=== PATIENT | male | born 1940 | race Caucasian/White ===

== ENCOUNTER 2018-04-29 10:50 | Outpatient (CLI) | payer MEDICARE ==
--- NOTE | 2018-04-29 12:50 | RAD ---
CHEST 2 VIEWS: HISTORY: Dyspnea. COMPARISON: 11/26/15. FINDINGS: Cardiac silhouette and pulmonary vasculature are unremarkable. Mediastinum is midline. Chronic inte rstitial prominence at the right posterior lung base is stable. No confluent airspace consolidation, pneumothorax, or pleural fluid. Bilateral shoulder prostheses partially visualized. IMPRESSION: Chronic-type findings are stable. POS: EARLINE
== END 2018-04-29 10:51 | disposition home or self-care (01) ==
LOC: RAD 10:50
PROVIDERS: ATTEND Internal Medicine
DX: R06.00 Dyspnea, unspecified (principal)
CPT/HCPCS: 71046

== ENCOUNTER 2018-06-30 08:50 | Outpatient (CLI) | payer MEDICARE | END 2018-06-30 08:51 | disposition home or self-care (01) | LOC: CP 08:50 | PROVIDERS: ATTEND Internal Medicine | DX: R06.09 Other forms of dyspnea (principal) | CPT/HCPCS: 94060; 94727; 94729 ==

== ENCOUNTER 2018-08-12 10:04 | Day surgery (SDC) | payer MEDICARE ==
[2018-08-12] MEDS ORDERED: PROPOFOL 20 ML ONE (11:21)
[2018-08-12] MEDS ORDERED: PROPOFOL 200 MG/20 ML VIAL ONE (11:49)
--- NOTE | 2018-08-23 23:16 | OP ---
PREPROCEDURE DIAGNOSIS: Atrial fibrillation. POSTPROCEDURE DIAGNOSIS: Sinus rhythm. PROCEDURE: Synchronized cardioversion Patient was sedated with propofol. Anesthesia was present during the procedure. Patient had a synch ronous cardioversion times one at 150 joules successfully IMPRESSION: Successful synchronized cardioversion.
== END 2018-08-12 12:45 | disposition home or self-care (01) ==
LOC: CCL 10:04
PROVIDERS: ATTEND Internal Medicine Cardiovascular Disease
PROC: 5A2204Z Restoration of Cardiac Rhythm, Single (ICD-10-PCS; principal; 2018-08-12)
DX: I48.0 Paroxysmal atrial fibrillation (principal); I11.0 Hypertensive heart disease with heart failure; I50.30 Unspecified diastolic (congestive) heart failure; M19.90 Unspecified osteoarthritis, unspecified site; E66.9 Obesity, unspecified; Z68.37 Body mass index [BMI] 37.0-37.9, adult; Z79.01 Long term (current) use of anticoagulants; Z79.82 Long term (current) use of aspirin; Z79.899 Other long term (current) drug therapy
CPT/HCPCS: 92960; 93005; 93010; J2704

== ENCOUNTER 2018-09-19 12:23 | Observation (INO) | payer MEDICARE ==
[2018-09-19 13:49] LABS: #Basophils 0.1 thou/uL (0.0-0.2); #Eosinphils 0.2 thou/uL (0.0-0.7); #Lymphocytes 1.7 thou/uL (1.20-3.40); #Monocytes 1.2 thou/uL (0.11-0.59); #Neutrophils 5.5 thou/uL (1.40-6.50); %Basophils 0.6 % (0.0-1.0); %Eosinophils 2.2 % (0.0-10.0); %Lymphocytes 19.7 % (21.0-51.0); %Monocytes 14.1 % (0.0-10.0); %Neutrophils 63.4 % (42.0-75.0); Hemoglobin 9.1 g/dL (14.0-18.0); Mean Corpuscular HGB CONC 29.9 g/dL (32.0-36.0); Mean Corpuscular Hemoglobin 25.4 pg (27.0-31.0); Mean Corpuscular Volume 84.7 fL (78.0-98.0); Mean Platelet Volume 6.7 fL (7.4-10.4); Platelet Count 389 thou/uL (130-400); RBC Distribution Width 18.1 % (11.5-14.5); Red Blood Cell (RBC) Count 3.58 mill/uL (4.70-6.10); White Blood Cell (WBC) Count 8.7 thou/uL (4.8-10.8)
[2018-09-19 13:52] LABS: INR-International Normal Ratio 1.5; PTT 34.2 SEC (22.9-36.1); Prothrombin Time 18.3 SEC (12.0-14.7)
[2018-09-19] MEDS ORDERED: PROPOFOL 0 ML ONE (13:59)
[2018-09-19 14:06] LABS: Anion Gap 14 mmol/L (10-20); BUN (Urea Nitrogen) 49 mg/dL (8.4-25.7); Calc. Creatinine Clearance 0 mL/min (70-130); Calcium 9.1 mg/dL (7.8-10.44); Carbon Dioxide 30 mmol/L (23-31); Chloride 102 mmol/L (98-107); Estimated GFR-MDRD 46; Glucose 98 mg/dL (83-110); Sodium 143 mmol/L (136-145)
[2018-09-19 14:11] LABS: Potassium 2.5 mmol/L (3.5-5.1)
[2018-09-19 14:12] LABS: Anisocytosis SLIGHT = 6-15 cells (100X) (0-5/hpf); Hypochromia SLIGHT = 6-15 cells (100X) (0-5/hpf); MDiff Complete? YES; PLT Morphology Comment Appears Adequate; Polychromasia SLIGHT = 2-3 cells (100X) (0-2/hpf)
[2018-09-19] MEDS ORDERED: Potassium Chloride 20 MEQ in Premix Bag 1 BAG IVPB SCH ×2 (14:30→15:30)
[2018-09-19] MEDS ORDERED: Potassium Chloride 20 MEQ TAB PO SCH (14:30)
[2018-09-19 17:02] LABS: Potassium 2.4 mmol/L (3.5-5.1)
[2018-09-19 18:38] VITALS: BMI 37.9
[2018-09-19] MEDS ORDERED: Nitroglycerin 4.9 GM Bottle SL PRN (19:16)
[2018-09-19] MEDS ORDERED: traMADol HCl 50 MG TAB PO PRN (19:20)
[2018-09-19] MEDS ORDERED: Temazepam 15 MG CAP PO SCH (21:00)
[2018-09-19] MEDS ORDERED: Gabapentin 300 MG CAP PO SCH (21:00)
[2018-09-19] MEDS ORDERED: Atorvastatin Calcium 20 MG TAB PO SCH (21:00)
[2018-09-19] MEDS: Acetaminophen ER (8hr) 650 MG TAB PO SCH (21:36)
[2018-09-19] MEDS: Apixaban 5 MG TAB PO SCH (21:36)
[2018-09-19] MEDS ORDERED: Senokot S 8.6-50 MG TAB PO PRN (23:42)
[2018-09-19] MEDS ORDERED: Bisacodyl 5 MG TAB PO PRN (23:42)
[2018-09-19] MEDS ORDERED: Ondansetron ODT 4 MG TAB PO PRN (23:42)
[2018-09-19] MEDS ORDERED: Ondansetron PF 4 MG/2 ML Vial IVP PRN (23:42)
[2018-09-19] MEDS ORDERED: Acetaminophen 325 MG TAB PO PRN (23:42)
--- NOTE | 2018-09-20 00:27 | CON ---
DATE OF CONSULTATION: 09/19/2018 HISTORY OF PRESENT ILLNESS: Mr. Valladares is a 77-year-old white male who was seen at the renal clinic l ast week for an acute kidney injury. At that time, we felt that this was a hemodynamically mediated renal dysfunction secondary to his congestive heart failure. Today, he was supposed to undergo a car dioversion with eventual cardiac ablation therapy by Dr. David. During the initial evaluation, he was noted to be hypokalemic. Potassium was reported initially at 2.5. I saw him in clinic a week ago, at that time, his potassium was 2.8. At that time, we felt this was related to his diuretics. At [facility], he was taking potassium chloride 20 mEq 3 tablets daily. He is currently also on furosemide as w ell as on metolazone 5 mg p.o. daily. This increased dose of metolazone may have aggravated his hypokalemia. He has been advised on increased potassium diet. This was discussed with him and his daughter. We a re now being consulted for further evaluation of his acute kidney injury and low potassium. Please n artemio, when I saw him last 09/08, his potassium was noted at 1.58 and is currently at 1.47. REVIEW OF SYSTEMS: No chest pain. Positive for intermittent shortness of breath. No nausea, no vom iting, no diarrhea. Occasional palpitations. No syncopal episode, no gross hematuria, no dysuria, n o urinary frequency, no syncopal episode, no headache. Appetite and energy level is fair. HOME MEDICATIONS: Includes the following metolazone 5 mg p.o. daily, acetaminophen 2 tabs p.o. b.i.d ., atorvastatin 20 mg tab at bedtime, aspirin 81 mg daily, potassium chloride 20 mEq 3 tabs every day , furosemide 40 mg twice a day, temazepam 15 mg at bedtime, Protonix 40 mg at bedtime p.r.n., tramado l, nitroglycerin p.r.n., gabapentin 300 mg at bedtime. PAST MEDICAL HISTORY: Congestive heart failure, status post acute kidney injury, coronary artery dis ease, history of valvular heart disease, chronic atrial fibrillation, chronic history of NSAIDs, hype rtension, hyperlipidemia, DJD, peptic ulcer disease, chronic leg swelling. PAST SURGICAL HISTORY: 1. Status post upper and lower GI endoscopy, status post leg vein surgery, status post cardiac zandra terization with coronary artery stent placement. 2. Status post cataract surgery in both eyes. 3. Status post right knee replacement. 4. Status post bilateral shoulder joint surgery. 5. Status post umbilical hernia repair. 6. Status post laparoscopic cholecystectomy. SOCIAL HISTORY: Patient is and lives in [place], has 4 children. 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 Alcohol mixed drink e very night. No IV drug abuse. No blood transfusion. Education, high school. FAMILY HISTORY: No family history of ESRD. ALLERGIES: None. TRAUMA: None. HOSPITALIZATIONS: Please see past medical history. IMMUNIZATIONS: Up to date. PHYSICAL EXAMINATION: VITAL SIGNS: Blood pressure is 141/53 with a heart rate of 63, respiratory rate 12. GENERAL: Awake, alert, comfortable, not in overt distress, obese. SKIN: Adequate turgor. HEENT: He has pinkish conjunctivae, anicteric sclerae. NECK: No neck mass, no carotid bruits, no JVD. CHEST: No deformities. LUNGS: Clear breath sounds. No wheezing, no crackles. HEART: Normal sinus rhythm. No murmur, no gallops, no rubs. ABDOMEN: Globular, soft, nontender. No masses. EXTREMITIES: Positive for edema, but no deformities. NEUROLOGIC: Awake, oriented to 3 spheres. Moving all extremities. No tremors. No asterixis. LABORATORY DATA: On 09/19/2018, hemoglobin 9.1, hematocrit 30.3, white count 8.7. INR 1.5, sodium 1 43, potassium 2.5, chloride is 102, carbon dioxide 30, BUN 49, creatinine 1.47, calcium 9.1, magnesiu m is 2.2. ASSESSMENT AND PLAN: Hypokalemia, currently undergoing potassium replacement via IV and p.o. Laila ium was reported to be within normal at 2.2. The plan is to recheck another base met with this patie nt at midnight and to continue to replace potassium as needed. Initially, we thought that the hypoka lemia was related to his increased diuretics. He has been taking significant amounts of furosemide a s well as metolazone. If hypokalemia remains unresolved, we may need to do a second re-workup for hi s hypokalemia. I have not excluded in considering starting him on spironolactone in the near future. On imaging of the adrenal glands would be most appropriate after we do a plasma renin, plasma aldos terone for this patient. Thank you for the consult. We will continue to follow.
[2018-09-20 00:39] LABS: Anion Gap 13 mmol/L (10-20); BUN (Urea Nitrogen) 45 mg/dL (8.4-25.7); Calc. Creatinine Clearance 69 mL/min (70-130); Calcium 8.7 mg/dL (7.8-10.44); Carbon Dioxide 29 mmol/L (23-31); Chloride 103 mmol/L (98-107); Estimated GFR-MDRD 44; Glucose 97 mg/dL (83-110); Sodium 142 mmol/L (136-145)
[2018-09-20 00:41] LABS: Potassium 2.9 mmol/L (3.5-5.1)
[2018-09-20] MEDS ORDERED: Potassium Chloride 40 MEQ in Sodium Chloride 0.9% 250 ML 250 ML IVPB SCH (01:30)
[2018-09-20 06:27] LABS: Anion Gap 12 mmol/L (10-20); BUN (Urea Nitrogen) 43 mg/dL (8.4-25.7); Calc. Creatinine Clearance 74 mL/min (70-130); Calcium 8.7 mg/dL (7.8-10.44); Carbon Dioxide 28 mmol/L (23-31); Chloride 104 mmol/L (98-107); Estimated GFR-MDRD 48; Glucose 94 mg/dL (83-110); Sodium 141 mmol/L (136-145)
[2018-09-20 06:40] LABS: Eosinophils 6 % (0-10); Hemoglobin 8.6 g/dL (14.0-18.0); Lymphocytes 32 % (21-51); MDiff Complete? YES; Mean Corpuscular HGB CONC 30.1 g/dL (32.0-36.0); Mean Corpuscular Hemoglobin 25.7 pg (27.0-31.0); Mean Corpuscular Volume 85.3 fL (78.0-98.0); Mean Platelet Volume 6.8 fL (7.4-10.4); Monocytes 12 % (0-10); Neutrophil 48 % (42-75); PLT Morphology Comment Appears Adequate; Platelet Count 377 thou/uL (130-400); RBC Distribution Width 18.4 % (11.5-14.5); Red Blood Cell (RBC) Count 3.33 mill/uL (4.70-6.10); White Blood Cell (WBC) Count 6.5 thou/uL (4.8-10.8)
--- NOTE | 2018-09-20 08:12 | PRG ---
DATE OF SERVICE: 09/20/2018 SUBJECTIVE: Mr. Valladares is a 77-year-old white male being followed up for his chronic renal failure th at is hemodynamically mediated renal dysfunction, as well as hypokalemia. The patient was supposed t o undergo cardioversion yesterday, but was noted to be significantly hypokalemic. Repeat potassium t carli done chief operator synthesis showed a value of 3.0. Currently on KCl 40 mEq is running with the patient. A repeat base has again been ordered for this patient at 10:30 a.m. No other complaints, no chest p ain or shortness of breath. Occasional leg edema. OBJECTIVE: VITAL SIGNS: Blood pressure 114/57, heart rate 58, respiratory rate 15, temperature 97.7, pulse ox 9 6%. GENERAL: Noted to be awake, alert, comfortable, not in distress. SKIN: Adequate turgor. HEENT: Pinkish conjunctivae, anicteric sclerae. NECK: No neck mass, no carotid bruits, no JVD. CHEST: No deformities. LUNGS: Clear breath sounds. HEART: Normal sinus rhythm. No murmur, no gallops, no rubs. ABDOMEN: Globular, soft, nontender, no masses. EXTREMITIES: Trace edema, but no deformities. MEDICATIONS: 09/20/2018 - Reviewed. LABORATORY DATA: 09/20/2018 - Sodium 141, potassium 3, chloride 104, carbon dioxide 28, BUN 43, crea tinine 1.41, glucose 94, calcium 8.7. ASSESSMENT AND PLAN: 1. Hypokalemia, slightly improved potassium from 2.4 to a most recent value of 3.0. He is still rec eiving his current IV potassium at 40 mEq and will run over 2 hours. We will repeat a base met after the said infusion. Adjust potassium supplementation as needed. 2. Chronic renal failure/acute kidney injury - hemodynamically mediated renal dysfunction secondary to his diuretics. Please note he is receiving diuretics due to his congestive heart failure. 3. Congestive heart failure, currently asymptomatic. 4. Chronic atrial fibrillation - for a planned cardioversion. As per Cardiology a planned ablation therapy in the near future is being entertained.
[2018-09-20] MEDS: Furosemide 40 MG TAB PO SCH ×2 (09:00→09:05)
[2018-09-20] MEDS: Metolazone 5 MG TAB PO SCH ×2 (09:00→09:04)
[2018-09-20] MEDS ORDERED: Prevnar 13-Val Conj/PF 0.5 ML SYRINGE IM ONE (09:00)
[2018-09-20] MEDS ORDERED: Potassium Chloride 20 MEQ TAB PO SCH ×2 (09:00→17:00)
[2018-09-20] MEDS: Apixaban 5 MG TAB PO SCH (09:04)
[2018-09-20] MEDS: Aspirin 81 mg Enteric Coated Tablet PO SCH ×2 (09:04→14:51)
[2018-09-20] MEDS: Amiodarone 200 MG TAB PO SCH ×2 (09:04→14:50)
[2018-09-20] MEDS: Acetaminophen ER (8hr) 650 MG TAB PO SCH (09:04)
--- NOTE | 2018-09-20 10:33 | CON ---
DATE OF CONSULTATION: 09/20/2018 REASON FOR CONSULTATION: Medical management. HISTORY OF PRESENT ILLNESS: This is a 77-year-old male with past medical history of congestive heart failure, status post acute kidney injury, coronary artery disease, history of valvular heart disease , chronic atrial fibrillation, chronic history of NSAIDs, hypertension, hyperlipidemia, peptic ulcer disease, chronic bilateral lower extremity edema, presenting with history of atrial fibrillation. At this point, we have been consulted to medically manage the patient since the patient's potassium has been low. The patient is scheduled to have a cardioversion done with Dr. David; however, because the patient's potassium has been very low, the procedure has not been done yet. Of note, patient recent ly was started on metolazone and aggressive diuresis and this must have caused the patient's hypokale randy. The patient sees Dr. Ramirez in the outpatient setting. REVIEW OF SYSTEMS: All systems are reviewed and are negative. HOME MEDICATIONS: Patient takes metolazone 5 mg, acetaminophen b.i.d., atorvastatin 20 mg, aspirin 8 1 mg, potassium chloride 20 mEq t.i.d., furosemide 40 mg b.i.d., temazepam 50 mg at bedtime, Protonix 40 mg, tramadol, nitroglycerin p.r.n., gabapentin 300 mg. PAST MEDICAL HISTORY: Congestive heart failure, status post acute kidney injury, coronary artery dis ease, history of valvular heart disease, chronic atrial fibrillation, chronic history of NSAID use, h ypertension, hyperlipidemia, DJD, peptic ulcer disease, chronic leg swelling. PAST SURGICAL HISTORY: 1. Status post upper and lower GI endoscopy. 2. Status post leg vein surgery. 3. Status post cardiac catheterization with coronary artery stent placement 4. Status post cataract surgery in the past. 5. Status post right knee replacement. 6. Status post bilateral shoulder joint surgery. 7. Status post umbilical hernia repair. 8. Status post laparoscopic cholecystectomy. SOCIAL HISTORY: Patient lives at home, patient smoked 1 to 1/2 a pack a day for 15 years. Patient i s an occasional drinker. The patient denies any illicit drug use. FAMILY HISTORY: Reviewed and noncontributory to this visit. ALLERGIES: No known drug allergies. PHYSICAL EXAMINATION: VITAL SIGNS: Blood pressure is 141/53, heart rate of 63, respiratory rate of 12. GENERAL: Patient is awake, alert, oriented x3, not in acute distress. The patient has a BiPAP machi ne on. HEENT: Normocephalic, atraumatic. Pupils are equally round and reactive to light. Extraocular move ments are intact. No scleral icterus. NECK: Supple, full range of motion. Trachea is midline. No JVD. LUNGS: Clear to auscultation bilaterally. No wheezing, no rales, no rhonchi is appreciated. CARDIOVASCULAR: Positive S1 and S2, regular rate and rhythm. No murmurs, no gallops, no rubs apprec iated. ABDOMEN: Obese abdomen, soft, nontender, nondistended. No palpable masses noted. EXTREMITIES: The patient has bilateral lower extremity edema, about 3+ edema. The patient is able t o elevate lower extremities bilaterally on command. The patient is also able to elevate both arms bi laterally without any difficulties. The patient has good strength at the upper extremities and good pulses. Patient does have good lower extremity pulses at the dorsalis pedis. NEUROLOGIC: Cranial nerves II-XII grossly intact. No neurologic deficits noted. LABORATORY DATA: WBC is 8.7, hemoglobin is 9.1, hematocrit is 30.3, platelet count is 389. PT is 18 .3, INR is 1.5, PTT is 34.2. Sodium 143, potassium is 2.5, chloride is 102, bicarbonate is 30, anion gap of 14, BUN is 49, creatinine is 1.47. ASSESSMENT AND PLAN: This is a 77-year-old male we have been consulted to manage. 1. Hypokalemia. At this point, we started the patient on . We will continue and we will monitor patient's BMP every 6 hours and we will follow up for the potassium specifically. 2. History of atrial fibrillation, requiring cardioversion. At this point, patient's electrolytes a re all stable. We will medically manage the patient and optimize the patient for possible cardiovers ion by Dr. David. 3. We will continue patient on his home medications that are needed, but at this point, the patient is n.p.o. We will continue the patient on the current management. 4. Deep venous thrombosis and gastrointestinal prophylaxis.
[2018-09-20 11:13] LABS: Potassium 3.1 mmol/L (3.5-5.1)
[2018-09-20 11:48] VITALS: BP 119/58; TEMP 98.5
--- NOTE | 2018-09-21 01:34 | DIS ---
DATE OF DISCHARGE: 09/20/2018 ADMISSION DIAGNOSES: 1. Atrial arrhythmias. A. Status post pulmonary venous isolation procedure couple of months ago. B. Recurrence of atrial fibrillation requiring continued amiodarone use and plan for cardioversion. 3. Marked hyperkalemia in the setting of diuretic use. 4. Chronic diastolic heart failure. HOSPITAL COURSE: Mr. Valladares came into the hospital for an elective procedure for cardioversion. Potassium was found to be 2.5 hence was admitted. He received 40 mEq of IV KCl and 60mEq PO KDUR. Dr. Ramirez has been following the patient, plan to repeat blood work is ready for tomorrow. Otherwise, the patient remained stable. His rhythm stabilized overnight and continues in sinus rhythm. On discharge, he is advised to continue amiodarone as before, continue some nitroglycerin, Lipitor, aspirin, potassium 20 mEq twice a day, Eliquis 5 mg twice a day as before, Tylenol, temazepam, pantoprazole, furosemide, gabapentin , tramadol, and metolazone. He is requested to follow up with Dr. Ramirez and for adjustments of potassium levels. He will see us back in about 6 weeks for further treatment options. MASOUD
--- NOTE | 2018-09-25 21:25 | EKG ---
Test Reason : PREOP CARDIOVERSION Blood Pressure : / mmHG Vent. Rate : 064 BPM Atrial Rate : 064 BPM P-R Int : 252 ms QRS Dur : 134 ms QT Int : 422 ms P-R-T Axes : 020 -43 076 degrees QTc Int : 435 ms Atrial fibrillation Left axis deviation Non-specific intra-ventricular conduction block Nonspecific T wave abnormality Abnormal ECG When compared with ECG of 12-AUG-2018 11:51, (Unconfirmed) T wave inversion no longer evident in Inferior leads Nonspecific T wave abnormality, worse in Lateral leads QT has shortened Confirmed by KATARINA BLANCO (2) on 09/25/2018 9:24:55 PM Referred By: KANE Confirmed By:KATARINA BLANCO
--- NOTE | 2018-09-25 21:27 | EKG ---
Test Reason : PREOP REPEAT Blood Pressure : / mmHG Vent. Rate : 063 BPM Atrial Rate : 073 BPM P-R Int : 000 ms QRS Dur : 140 ms QT Int : 390 ms P-R-T Axes : 000 -38 087 degrees QTc Int : 399 ms Atrial fibrillation with a competing junctional pacemaker Left axis deviation Non-specific intra-ventricular conduction block Abnormal ECG Confirmed by KATARINA BLANCO (2) on 09/25/2018 9:26:42 PM Referred By: KANE Confirmed By:KATARINA BLANCO
--- NOTE | 2018-09-25 21:59 | EKG ---
Test Reason : Blood Pressure : / mmHG Vent. Rate : 059 BPM Atrial Rate : 054 BPM P-R Int : 000 ms QRS Dur : 126 ms QT Int : 540 ms P-R-T Axes : 000 -32 004 degrees QTc Int : 534 ms Atrial fibrillation with slow ventricular response Left axis deviation Non-specific intra-ventricular conduction block Abnormal ECG No previous ECGs available Confirmed by KATARINA BLANCO (2) on 09/25/2018 9:59:06 PM Referred By: RASHAUN Confirmed By:KATARINA BLANCO
== END 2018-09-20 15:45 | disposition home or self-care (01) ==
LOC: SDC 12:23 → 2SW 18:20
PROVIDERS: ADMIT Internal Medicine Cardiovascular Disease; ATTEND Internal Medicine Cardiovascular Disease
DX: E87.6 Hypokalemia (principal); I48.2 Chronic atrial fibrillation; I13.0 Hypertensive heart and chronic kidney disease with heart failure and stage 1 through stage 4 chronic kidney disease, or unspecified chronic kidney disease; N18.9 Chronic kidney disease, unspecified; I50.32 Chronic diastolic (congestive) heart failure; M19.90 Unspecified osteoarthritis, unspecified site; G47.30 Sleep apnea, unspecified; I25.10 Atherosclerotic heart disease of native coronary artery without angina pectoris; E78.5 Hyperlipidemia, unspecified; E66.01 Morbid (severe) obesity due to excess calories; Z68.38 Body mass index [BMI] 38.0-38.9, adult; Z87.891 Personal history of nicotine dependence; Z79.01 Long term (current) use of anticoagulants; Z79.82 Long term (current) use of aspirin; Z79.899 Other long term (current) drug therapy; Z98.890 Other specified postprocedural states; Z53.8 Procedure and treatment not carried out for other reasons
CPT/HCPCS: 80048 ×2; 83735; 84132 ×2; 85025 ×2; 85610; 85730; 93005 ×3; 96365; 96366 ×2; G0378; 36415; 93010; J2704; J3480; J7050

== ENCOUNTER 2019-06-30 14:49 | Emergency (ER) | payer MEDICARE, OTHER ==
[2019-06-30 15:33] LABS: Bilirubin Negative (Negative); Blood, Urine Negative (Negative); Clarity Clear (Clear); Glucose, Urine (Dipstick) Normal (Negative); Leukocyte Negative Leu/uL (Negative); Nitrite Negative (Negative); Protein, Urine (Dipstick) Negative (Neg-Trace); Urobilinogen Normal mg/dL (Less than 2)
[2019-06-30 15:48] LABS: Hemoglobin 10.3 g/dL (14.0-18.0); Mean Corpuscular HGB CONC 30.9 g/dL (32.0-36.0); Mean Corpuscular Hemoglobin 29.1 pg (27.0-31.0); Mean Corpuscular Volume 94.2 fL (78.0-98.0); Mean Platelet Volume 6.3 fL (7.4-10.4); Platelet Count 366 thou/uL (130-400); RBC Distribution Width 14.6 % (11.5-14.5); Red Blood Cell (RBC) Count 3.54 mill/uL (4.70-6.10); White Blood Cell (WBC) Count 9.8 thou/uL (4.8-10.8)
[2019-06-30 16:03] LABS: Eosinophils 5 % (0-10); Hypochromia SLIGHT = 6-15 cells (100X) (0-5/hpf); Lymphocytes 9 % (21-51); MDiff Complete? YES; Monocytes 14 % (0-10); Neutrophil 70 % (42-75); Ovalocytes SLIGHT = 2-5 cells (100X) (0-1/hpf); Platelet Morphology Comment Appears Adequate; Polychromasia SLIGHT = 2-3 cells (100X) (0-2/hpf); Reactive Lymphocytes 1 % (0-10)
[2019-06-30 16:05] LABS: ALT (SGPT) 10 U/L (8-55); AST (SGOT) 14 U/L (5-34); Albumin 3.8 g/dL (3.4-4.8); Alkaline Phosphatase 108 U/L (40-150); Anion Gap 15 mmol/L (10-20); BUN (Urea Nitrogen) 39 mg/dL (8.4-25.7); Bilirubin, Total 0.7 mg/dL (0.2-1.2); Calc. Creatinine Clearance 0 mL/min (70-130); Calcium 9.2 mg/dL (7.8-10.44); Carbon Dioxide 26 mmol/L (23-31); Chloride 103 mmol/L (98-107); Estimated GFR-MDRD 37; Globulin 2.8 g/dL (2.4-3.5); Glucose 106 mg/dL (83-110); Lipase 16 U/L (8-78); Potassium 4.6 mmol/L (3.5-5.1); Protein, Total 6.6 g/dL (5.8-8.1); Sodium 139 mmol/L (136-145)
--- NOTE | 2019-06-30 16:26 | RAD ---
EXAM: Chest one view: HISTORY: Dyspnea COMPARISON: 04/29/2018 FINDINGS: Bilateral shoulder total replacement changes. Heart size: Within normal limits. Lungs: Clear of acute process. No evidence for pneumonia, pleural effusion, acute edema, or pneumothorax, or other significant acute process. IMPRESSION: No significant acute intrathoracic disease.
[2019-06-30] MEDS ORDERED: Morphine 4 MG/ML VIAL ONE (17:42)
--- NOTE | 2019-06-30 18:01 | CT ---
CT THORACIC SPINE WITH CORONAL AND SAGITTAL REFORMATIONS CT LUMBAR SPINE WITH CORONAL AND SAGITTAL REFORMATIONS: 06/30/19 HISTORY: Back pain, low back pain. FINDINGS/IMPRESSION: Multilevel degenerative changes are seen in the thoracolumbar spine. No fracture or subluxation is seen in the thoracic spine. No fracture is noted in the lumbar spine. There is grade I anterolisthesis of L4 over L5 and L5 over S1 vertebral bodies. There are broad based disc bulges at L4-5 and L5-S1 levels causing bilateral clark ral foraminal stenosis, right greater than left at these levels. There is central canal stenosis at L 4-5 and L5-S1 levels. POS: ARVIND
== END 2019-06-30 18:50 | disposition home or self-care (01) ==
LOC: ERS 14:49
DX: M51.26 Other intervertebral disc displacement, lumbar region (principal); I48.91 Unspecified atrial fibrillation; I25.10 Atherosclerotic heart disease of native coronary artery without angina pectoris; I10 Essential (primary) hypertension; Z79.899 Other long term (current) drug therapy; Z79.82 Long term (current) use of aspirin
CPT/HCPCS: 71045; 72128; 72131; 80053; 81003; 83690; 83880; 84484; 85025; 93005; 96374; J2270

== ENCOUNTER 2019-07-25 07:00 | Outpatient (CLI) | payer MEDICARE, OTHER ==
[2019-07-25 15:42] LABS: Hemoglobin 11.2 g/dL (14.0-18.0); Mean Corpuscular HGB CONC 31.8 g/dL (32.0-36.0); Mean Corpuscular Hemoglobin 29.8 pg (27.0-31.0); Mean Corpuscular Volume 93.8 fL (78.0-98.0); Mean Platelet Volume 6.8 fL (7.4-10.4); Platelet Count 348 thou/uL (130-400); RBC Distribution Width 14.1 % (11.5-14.5); Red Blood Cell (RBC) Count 3.75 mill/uL (4.70-6.10); White Blood Cell (WBC) Count 11.7 thou/uL (4.8-10.8)
[2019-07-25 15:49] LABS: INR-International Normal Ratio 1.2; PTT 31.3 SEC (22.9-36.1)
[2019-07-25 15:59] LABS: Anion Gap 12 mmol/L (10-20); BUN (Urea Nitrogen) 26 mg/dL (8.4-25.7); Calc. Creatinine Clearance 0 mL/min (70-130); Carbon Dioxide 24 mmol/L (23-31); Chloride 104 mmol/L (98-107); Estimated GFR-MDRD 45; Potassium 4.1 mmol/L (3.5-5.1); Sodium 136 mmol/L (136-145)
[2019-07-25 16:00] LABS: Calcium 8.5 mg/dL (7.8-10.44); Glucose 81 mg/dL (83-110)
== END 2019-07-25 07:01 | disposition home or self-care (01) ==
LOC: LABBT 07:00
PROVIDERS: ATTEND Internal Medicine Cardiovascular Disease
DX: Z01.818 Encounter for other preprocedural examination (principal); I48.91 Unspecified atrial fibrillation
CPT/HCPCS: 80048; 85027; 85610; 85730; 93005; 93010

== ENCOUNTER 2019-07-26 09:43 | Day surgery (SDC) | payer MEDICARE, OTHER ==
[2019-07-25 15:08] VITALS: BMI 40.6
[2019-07-26] MEDS ORDERED: PROPOFOL 40 ML ONE (11:29)
--- NOTE | 2019-07-26 17:36 | OP ---
DATE OF PROCEDURE: 07/26/2019 PROCEDURE PERFORMED: Cardioversion. REASON FOR PROCEDURE: Mr. Valladares is an 78-year-old male with history of persistent atrial fibrillation post pulmonary venous isolation procedure in May 2019. He has had a Watchman device placed in June. Here after a CORBY, he demonstrates no intracardiac clots, but a suboptimal closure of the left atrial appendage is noted. He continues on oral anticoagulation. Cardioversion is performed. DESCRIPTION OF PROCEDURE: The patient received propofol by Anesthesia specialist. After adequate level of sedation achieved, a synchronized 200-joule shock promptly converted the patient back to sinus rhythm. CONCLUSION: Successful cardioversion. PLAN: Continue amiodarone at the current 200 mg dose. Continue oral anticoagulation as well. Possible coil closure of shar-watcman leakin the future. Job ID: [id number] [facility]
--- NOTE | 2019-07-26 20:09 | ECHO ---
DATE: 07/26/19 REFERRING PHYSICIAN: Dr. Jeronimo Regan and Dr. Radames Becerril REASON FOR PROCEDURE: The patient is status post ------- procedure in May 2019 and subsequent Watchman device placement in June 2019. Here for six weeks post Watchman device placement CORBY. PROCEDURE: The patient received propofol by Anesthesia specialist. After adequate level of sedation achieved, a standard transesophageal echocardiogram probe was passed into the esophagus without diff iculty. Patient tolerated the procedure well, no complications noted. RESULTS: Left atrium is moderate to severely enlarged about 5.9 cm in horizontal diameter. The left atrial ap pendage well visualized contains an adequately positioned Watchman device. There is significant echo lucency noted behind the Watchman device in the left atrial appendage area. Color Doppler interrogati on revealed two separate flows, one by the pulmonary vein, one more closer to the aortic valve area w ith up to 0.4 cm diameter measured. The left ventricular systolic function is mildly depressed. The m itral valve has mild regurgitation. The aortic valve has moderate regurgitation. Mild aortic stenosis is noted. The interatrial septum is free of defect. The ----function is not well visualized. The tri cuspid valve has mild regurgitation. Pericardial space has a small hemodynamic not significant effusi on. The pulmonary valve is not well visualized. The visualized portion of ascending and descending a norma without aneurysm or dissection. Minor adherent atheroma seen on the descending aorta. CONCLUSION: 1. Adequately positioned Watchman device but with at least two residual flow detected up to 0.4 cm d iameter. Suboptimal opacification is seen posterior to the Watchman device. 2. Near normal LV systolic function. 3. Left atrial enlargement. 4. Mild to moderate mitral, moderate aortic, mild tricuspid regurgitation. 5. Small pericardial effusion without hemodynamic significance. 6. Severe left atrial enlargement. PLAN: Continue oral anticoagulation. We will discuss possibility of coil closure and proceed with cardiover mackenzie.
== END 2019-07-26 12:56 | disposition home or self-care (01) ==
LOC: CCL 09:43
PROVIDERS: ATTEND Internal Medicine Cardiovascular Disease
PROC: B24BZZ4 Ultrasonography of Heart with Aorta, Transesophageal (ICD-10-PCS; principal; 2019-07-26)
PROC: 5A2204Z Restoration of Cardiac Rhythm, Single (ICD-10-PCS; 2019-07-26)
DX: I48.1 Persistent atrial fibrillation (principal); G47.33 Obstructive sleep apnea (adult) (pediatric); I10 Essential (primary) hypertension; I08.3 Combined rheumatic disorders of mitral, aortic and tricuspid valves; M19.90 Unspecified osteoarthritis, unspecified site; I25.10 Atherosclerotic heart disease of native coronary artery without angina pectoris; E66.01 Morbid (severe) obesity due to excess calories; Z68.41 Body mass index [BMI] 40.0-44.9, adult; Z79.01 Long term (current) use of anticoagulants; Z79.82 Long term (current) use of aspirin; Z79.899 Other long term (current) drug therapy; Z87.891 Personal history of nicotine dependence; Z95.5 Presence of coronary angioplasty implant and graft; Z95.818 Presence of other cardiac implants and grafts; Z99.89 Dependence on other enabling machines and devices; Z98.890 Other specified postprocedural states
CPT/HCPCS: 93005; 93010; 93312; J2704

== ENCOUNTER → 2019-09-20 | Day surgery (SDC) | payer MEDICARE, OTHER ==
[2019-09-19 13:18] VITALS: BMI 36.9
[~2019-09-20] MED LIST: PROPOFOL 20 ML ONE
[2019-09-20 10:54] LABS: #Basophils 0.1 thou/uL (0.0-0.2); #Eosinphils 0.2 thou/uL (0.0-0.7); #Monocytes 1.3 thou/uL (0.11-0.59); %Basophils 0.6 % (0.0-1.0); %Eosinophils 2.3 % (0.0-10.0); %Lymphocytes 20.5 % (21.0-51.0); %Neutrophils 62.5 % (42.0-75.0); Hemoglobin 14.7 g/dL (14.0-18.0); Mean Corpuscular HGB CONC 31.3 g/dL (32.0-36.0); Mean Corpuscular Hemoglobin 30.2 pg (27.0-31.0); Mean Corpuscular Volume 96.6 fL (78.0-98.0); Mean Platelet Volume 7.4 fL (7.4-10.4); Platelet Count 289 thou/uL (130-400); RBC Distribution Width 16.1 % (11.5-14.5); Red Blood Cell (RBC) Count 4.87 mill/uL (4.70-6.10); White Blood Cell (WBC) Count 9.5 thou/uL (4.8-10.8)
[2019-09-20 11:03] LABS: INR-International Normal Ratio 1.1; PTT 33.7 SEC (22.9-36.1); Prothrombin Time 14.3 SEC (12.0-14.7)
[2019-09-20 11:17] LABS: Anion Gap 15 mmol/L (10-20); BUN (Urea Nitrogen) 43 mg/dL (8.4-25.7); Calc. Creatinine Clearance 60 mL/min (70-130); Calcium 8.9 mg/dL (7.8-10.44); Carbon Dioxide 25 mmol/L (23-31); Chloride 103 mmol/L (98-107); Estimated GFR-MDRD 40; Glucose 96 mg/dL (83-110); Potassium 4.2 mmol/L (3.5-5.1); Sodium 139 mmol/L (136-145)
--- NOTE | 2019-09-20 19:00 | ECHO ---
DATE OF SERVICE: 09/20/19 REFERRING PHYSICIAN: Dr. Jeronimo Regan REASON FOR PROCEDURE: The patient is an 78-year-old man with prior history of paroxysmal atrial fibrillation, prior ablatio n with recurrent atrial arrhythmias and a Watchman device placement in May. Prior CORBY July 26 which demonstrated residual leak, now here for additional eight weeks to evaluate for persistence of that leak or adequate sealing of the left atrial appendage. PROCEDURE: The patient received propofol by Anesthesia specialist. After adequate level of sedation achieved, a standard transesophageal echocardiogram probe was passed into the esophagus without diff iculty. Patient tolerated the procedure well, no complications noted. RESULTS: Left atrium is severely enlarged about 6.2 cm in horizontal diameter. The left atrial appendage well visualized contains an adequately seated Watchman device. There is no significant opacification post erior to the device and with color flow Doppler we were able to detect significant leak adjacent to t he left superior pulmonary vein. Four out of four pulmonary veins were well seen. The mitral valve h as moderate eccentric regurgitation. The interatrial septum is free of defects. Right sided chambers are nondilated. The left ventricular systolic function is reduced about 30-35%. Pericardial space wit h trivial effusion only. The visualized portion of ascending and descending aorta without aneurysm, dissection or mobile atheroma. Minor adherent atheroma seen only. The aortic valve has three leaflet without regurgitation or stenosis. CONCLUSION: 1. Adequately seated Watchman device without residual leak and suboptimal opacification behind the d evice in the left atrial appendage seen suggestive of significant blood flow communicating to the lef t atrial appendage from the left atrium. 2. Moderate to severe left atrial enlargement. 3. Moderate mitral regurgitation. 4. Moderately reduced LV systolic function. PLAN: Consider recoiling of the left atrial appendage.
== END ==
LOC: CCL 10:10
PROVIDERS: ATTEND Internal Medicine Cardiovascular Disease
PROC: B24BZZ4 Ultrasonography of Heart with Aorta, Transesophageal (ICD-10-PCS; principal; 2019-09-20)
DX: I48.0 Paroxysmal atrial fibrillation (principal); I34.0 Nonrheumatic mitral (valve) insufficiency; I10 Essential (primary) hypertension; K21.9 Gastro-esophageal reflux disease without esophagitis; G47.30 Sleep apnea, unspecified; M19.90 Unspecified osteoarthritis, unspecified site; I25.10 Atherosclerotic heart disease of native coronary artery without angina pectoris; E66.01 Morbid (severe) obesity due to excess calories; Z68.35 Body mass index [BMI] 35.0-35.9, adult; Z87.891 Personal history of nicotine dependence; Z79.01 Long term (current) use of anticoagulants; Z79.82 Long term (current) use of aspirin; Z79.899 Other long term (current) drug therapy; Z91.048 Other nonmedicinal substance allergy status; Z95.5 Presence of coronary angioplasty implant and graft; Z95.818 Presence of other cardiac implants and grafts; Z98.890 Other specified postprocedural states
CPT/HCPCS: 36415; 80048; 85025; 85610; 85730; 93005; 93010; 93312; J2704

== ENCOUNTER 2019-12-29 14:10 | Inpatient (IN) | payer MEDICARE, OTHER ==
[~2019-12-29 14:10] MED LIST changes: +Heparin 1,000 UNITS/ML VIAL ONE; -PROPOFOL 20 ML ONE
--- NOTE | 2019-12-29 16:09 | ULT ---
SOFT TISSUE ULTRASOUND: 12/29/19 INDICATIONS: Swelling around pacemaker device left chest. FINDINGS/IMPRESSION: Ultrasound of the pacemaker device shows complex fluid collection surrounding the device. Hematoma an d abscess are considerations. POS: ARVIND
[2019-12-29 16:13] LABS: #Eosinphils 0.2 thou/uL (0.0-0.7); #Lymphocytes 1.1 thou/uL (1.20-3.40); #Monocytes 1.9 thou/uL (0.11-0.59); #Neutrophils 11.1 thou/uL (1.40-6.50); %Basophils 0.3 % (0.0-1.0); %Eosinophils 1.4 % (0.0-10.0); %Lymphocytes 7.9 % (21.0-51.0); %Monocytes 13.2 % (0.0-10.0); Hemoglobin 13.7 g/dL (14.0-18.0); Mean Corpuscular HGB CONC 32.7 g/dL (32.0-36.0); Mean Corpuscular Hemoglobin 34.6 pg (27.0-31.0); Mean Platelet Volume 6.3 fL (7.4-10.4); Platelet Count 566 thou/uL (130-400); RBC Distribution Width 12.8 % (11.5-14.5); Red Blood Cell (RBC) Count 3.96 mill/uL (4.70-6.10); White Blood Cell (WBC) Count 14.4 thou/uL (4.8-10.8)
[2019-12-29 16:32] LABS: ALT (SGPT) 32 U/L (8-55); AST (SGOT) 36 U/L (5-34); Albumin 3.3 g/dL (3.4-4.8); Alkaline Phosphatase 176 U/L (40-110); Anion Gap 15 mmol/L (10-20); BUN (Urea Nitrogen) 36 mg/dL (8.4-25.7); Bilirubin, Total 0.9 mg/dL (0.2-1.2); Calc. Creatinine Clearance 0 mL/min (70-130); Calcium 9.3 mg/dL (7.8-10.44); Carbon Dioxide 27 mmol/L (23-31); Chloride 100 mmol/L (98-107); Estimated GFR-MDRD 49; Globulin 4.2 g/dL (2.4-3.5); Glucose 92 mg/dL (83-110); Potassium 4.2 mmol/L (3.5-5.1); Protein, Total 7.5 g/dL (5.8-8.1); Sodium 138 mmol/L (136-145)
[2019-12-29] MEDS ORDERED: Cefepime 2 GM VIAL ONE (16:35)
[2019-12-29] MEDS ORDERED: Sodium Chloride 0.9% 100 ML ONE (16:35)
--- NOTE | 2019-12-29 16:38 | RAD ---
EXAM: CHEST ONE VIEW HISTORY: Bilateral lower extremity swelling. Left wrist pain and ankle pain. COMPARISON: 06/30/2019 FINDINGS: Triple lead left subclavian. Pacemaking device is now noted in place. There is what appears to be a c oil mass overlying the left aspect of the cardiac silhouette which may potentially be secondary to occlusion of left atrial appendage. This could represent a watchman device, but difficult correlation is recommended. The cardiac silhouette is enlarged. The pulmonary vasculature is within normal limits. The lungs are clear. Bilateral humeral prostheses are noted. IMPRESSION: 1. Coil mass overlying left cardiac silhouette which overlies region of left atrial appendage, and th is may be related to occlusion of the left atrial appendage. This could potentially represent a watchman device, but clinical correlation is recommended. 2. Mild cardiomegaly. 3. No acute cardiopulmonary process.
[2019-12-29 16:43] LABS: MDiff Complete? YES; Macrocytosis MODERATE=16-30 cells (100X) (0-5/hpf); Ovalocytes SLIGHT = 2-5 cells (100X) (0-1/hpf); Platelet Morphology Comment Appears Increased; Polychromasia MODERATE = 3-4 cells (100X) (0-2/hpf); Tear Drops SLIGHT = 2-5 cells (100X) (0-1/hpf)
--- NOTE | 2019-12-29 16:56 | RAD ---
LEFT WRIST: 12/29/19 Three views. HISTORY: Pain and swelling. Severe degenerative change with mild deformity at the first carpometacarpal joint. Hypertrophic grider e with joint narrowing and sclerosis and mild subluxation at this point. Prominent degenerative change at the wrist with narrowing of the radiocarpal joint and chondral calci nosis at the triangular fibrocartilage. No acute fracture identified. There is degenerative change and subluxation at the MCP joint of the thumb. IMPRESSION: There are degenerative changes which are severe at the first carpometacarpal joint and moderate at th e first MCP joint. No acute fracture identified. POS: [facility]
[2019-12-29 17:01] LABS: CKMB 1.3 ng/mL (0-6.6)
[2019-12-29] MEDS ORDERED: Vancomycin 1.5 GRAM/300 ML BAG 1.5 GM in Premix Bag 1 BAG IVPB SCH (17:45)
[2019-12-29] MEDS ORDERED: Acetaminophen 500 MG TAB ONE (18:56)
[2019-12-29 19:53] LABS: Troponin I 0.059 ng/mL (< 0.028)
--- NOTE | 2019-12-29 19:59 | PDOC.FPRHP ---
- History of Present Illness Chief Complaint: CORTEZ Stoo swelling History of Present Illness: Patient is a 79 yo male who presents with complaint of right lower extremity swelling and pain that started today. At baseline the patient usually has swelling in both legs but the swelling on the right became acutely worse this morning. The patient is normally able to walk around and do yardwork but for the past few days he has felt weak in his legs and has not been moving around much. He says the leg also feels warm. Patient additionally complains of left wrist tenderness and pain that is described as sharp. He rates pain in wrist a 10 out of 10 when moving or with touch. He rates pain a 5 out of 10 when the wrist is at rest. He has been taking Tylenol 3x/day for wrist pain the past few days with minimal relief. Patient additionally states that he has had a fever of up to 101F almost daily for the past 2-3 weeks. He says in general he has not felt well during this time. He did have a pacemaker placed November 22 in [place], [place]. He says before this was done he was able to walk around and perform daily activities but starting after the surgery he has felt progressively worse. He thinks the area around his pacemaker has gradually become more swollen but denies any pain or tenderness at the site and there is no overlying warmth. Patient usually regularly follows with Dr. Regan and Dr. David for management of his chronic cardiology-related conditions. ED Course: Given 1 dose each Cefepime & Vancomycin, Tylenol 1000 mg. Ortho was called by ED provider, stated that Ortho plans to aspirate left wrist. Cardiology--Dr. Caputo & Dr. David both called from ED. Was reported that Dr. Caputo does not need to see patient at this time. Dr. David said to admit patient for further workup, he would see the patient Wednesday if he stays through the weekend but does not think fever coming from pacemaker site. - Allergies/Adverse Reactions Allergies Allergy/AdvReac Type Severity Reaction Status Date / Time adhesive tape Allergy Intermediate delicate Verified 12/29/19 20:01 skin - Home Medications Medication Instructions Recorded Confirmed Type Amiodarone HCl 400 mg PO DAILY 02/06/15 12/29/19 History Aspirin [Aspirin EC] 81 mg PO DAILY 11/25/15 12/29/19 History Atorvastatin Calcium 20 mg PO QPM 11/25/15 12/29/19 History Potassium Chloride [K-Dur] 40 meq PO DAILY 11/25/15 12/29/19 History Apixaban [Eliquis] 5 tab PO DAILY 08/11/18 12/29/19 History Furosemide 40 mg PO BID 09/16/18 12/29/19 History Gabapentin 600 mg PO HS 09/16/18 12/29/19 History Pantoprazole Sodium 40 mg PO BID 09/16/18 12/29/19 History Temazepam 30 mg PO HS 09/16/18 12/29/19 History Metolazone [Zaroxolyn] 5 mg PO PRN PRN 09/19/18 12/29/19 History Albuterol Sulfate [Albuterol 2.5 mg NEB Q6H PRN 07/25/19 12/29/19 History Sulfate Neb] Iron 65 mg PO DAILY 07/25/19 12/29/19 History Spironolactone 50 mg PO DAILY 07/25/19 12/29/19 History Budesonide-Formoterol [Symbicort 2 puff INH BID PRN 12/29/19 12/29/19 History 160-4.5] - History PMHx: CAD, HTN, HLD, AFib s/p ablation & watchman procedure in 2019, diastolic CHF, Insomnia, Peripheral neuropathy, GERD, iron deficiency PSHx: Hernia repair (1996, 1998), Shoulder replacement (2000, 2009), Cataracts ( 2001, 2004), Angioplasty (2007), Stent placement (2007), Vein procedure (2008), Cholecystectomy (2009), EGD (2010, 2017), Colonoscopy (2011, 2017), Knee replacement (2014, 2016), Cardioversion x 4 for Afib (2014 x2, 2017, 2018), Heart cath (2014), Ablation (2019), Watchman (2018), Pacemaker (Nov 22, 2019), Watchman coil placement (2019) FHx: CAD Social: former smoker (quit 45 years ago), currently drinks 6 oz whiskey/day - Review of Systems General: reports: fever/chills, fatigue. denies: weight/appetite/sleep changes Eyes: denies: vision changes ENT: denies: nasal congestion Respiratory: reports: exercise intolerance. denies: cough, congestion, shortness of breath Cardiovascular: reports: edema. denies: chest pain, palpitation, orthopnea Gastrointestinal: reports: constipation. denies: nausea, vomiting, diarrhea, abdominal pain Genitourinary: denies: dysuria Skin: denies: rashes, lesions, itching Musculoskeletal: reports: pain, tenderness, swelling Neurological: reports: numbness, weakness - Vital signs BP: 169/65 HR: 77 paced RR: 23 Tmax: 100.0F Pox: 97% on RA Wt: 117 kg - Physical Exam Constitutional: NAD, awake, alert and oriented, well developed HEENT: normocephalic and atraumatic, EOMI, conjunctiva clear, grossly normal vision, grossly normal hearing, MMM Neck: supple, no JVD Chest: no-tender to palpation -Chest: pacemaker in place on left upper chest with surrounding swelling but no overlying tenderness or warmth present Heart: normal S1/S2, no murmurs/rubs/gallops -Heart: no pulses palpable in bilateral lower extremities. Pulses full & equal in BUE. 2 + pitting edema in bilateral LE. Heart with paced rhythm at 70. Lungs: CTAB, no respiratory distress, good air movement, no rales/rhonchi, no wheezing Abdomen: soft, non-tender, bowel sounds present -Musculoskeletal: positive Gianluca's sign in right leg. Right leg is erythematous, warm, and noticeably more swollen compared to left. Bilateral 2+ pitting edema present. Left wrist with tenderness to light touch and any movement, no overlying warmth or swelling. Right wrist nontender. Neurological: no focal deficit -Neurological: decreased sensation in bilateral feet Skin: no rash/lesions -Skin: PVD skin changes in BLE Heme/Lymphatic: no unusual bruising or bleeding Psychiatric: normal mood and affect, intact recent and remote memory FMR H&P: Results - Labs Result Diagrams: 12/30/19 03:53 12/30/19 03:53 Lab results: WBC 14.4 thou/uL (4.8-10.8) H 12/29/19 15:58 Hgb 13.7 g/dL (14.0-18.0) L 12/29/19 15:58 Hct 41.8 % (42.0-52.0) L 12/29/19 15:58 MCV 106.0 fL (78.0-98.0) H 12/29/19 15:58 Plt Count 566 thou/uL (130-400) H 12/29/19 15:58 Neutrophils % 77.0 % (42.0-75.0) H 12/29/19 15:58 Sodium 138 mmol/L (136-145) 12/29/19 15:58 Potassium 4.2 mmol/L (3.5-5.1) 12/29/19 15:58 Chloride 100 mmol/L (98-107) 12/29/19 15:58 Carbon Dioxide 27 mmol/L (23-31) 12/29/19 15:58 BUN 36 mg/dL (8.4-25.7) H 12/29/19 15:58 Creatinine 1.40 mg/dL (0.7-1.3) H 12/29/19 15:58 Glucose 92 mg/dL (83-110) 12/29/19 15:58 Lactic Acid 1.1 mmol/L (0.5-2.2) 12/29/19 15:58 Calcium 9.3 mg/dL (7.8-10.44) 12/29/19 15:58 Total Bilirubin 0.9 mg/dL (0.2-1.2) 12/29/19 15:58 AST 36 U/L (5-34) H 12/29/19 15:58 ALT 32 U/L (8-55) 12/29/19 15:58 Alkaline Phosphatase 176 U/L (40-110) H 12/29/19 15:58 CK-MB (CK-2) 1.3 ng/mL (0-6.6) 12/29/19 15:58 B-Natriuretic Peptide 127.6 pg/mL (0-100) H 12/29/19 15:58 Serum Total Protein 7.5 g/dL (5.8-8.1) 12/29/19 15:58 Albumin 3.3 g/dL (3.4-4.8) L 12/29/19 15:58 FMR H&P: A/P - Problem List (1) Fever of unknown origin Current Visit: Yes Status: Acute (2) Wrist pain, acute Current Visit: Yes Status: Acute Code(s): M25.539 - PAIN IN UNSPECIFIED WRIST Qualifiers: Laterality: left Qualified Code(s): M25.532 - Pain in left wrist (3) Suspected DVT (deep vein thrombosis) Current Visit: Yes Status: Acute Code(s): R09.89 - OTH SYMPTOMS AND SIGNS INVOLVING THE CIRC AND RESP SYSTEMS (4) Macrocytic anemia Current Visit: Yes Status: Acute Code(s): D53.9 - NUTRITIONAL ANEMIA, UNSPECIFIED (5) Alcohol abuse Current Visit: Yes Status: Acute Code(s): F10.10 - ALCOHOL ABUSE, UNCOMPLICATED (6) HTN (hypertension) Current Visit: No Status: Chronic Code(s): I10 - ESSENTIAL (PRIMARY) HYPERTENSION Qualifiers: Hypertension type: unspecified Qualified Code(s): I10 - Essential (primary ) hypertension - Plan Patient is an 79 yo male who presents with complaint of fevers, weakness, LE swelling, and left wrist pain: #Suspected DVT -exam findings concerning for DVT in right lower leg -check bilateral venous dopplers of LE -check DDimer, if elevated than will obtain CTA chest -already on anticoagulation-continue home Eliquis -Wells score for PE is 4.5 (moderate risk) -ASA 324 mg daily #Fever of Unknown Origin -consider due to DVT/PE vs inflammatory arthritis vs possible pacemaker hardware infection vs other -max temp measured in ED is 100.0F, per patient home temps of 101F for past 2-3 weeks -meets SIRS criteria with admission resp rate >20 (RR of 23) and WBC >12 (WBC 14.4) -Cefepime & Vancomycin given in ED, will continue -Blood cultures pending -UA ordered, pending collection -WBC 14.4, Plt 566 -U/S over pacemaker shows complex fluid collection suggestive of hematoma vs abscess -check inflammatory markers-CRP, ESR, CHESTER, RA screen #Wrist Pain, acute, left -consider trauma vs gout vs inflammatory arthritis vs infection -check uric acid level -Tylenol prn -XR wrist showed degenerative changes -consult Ortho, Dr. Valente--called from ED, will plan to evaluate patient tomorrow and plan for joint aspiration #Indeterminate Troponin -initial trop 0.06, will trend #Macrocytic Anemia -suspect likely due to alcohol abuse -Hgb 13.7, MCV 106 #Hypertension -continue home meds #CHF -recent echo in Sep 2019 showed EF 30-35% -if no source found for fever, consider bacterial endocarditis workup Diet: Heart Healthy VTE: home Eliquis Code: FULL Dispo: Stable, admitted to inpatient on medical unit. Anticipated LOS >48 hrs. FMR H&P: Upper Level - Plan Date/Time: 12/29/191958 Stella Contreras DO, have evaluated this patient and agree with findings/plan as outlined by sourcing intern resident. Pertinent changes/additions are listed here. Pt is a 79 yo M with PMH of HFrEF, HTN, HLD, recent pacemaker placement 1 month ago presenting for generalized weakness, LE pain, L wrist pain, recurrent fevers up to 101 for 2-3 wks and b/l LE swelling (R>L) x3 days. Reports no hx of gout. Denies CP, SOB, cough. Does have notable swelling over pacemaker insertion site but reports it has not increased in size. Reports hx of wrist injury 2 years ago and occasional pain that comes and goes, but this was different. Present for 3 days. Denies injury. VS: T99.8, P80, R18, O295%RA, BP 140/62 PE: Gen: well developed, NAD HEENT: Moist MM Heart: RRR, no murmurs or extra sounds. Distal pulses 2+ Chest: L pacemaker with swelling and fluctuance overlying site, no warmth, erythema, or ttp Lungs: CTAB, no wheezing. No increased work of breathing Abd: soft, nontender, BS+ Ext: b/l edema, +homans on L, chronic venous stasis skin changes noted, L wrist and 1st MCP ttp, no swelling. Skin: no wounds present Psych: AOx3, normal mood Pertinent Labs/Imaging: L Wrist Xray- degenerative changes of first carpometacarpal joint and first MCP joint. Soft Tissue US: Complex fluid collection surrounding the pacemaker device in L chest, hematoma vs abscess CXR: Coil mass likely watchmans device with hx, cardiomegaly, no acute process WBC 14.4, Hgb 13.7, Hct 41, Plt 566, MCV 106, Netrophils 77% D-dimer 2.09 BNP 127.6 Trop 0.06, 0.05 BUN 36, Cr 1.4 A/P: Fever of Unk Origin, SIRS without source: -leukocytosis 14.4 with L shift, recurrent fever up to 101 for 2-3wk, no fever here. -wrist pain and swelling, ortho consult in ED to evaluate for area of infection , Uric Acid pending to r/o gout, and inflammatory markers- CRP, ESR, CHESTER, RF -blood cx and urine cx pending -Joann consulted in ED, US over pacemaker site reads abscess vs hematoma, likely hematoma based off my evaluation but Joann to come evaluate tomorrow. Macrocytic Anemia: -likely 2/2 alcohol use -B12, folate, Fe studies pending Concern for DVT: -+homans of RLE, b/l dopplers pending -D-dimer 2.09, CTA pending -Continue home Eliquis CKD3 -at baseline. -renally dose meds HFrEF (EF 30-35%) -last echo 09/2019. -BNP 127.6 -CXR wnl -continue home meds Indeterminate Troponins -0.06, 0.05 Alcohol Abuse: -ASE protocol See [facility] note for other chronic medical conditions and management. DVT PPx: Eliquis GI PPx: Protonix Code Status: Full Addendum - Attending - Attending Attestation Date/Time: 12/30/19 9066 I personally evaluated the patient and discussed the management with Dr. Waters I agree with the History, Examination, Assessment and Plan documented above with any addition or exceptions noted below. 79 yo male with several days fever and left wrist and right ankle pain. Patient with questionable PMHX rheumatoid . Patient s/p bilateral shoulder and TKR. ER Physician was concerned regard PNA and septic arthritis and started on broad spectrum antibiotic. Patient with polyarthropathy and will consult orthopedic for diagnostic arthrocentesis wrist verse ankle r/o inflammatory verse septic arthritis r/o gout. If aspirate neg for infection would initiate steroids.
[2019-12-29] MEDS ORDERED: Ondansetron PF 4 MG/2 ML Vial IVP PRN (20:01)
[2019-12-29] MEDS ORDERED: Ondansetron ODT 4 MG TAB SL PRN (20:01)
[2019-12-29] MEDS ORDERED: Acetaminophen 325 MG TAB PO PRN (20:01)
[2019-12-29] MEDS ORDERED: Ondansetron ODT 4 MG TAB PO PRN (20:30)
[2019-12-29] MEDS ORDERED: Senokot S 8.6-50 MG TAB PO PRN (20:30)
[2019-12-29] MEDS ORDERED: Calcium Carbonate 500 MG ChewTAB PO PRN (20:30)
[2019-12-29] MEDS ORDERED: Aspirin 325 mg Enteric Coated Tablet PO SCH (20:45)
[2019-12-29] MEDS ORDERED: Albuterol Sulfate 2.5 mg/3 ml Neb NEB PRN (20:49)
[2019-12-29] MEDS ORDERED: Metolazone 5 MG TAB PO PRN (20:49)
[2019-12-29] MEDS ORDERED: Temazepam 15 MG CAP PO SCH (21:00)
[2019-12-29] MEDS ORDERED: Diazepam 5 MG TAB PO PRN (21:00)
[2019-12-29] MEDS ORDERED: Thiamine HCl 200 MG/2 ML VIAL IM SCH (21:15)
[2019-12-29] MEDS ORDERED: Diazepam 5 MG TAB PO SCH (21:30)
[2019-12-29] MEDS: Furosemide 40 MG TAB PO SCH (21:56)
[2019-12-29] MEDS: Gabapentin 300 MG CAP PO SCH (21:56)
[2019-12-29] MEDS: Atorvastatin Calcium 20 MG TAB PO SCH (21:56)
[2019-12-29 22:39] LABS: Troponin I 0.062 ng/mL (< 0.028); Uric Acid 8.8 mg/dL (3.5-7.2)
--- NOTE | 2019-12-29 23:30 | CT ---
EXAM: CT pulmonary angiogram with IV contrast and 3-D MIP reconstructions PROVIDED CLINICAL HISTORY: Chest pain COMPARISON: None FINDINGS: There is no evidence for central or segmental pulmonary embolus. Evaluation for such is limited by ex tensive beam hardening artifact related to left atrial appendage exclusion coils. Vascular calcification is seen. The lungs are free of significant opacity. No pleural fluid or pneumothorax apparent. No evidence for thoracic lymph node enlargement. The airway appears patent and of normal caliber. The visualized portions of the upper abdomen demonstrate no acute findings. Prominent multilevel thoracic disc degenerative change. IMPRESSION: No evidence for central or segmental pulmonary embolus with limitations as above.
--- NOTE | 2019-12-29 23:53 | ULT ---
EXAM: Bilateral lower extremity venous Doppler PROVIDED CLINICAL HISTORY: Edema FINDINGS: Grayscale and color Doppler sonography with spectral analysis was performed of the common femoral, fe moral, popliteal, posterior tibial, greater saphenous and profunda femoral veins bilaterally. The evaluated venous structures demonstrate a normal sonographic appearance. IMPRESSION: No sonographic evidence for lower extremity deep venous thrombosis.
[2019-12-30 00:32] LABS: Bacteria/HPF None Seen HPF (None Seen); Bilirubin Negative (Negative); Blood, Urine Negative (Negative); Clarity Clear (Clear); Glucose, Urine (Dipstick) Normal (Negative); Leukocyte Negative Leu/uL (Negative); Nitrite Negative (Negative); Protein, Urine (Dipstick) Negative (Neg-Trace); RBC/HPF 0-3 HPF (0-3); Squamous Epithelial None Seen HPF (0-3); Urobilinogen Normal mg/dL (Less than 2); WBC/HPF 0-3 HPF (0-3)
[2019-12-30] MEDS: Acetaminophen 325 MG TAB PO PRN ×3 (00:33→22:26)
[2019-12-30] MEDS ORDERED: Diazepam 5 MG TAB PO PRN (04:00)
[2019-12-30 04:33] LABS: #Eosinphils 0.3 thou/uL (0.0-0.7); #Lymphocytes 1.3 thou/uL (1.20-3.40); #Monocytes 1.8 thou/uL (0.11-0.59); #Neutrophils 9.2 thou/uL (1.40-6.50); %Basophils 0.3 % (0.0-1.0); %Eosinophils 2.1 % (0.0-10.0); %Lymphocytes 10.2 % (21.0-51.0); %Monocytes 14.3 % (0.0-10.0); Hemoglobin 11.9 g/dL (14.0-18.0); Mean Corpuscular HGB CONC 32.8 g/dL (32.0-36.0); Mean Corpuscular Hemoglobin 34.4 pg (27.0-31.0); Mean Platelet Volume 6.1 fL (7.4-10.4); Platelet Count 482 thou/uL (130-400); RBC Distribution Width 12.8 % (11.5-14.5); Red Blood Cell (RBC) Count 3.46 mill/uL (4.70-6.10); White Blood Cell (WBC) Count 12.6 thou/uL (4.8-10.8)
[2019-12-30 04:58] LABS: ALT (SGPT) 26 U/L (8-55); AST (SGOT) 26 U/L (5-34); Albumin 2.7 g/dL (3.4-4.8); Alkaline Phosphatase 141 U/L (40-110); Anion Gap 14 mmol/L (10-20); BUN (Urea Nitrogen) 33 mg/dL (8.4-25.7); Bilirubin, Total 0.8 mg/dL (0.2-1.2); Calc. Creatinine Clearance 80 mL/min (70-130); Calcium 8.8 mg/dL (7.8-10.44); Carbon Dioxide 24 mmol/L (23-31); Chloride 104 mmol/L (98-107); Estimated GFR-MDRD 59; Globulin 3.6 g/dL (2.4-3.5); Glucose 96 mg/dL (83-110); Potassium 3.6 mmol/L (3.5-5.1); Protein, Total 6.3 g/dL (5.8-8.1); Sodium 138 mmol/L (136-145)
[2019-12-30] MEDS: Cefepime 2 GM in Sodium Chloride 0.9% 100 ML IVPB SCH ×2 (05:08→17:40)
--- NOTE | 2019-12-30 06:20 | PDOC.FM ---
- Subjective Subjective: Pt is doing well today. He has R ankle pain, L wrist pain continued from yesterday. He has hx of RA but has not been on medications. He will be seen by ortho today for joint aspiration. No fevers at this time. - Objective Vital Signs & Weight: Vital Signs (12 hours) Temp Pulse Resp BP BP Pulse Ox 12/30/19 02:58 97.8 F 64 17 141/65 H 97 12/29/19 21:47 140/62 12/29/19 19:45 99.8 F H 80 18 182/74 H 95 Weight Weight 114.901 kg I&O: 12/28/19 12/29/19 12/30/19 06:59 06:59 06:59 Intake Total 560 Output Total 1100 Balance -540 Result Diagrams: 12/30/19 03:53 12/30/19 03:53 Phys Exam - Physical Examination Constitutional: NAD HEENT: PERRLA, moist MMs Neck: no JVD, full ROM Respiratory: no wheezing, no rhonchi, clear to auscultation bilateral Cardiovascular: RRR, no significant murmur Gastrointestinal: soft, no distention venous stasis changes in LE, R ankle tender and decreased ROM L wrist tender and decreased ROM Neurological: non-focal, normal sensation Psychiatric: normal affect, A&O x 3 Dx/Plan (1) Fever of unknown origin Status: Acute (2) Wrist pain, acute Code(s): M25.539 - PAIN IN UNSPECIFIED WRIST Status: Acute Qualifiers: Laterality: left Qualified Code(s): M25.532 - Pain in left wrist (3) NSTEMI (non-ST elevated myocardial infarction) Code(s): I21.4 - NON-ST ELEVATION (NSTEMI) MYOCARDIAL INFARCTION Status: Acute (4) Coronary artery disease Code(s): I25.10 - ATHSCL HEART DISEASE OF [place] CORONARY ARTERY W/O ANG PCTRS Status: Chronic (5) Diastolic CHF, chronic Code(s): I50.32 - CHRONIC DIASTOLIC (CONGESTIVE) HEART FAILURE Status: Chronic (6) HLD (hyperlipidemia) Code(s): E78.5 - HYPERLIPIDEMIA, UNSPECIFIED Status: Chronic (7) HTN (hypertension) Code(s): I10 - ESSENTIAL (PRIMARY) HYPERTENSION Status: Chronic Qualifiers: Hypertension type: unspecified Qualified Code(s): I10 - Essential (primary ) hypertension (8) Paroxysmal atrial fibrillation Code(s): I48.0 - PAROXYSMAL ATRIAL FIBRILLATION Status: Chronic - Plan Plan: Patient is an 79 yo male who presents with complaint of fevers, weakness, LE swelling, and left wrist pain: #Fever of Unknown Origin # SIRS - resolved - inflammatory arthritis vs possible pacemaker hardware infection vs other - Dr. David consulted, does not believe pacemaker is source of infection although Ultrasound reveals hematoma vs abscess - Dr. Valente will perform joint aspiration today CRP elevated, Uric acid elevated; Will continue abx until results for joint aspiration. Highly suspicious of RA. If aspiration neg for infection #Wrist Pain, acute, left Gout vs inflammatory arthritis vs infection - Uric acid 8.8, pending RA workup; hx of RA in the past -Tylenol prn -XR wrist showed degenerative changes -consult Ortho, Dr. Valente--called from ED, will plan to evaluate patient tomorrow and plan for joint aspiration #Suspected DVT - negative, pt has home eliquis. CTA, sonogram LE negative. #Indeterminate Troponin -downtrending #Macrocytic Anemia -suspect likely due to alcohol abuse -Hgb 13.7, MCV 106 #Hypertension -continue home meds #CHF -recent echo in Sep 2019 showed EF 30-35% -if no source found for fever, consider bacterial endocarditis workup # A-fib - continue home meds, watchmen in place Diet: Heart Healthy VTE: home Eliquis Code: FULL Dispo: Stable, admitted to inpatient on medical unit. Anticipated LOS >48 hrs. Addendum - Attending - Attending Attestation Date/Time: 12/30/19 6210 I personally evaluated the patient and discussed the management with Dr. Larson I agree with the History, Examination, Assessment and Plan documented above with any addition or exceptions noted below.
[2019-12-30] MEDS ORDERED: Mometasone/Formoterol 120 PUFF INHALER INH PRN (06:30)
[2019-12-30 06:51] LABS: Vancomycin, Trough 11.8 ug/mL
[2019-12-30] MEDS: Furosemide 40 MG TAB PO SCH ×2 (08:30→22:19)
[2019-12-30] MEDS: Apixaban 2.5 MG TAB PO SCH ×2 (08:30→22:19)
[2019-12-30] MEDS: Amiodarone 200 MG TAB PO SCH (08:30)
[2019-12-30] MEDS: Thiamine 100 MG TAB PO SCH (08:30)
[2019-12-30] MEDS: Folic Acid 1 MG TAB PO SCH (08:31)
[2019-12-30] MEDS: Magnesium Oxide 400 MG TAB PO SCH (08:31)
[2019-12-30] MEDS: Aspirin 325 MG TAB PO SCH (08:31)
[2019-12-30] MEDS: Potassium Chloride 20 MEQ TAB PO SCH (08:31)
[2019-12-30] MEDS: Ferrous Sulfate 325 MG TAB PO SCH (08:31)
[2019-12-30] MEDS: Multivitamin W/ Minerals 1 TAB PO SCH (08:31)
[2019-12-30] MEDS: Spironolactone 25 MG TAB PO SCH (08:32)
--- NOTE | 2019-12-30 12:13 | CON ---
DATE OF CONSULTATION: 12/30/2019 REQUESTING PHYSICIAN: Merna Waters DO CONSULTING PHYSICIAN: Jurgen Valente MD REASON FOR CONSULTATION: Swelling and discomfort, left wrist pain. BRIEF CLINICAL HISTORY: Nader is an 79-year-old male, who was admitted by the Medicine Team for shortness of breath, metabolic disturbances and left wrist pain. Our service has been consulted for etiology of the pain. Plain radiographs have been obtained and a white blood cell count of 14.4 has been noted yesterday. Today is 12.6. He was initially treated with Maxipen and vancomycin as initial therapy of what was suspected to be a septic joint. He has had improvement in the swelling and the pain onset has been nontraumatic. He has not gotten worse and has remained about the same since his hospitalization. He had a pacemaker placed on November 22 and he has had some swelling around the placement site and has not gotten much better since original placement. This is also in question as to whether or not there is an infection at this site. His level of activity is not improved since pacemaker placement. In fact, he has felt a little bit worse overall. 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 PHYSICAL EXAMINATION: Visual inspection of left upper extremity demonstrates him to have some swelling dorsally at the distal radius. It is mildly tender but is not fluctuant. I am unable to flex and extend the wrist without discomfort. Does not appear gouty or erythematous. He has good digital excursion. He has a swan-neck deformity of the left thumb and also adduction flexion abnormality consistent with CMC arthritis. He also has some clinical subluxation of the thumb metacarpal volarly. Wrist exam also demonstrates stiffness with flexion, extension, abduction, and supination and pronation. He is neurovascularly intact. Again, the erythema is not profound. There is not a significant amount of fluctuance dorsally. IMPRESSION: I suspect most of the patient's symptoms is from chronic arthritis/arthrosis. 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 A malunion of the distal radial styloid is also present. I have a low suspicion for septic joint at this point. This appears more to be a chronic arthritic process with acute flare. However, we will continue to follow and observe throughout his hospitalization. At this point, no surgical management recommended. Continue to follow. Job ID: [id number]
[2019-12-30] MEDS ORDERED: Vancomycin HCl 1.75 GM in Sodium Chloride 0.9% 500 ML IVPB SCH (15:00)
[2019-12-30] MEDS ORDERED: predniSONE 20 MG TAB PO SCH (15:45)
[2019-12-30] MEDS: Atorvastatin Calcium 20 MG TAB PO SCH (22:18)
[2019-12-30] MEDS: Gabapentin 300 MG CAP PO SCH (22:19)
[2019-12-31] MEDS: Cefepime 2 GM in Sodium Chloride 0.9% 100 ML IVPB SCH (04:24)
[2019-12-31 04:30] LABS: Hemoglobin 11.6 g/dL (14.0-18.0); Platelet Count 432 thou/uL (130-400)
--- NOTE | 2019-12-31 06:11 | PDOC.FM ---
- Subjective Subjective: Pt is unchanged today. He remains with wrist, ankle pain and limited motion. He denies fever, chills. Ortho did not want to aspirate joints. - Objective Vital Signs & Weight: Vital Signs (12 hours) Temp Pulse Resp BP Pulse Ox 12/31/19 03:05 99.3 F 60 18 130/60 97 12/30/19 20:00 98.2 F 63 18 150/67 H 97 Weight Admit Weight 114.901 kg Weight 114.901 kg I&O: 12/29/19 12/30/19 12/31/19 06:59 06:59 06:59 Intake Total 560 1190 Output Total 1100 860 Balance -540 330 Result Diagrams: 12/31/19 04:07 12/31/19 04:07 Phys Exam - Physical Examination Constitutional: NAD HEENT: PERRLA, moist MMs Neck: no nodes, no JVD, full ROM Cardiovascular: RRR, no significant murmur Gastrointestinal: soft, positive bowel sounds Musculoskeletal: pulses present decreased ROM to L wrist, R ankle in all planes with pain Neurological: non-focal, normal sensation Psychiatric: normal affect, A&O x 3 Dx/Plan (1) Fever of unknown origin Status: Acute (2) Wrist pain, acute Code(s): M25.539 - PAIN IN UNSPECIFIED WRIST Status: Acute Qualifiers: Laterality: left Qualified Code(s): M25.532 - Pain in left wrist (3) NSTEMI (non-ST elevated myocardial infarction) Code(s): I21.4 - NON-ST ELEVATION (NSTEMI) MYOCARDIAL INFARCTION Status: Acute (4) Coronary artery disease Code(s): I25.10 - ATHSCL HEART DISEASE OF [place] CORONARY ARTERY W/O ANG PCTRS Status: Chronic (5) Diastolic CHF, chronic Code(s): I50.32 - CHRONIC DIASTOLIC (CONGESTIVE) HEART FAILURE Status: Chronic (6) HLD (hyperlipidemia) Code(s): E78.5 - HYPERLIPIDEMIA, UNSPECIFIED Status: Chronic (7) HTN (hypertension) Code(s): I10 - ESSENTIAL (PRIMARY) HYPERTENSION Status: Chronic Qualifiers: Hypertension type: unspecified Qualified Code(s): I10 - Essential (primary ) hypertension (8) Paroxysmal atrial fibrillation Code(s): I48.0 - PAROXYSMAL ATRIAL FIBRILLATION Status: Chronic - Plan Plan: Patient is an 79 yo male who presents with complaint of fevers, weakness, LE swelling, and left wrist pain: # Bacteremia # SIRS - resolved - Dr. David consulted, will re-consult as this is possible to be 2/2 pacemaker placement - Dr. Valente does not believe it is an infected joint - consult Chuck - pending echo #Wrist Pain Left, Right Ankle Pain Gout vs inflammatory arthritis vs infection - Uric acid 8.8, pending RA workup; hx of RA in the past -Tylenol prn -XR wrist showed degenerative changes -consult Ortho, Dr. Valente-- does not believe this is an infected joint - steroids initiated but possibly bacterial seeding, continue steroids #Suspected DVT - negative, pt has home eliquis. CTA, sonogram LE negative. #Indeterminate Troponin -downtrending #Macrocytic Anemia -suspect likely due to alcohol abuse -Hgb 13.7, MCV 106 #Hypertension -continue home meds #CHF -recent echo in Sep 2019 showed EF 30-35% -if no source found for fever, consider bacterial endocarditis workup # A-fib - continue home meds, watchmen in place Diet: Heart Healthy VTE: home Eliquis Code: FULL Dispo: Stable, admitted to inpatient on medical unit. Anticipated LOS >48 hrs. Addendum - Attending - Attending Attestation Date/Time: 12/31/19 8401 I personally evaluated the patient and discussed the management with Dr. Larson I agree with the History, Examination, Assessment and Plan documented above with any addition or exceptions noted below. Patient with bacteria positive blood cultures with multiple past heart procedures significant risk endocarditis/ infected watchman etc. Will consult with ID for further recommendation TTE ordered may ultimately just need CORBY. Patient still not able bear weight left ankle note uric acid elevated and rheumatologic w/u pin progress I feel ok to continue prednisone 20 mg daily unless ID feels this would be contraindicated.
[2019-12-31] MEDS: Multivitamin W/ Minerals 1 TAB PO SCH (09:25)
[2019-12-31] MEDS: Spironolactone 25 MG TAB PO SCH (09:25)
[2019-12-31] MEDS: Amiodarone 200 MG TAB PO SCH (09:25)
[2019-12-31] MEDS: Aspirin 325 MG TAB PO SCH (09:25)
[2019-12-31] MEDS: Thiamine 100 MG TAB PO SCH (09:25)
[2019-12-31] MEDS: Magnesium Oxide 400 MG TAB PO SCH (09:25)
[2019-12-31] MEDS: predniSONE 20 MG TAB PO SCH (09:26)
[2019-12-31] MEDS: Potassium Chloride 20 MEQ TAB PO SCH (09:26)
[2019-12-31] MEDS: Ferrous Sulfate 325 MG TAB PO SCH (09:26)
[2019-12-31] MEDS: Apixaban 2.5 MG TAB PO SCH ×2 (09:26→20:15)
[2019-12-31] MEDS: Furosemide 40 MG TAB PO SCH ×2 (09:26→20:15)
[2019-12-31] MEDS: Folic Acid 1 MG TAB PO SCH (09:27)
[2019-12-31] MEDS ORDERED: Polyethylene Glycol 3350 17 GM Packet PO SCH (11:00)
[2019-12-31] MEDS: Acetaminophen 325 MG TAB PO PRN ×2 (11:27→20:15)
[2019-12-31 14:38] LABS: Vancomycin, Trough 14.6 ug/mL
--- NOTE | 2019-12-31 15:19 | PRG ---
DATE OF SERVICE: 12/31/2019 SUBJECTIVE: Nader is an 79-year-old male, we took on consult yesterday for swelling of the Left wrist. Original concerns centered around whether or not this was a septic process. Since yesterday, he has been asymptomatic. Pain has gotten better. No erythema is noted by the patient. No fevers. OBJECTIVE: VITAL SIGNS: Temperature 97.9, pulse 64, respiratory rate 20, blood pressure 125/85. GENERAL: He is alert and oriented to person, place, time, situation, responsive and appropriate with examiner. EXTREMITIES: Visual inspection of the left wrist demonstrates him to have good skin turgor. There is no erythema. No fluctuance. It is nontender to palpation at this point. He has adequate digital excursion. IMPRESSION: An 79-year-old male, left wrist arthritic flare PLAN: No surgical intervention warranted at this time. Clinically, he is improved. Job ID: [id number] MTDD
--- NOTE | 2019-12-31 15:27 | PRG ---
DATE OF SERVICE: 12/31/2019 SUBJECTIVE: Nader is an 79-year-old male we took on consult 2 days ago for swelling of the left wrist and the right foot. His swelling has improved and his pain is better. He has had no fevers or overnight episodes of nausea or vomiting. In fact, he admits to feeling better at this point. OBJECTIVE: He is nontender over the distal radius and at the wrist joint, he has adequate range of motion, but is limited, and he has a swan-neck deformity of the left thumb. His right ankle is a little swollen and edematous, +2 to 3 edema is noted, but is nontender. No drainage. IMPRESSION: 1. 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 2. Right ankle edema. PLAN: Continue current care. No surgical indications noted at this time. We will continue to follow. Job ID: [id number]
[2019-12-31] MEDS ORDERED: Fleet Enema 133 ML BOT PR SCH (16:15)
[2019-12-31] MEDS: Ampicillin 2 GM in Sodium Chloride 0.9% 100 ML IVPB SCH (18:15)
--- NOTE | 2019-12-31 18:33 | CON ---
DATE OF CONSULTATION: 12/31/2019 REASON FOR CONSULTATION: Bacteremia. 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 No headaches, visual symptoms, sore throat, odynophagia, or dysphagia. No back pain or shoulder pain. He has noticed a pain in the left wrist and the right ankle and right first MPJ. Also noticed fever up to 101 a few days before admission. Some weakness. No diarrhea. No genitourinary symptoms, although now off late, he has noticed decrease in the urine output. PAST MEDICAL HISTORY: Arrhythmia, atrial fibrillation, ablation, Watchman procedure, pacemaker, angioplasty, coronary artery disease, and hypertension. PAST SURGICAL HISTORY: Cholecystectomy, hernia repair, and bilateral shoulder and knee surgery. SOCIAL HISTORY: Lives in [place] for many decades with , retired. Drinks daily. Never smoker. ALLERGIES: NO KNOWN DRUG ALLERGIES. MEDICATIONS: Currently: 1. Cordarone. 2. Eliquis. 3. Lipitor. 4. Cefepime. 5. Valium. 6. Lasix. 7. Neurontin. 8. Zaroxolyn. 9. Prednisone. 10. Senokot. 11. Vancomycin. PHYSICAL EXAMINATION: VITAL SIGNS: T-max 99.8 and currently 97.9, blood pressure 120/85, pulse 80, respirations 18 to 20, and O2 saturation 98. SKIN: The patient has areas of bruising in the upper extremity. No Olivarez catheter. Peripheral IV access. No lymphadenopathy. HEENT: Ocular movements conjugate. Oral cavity still quite a few teeth in place, fairly decent shape for his age. NECK: Supple. No jugular vein distention or carotid bruits. No thyromegaly. LUNGS: Symmetric clear breath sounds. HEART: S1 and S2 quite diminished heart sounds. I did not identify any evidence of murmurs. ABDOMEN: Soft, not distended or tender. No ascites. No bladder distention. EXTREMITIES: Quite a bit of pain on mobilization of the left wrist and one of the third digit proximal interphalangeal joint. Also painful range of motion of the right ankle and the right first MPJ with some swelling. The pulses are 1+ in dorsalis pedis. Cap refill normal. NEUROLOGIC: Nonfocal neuro examination. His cognitive function appears to be normal. He is pleasant and oriented. Speech is normal. Recollection or memory is normal. LABORATORY DATA: Urinalysis is completely normal. White cell count is 14 and now is 12.6, hemoglobin 11.6, MCV 105, platelets 432, and 73% neutrophils. Chemistry, AST 36, alkaline phosphatase 176, and creatinine 1.4 and baseline is 1.0. Troponin 0.069 and BNP 127. Albumin 3.3 and vancomycin trough 14.6. Microbiology with Enterococcus faecalis, 2/2 sets of blood cultures obtained about 30 minutes apart. An echocardiogram was done today that is pending interpretation. CT of chest angiogram with no abnormalities noted. Venogram with no evidence of deep vein thrombosis. The patient had a transesophageal echo done in September last year and this showed moderate left atrial enlargement, moderate mitral regurg. ASSESSMENT: 1. Coronary artery disease with prior angioplasty. 2. Atrial fibrillation with ablation and Watchman device placement. 3. 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 4. Enterococcus faecalis bacteremia, which appears to be continues. 5. Pacemaker recently placed. DISCUSSION: The differential diagnosis includes pacemaker lead colonization versus endocarditis versus an alternate source. The patient had a colonoscopy about a year ago, which was fairly unremarkable. A urinary tract source is unlikely though intraabdominal inflammatory process does not appear likely at this point in time, so the heart/pacemaker are the more likely culprits here. He may have septic arthritis in the left wrist and right ankle/first MPJ or those inflamed joints could be secondary to crystal-induced arthropathy. Transthoracic echo was done. He may need a CORBY. We will switch him to Rocephin and ampicillin adjusted for renal function. Job ID: [id number]
[2019-12-31] MEDS: Gabapentin 300 MG CAP PO SCH (20:15)
[2019-12-31] MEDS: Atorvastatin Calcium 20 MG TAB PO SCH (20:15)
[2019-12-31] MEDS: cefTRIAXone\\ROCEPHIN 2 GM in Sodium Chloride 0.9% 100 ML IVPB SCH (20:16)
[2020-01-01] MEDS: Ampicillin 2 GM in Sodium Chloride 0.9% 100 ML IVPB SCH ×4 (00:41→18:03)
[2020-01-01 04:39] LABS: #Eosinphils 0.2 thou/uL (0.0-0.7); #Lymphocytes 1.6 thou/uL (1.20-3.40); #Monocytes 1.5 thou/uL (0.11-0.59); #Neutrophils 9.4 thou/uL (1.40-6.50); %Basophils 0.1 % (0.0-1.0); %Eosinophils 1.8 % (0.0-10.0); %Lymphocytes 12.6 % (21.0-51.0); %Neutrophils 73.5 % (42.0-75.0); Hemoglobin 10.6 g/dL (14.0-18.0); Mean Corpuscular HGB CONC 33.8 g/dL (32.0-36.0); Mean Corpuscular Hemoglobin 35.3 pg (27.0-31.0); Mean Platelet Volume 6.2 fL (7.4-10.4); Platelet Count 403 thou/uL (130-400); RBC Distribution Width 12.7 % (11.5-14.5); Red Blood Cell (RBC) Count 3.01 mill/uL (4.70-6.10); White Blood Cell (WBC) Count 12.8 thou/uL (4.8-10.8)
[2020-01-01] MEDS: Acetaminophen 325 MG TAB PO PRN ×2 (05:13→09:53)
--- NOTE | 2020-01-01 06:19 | PDOC.FM ---
- Subjective Subjective: Pt is feeling well this AM. Says his L wrist and R ankle are still swollen and hurt at times. Pt's daughters had many questions about prognosis and plan of care, which were answered. Pt denies chest pain, SOB. - Objective MAR Reviewed: Yes Vital Signs & Weight: Vital Signs (12 hours) Temp Pulse Resp BP Pulse Ox 01/01/20 03:10 97.3 F L 62 14 128/62 98 12/31/19 23:07 116/59 L 12/31/19 20:45 98.4 F 61 16 142/66 H 98 Weight Admit Weight 114.901 kg Weight 117.118 kg I&O: 12/30/19 12/31/19 01/01/20 06:59 06:59 06:59 Intake Total 560 1490 1070 Output Total 1100 1060 680 Balance -540 430 390 Result Diagrams: 01/01/20 04:12 12/31/19 04:07 Phys Exam - Physical Examination Constitutional: NAD Respiratory: clear to auscultation bilateral Cardiovascular: RRR AV paced on telemetry overnight Gastrointestinal: soft, non-tender, no distention Musculoskeletal: edema present (2+ b/l pitting edema, warm and erythematous lower extremities R>L) Psychiatric: normal affect, A&O x 3 Dx/Plan (1) Alcohol abuse Code(s): F10.10 - ALCOHOL ABUSE, UNCOMPLICATED Status: Acute (2) Fever of unknown origin Status: Acute (3) Macrocytic anemia Code(s): D53.9 - NUTRITIONAL ANEMIA, UNSPECIFIED Status: Acute (4) Suspected DVT (deep vein thrombosis) Code(s): R09.89 - OTH SYMPTOMS AND SIGNS INVOLVING THE CIRC AND RESP SYSTEMS Status: Acute (5) Wrist pain, acute Code(s): M25.539 - PAIN IN UNSPECIFIED WRIST Status: Acute Qualifiers: Laterality: left Qualified Code(s): M25.532 - Pain in left wrist (6) Coronary artery disease Code(s): I25.10 - ATHSCL HEART DISEASE OF [place] CORONARY ARTERY W/O ANG PCTRS Status: Chronic (7) Diastolic CHF, chronic Code(s): I50.32 - CHRONIC DIASTOLIC (CONGESTIVE) HEART FAILURE Status: Chronic (8) HTN (hypertension) Code(s): I10 - ESSENTIAL (PRIMARY) HYPERTENSION Status: Chronic Qualifiers: Hypertension type: unspecified Qualified Code(s): I10 - Essential (primary ) hypertension (9) JESU on CPAP Code(s): G47.33 - OBSTRUCTIVE SLEEP APNEA (ADULT) (PEDIATRIC) Status: Chronic - Plan Plan: Patient is an 79 yo male who presents with complaint of fevers, weakness, LE swelling, and left wrist pain: # Bacteremia # SIRS - resolved - Dr. David consulted, will re-consult as this is possible to be 2/2 pacemaker placement - Dr. Valente does not believe it is an infected joint - consult Chuck. Changed abx to rocephin and ampicillin based on BCx of E. Faecalis. Sensitivities pending. - TTE: EF 45-50%, restrictive pattern, severe dilation of LA. No mention of vegetations. # Wrist Pain Left, Right Ankle Pain Gout vs inflammatory arthritis vs infection - Uric acid 8.8, pending RA workup; hx of RA in the past - Tylenol prn - XR wrist showed degenerative changes - consult Ortho, Dr. Valente-- does not believe this is an infected joint - steroids initiated but possibly bacterial seeding, continue steroids # Suspected DVT - negative, pt has home eliquis. CTA, sonogram LE negative. # Indeterminate Troponin -downtrending # Macrocytic Anemia -suspect likely due to alcohol abuse -Hgb 13.7, MCV 106 #Hypertension -continue home meds #CHF -recent echo in Sep 2019 showed EF 30-35%, improved s/p pacemaker placement 1 month ago -if no source found for fever, consider bacterial endocarditis workup # A-fib - continue home meds, watchmen in place Diet: Heart Healthy VTE: home Eliquis Code: FULL Dispo: Stable, admitted to inpatient on medical unit. Anticipated LOS >48 hrs.
[2020-01-01] MEDS: Amiodarone 200 MG TAB PO SCH (09:42)
[2020-01-01] MEDS: Aspirin 325 MG TAB PO SCH (09:42)
[2020-01-01] MEDS: Multivitamin W/ Minerals 1 TAB PO SCH (09:42)
[2020-01-01] MEDS: Magnesium Oxide 400 MG TAB PO SCH (09:42)
[2020-01-01] MEDS: Potassium Chloride 20 MEQ TAB PO SCH (09:42)
[2020-01-01] MEDS: Folic Acid 1 MG TAB PO SCH (09:43)
[2020-01-01] MEDS: Furosemide 40 MG TAB PO SCH ×2 (09:43→20:23)
[2020-01-01] MEDS: predniSONE 20 MG TAB PO SCH (09:43)
[2020-01-01] MEDS: Apixaban 2.5 MG TAB PO SCH ×2 (09:43→20:23)
[2020-01-01] MEDS: Ferrous Sulfate 325 MG TAB PO SCH (09:43)
[2020-01-01] MEDS: Thiamine 100 MG TAB PO SCH (09:43)
[2020-01-01] MEDS: cefTRIAXone\\ROCEPHIN 2 GM in Sodium Chloride 0.9% 100 ML IVPB SCH ×2 (09:43→20:23)
[2020-01-01] MEDS: Spironolactone 25 MG TAB PO SCH (09:43)
[2020-01-01] MEDS: Polyethylene Glycol 3350 17 GM Packet PO SCH (09:44)
--- NOTE | 2020-01-01 13:31 | RAD ---
RIGHT ANKLE 3 VIEWS: HISTORY: Right ankle swelling and pain. FINDINGS/IMPRESSION: No acute fracture or dislocation or bony destruction is seen. There are mild degenerative changes. Small calcaneal spurs are present. The ankle mortise is maintained. POS: OFF
--- NOTE | 2020-01-01 17:10 | PRG ---
DATE OF SERVICE: 01/01/2020 SUBJECTIVE: Feeling about the same. No headaches. No back pain. No dyspnea. Still with pain in the left wrist and right ankle, probably from crystal-induced arthropathy. OBJECTIVE: VITAL SIGNS: Temperature normal. GENERAL: Awake, alert, oriented. LUNGS: Clear. HEART: S1 and S2. Regular rate. ABDOMEN: Soft. LABORATORY DATA: The echocardiogram did not show any vegetations. ASSESSMENT AND DISCUSSION: Coronary artery disease, atrial fibrillation, history of crystal-induced arthropathy, Enterococcus faecalis bacteremia with concern for pacemaker lead infection versus endocarditis. Consider transesophageal echocardiogram to rule out the above possibility. Job ID: [id number]
[2020-01-01] MEDS: Gabapentin 300 MG CAP PO SCH (20:22)
[2020-01-01] MEDS: Atorvastatin Calcium 20 MG TAB PO SCH (20:23)
[2020-01-02] MEDS: Ampicillin 2 GM in Sodium Chloride 0.9% 100 ML IVPB SCH ×4 (01:21→18:16)
[2020-01-02 05:00] LABS: #Eosinphils 0.2 thou/uL (0.0-0.7); #Lymphocytes 1.2 thou/uL (1.20-3.40); #Monocytes 1.2 thou/uL (0.11-0.59); %Basophils 0.2 % (0.0-1.0); %Eosinophils 1.7 % (0.0-10.0); %Lymphocytes 11.5 % (21.0-51.0); %Monocytes 11.1 % (0.0-10.0); %Neutrophils 75.5 % (42.0-75.0); Hemoglobin 10.7 g/dL (14.0-18.0); Mean Corpuscular HGB CONC 32.4 g/dL (32.0-36.0); Mean Corpuscular Hemoglobin 33.9 pg (27.0-31.0); Mean Platelet Volume 6.4 fL (7.4-10.4); Platelet Count 390 thou/uL (130-400); RBC Distribution Width 12.4 % (11.5-14.5); Red Blood Cell (RBC) Count 3.15 mill/uL (4.70-6.10); White Blood Cell (WBC) Count 10.7 thou/uL (4.8-10.8)
[2020-01-02 05:17] LABS: Anion Gap 14 mmol/L (10-20); BUN (Urea Nitrogen) 36 mg/dL (8.4-25.7); Calc. Creatinine Clearance 73 mL/min (70-130); Calcium 8.7 mg/dL (7.8-10.44); Carbon Dioxide 22 mmol/L (23-31); Chloride 103 mmol/L (98-107); Estimated GFR-MDRD 53; Glucose 95 mg/dL (83-110); Potassium 4.2 mmol/L (3.5-5.1); Sodium 135 mmol/L (136-145)
--- NOTE | 2020-01-02 07:30 | PRG ---
DATE OF SERVICE: 01/01/2020 ADDENDUM: This is an addendum to the note of Dr. Marta Guerra. I have discussed the case with Dr. Guerra and agree with her note. ASSESSMENT AND PLAN: Mr. Valladares is an 79-year-old white man, who presented with some migratory joint pain and swelling and enterococcus faecalis septicemia. We are investigating sites of possible infection and we will proceed with a transesophageal echocardiogram as well as consult Cardiology to check the leads and pacemaker. We are concerned that this could be a device septicemia versus bacterial endocarditis. Job ID: [id number]
--- NOTE | 2020-01-02 07:58 | CON ---
DATE OF CONSULTATION: 01/02/2020 REASON FOR CONSULTATION: Assess for endocarditis. HISTORY OF PRESENT ILLNESS: Mr. Valladares is a very pleasant 79-year-old gentleman, whom I have seen and evaluated in the past. He recently presented with shortness of breath, weakness, and fatigue. He has had a low-grade fever. He did have a positive blood cultures x2 for Enterococcus faecalis. He does have a pacemaker placed. He also had recent coiling of his left atrial appendage. PAST MEDICAL HISTORY: Hyperlipidemia, hypertension, aortic insufficiency, atrial fibrillation, chronic diastolic heart failure, chronic edema, chronic renal insufficiency, peptic ulcer disease, and obstructive sleep apnea. HOME MEDICATIONS: Include, 1. Metolazone. 2. Lasix. 3. Amiodarone. 4. Aspirin. 5. Albuterol. 6. Symbicort. 7. Tylenol. 8. Pantoprazole. 9. Temazepam. 10. Gabapentin. 11. Potassium. 12. Atorvastatin. 13. Eliquis. 14. Spironolactone. 15. Diltiazem. SURGICAL HISTORY: Cataract surgery, hernia repair, shoulder surgery, and recent Watchman placement with coiling. SOCIAL HISTORY: No current tobacco or alcohol use. REVIEW OF SYSTEMS: A 10-point review of systems is reviewed and is as above, otherwise negative. PHYSICAL EXAMINATION: GENERAL: Patient is a pleasant male, who is in no acute distress. The patient appears their stated age. VITAL SIGNS: Blood pressure 147/73, pulse 60, temperature 99.3. NEUROLOGIC: The patient is alert and oriented x3 with no focal neurologic deficits. HEENT: Sclerae without icterus. Mouth has moist mucous membranes with normal pallor. NECK: No JVD. Carotid upstroke brisk. No bruits bilaterally. LUNGS: Clear to auscultation with unlabored respirations. BACK: No scoliosis or kyphosis. CARDIAC: Irregularly irregular. ABDOMEN: Soft, nontender, nondistended. No peritoneal signs present. No hepatosplenomegaly. No abnormal striae. EXTREMITIES: 2+ femoral and 2+ dorsalis pedis pulses. No cyanosis, clubbing, or edema. SKIN: No gross abnormalities. PERTINENT LABORATORY DATA: Hemoglobin 10.7, white blood cell count 10.3. Creatinine 1.31 with GFR of 53, sodium 135, albumin 2.7. IMPRESSION: 1. Sepsis. 2. Fever. 3. Shortness of breath. 4. Coronary artery disease, status post stent placement. RECOMMENDATIONS: Certainly it seems reasonable to proceed with CORBY to assess for endocarditis versus pacemaker lead infection. Discussed the above with Mr. Valladares. Risks included, not limited to the following: Damage to teeth, mouth, back of throat; damage to esophagus; as well as reaction to medication. All questions were answered. Given the above, the patient agreed to proceed above procedure. Job ID: [id number]
--- NOTE | 2020-01-02 08:27 | PDOC.FM ---
- Subjective Subjective: Pt is feeling well laying in bed this AM. He has pain in his R foot when he tries to get up to walk to go to the bathroom. He struggles using the urinal in bed because of his L wrist pain and trouble reaching down to use urinal. Otherwise, he understand plan to proceed w/ CORBY. - Objective MAR Reviewed: Yes Vital Signs & Weight: Vital Signs (12 hours) Temp Pulse Resp BP Pulse Ox 01/02/20 03:02 99.3 F 62 18 147/73 H 98 01/01/20 20:30 98.2 F 61 16 145/65 H 96 Weight Admit Weight 114.901 kg Weight 120.293 kg I&O: 01/01/20 01/02/20 01/03/20 06:59 06:59 06:59 Intake Total 1070 3256 Output Total 680 2890 Balance 390 366 Result Diagrams: 01/02/20 04:17 01/02/20 04:17 Phys Exam - Physical Examination Constitutional: NAD Respiratory: no wheezing, clear to auscultation bilateral Cardiovascular: RRR Gastrointestinal: soft, non-tender, positive bowel sounds Musculoskeletal: pulses present (LE edema and venous stasis changes.) Psychiatric: normal affect, A&O x 3 Dx/Plan (1) Alcohol abuse Code(s): F10.10 - ALCOHOL ABUSE, UNCOMPLICATED Status: Acute (2) Fever of unknown origin Status: Acute (3) Macrocytic anemia Code(s): D53.9 - NUTRITIONAL ANEMIA, UNSPECIFIED Status: Acute (4) Suspected DVT (deep vein thrombosis) Code(s): R09.89 - OTH SYMPTOMS AND SIGNS INVOLVING THE CIRC AND RESP SYSTEMS Status: Acute (5) Wrist pain, acute Code(s): M25.539 - PAIN IN UNSPECIFIED WRIST Status: Acute Qualifiers: Laterality: left Qualified Code(s): M25.532 - Pain in left wrist (6) Coronary artery disease Code(s): I25.10 - ATHSCL HEART DISEASE OF [place] CORONARY ARTERY W/O ANG PCTRS Status: Chronic (7) Diastolic CHF, chronic Code(s): I50.32 - CHRONIC DIASTOLIC (CONGESTIVE) HEART FAILURE Status: Chronic (8) HTN (hypertension) Code(s): I10 - ESSENTIAL (PRIMARY) HYPERTENSION Status: Chronic Qualifiers: Hypertension type: unspecified Qualified Code(s): I10 - Essential (primary ) hypertension (9) JESU on CPAP Code(s): G47.33 - OBSTRUCTIVE SLEEP APNEA (ADULT) (PEDIATRIC) Status: Chronic - Plan Plan: Patient is an 79 yo male who presents with complaint of fevers, weakness, LE swelling, and left wrist pain: # Bacteremia # SIRS - resolved - Dr. David consulted, will re-consult as this is possible to be 2/2 pacemaker placement - Dr. Valente does not believe it is an infected joint. Likely crystal induced arthropathy. - consult Chuck. Changed abx to rocephin and ampicillin based on BCx of E. Faecalis. Guerra sensitive. - TTE: EF 45-50%, restrictive pattern, severe dilation of LA. No mention of vegetations. - CORBY today to assess for endocarditis # Wrist Pain Left, Right Ankle Pain Gout vs inflammatory arthritis vs infection - Uric acid 8.8, pending RA workup; hx of RA in the past - Tylenol prn - XR L wrist showed degenerative changes - XR R ankle without fracture. - consult Ortho, Dr. Valente-- does not believe this is an infected joint - steroids initiated but possibly bacterial seeding, continue steroids # Suspected DVT - negative, pt has home eliquis. CTA, sonogram LE negative. # Indeterminate Troponin -downtrending # Macrocytic Anemia -suspect likely due to alcohol abuse -Hgb 13.7, MCV 106 #Hypertension -continue home meds #CHF -recent echo in Sep 2019 showed EF 30-35%, improved s/p pacemaker placement 1 month ago # A-fib - continue home meds, watchmen in place Diet: Heart Healthy VTE: home Eliquis Code: FULL Dispo: Stable, admitted to inpatient on medical unit. Anticipated LOS >48 hrs.
--- NOTE | 2020-01-02 09:00 | CON ---
DATE OF CONSULTATION: REASON FOR CONSULTATION: Bacteremia with recent pacemaker implant. HISTORY OF PRESENT ILLNESS: Mr. Valladares is an 79-year-old gentleman, known to our practice for history of atrial arrhythmias and also left atrial appendage exclusion with a Watchman in June 2019. He was found to have a minor leak by CORBY on 07/26/2019. Repeat CORBY showed continued leak and a coil closure was performed on 11/21/2019 in [place]. At that time, the patient has been found to have significant LV dyssynchrony and had a biventricular Medtronic Percepta COUNTRY SALES MANAGER pacemaker implanted the following day. He had a longstanding left bundle-branch block, but then had congestive heart failure with an estimated ejection fraction of 40% that was a new decrease. He was discharged the following day in stable condition. Note then, there was some consideration for pace with AV node ablation therapy in the past. Although at this point, no AV node ablation has been performed. He underwent atrial fibrillation ablation in May 2019 and has been on amiodarone since that time. He is maintaining sinus rhythm largely now. Mr. Valladares presented to the emergency room. His lower extremity swelling and pain that started on the , the day of admission. He has chronic swelling in bilateral lower extremities that have become worse. He had also been having some low-grade fevers. He was admitted for further evaluation. There was a concern for bacteremia and blood cultures were drawn. Both sets have resulted and finalized positive for Enterococcus faecalis. Infectious Disease was consulted. Their differential diagnosis suggested pacemaker lead colonization versus endocarditis versus an alternative source possibly septic arthritis. At this point, septic arthritis is low consideration. EP consult was requested for consideration of pacemaker explant. Infectious Disease also recommended a CORBY for possible endocarditis and vegetation. Infectious Disease is managing antibiotics. Mr. Valladares is currently feeling well. He denies any recent fevers. He is not having heart racing, palpitations, chest pain, pressure, syncope, near syncope, stroke, stroke-like symptoms. He denies any redness, pain, swelling, bruising, drainage , or incisional problems with his left precordial pacemaker site. REVIEW OF SYSTEMS: 12-point review of systems is negative except that listed above in the HPI. PAST MEDICAL HISTORY: 1. Atrial fibrillation, status post PVAI on 05/23/2019, now on amiodarone for arrhythmia suppression. 2. Cardiomyopathy with a mildly reduced ejection fraction 50% in April 2018 or recently assessed at 40% by intracardiac echo during Watchman coiling estimated at 40% with LV dyssynchrony, left bundle-branch block. 3. Hypertension. 4. Obesity. 5. Left atrial appendage exclusion with Watchman on 06/07/2019 with residual leak requiring coil closure on 11/21/2019. 6. Osteoarthritis. 7. Peptic ulcer disease. 8. Chronic edema. ALLERGIES: NO KNOWN DRUG ALLERGIES. HOME MEDICATIONS: 1. Symbicort b.i.d. as needed. 2. Temazepam 30 mg q.h.s. 3. Spironolactone 50 mg p.o. daily. 4. Potassium chloride 20 mEq daily. 5. Pantoprazole 40 mg b.i.d. 6. Zaroxolyn 5 mg as needed. 7. Iron daily. 8. Gabapentin 600 mg q.h.s. 9. Furosemide 40 mg b.i.d. 10. Atorvastatin 20 mg q.p.m. 11. Aspirin 81 mg daily. 12. Eliquis 2.5 mg b.i.d. 13. Amiodarone 400 mg daily. 14. Albuterol q.6 hours p.r.n. SOCIAL HISTORY: Retired. Lives with his . Lives in [place]. Drinks alcohol daily. Never smoked. FAMILY HISTORY: Noncontributory. OBJECTIVE: VITAL SIGNS: Pulse 60, blood pressure 142/63, respirations 14, oxygen saturation is 95% on room air. GENERAL: The patient is alert and oriented. Speech is clear. Affect is appropriate. He is in no apparent distress. Attending exam. NECK: Supple without jugular venous distention. LUNGS: Clear to auscultation bilaterally without wheezes, crackles, or rhonchi. HEART: Rate is irregularly irregular with crisp S1 and S2. Left precordial device is felt subcutaneously. Incision is healing very nicely. Edges are well approximated. There is no redness, warmth, drainage, or bruising. Minimal swelling is seen. There is no evidence of induration or hematoma that is palpable on exam. ABDOMEN: Obese, soft, and nontender without palpable masses. EXTREMITIES: Warm and dry, but with extensive peripheral edema greater in the right lower extremity also with some associated erythema. No open areas/wounds are seen and the patient denies any open sores on his coccyx or spine. NEUROLOGIC: Grossly intact. Gait was not assessed. DATABASE: Telemetry and EKG show demand atrial pacing with ventricular pacing and evidence of cardiac resynchronization therapy. LABORATORY DATA: Hematology; hemoglobin 10.6, WBC is 12.8, platelet count is 403. Chemistry; potassium 3.6, creatinine 1.34. ALT and AST within normal limits. CRP slightly elevated. BNP 127. Echocardiogram on 12/31/2019, ejection fraction 45% to 50%. Left atrium is severely dilated. Left atrial dimension is 6.42 cm. IMPRESSION: 1. Atrial fibrillation with prior ablation, maintaining sinus rhythm, on chronic amiodarone therapy, 200 mg daily by our most recent records. 2. Left atrial appendage exclusion with Watchman placement in June 2019 with persistent leak requiring coil closure on 11/21/2019 with ongoing low-dose Eliquis therapy. 3. Enterococcus faecalis bacteremia. 4. Biventricular pacemaker implant on 11/22/2019, Medtronic Percepta Quad COUNTRY SALES MANAGER-P. 5. Cardiomyopathy with mildly reduced ejection fraction estimated at 40% while hospitalized in [place] in November 2019, now slightly improved after COUNTRY SALES MANAGER pacing estimated at 45% to 50%. 6. Osteoarthritis. 7. 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 PLAN AND RECOMMENDATIONS: Mr. Valladares is a delightful 79-year-old gentleman, who unfortunately is found to have bacteremia. There is concern that this may be related to his recent pacemaker implant. The plan and recommendation moving forward are for CORBY to evaluate for any vegetation and to evaluate any possible involvement of the leads with his bacteremia. At this point, his device pocket does not exhibit any physical exam findings consistent with a pocket infection. The patient regularly sees Dr. Jeronimo Regan of cardiology and Cardiology may be available to perform this CORBY. He underwent coil closure of his shar-Watchman leak nearly 6 weeks ago. We would request that at the time of CORBY to evaluate for any vegetation that his left atrial appendage be visualized as well to evaluate for any persistent leak following his recent coil closure. Fortunately, Mr. Valladares did not undergo an AV node ablation in November at time of his pacemaker implant. He was having significant LV dyssynchrony with recently found cardiomyopathy prompting his implant and also requiring pacing therapy as there was some difficult rate control with his atrial fibrillation in the past. He has a fairly recently implanted device, explant is required, and it should not be difficult to remove this and if needed we can place a contralateral device a few days following. Thank you for allowing me to participate in the care of this patient. We will continue to follow. Job ID: [id number] MASOUD
[2020-01-02] MEDS: Ferrous Sulfate 325 MG TAB PO SCH (09:26)
[2020-01-02] MEDS: Potassium Chloride 20 MEQ TAB PO SCH (09:27)
[2020-01-02] MEDS: Amiodarone 200 MG TAB PO SCH (09:27)
[2020-01-02] MEDS: Spironolactone 25 MG TAB PO SCH (09:27)
[2020-01-02] MEDS: predniSONE 20 MG TAB PO SCH (09:27)
[2020-01-02] MEDS: cefTRIAXone\\ROCEPHIN 2 GM in Sodium Chloride 0.9% 100 ML IVPB SCH ×2 (09:28→22:05)
[2020-01-02] MEDS: Aspirin 325 MG TAB PO SCH (09:28)
[2020-01-02] MEDS: Apixaban 2.5 MG TAB PO SCH ×2 (09:28→22:08)
[2020-01-02] MEDS: Furosemide 40 MG TAB PO SCH ×2 (09:29→22:07)
[2020-01-02] MEDS: Multivitamin W/ Minerals 1 TAB PO SCH (09:29)
[2020-01-02] MEDS: Magnesium Oxide 400 MG TAB PO SCH (09:29)
[2020-01-02] MEDS: Folic Acid 1 MG TAB PO SCH (09:29)
[2020-01-02] MEDS: Polyethylene Glycol 3350 17 GM Packet PO SCH (09:30)
[2020-01-02] MEDS: Thiamine 100 MG TAB PO SCH (09:30)
--- NOTE | 2020-01-02 10:27 | OP ---
DATE OF PROCEDURE: 01/02/2020 PREOPERATIVE DIAGNOSIS: Sepsis. POSTOPERATIVE DIAGNOSIS: No significant areas concerning for vegetation. PROCEDURE PERFORMED: CORBY. DESCRIPTION OF PROCEDURE: Please see consent dated 01/01/2020. The patient was consented for the procedure. Conscious sedation was performed with propofol. Anesthesia was present. The probe passed easily into the esophagus. FINDINGS: Mitral valve well visualized. No masses or vegetation present. Watchman device also visualized. No masses or vegetations present. There does appear to be a small leak present. This was confirmed with Dr. David. The aortic valve was also well visualized with aortic valve sclerosis with normal excursion. No vegetations or masses present. The tricuspid valve and pulmonic valve well visualized with no mass or vegetation. The right atrial and right ventricular lead also present without vegetations or masses present. IMPRESSION: 1. No obvious masses or vegetation present. 2. Small leak noted on the posterior aspect above the Watchman device. Job ID: [id number]
[2020-01-02] MEDS ORDERED: PROPOFOL 200 MG/20 ML VIAL ONE (10:53)
--- NOTE | 2020-01-02 11:29 | PRG ---
DATE OF SERVICE: 01/02/2020 Mr. Valladares just came back from his transesophageal echo and is sitting quietly in bed. He is in no distress and he is awake and alert. His echo did not show any signs of vegetations on any of the heart valves. He was also seen in consultation by Dr. David, who does not believe that his implantable devices are the cause of the bacteremia. We will continue with this antibiotic coverage for the enterococcus and continue to follow with multiple specialists including Infectious Disease and Cardiology. Job ID: [id number]
[2020-01-02] MEDS: Acetaminophen 325 MG TAB PO PRN (11:54)
--- NOTE | 2020-01-02 16:21 | PRG ---
DATE OF SERVICE: 01/02/2020 SUBJECTIVE: Mr. Valladares had a CORBY and the CORBY report is discussed below. He feels a little better. He denies any shortness of breath. No chest pain. No abdominal pain or diarrhea. OBJECTIVE: VITAL SIGNS: With a T-max 99.3, BP 130/60, pulse 61, respirations 18 to 20, and O2 saturation 97. SKIN: Bruising in the upper extremities. Peripheral IV access. HEENT: Ocular movements conjugate. LUNGS: Symmetric air entry without crackles or wheezing. HEART: S1 and S2. Regular rate. ABDOMEN: Distended, but not tender. No bladder distention. EXTREMITIES: Moves extremities equally. LABORATORY DATA: White cell count is down to 10.7, hemoglobin 10.7, and platelets 390. Sodium 135 and creatinine 1.31 with GFR at 53. He is currently on ampicillin and Rocephin. CORBY did not show any vegetations. There is little leakage in the Watchman device. ASSESSMENT AND DISCUSSION: Coronary artery disease, atrial fibrillation, crystal-induced arthropathy, and E. faecalis bacteremia with possible pacemaker lead infection or endocarditis. CORBY did not show any vegetations. Sometimes, the CORBY will miss when those are smaller than 3 mm at least. We do not have any obvious abnormality of the lead. So, we will recommend four weeks of Rocephin, ampicillin, peripherally inserted central catheter line placement and discharge planning. Job ID: [id number]
--- NOTE | 2020-01-02 16:40 | PDOC.EP ---
- Subjective Date: 01/02/20 Time: 08:00 Interval History: follow up for PPM management surrounding bacteremia + Swelling. - fever. - Review of Systems Constitutional: denies: chills, fever, malaise, sweats, weakness, other Respiratory: denies: cough, dry, pleuritic pain, shortness of breath Cardiology: reports: edema. denies: chest pain, heart racing, light headedness Gastrointestinal: denies: abdominal pain, constipation, diarrhea Musculoskeletal: denies: unstable gait, falls, neck pain - Objective Allergies/Adverse Reactions: Allergies Allergy/AdvReac Type Severity Reaction Status Date / Time adhesive tape Allergy Intermediate delicate Verified 12/29/19 20:01 skin Current Medications Acetaminophen (Tylenol) 650 mg PO Q4H PRN PRN Reason: Headache/Fever/Mild Pain (1-3) Last Admin: 01/02/20 11:54 Dose: 650 mg Albuterol Sulfate (Ventolin) 2.5 mg NEB Q6H PRN PRN Reason: SOB &/or Wheezing Amiodarone HCl (Cordarone) 400 mg PO DAILY [facility] Last Admin: 01/02/20 09:27 Dose: 400 mg Apixaban (Eliquis) 2.5 mg PO BID [facility] Last Admin: 01/02/20 09:28 Dose: 2.5 mg Aspirin (Aspirin) 325 mg PO DAILY [facility] Last Admin: 01/02/20 09:28 Dose: 325 mg Atorvastatin Calcium (Lipitor) 20 mg PO QPM [facility] Last Admin: 01/01/20 20:23 Dose: 20 mg Calcium Carbonate (Tums) 1,000 mg PO Q4H PRN PRN Reason: Heartburn or Indigestion Diazepam (Valium) 5 mg PO Q4H PRN PRN Reason: FOR ASE 10 OR GREATER Ferrous Sulfate (Feosol) 325 mg PO QAM-WM [facility] Last Admin: 01/02/20 09:26 Dose: 325 mg Folic Acid (Folvite) 1 mg PO DAILY [facility] Last Admin: 01/02/20 09:29 Dose: 1 mg Furosemide (Lasix) 40 mg PO BID [facility] Last Admin: 01/02/20 09:29 Dose: 40 mg Gabapentin (Neurontin) 600 mg PO HS [facility] Last Admin: 01/01/20 20:22 Dose: 600 mg Ampicillin Sodium 2 gm/ Sodium (Chloride) 100 mls @ 200 mls/hr IVPB Q6HR [facility] Last Admin: 01/02/20 11:54 Dose: 100 mls Ceftriaxone Sodium 2 gm/ (Sodium Chloride) 100 mls @ 200 mls/hr IVPB Q12HR [facility] Last Admin: 01/02/20 09:28 Dose: 100 mls Iron/Minerals/Multivitamins (Theragran M) 1 tab PO DAILY [facility] Last Admin: 01/02/20 09:29 Dose: 1 tab Magnesium Oxide (Magnesium Oxide) 400 mg PO DAILY [facility] Last Admin: 01/02/20 09:29 Dose: 400 mg Metolazone (Zaroxolyn) 5 mg PO PRN PRN PRN Reason: LEG SWELLING Mometasone Furoate/Formoterol Fumar (Dulera 200 Mcg/5 Mcg Inhaler) 2 puff INH BID-RT PRN PRN Reason: ASTHMA EXASPERATIONS Ondansetron HCl (Zofran Odt) 4 mg PO Q6H PRN PRN Reason: Nausea/Vomiting Pantoprazole Sodium (Protonix) 40 mg PO BID [facility] Last Admin: 01/02/20 09:29 Dose: 40 mg Polyethylene Glycol (Miralax) 17 gm PO DAILY [facility] Last Admin: 01/02/20 09:30 Dose: 17 gm Potassium Chloride (K-Dur) 40 meq PO [facility] Last Admin: 01/02/20 09:27 Dose: 40 meq Prednisone (Prednisone) 20 mg PO QA-[facility] Last Admin: 01/02/20 09:27 Dose: 20 mg Senna/Docusate Sodium (Senokot S) 2 tab PO BID PRN PRN Reason: Constipation Sodium Chloride (Flush - Normal Saline) 10 ml IVF PRN PRN PRN Reason: Saline Flush Last Admin: 01/02/20 09:30 Dose: 10 ml Spironolactone (Aldactone) 50 mg PO QA-[facility] Last Admin: 01/02/20 09:27 Dose: 50 mg Thiamine HCl (Thiamine) 100 mg PO DAILY [facility] Last Admin: 01/02/20 09:30 Dose: 100 mg Vital Signs & Weight: Vital Signs Temp Pulse Resp BP Pulse Ox 01/02/20 16:07 98.6 F 61 20 133/60 97 01/02/20 12:10 98.6 F 61 20 135/60 97 01/02/20 09:44 96 01/02/20 09:03 98.0 F 72 22 H 123/57 L 96 Admit Weight 253 lb 5 oz Weight 265 lb 3.2 oz I/O: I/O 01/01/20 01/02/20 01/03/20 06:59 06:59 06:59 Intake Total 1070 3256 Output Total 680 2890 Balance 390 366 - Quality Measures Condition: Atrial Fibrillation/Flutter (hx or current) CV meds: Eliquis: Yes - Physical Exam General: alert & oriented x3, appears well, no apparent distress, speech clear, affect appropriate HEENT: mucus membranes moist, normocephaly Neck: supple neck, midline trachea, no JVD/HJR, no lymphadenopathy Cardiology: regular rate and rhythm, no murmur, PMI nondisplaced Lungs: clear to auscultation, normal breath sounds, no wheeze, rales, rhonchi Neurology: cranial nerve 2-12 intact, sensory function intact, no lateralizing findings, essential tremor Abdomen: active bowel sounds, no pulsations/bruits Extremities: dry, strong pulses, warm, + edema B (2+) Skin: device site stable w/o swelling, left sided device. negative: bruising, drainage, erosion, hematoma - Labs Result Diagrams: 01/03/20 04:29 01/02/20 04:17 - EKG Interpretation EKG Method: Telemetry EKG shows: Sinus rhythm - Device Device: biventricular, pacemaker Device Result: Medtronic - Assessment/Plan Assessment/Plan: 1. Atrial fibrillation with prior ablation, maintaining sinus rhythm, on chronic amiodarone therapy, 200 mg daily by our most recent records. 2. Left atrial appendage exclusion with Watchman placement in June 2019 with persistent leak requiring coil closure on 11/21/2019 with ongoing low-dose Eliquis therapy. 3. Enterococcus faecalis bacteremia. 4. Biventricular pacemaker implant on 11/22/2019, Medtronic Percepta Quad GAS MASK INSPECTOR-P. 5. Cardiomyopathy with mildly reduced ejection fraction estimated at 40% while hospitalized in [place] in November 2019, now slightly improved after GAS MASK INSPECTOR pacing estimated at 45% to 50%. 6. Osteoarthritis. 7. 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 CORBY today did not suggest any vegetation but could have missed vegetation <3mm. ID recommended antibiotic therapy. If recurrence, extraction can be performed. Continue OAC on eliquis. 6 week follow up to be arranged. EP signing off unless further input is desired
[2020-01-02] MEDS: Gabapentin 300 MG CAP PO SCH (22:06)
[2020-01-02] MEDS: Atorvastatin Calcium 20 MG TAB PO SCH (22:07)
[2020-01-03] MEDS: Ampicillin 2 GM in Sodium Chloride 0.9% 100 ML IVPB SCH ×5 (00:55→23:34)
[2020-01-03 05:16] LABS: #Eosinphils 0.4 thou/uL (0.0-0.7); #Lymphocytes 1.7 thou/uL (1.20-3.40); #Monocytes 1.6 thou/uL (0.11-0.59); #Neutrophils 9.3 thou/uL (1.40-6.50); %Basophils 0.2 % (0.0-1.0); %Eosinophils 2.7 % (0.0-10.0); %Lymphocytes 12.7 % (21.0-51.0); %Monocytes 12.5 % (0.0-10.0); %Neutrophils 71.8 % (42.0-75.0); Hemoglobin 10.6 g/dL (14.0-18.0); Mean Corpuscular HGB CONC 33.4 g/dL (32.0-36.0); Mean Corpuscular Hemoglobin 34.8 pg (27.0-31.0); Mean Platelet Volume 6.2 fL (7.4-10.4); Platelet Count 381 thou/uL (130-400); RBC Distribution Width 12.6 % (11.5-14.5); Red Blood Cell (RBC) Count 3.04 mill/uL (4.70-6.10)
--- NOTE | 2020-01-03 06:10 | PDOC.FM ---
- Subjective Subjective: Pt is feeling well this AM. walked 2 steps w/ PT yesterday. R ankle hurts: throbbing type pain. Willing to go to rehab vs snf. Says lluvia was given late at night and he is up all night urinating. - Objective MAR Reviewed: Yes Vital Signs & Weight: Vital Signs (12 hours) Temp Pulse Resp BP Pulse Ox 01/03/20 03:00 97.9 F 60 18 133/65 96 01/02/20 22:05 98.1 F 64 18 146/65 H 96 Weight Admit Weight 114.901 kg Weight 120.293 kg I&O: 01/01/20 01/02/20 01/03/20 06:59 06:59 06:59 Intake Total 1070 3256 834 Output Total 680 2890 1200 Balance 390 366 -366 Result Diagrams: 01/03/20 04:29 01/02/20 04:17 Phys Exam - Physical Examination Constitutional: NAD Respiratory: clear to auscultation bilateral Cardiovascular: RRR (AV paced) Gastrointestinal: soft, non-tender, no distention Dx/Plan (1) Alcohol abuse Code(s): F10.10 - ALCOHOL ABUSE, UNCOMPLICATED Status: Acute (2) Fever of unknown origin Status: Acute (3) Macrocytic anemia Code(s): D53.9 - NUTRITIONAL ANEMIA, UNSPECIFIED Status: Acute (4) Suspected DVT (deep vein thrombosis) Code(s): R09.89 - OTH SYMPTOMS AND SIGNS INVOLVING THE CIRC AND RESP SYSTEMS Status: Acute (5) Wrist pain, acute Code(s): M25.539 - PAIN IN UNSPECIFIED WRIST Status: Acute Qualifiers: Laterality: left Qualified Code(s): M25.532 - Pain in left wrist (6) Coronary artery disease Code(s): I25.10 - ATHSCL HEART DISEASE OF [place] CORONARY ARTERY W/O ANG PCTRS Status: Chronic (7) Diastolic CHF, chronic Code(s): I50.32 - CHRONIC DIASTOLIC (CONGESTIVE) HEART FAILURE Status: Chronic (8) HTN (hypertension) Code(s): I10 - ESSENTIAL (PRIMARY) HYPERTENSION Status: Chronic Qualifiers: Hypertension type: unspecified Qualified Code(s): I10 - Essential (primary ) hypertension (9) JESU on CPAP Code(s): G47.33 - OBSTRUCTIVE SLEEP APNEA (ADULT) (PEDIATRIC) Status: Chronic - Plan Plan: Patient is an 79 yo male who presents with complaint of fevers, weakness, LE swelling, and left wrist pain: # Bacteremia # SIRS - resolved - Dr. David consulted, will re-consult as this is possible to be 2/2 pacemaker placement - Dr. Valente does not believe it is an infected joint. Likely crystal induced arthropathy. - consult Chuck. Changed abx to rocephin and ampicillin based on BCx of E. Faecalis. Guerra sensitive. - continue abx for 4 weeks. Multiple doses every day: will need SNF vs rehab. - TTE: EF 45-50%, restrictive pattern, severe dilation of LA. No mention of vegetations. - CORBY not showing vegetations nor infected leads of pacemaker. Will leave pacemaker in and f/u w/ Dr. David in 6 weeks. # Wrist Pain Left, Right Ankle Pain Gout vs inflammatory arthritis vs infection - Uric acid 8.8, pending RA workup; hx of RA in the past - Tylenol prn - XR L wrist showed degenerative changes - XR R ankle without fracture. - consult Ortho, Dr. Valente-- does not believe this is an infected joint - continue steroids and gabapentin # Suspected DVT - negative, pt has home eliquis. CTA, sonogram LE negative. # Indeterminate Troponin -downtrending # Macrocytic Anemia -suspect likely due to alcohol abuse -Hgb 13.7, MCV 106 #Hypertension -continue home meds #CHF -recent echo in Sep 2019 showed EF 30-35%, improved s/p pacemaker placement 1 month ago # A-fib - continue home meds, watchmen in place Diet: Heart Healthy VTE: home Eliquis Code: FULL Dispo: Stable, admitted to inpatient on medical unit. Anticipated LOS >48 hrs.
[2020-01-03] MEDS: Ferrous Sulfate 325 MG TAB PO SCH (08:13)
[2020-01-03] MEDS: Thiamine 100 MG TAB PO SCH (08:13)
[2020-01-03] MEDS: Acetaminophen 325 MG TAB PO PRN (08:13)
[2020-01-03] MEDS: Amiodarone 200 MG TAB PO SCH (08:13)
[2020-01-03] MEDS: Aspirin 325 MG TAB PO SCH (08:13)
[2020-01-03] MEDS: Spironolactone 25 MG TAB PO SCH (08:13)
[2020-01-03] MEDS: cefTRIAXone\\ROCEPHIN 2 GM in Sodium Chloride 0.9% 100 ML IVPB SCH ×2 (08:14→21:54)
[2020-01-03] MEDS: Apixaban 2.5 MG TAB PO SCH ×2 (08:14→22:37)
[2020-01-03] MEDS: Multivitamin W/ Minerals 1 TAB PO SCH (08:14)
[2020-01-03] MEDS: Magnesium Oxide 400 MG TAB PO SCH (08:14)
[2020-01-03] MEDS: Folic Acid 1 MG TAB PO SCH (08:14)
[2020-01-03] MEDS: Furosemide 40 MG TAB PO SCH ×3 (08:14→14:00)
[2020-01-03] MEDS: predniSONE 20 MG TAB PO SCH (08:14)
[2020-01-03] MEDS: Potassium Chloride 20 MEQ TAB PO SCH (08:14)
[2020-01-03] MEDS: Polyethylene Glycol 3350 17 GM Packet PO SCH (08:16)
--- NOTE | 2020-01-03 11:46 | PRG ---
DATE OF SERVICE: 01/03/2020 Mr. Valladares is resting quietly in bed, in no distress. His septicemia workup as far as finding a source has been unrevealing. He will need four weeks of intravenous Rocephin and ampicillin for his bacteremia. He will have a PICC line placed and we were making arrangements for SNF placement. In the event clinically, he remains improved and will continue on broad-spectrum antibiotics as stated for four weeks. Job ID: [id number]
--- NOTE | 2020-01-03 14:06 | PQF ---
CLINICAL DOCUMENTATION IMPROVEMENT CLARIFICATION FORM: ICD-10 Updated PLEASE DO AN ADDENDUM TO THE PROGRESS NOTE WITH ANY DOCUMENTATION UPDATES OR ADDITIONS AND CARRY THROUGH TO DC SUMMARY. THANK YOU. DATE: 01/03/2020 ATTN: Dr. Guerra/ Attending Dr. Pineda Please exercise your independent, professional judgment in responding to the clarification form. Clinical indicators are provided on the bottom of this form for your review Please check appropriate box(es): [ ] Sepsis due to undetermined source. [ x] Sepsis due to other. bacteremia [ ] Localized infection without sepsis [ ] Other diagnosis [ ] Unable to determine In addition, please specify: Present on Admission (POA): [ x] Yes [ ] No [ ] Unable to determine For continuity of documentation, please document condition throughout progress notes and discharge summary. Thank You. CLINICAL INDICATORS - SIGNS / SYMPTOMS / LABS / RESULTS AND LOCATION IN MR H&P 12/29: -meets SIRS criteria with admission resp rate >20 (RR of 23) and WBC > 12 (14.4) 12/31 ([facility]) Sepsis 01/01 ([facility]) Enterococcus faecalis bacteremia. Biventricular pacemaker implant on 11/22/2019. CORBY today did not suggest any vegetation but could have missed vegetation <3mm. ID recommended antibiotic therapy. 01/02: ([place]) His septicemia workup as far as finding a source has been unrevealing. RISKS: H&P 12/29: 79 yo M with PMH HFrEF, HTN, recent pacemaker placement 1 month ago presenting for generalized weakness. TREATMENT: 12/30 ID Consult 01/01 CORBY procedure. 01/02 ([place]) He will need four weeks of intravenous Rocephin and ampicillin for his bacteremia. Thank you, Jess (This form is maintained as a part of the permanent medical record) 2014 [employer]. All Rights Reserved Jess Lewis RN, BSN [email or web address] Office: [phone] [facility]
[2020-01-03] MEDS: Gabapentin 300 MG CAP PO SCH (21:55)
[2020-01-03] MEDS: Atorvastatin Calcium 20 MG TAB PO SCH (21:55)
--- NOTE | 2020-01-04 05:36 | PDOC.FM ---
- Subjective Subjective: Feeling well this AM. Says Foot and wrist pain is better. Walked to door and back w/ PT which is more than previous day. Says family is out touring facilities for him to go to. - Objective MAR Reviewed: Yes Vital Signs & Weight: Vital Signs (12 hours) Temp Pulse Resp BP Pulse Ox 01/04/20 03:30 97.8 F 72 18 138/64 98 01/03/20 19:30 98.7 F 67 18 155/70 H 96 Weight Admit Weight 114.901 kg Weight 119.408 kg I&O: 01/02/20 01/03/20 01/04/20 06:59 06:59 06:59 Intake Total 3256 1374 1020 Output Total 2890 1138 2034 Balance 259 -999 -258 Result Diagrams: 01/04/20 04:03 01/04/20 04:03 Phys Exam - Physical Examination Constitutional: NAD Respiratory: no wheezing, clear to auscultation bilateral Cardiovascular: RRR V-paced on tele Gastrointestinal: soft, non-tender Musculoskeletal: edema present (2+ bilaterally, venous stasis changes, erythema of R foot improved) Psychiatric: normal affect, A&O x 3 Dx/Plan (1) Alcohol abuse Code(s): F10.10 - ALCOHOL ABUSE, UNCOMPLICATED Status: Acute (2) Fever of unknown origin Status: Acute (3) Macrocytic anemia Code(s): D53.9 - NUTRITIONAL ANEMIA, UNSPECIFIED Status: Acute (4) Suspected DVT (deep vein thrombosis) Code(s): R09.89 - OTH SYMPTOMS AND SIGNS INVOLVING THE CIRC AND RESP SYSTEMS Status: Acute (5) Wrist pain, acute Code(s): M25.539 - PAIN IN UNSPECIFIED WRIST Status: Acute Qualifiers: Laterality: left Qualified Code(s): M25.532 - Pain in left wrist (6) Coronary artery disease Code(s): I25.10 - ATHSCL HEART DISEASE OF [place] CORONARY ARTERY W/O ANG PCTRS Status: Chronic (7) Diastolic CHF, chronic Code(s): I50.32 - CHRONIC DIASTOLIC (CONGESTIVE) HEART FAILURE Status: Chronic (8) HTN (hypertension) Code(s): I10 - ESSENTIAL (PRIMARY) HYPERTENSION Status: Chronic Qualifiers: Hypertension type: unspecified Qualified Code(s): I10 - Essential (primary ) hypertension (9) JESU on CPAP Code(s): G47.33 - OBSTRUCTIVE SLEEP APNEA (ADULT) (PEDIATRIC) Status: Chronic - Plan Plan: Patient is an 79 yo male who presents with complaint of fevers, weakness, LE swelling, and left wrist pain: # Sepsis 2/2 Bacteremia, improved - IDChuck consulted. appreciate recs. - BCx of E. Faecalis. Guerra sensitive. - continue abx for 4 weeks. will need SNF vs rehab. - PICC line to be placed this AM - TTE: EF 45-50%, restrictive pattern, severe dilation of LA. No mention of vegetations. - CORBY not showing vegetations nor infected leads of pacemaker. Will leave pacemaker in and f/u w/ Dr. David in 6 weeks. # Wrist Pain Left, Right Ankle Pain, improving Gout vs inflammatory arthritis vs infection - elevated uric acid, pending RA workup; hx of RA in the past - Tylenol prn - consult Ortho, Dr. Valente-- does not believe this is an infected joint - continue steroids and gabapentin # Macrocytic Anemia - suspect likely due to alcohol abuse # Hypertension - continue home meds # CHF - stable, s/p pacemaker and watchman device 1 month ago # A-fib - continue home meds, watchmen in place Diet: Heart Healthy VTE: home Eliquis Code: FULL Dispo: stable. Pending placement for IV abx for 4 weeks.
[2020-01-04 05:44] LABS: Hemoglobin 10.5 g/dL (14.0-18.0); Mean Corpuscular HGB CONC 31.3 g/dL (32.0-36.0); Mean Corpuscular Hemoglobin 32.8 pg (27.0-31.0); Mean Platelet Volume 6.5 fL (7.4-10.4); Platelet Count 398 thou/uL (130-400); RBC Distribution Width 12.5 % (11.5-14.5); White Blood Cell (WBC) Count 14.6 thou/uL (4.8-10.8)
[2020-01-04 05:45] LABS: Band 1 % (5-11); Lymphocytes 16 % (21-51); MDiff Complete? YES; Metamyelocyte 1 % (0-0); Monocytes 13 % (0-10); Myelocyte 3 % (0-0); Neutrophil 66 % (42-75)
[2020-01-04] MEDS: Ampicillin 2 GM in Sodium Chloride 0.9% 100 ML IVPB SCH ×4 (05:57→23:16)
--- NOTE | 2020-01-04 09:04 | PDOC.BPN ---
- Brief Progress Note EP update: Patient not seen. Will offer OP procedure to close watchman leak this coming Wednesday with Dr Becerril. No need to postpone DC. Will make outpatient arrangements. Needs to continue Eliquis.
[2020-01-04] MEDS: cefTRIAXone\\ROCEPHIN 2 GM in Sodium Chloride 0.9% 100 ML IVPB SCH ×2 (10:16→20:26)
[2020-01-04] MEDS: Aspirin 325 MG TAB PO SCH (10:17)
[2020-01-04] MEDS: Ferrous Sulfate 325 MG TAB PO SCH (10:17)
[2020-01-04] MEDS: Magnesium Oxide 400 MG TAB PO SCH (10:17)
[2020-01-04] MEDS: Spironolactone 25 MG TAB PO SCH (10:18)
[2020-01-04] MEDS: Potassium Chloride 20 MEQ TAB PO SCH (10:18)
[2020-01-04] MEDS: Amiodarone 200 MG TAB PO SCH (10:18)
[2020-01-04] MEDS: Folic Acid 1 MG TAB PO SCH (10:19)
[2020-01-04] MEDS: Thiamine 100 MG TAB PO SCH (10:19)
[2020-01-04] MEDS: Multivitamin W/ Minerals 1 TAB PO SCH (10:19)
[2020-01-04] MEDS: predniSONE 20 MG TAB PO SCH (10:19)
[2020-01-04] MEDS: Polyethylene Glycol 3350 17 GM Packet PO SCH (10:21)
--- NOTE | 2020-01-04 11:38 | SPC ---
Ultrasound-guidedrightupper extremity PICC placement: 01/04/2020 HISTORY: Infection in need of IV antibiotics FINDINGS: Informed consent obtained prior to the procedure. Right antecubital fossa prepped and draped in normal sterile fashion. Skin overlying theright basilicvein anesthetized with 1% buffered lidocaine. With direct sonographic guidance, vascular access is obtained via the right basilicvein and an 0.018in wire was advanced to the right atrium, retracted to the cavoatrial junction. Intravascular length is calculated at 42 cm a nd of the PICC is cut accordingly. Needle is removed and replaced with a peel-away sheath. The PICC was advanced over the wire. Wire and peel-away sheath were removed. The tip of the catheter overlies the cavoatrial junction. The port flushes well and the catheter is ready for use. Exposure data: 0.3 minutes of fluoroscopic time 1058 mGy per centimeter squared IMPRESSION: Successful ultrasound guided placement of a rightupper extremity PICC.
--- NOTE | 2020-01-04 12:12 | PRG ---
DATE OF SERVICE: 01/04/2020 Mr. Valladares is resting quietly in bed with his and daughter in the room. We are awaiting SNF placement. He is feeling fine and is otherwise ready for discharge pending placement. Job ID: [id number]
[2020-01-04 13:57] VITALS: BMI 36.7
[2020-01-04] MEDS: Acetaminophen 325 MG TAB PO PRN (14:55)
[2020-01-04 16:56] LABS: ANA Symphony (Qualitative) Negative (Negative); ANA Symphony (Quantitative) 0.2 Ratio (< 0.7 Negative); dsDNA IgG Antibody 1.2 IU/mL (<10 Negative)
[2020-01-04 18:02] LABS: CCP IgG Antibody 2.6 EliAU/mL (<7 Negative); EliA RAS New Method **** NEW METHOD ****; Rheumatoid Factor IgA Antibody 4.4 IU/mL (<14 Negative); Rheumatoid Factor IgM Antibody 2.4 IU/mL (<3.5 Negative)
[2020-01-04] MEDS: Atorvastatin Calcium 20 MG TAB PO SCH (20:27)
[2020-01-04] MEDS: Gabapentin 300 MG CAP PO SCH (20:27)
[2020-01-05 04:47] LABS: #Eosinphils 0.4 thou/uL (0.0-0.7); #Lymphocytes 1.9 thou/uL (1.20-3.40); #Monocytes 1.6 thou/uL (0.11-0.59); #Neutrophils 12.6 thou/uL (1.40-6.50); %Eosinophils 2.5 % (0.0-10.0); %Lymphocytes 11.4 % (21.0-51.0); %Monocytes 9.4 % (0.0-10.0); %Neutrophils 76.7 % (42.0-75.0); Hemoglobin 10.3 g/dL (14.0-18.0); Mean Corpuscular HGB CONC 32.9 g/dL (32.0-36.0); Mean Corpuscular Hemoglobin 34.4 pg (27.0-31.0); Mean Platelet Volume 6.5 fL (7.4-10.4); Platelet Count 389 thou/uL (130-400); RBC Distribution Width 12.7 % (11.5-14.5); Red Blood Cell (RBC) Count 2.98 mill/uL (4.70-6.10); White Blood Cell (WBC) Count 16.4 thou/uL (4.8-10.8)
[2020-01-05] MEDS: Ampicillin 2 GM in Sodium Chloride 0.9% 100 ML IVPB SCH ×2 (05:19→11:55)
--- NOTE | 2020-01-05 05:46 | PDOC.FM ---
- Subjective Subjective: Patient denies chest pain or SOB this morning. Says he got a workout with therapy yesterday as he moved his arms and legs with exercises at bedside. R ankle no longer has pain at rest but is painful when weight bearing. Reports Dr David has not updated him on repairing the watchmen leak. - Objective MAR Reviewed: Yes Vital Signs & Weight: Vital Signs (12 hours) Temp Pulse Resp BP Pulse Ox 01/05/20 03:06 97.6 F 66 14 133/63 99 01/04/20 19:30 97.8 F 60 18 141/65 H 98 Weight Admit Weight 114.901 kg Weight 119.522 kg I&O: 01/03/20 01/04/20 01/05/20 06:59 06:59 06:59 Intake Total 1374 1800 960 Output Total 2365 2575 820 Balance -991 -775 140 Result Diagrams: 01/05/20 04:25 01/05/20 06:03 Phys Exam - Physical Examination Constitutional: NAD Respiratory: no wheezing, clear to auscultation bilateral Cardiovascular: RRR, no significant murmur v paced on tele overnight Gastrointestinal: soft, non-tender, positive bowel sounds Musculoskeletal: edema present (2+ bilaterally. continued swelling in R midfoot and toes. minimal erythema) Neurological: non-focal, moves all 4 limbs Dx/Plan (1) Alcohol abuse Code(s): F10.10 - ALCOHOL ABUSE, UNCOMPLICATED Status: Acute (2) Fever of unknown origin Status: Acute (3) Macrocytic anemia Code(s): D53.9 - NUTRITIONAL ANEMIA, UNSPECIFIED Status: Acute (4) Suspected DVT (deep vein thrombosis) Code(s): R09.89 - OTH SYMPTOMS AND SIGNS INVOLVING THE CIRC AND RESP SYSTEMS Status: Acute (5) Wrist pain, acute Code(s): M25.539 - PAIN IN UNSPECIFIED WRIST Status: Acute Qualifiers: Laterality: left Qualified Code(s): M25.532 - Pain in left wrist (6) Coronary artery disease Code(s): I25.10 - ATHSCL HEART DISEASE OF [place] CORONARY ARTERY W/O ANG PCTRS Status: Chronic (7) Diastolic CHF, chronic Code(s): I50.32 - CHRONIC DIASTOLIC (CONGESTIVE) HEART FAILURE Status: Chronic (8) HTN (hypertension) Code(s): I10 - ESSENTIAL (PRIMARY) HYPERTENSION Status: Chronic Qualifiers: Hypertension type: unspecified Qualified Code(s): I10 - Essential (primary ) hypertension (9) JESU on CPAP Code(s): G47.33 - OBSTRUCTIVE SLEEP APNEA (ADULT) (PEDIATRIC) Status: Chronic - Plan Plan: Patient is an 79 yo male who presents with complaint of fevers, weakness, LE swelling, and left wrist pain: # Sepsis 2/2 Bacteremia, improved - ID, Chuck consulted. appreciate recs. - BCx of E. Faecalis. Guerra sensitive. - continue abx for 4 weeks. will need SNF vs rehab. End date abx is 01/26. - PICC line in R arm - TTE/CORBY without vegetations or infection of PM leads # Wrist Pain Left, Right Ankle Pain, improving Gout vs inflammatory arthritis vs infection, most likely gout, although polyarticular - CHESTER, RA labs neg. - Tylenol prn - continue steroids and gabapentin. Will send on steroid taper. could consider colchicine but caution with kidney disease. # Macrocytic Anemia - suspect likely due to alcohol abuse # Hypertension - continue home meds # CHF - stable, s/p pacemaker and watchman device 1 month ago - kidney function at baseline, resume lasix at home dose. consider discussing w Dr Ramirez his manager operations research # A-fib - continue home meds, watchmen in place - per Joann, fix Watchmen leak on Wednesday. Diet: Heart Healthy VTE: home Eliquis Code: FULL Dispo: stable. Pending placement for IV abx for 4 weeks. Pt is ready for discharge. Need to coordinate watchmen leak procedure with [facility] in [place] where pt has been accepted for 4 weeks of abx IV.
[2020-01-05 06:39] LABS: Anion Gap 12 mmol/L (10-20); BUN (Urea Nitrogen) 34 mg/dL (8.4-25.7); Calc. Creatinine Clearance 82 mL/min (70-130); Calcium 8.8 mg/dL (7.8-10.44); Carbon Dioxide 27 mmol/L (23-31); Chloride 103 mmol/L (98-107); Estimated GFR-MDRD 59; Glucose 95 mg/dL (83-110); Potassium 4.6 mmol/L (3.5-5.1); Sodium 137 mmol/L (136-145)
[2020-01-05] MEDS: Polyethylene Glycol 3350 17 GM Packet PO SCH (08:54)
[2020-01-05] MEDS: Aspirin 325 MG TAB PO SCH (08:55)
[2020-01-05] MEDS: Magnesium Oxide 400 MG TAB PO SCH (08:55)
[2020-01-05] MEDS: predniSONE 20 MG TAB PO SCH (08:56)
[2020-01-05] MEDS: Multivitamin W/ Minerals 1 TAB PO SCH (08:56)
[2020-01-05] MEDS: Ferrous Sulfate 325 MG TAB PO SCH (08:56)
[2020-01-05] MEDS: Spironolactone 25 MG TAB PO SCH (08:57)
[2020-01-05] MEDS: Potassium Chloride 20 MEQ TAB PO SCH (08:58)
[2020-01-05] MEDS: Folic Acid 1 MG TAB PO SCH (08:58)
[2020-01-05] MEDS: Thiamine 100 MG TAB PO SCH (08:58)
[2020-01-05] MEDS: Amiodarone 200 MG TAB PO SCH (08:58)
[2020-01-05] MEDS: cefTRIAXone\\ROCEPHIN 2 GM in Sodium Chloride 0.9% 100 ML IVPB SCH (10:19)
--- NOTE | 2020-01-05 11:45 | PRG ---
DATE OF SERVICE: 01/05/2020 Mr. Valladares is sitting quietly in bed, in no distress. He is in good spirits and ready for discharge. He will be discharged to a skilled facility in [place] today to continue with four weeks of intravenous antibiotics for his bacteremia. Job ID: [id number]
[2020-01-05] MEDS: Acetaminophen 325 MG TAB PO PRN (11:54)
--- NOTE | 2020-01-05 14:37 | PDOC.EP ---
- Subjective Date: 01/05/20 Time: 14:36 Interval History: Pt continues to recover fro infection. Plans to transfer out to rehab today. Here to discuss potential RF ablation closure of the shar-Watchman device leak. - Review of Systems Constitutional: denies: chills, fever, malaise, sweats, weakness, other Respiratory: reports: SOB with excertion Cardiology: reports: edema. denies: chest pain, heart racing, light headedness , paroxysmal noc. dyspnea, orthopnea, palpitations, passing out, pleuritic pain , pressure, swelling, other Gastrointestinal: denies: abdominal pain, constipation, diarrhea, hematochezia, melena, nausea, vomitting, other - Objective Allergies/Adverse Reactions: Allergies Allergy/AdvReac Type Severity Reaction Status Date / Time adhesive tape Allergy Intermediate delicate Verified 12/29/19 20:01 skin Current Medications Acetaminophen (Tylenol) 650 mg PO Q4H PRN PRN Reason: Headache/Fever/Mild Pain (1-3) Last Admin: 01/05/20 11:54 Dose: 650 mg Albuterol Sulfate (Ventolin) 2.5 mg NEB Q6H PRN PRN Reason: SOB &/or Wheezing Amiodarone HCl (Cordarone) 400 mg PO DAILY [facility] Last Admin: 01/05/20 08:58 Dose: 400 mg Apixaban (Eliquis) 2.5 mg PO BID [facility] Aspirin (Aspirin) 325 mg PO DAILY [facility] Last Admin: 01/05/20 08:55 Dose: 325 mg Atorvastatin Calcium (Lipitor) 20 mg PO QPM [facility] Last Admin: 01/04/20 20:27 Dose: 20 mg Calcium Carbonate (Tums) 1,000 mg PO Q4H PRN PRN Reason: Heartburn or Indigestion Diazepam (Valium) 5 mg PO Q4H PRN PRN Reason: FOR ASE 10 OR GREATER Ferrous Sulfate (Feosol) 325 mg PO QAM-WM [facility] Last Admin: 01/05/20 08:56 Dose: 325 mg Folic Acid (Folvite) 1 mg PO DAILY [facility] Last Admin: 01/05/20 08:58 Dose: 1 mg Gabapentin (Neurontin) 600 mg PO HS [facility] Last Admin: 01/04/20 20:27 Dose: 600 mg Ampicillin Sodium 2 gm/ Sodium (Chloride) 100 mls @ 200 mls/hr IVPB Q6HR [facility] Last Admin: 01/05/20 11:55 Dose: 100 mls Ceftriaxone Sodium 2 gm/ (Sodium Chloride) 100 mls @ 200 mls/hr IVPB Q12HR [facility] Last Admin: 01/05/20 10:19 Dose: 100 mls Iron/Minerals/Multivitamins (Theragran M) 1 tab PO DAILY [facility] Last Admin: 01/05/20 08:56 Dose: 1 tab Magnesium Oxide (Magnesium Oxide) 400 mg PO DAILY [facility] Last Admin: 01/05/20 08:55 Dose: 400 mg Metolazone (Zaroxolyn) 5 mg PO PRN PRN PRN Reason: LEG SWELLING Mometasone Furoate/Formoterol Fumar (Dulera 200 Mcg/5 Mcg Inhaler) 2 puff INH BID-RT PRN PRN Reason: ASTHMA EXASPERATIONS Ondansetron HCl (Zofran Odt) 4 mg PO Q6H PRN PRN Reason: Nausea/Vomiting Pantoprazole Sodium (Protonix) 40 mg PO BID [facility] Last Admin: 01/05/20 08:56 Dose: 40 mg Polyethylene Glycol (Miralax) 17 gm PO DAILY [facility] Last Admin: 01/05/20 08:54 Dose: 17 gm Potassium Chloride (K-Dur) 40 meq PO [facility] Last Admin: 01/05/20 08:58 Dose: 40 meq Prednisone (Prednisone) 20 mg PO [facility] Last Admin: 01/05/20 08:56 Dose: 20 mg Senna/Docusate Sodium (Senokot S) 2 tab PO BID PRN PRN Reason: Constipation Last Admin: 01/04/20 17:35 Dose: 2 tab Sodium Chloride (Flush - Normal Saline) 10 ml IVF PRN PRN PRN Reason: Saline Flush Last Admin: 01/02/20 22:08 Dose: 10 ml Spironolactone (Aldactone) 50 mg PO [facility] Last Admin: 01/05/20 08:57 Dose: 50 mg Thiamine HCl (Thiamine) 100 mg PO DAILY [facility] Last Admin: 01/05/20 08:58 Dose: 100 mg Vital Signs & Weight: Vital Signs Temp Pulse Resp BP BP Pulse Ox 01/05/20 11:57 97.5 F L 60 21 H 164/70 H 98 01/05/20 08:56 97 03/06/20 07:55 97.7 F 66 21 H 134/61 97 01/05/20 03:06 97.6 F 66 14 133/63 99 Admit Weight 253 lb 5 oz Weight 260 lb 3 oz I/O: I/O 01/04/20 01/05/20 01/06/20 06:59 06:59 06:59 Intake Total 1800 1380 Output Total 2575 1370 Balance -775 10 - Quality Measures Condition: Atrial Fibrillation/Flutter (hx or current) CV meds: Eliquis: Yes - Physical Exam General: alert & oriented x3, appears well, no apparent distress Neck: supple neck, no JVD/HJR Cardiology: regular rate and rhythm, no murmur Lungs: clear to auscultation, normal breath sounds Abdomen: unremarkable, active bowel sounds, soft Extremities: warm. negative: cyanosis Skin: device site stable w/o swelling - Labs Result Diagrams: 01/05/20 04:25 01/05/20 06:03 - Assessment/Plan Assessment/Plan: 1. Atrial fibrillation with prior ablation, maintaining sinus rhythm, on chronic amiodarone therapy, 200 mg daily by our most recent records. 2. Left atrial appendage exclusion with Watchman placement in June 2019 with persistent leak requiring coil closure on 11/21/2019 with ongoing low-dose Eliquis therapy. 2a. CORBY 01/03/20 suggestive of minor shar-watchman device leak into the [place]. Plan to perform RF closure at the leak site by dr Becerril on 01/09/20 as outpt. Rationale, risk and benefits of the procedure discussed and pt agrees. 3. Enterococcus faecalis bacteremia. 3a. CORBY 01/03/20 did not suggest any vegetation but could have missed vegetation < 3mm. ID recommended antibiotic therapy. If recurrence, extraction can be performed. 4. Biventricular pacemaker implant on 11/22/2019, Medtronic Percepta Quad RUBBER [employer] TESTER WATER-P. 5. Cardiomyopathy with mildly reduced ejection fraction estimated at 40% while hospitalized in [place] in November 2019, now slightly improved after RUBBER GOODS TESTER WATER pacing estimated at 45% to 50%. 6. Osteoarthritis. 7. 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 Continue OAC on eliquis. Pt will need transfer back from rehab for outpt procedure 3/10/20. 6 week office follow up to be arranged. EP signing off.
[2020-01-05 16:49] VITALS: BP 134/60; TEMP 97.9
[2020-01-05] MEDS ORDERED: Apixaban 2.5 MG TAB PO SCH (21:00)
--- NOTE | 2020-01-06 13:57 | EKG ---
Test Reason : Blood Pressure : / mmHG Vent. Rate : 071 BPM Atrial Rate : 071 BPM P-R Int : 000 ms QRS Dur : 152 ms QT Int : 486 ms P-R-T Axes : 000 037 146 degrees QTc Int : 528 ms AV sequential or dual chamber electronic pacemaker Confirmed by AIDA CHEN DO ([id number]), newspaper editor COCO YUAN ([id number]) on 01/06/2020 1:57:19 PM Referred By: Confirmed By:AIDA CHEN DO
--- NOTE | 2020-01-08 11:33 | DIS ---
DATE OF ADMISSION: 12/29/2019 DATE OF DISCHARGE: 01/05/2020 RESIDENT: Marta Guerra MD ADMITTING ATTENDING: Cm Umanzor MD DISCHARGE ATTENDING: Amado Leung MD CONSULTS: 1. Orthopedic Surgery consulted from the ER. 2. Dr. Woods of Infectious Disease. 3. Dr. David of Electrophysiology. 4. Dr. Regan of Cardiology. PROCEDURES: 1. Chest x-ray on admission showing no acute cardiopulmonary process. 2. Wrist x-ray, degenerative change of left MCP joint. No acute fracture. 3. Soft tissue ultrasound around pacemaker device in the left chest showing complex fluid collection surrounding the device, hematoma versus abscess. 4. Venous Doppler study of the lower extremities bilaterally. No evidence for DVT. 5. CT angio of the chest with and without contrast showing no evidence of segmental pulmonary embolus. 6. Right ankle x-ray showing no acute fracture or dislocation. Mild degenerative change. Small calcaneal spurs. 7. Placement of PICC line in the right upper extremity. 8. Electrocardiogram, AV sequential or dual chamber electronic pacemaker. 9. Transthoracic echocardiogram. 10. Transesophageal echocardiogram. PRIMARY DIAGNOSES: 1. Enterococcus faecalis bacteremia without evidence of endocarditis. 2. Crystal-induced arthropathy with hyperuricemia. 3. Left wrist pain. 4. Right ankle pain. 5. Macrocytic anemia. 6. Sepsis. 7. Acute kidney injury on chronic kidney disease. SECONDARY DIAGNOSES: 1. Hypertension. 2. Congestive heart failure. 3. Atrial fibrillation, status post a Watchman procedure. DISCHARGE MEDICATIONS: 1. MiraLAX 17 g p.o. daily. 2. Sennoside/docusate two tabs p.o. daily p.r.n. 3. Thiamine 100 mg p.o. daily. 4. Tylenol 650 mg p.o. q.4 hours p.r.n. 5. Allopurinol 100 mg p.o. daily. 6. Ampicillin 2 g IV piggyback q.6 hours. 7. Ceftriaxone 2 g IV piggyback q.12 hours. 8. Colchicine 0.6 mg p.o. daily. 9. Magnesium oxide 400 mg p.o. daily. 10. Multivitamin one tab p.o. daily. 11. Amiodarone 400 mg p.o. daily. 12. Atorvastatin 20 mg p.o. at bedtime. 13. Aspirin 81 mg p.o. daily. 14. Potassium chloride 40 mEq p.o. daily. 15. Apixaban 5 tablets p.o. daily. 16. Pantoprazole 40 mg p.o. twice daily. 17. Furosemide 40 mg p.o. twice daily. 18. Gabapentin 600 mg p.o. at bedtime. 19. Metolazone 500 mg p.o. p.r.n. for leg swelling. 20. Ferrous sulfate 65 mg p.o. daily. 21. Spironolactone 50 mg p.o. daily. 22. Albuterol sulfate nebulizer 2.5 mg q.6 hours p.r.n. 23. Symbicort two puff inhalations twice daily as needed. DISCONTINUED MEDICATIONS: Temazepam 30 mg p.o. at bedtime. HISTORY OF PRESENT ILLNESS AND HOSPITAL COURSE: Nader Valladares is an 79-year-old male, who presented to our hospital complaining of right lower extremity swelling and pain, which started the day of admission. The patient has marked swelling in both legs and chronic venous stasis changes, but he is usually able to walk around and walked lately. He said his legs have felt warm and he has felt weak. The patient also complained of left wrist pain and tenderness as well as right ankle pain and tenderness, which made it hard for him to walk. Of note, the patient said he had fever for the past 2 to 3 weeks and has not felt well. He had a pacemaker placed in [place], [place] on November 22. Prior to that, he had a Watchman procedure in the fall of 2018. He noted swelling around his pacemaker, which he thought was getting worse. In the ER, the patient received cefepime, vancomycin, Tylenol. Orthopedic Surgery was consulted in the ED and Orthopedic Surgery was planning to aspirate the left wrist. They did not end up doing this as they thought that there was not much to aspirate. Cardiology was also consulted from the emergency room as well as Dr. David of Electrophysiology. The patient was admitted and did have a history of alcohol abuse, so AMILCAR protocol was started in case he did go into withdrawals, although he admitted he had not had a drink in the day or two prior to admission. The above imaging studies ruled out DVT. Blood cultures were drawn and Infectious Disease was consulted. Infectious Disease changed his antibiotics to ampicillin and ceftriaxone. Blood cultures resulted Enterococcus faecalis sensitive to both of the above antibiotics due to concern of pacemaker as the source of infection. Transthoracic echocardiogram was performed, followed by a transesophageal echocardiogram, which did not show any vegetations on the heart, nor infections of the leads of the pacemaker as determined by Electrophysiology that this did not need to be removed at this time. The patient would receive 4 weeks of IV antibiotics, ampicillin and Rocephin and then follow up with Electrophysiology to see if the pacemaker needs to be replaced or if the patient had recurrent infections. The patient's wrist and right ankle pain were determined to be due to a form of gout as his uric acid was 8.8 on admission. On discharge, he was started on allopurinol and colchicine to prevent further attacks. When he was admitted, he did have chronic kidney disease, so we avoided these medications acutely and instead gave him prednisone. We continued his blood thinners. He does have a history of Watchman procedure, which was noted to have a leak on the echocardiograms performed. Dr. David did wish to perform a repair of this on January 08. Due to the multiple daily dosing of antibiotics, the patient was sent to a detention facility, where these could be administered easily and where he could do physical therapy and occupational therapy to regain his strength before going home. Transport would need to be set up to bring him from Rehab to [place] for repair of his Watchman leak. Other pertinent labs include negative rheumatoid factor and CCP antibodies as well as negative CHESTER and screening for lupus due to his polyarticular arthropathy. Creatinine on the day of discharge was 1.18 and a BUN of 34, corresponding to GFR of 59. This is about around the patient's baseline. Urinalysis was within normal limits. Coag was showed a D-dimer of 2.09. Electrolytes were within normal limits. B12 was normal. Folate was normal and a blood count showed anemia at 10.3, MCV of 104, platelets of 389. He had a white count on the day of discharge of 16.4. DISPOSITION: Stable. DISCHARGE INSTRUCTIONS: 1. Location: [facility] in [place]. 2. Diet: Heart healthy diet and avoidance of foods exacerbating gout. 3. Activity: As tolerated. Please participate in physical and occupational therapy to improve walking on right ankle. Equipment to use include walker. Line care includes PICC line. 4. Followup: Follow up with Dr. David on January [address] Murrell for repair of Watchman leak. Follow up with Dr. Woods for management of bacteremia and IV antibiotics. Follow up with primary care provider. Job ID: [id number]
== END 2020-01-05 17:10 | DRG 871 ==
LOC: ERS 14:10 → 2NO 19:34
PROVIDERS: ADMIT Family Medicine; ATTEND Family Medicine
PROC: B24BZZ4 Ultrasonography of Heart with Aorta, Transesophageal (ICD-10-PCS; 2020-01-02)
PROC: 02HV33Z Insertion of Infusion Device into Superior Vena Cava, Percutaneous Approach (ICD-10-PCS; principal; 2020-01-04)
PROC: B548ZZA Ultrasonography of Superior Vena Cava, Guidance (ICD-10-PCS; 2020-01-04)
DX: A41.81 Sepsis due to Enterococcus (principal); I21.4 Non-ST elevation (NSTEMI) myocardial infarction; I50.32 Chronic diastolic (congestive) heart failure; I13.0 Hypertensive heart and chronic kidney disease with heart failure and stage 1 through stage 4 chronic kidney disease, or unspecified chronic kidney disease; L03.116 Cellulitis of left lower limb; I42.9 Cardiomyopathy, unspecified; M19.032 Primary osteoarthritis, left wrist; R50.9 Fever, unspecified; Z96.653 Presence of artificial knee joint, bilateral; Z96.612 Presence of left artificial shoulder joint; I25.10 Atherosclerotic heart disease of native coronary artery without angina pectoris; K21.9 Gastro-esophageal reflux disease without esophagitis; G47.00 Insomnia, unspecified; E78.5 Hyperlipidemia, unspecified; E11.40 Type 2 diabetes mellitus with diabetic neuropathy, unspecified; M19.042 Primary osteoarthritis, left hand; Z96.611 Presence of right artificial shoulder joint; F10.10 Alcohol abuse, uncomplicated; I48.0 Paroxysmal atrial fibrillation; N18.3 Chronic kidney disease, stage 3 (moderate); G47.33 Obstructive sleep apnea (adult) (pediatric); Z87.11 Personal history of peptic ulcer disease; Z95.0 Presence of cardiac pacemaker; Z79.01 Long term (current) use of anticoagulants; Z90.49 Acquired absence of other specified parts of digestive tract; Z79.4 Long term (current) use of insulin; Z98.42 Cataract extraction status, left eye; Z98.41 Cataract extraction status, right eye; Z95.5 Presence of coronary angioplasty implant and graft; Z87.891 Personal history of nicotine dependence
CPT/HCPCS: 36415; 36569; 71045; 71275; 80048; 80053; 80202; 81001; 82553; 82565; 82607; 82746; 83520; 83540; 83605; 83880; 84484; 84550; 85014; 85018; 85025; 85049; 85379; 85652; 86038; 86140; 86200; 86225; 87040; 87077; 87086; 87149; 87186; 93005; 93306; 93312; 93970; 96365; 96366; 96367; C1751; J0290; J0692; J0696; J2704; J3370; J3411; J3475; J3490; J7050; J7512

== ENCOUNTER 2020-01-09 09:09 | Observation (INO) | payer MEDICARE, OTHER ==
[2020-01-09] MEDS ORDERED: Metoclopramide HCl 10 MG/2 ML VIAL ONE (09:49)
[2020-01-09] MEDS ORDERED: PROPOFOL 200 MG/20 ML VIAL ONE (09:49)
[2020-01-09] MEDS ORDERED: Succinylcholine Chloride 20 MG/ML 10 ml SYRINGE FS ONE (09:49)
[2020-01-09] MEDS ORDERED: Ondansetron PF 4 MG/2 ML Vial ONE (09:49)
[2020-01-09] MEDS ORDERED: Rocuronium Bromide 10 MG/ML (10ML VIAL) ONE (09:49)
[2020-01-09] MEDS ORDERED: Glycopyrrolate 0.2 MG/ML 5 ML SYRINGE ONE (09:49)
[2020-01-09] MEDS ORDERED: Lidocaine 1% PF 5 ML VIAL ONE (09:49)
[2020-01-09 11:32] LABS: INR-International Normal Ratio 1.4; PTT 36.3 SEC (22.9-36.1); Prothrombin Time 17.2 SEC (12.0-14.7)
[2020-01-09] MEDS ORDERED: Midazolam HCl 2 mg/2 ml Vial ONE (11:32)
[2020-01-09] MEDS ORDERED: Ketamine 50 MG/ML (10ML VIAL) ONE (11:32)
[2020-01-09] MEDS ORDERED: Propofol 1,000 MG/100 ML VIAL IV ONE (11:32)
[2020-01-09] MEDS ORDERED: Fentanyl 100 MCG/2 ML VIAL ONE ×2 (11:32→13:47)
[2020-01-09] MEDS ORDERED: Heparin 10,000 UNITS/1 ML VIAL ONE (13:40)
[2020-01-09] MEDS ORDERED: Lidocaine 1% (PF) 30 ML VIAL ONE (13:41)
[2020-01-09] MEDS ORDERED: Famotidine/PF 20 mg/2ml Vial ONE (13:47)
[2020-01-09] MEDS ORDERED: Propofol 500 MG/50 ML VIAL ONE (13:47)
[2020-01-09] MEDS ORDERED: Iopamidol 370 76% 50 ML VIAL FS ONE (14:24)
[2020-01-09] MEDS ORDERED: Iopamidol 370 76% 100 ML VIAL ONE (14:24)
[2020-01-09] MEDS ORDERED: Protamine Sulfate 50 MG/5 ML VIAL ONE (15:25)
[2020-01-09] MEDS ORDERED: Ondansetron HCl/PF 4 MG/2 ML Vial IVP PRN (15:33)
[2020-01-09] MEDS ORDERED: Morphine 2 MG/ML SYRINGE ONE (16:49)
[2020-01-09] MEDS ORDERED: Albuterol Sulfate 2.5 mg/3 ml Neb NEB PRN (18:32)
[2020-01-09] MEDS ORDERED: Mometasone/Formoterol 120 PUFF INHALER INH PRN (18:35)
[2020-01-09] MEDS ORDERED: Metolazone 5 MG TAB PO PRN (18:36)
[2020-01-09] MEDS ORDERED: Senokot S 8.6-50 MG TAB PO PRN (18:37)
[2020-01-09] MEDS ORDERED: Morphine 2 MG/ML SYRINGE SLOW IVP PRN (18:38)
[2020-01-09] MEDS ORDERED: Furosemide 40 MG TAB PO SCH (19:30)
[2020-01-09] MEDS: Gabapentin 300 MG CAP PO SCH (20:36)
[2020-01-09] MEDS: Atorvastatin Calcium 20 MG TAB PO SCH (20:36)
[2020-01-09] MEDS: cefTRIAXone\\ROCEPHIN 2 GM in Sodium Chloride 0.9% 100 ML IVPB SCH (21:06)
[2020-01-09] MEDS: Apixaban 2.5 MG TAB PO SCH (21:11)
--- NOTE | 2020-01-09 21:27 | OP ---
DATE OF PROCEDURE: 01/09/2020 PROCEDURES PERFORMED: 1. Left atrial catheterization with transseptal. 2. Intracardiac echocardiography. 3. Radiofrequency current ablation to close a residual Watchman leak in the left atrial appendage. CLINICAL INDICATION: Chronic shar-device Watchman leak. ASA CLASSIFICATION: III. ANESTHESIA: General endotracheal anesthesia per Anesthesiology. ADDITIONAL CARDIAC MEDICATIONS: None. TOTAL HEPARIN GIVEN: 8000 units. TOTAL PROTAMINE GIVEN: 40 mg. ACUTE COMPLICATIONS: None apparent. METHODS: After informed consent was obtained, the patient was taken to the EP lab in a fasting state. Right groin was prepped and draped. Using ultrasound guidance, the right femoral vein was accessed, and an 11-Peruvian and 8-Peruvian sheath placed in the right groin. These were used to place a long 8-Peruvian sheath and an intracardiac echo probe from the right groin into the right atrium for imaging. Transseptal catheterization was performed using ultrasound guidance after heparinization, and left atrium was accessed on 2 occasions. The second occasion was used to place Agilis deflectable sheath into the left atrium. The first transseptal puncture was used to place the intracardiac echo probe into the left atrium for imaging. The patient underwent detailed imaging with color flow Doppler as well as 2 dimensional echo of the left atrial appendage. The source of the leak around the Watchman was identified, and ablation was delivered in a circumferential fashion around there until color flow was no longer evident, and tissue edema was visualized at the site of the leak itself. Three-dimensional mapping was also used to guide placement of the ablation catheter. At the conclusion of procedure, catheters were withdrawn to the right atrium. Heparin was reversed. Sheaths were pulled. Hemostasis was achieved with suture and collagen closure. RESULTS: Ablation time: Total RF time was 9 minutes and 11 seconds using a [employer] [place] open irrigated ablation catheter. IMPRESSION: 1. Successful ablation with edema formation and closure of the shar-device chronic Watchman leak using radiofrequency current. 2. Transseptal catheterization with intracardiac echo guidance along with placement of the intracardiac echo into the left atrium. RECOMMENDATIONS: 23-hour observation. Job ID: [id number]
[2020-01-10] MEDS: Ampicillin 2 GM in Sodium Chloride 0.9% 100 ML IVPB SCH ×5 (00:58→23:58)
[2020-01-10] MEDS: Potassium Chloride 20 MEQ TAB PO SCH (08:58)
[2020-01-10] MEDS: Spironolactone 25 MG TAB PO SCH (08:58)
[2020-01-10] MEDS: Multivitamin W/ Minerals 1 TAB PO SCH (08:59)
[2020-01-10] MEDS: Magnesium Oxide 400 MG TAB PO SCH (08:59)
[2020-01-10] MEDS: Aspirin 81 mg Enteric Coated Tablet PO SCH (08:59)
[2020-01-10] MEDS: Furosemide 40 MG TAB PO SCH ×2 (08:59→13:52)
[2020-01-10] MEDS: Ferrous Sulfate 325 MG TAB PO SCH (08:59)
[2020-01-10] MEDS: Amiodarone 200 MG TAB PO SCH (08:59)
[2020-01-10] MEDS: Allopurinol 100 MG TAB PO SCH (08:59)
[2020-01-10] MEDS: Apixaban 2.5 MG TAB PO SCH ×2 (08:59→20:47)
[2020-01-10] MEDS: cefTRIAXone\\ROCEPHIN 2 GM in Sodium Chloride 0.9% 100 ML IVPB SCH ×2 (09:00→20:52)
[2020-01-10] MEDS: Thiamine 100 MG TAB PO SCH (09:00)
[2020-01-10] MEDS: Polyethylene Glycol 3350 17 GM Packet PO SCH (09:01)
[2020-01-10 09:37] LABS: Hemoglobin 10.7 g/dL (14.0-18.0); Platelet Count 372 thou/uL (130-400)
--- NOTE | 2020-01-10 13:20 | ULT ---
US PseudoAneurysm Princess Evl History: Evaluate for pseudoaneurysm Comparison: None. Findings: Real-time grayscale, color, and spectral analysis of the right groin was performed. There is a large right groin hematoma. No pseudoaneurysm is appreciated. Hematoma measures up to 5.3 cm in size. Impression: Large right groin hematoma without pseudoaneurysm appreciated.
--- NOTE | 2020-01-10 13:39 | PDOC.EP ---
- Subjective Date: 01/10/20 Time: 13:38 Interval History: follow up after RFA closure of periwatchman leak performed 01/09/2020. Now with hematoma to right groin. Patient reports tenderness to right groin site otherwise is without complaints. Very sedentary baseline. - Review of Systems Constitutional: denies: chills, fever, malaise, sweats, weakness, other Respiratory: denies: cough, dry, hemoptysis, pleuritic pain, shortness of breath , SOB with excertion, sputum, wheezing, other Cardiology: denies: chest pain, edema, heart racing, light headedness, paroxysmal noc. dyspnea, orthopnea, palpitations, passing out, pleuritic pain, pressure, swelling, other Gastrointestinal: denies: abdominal pain, constipation, diarrhea, hematochezia, melena, nausea, vomitting, other - Objective Allergies/Adverse Reactions: Allergies Allergy/AdvReac Type Severity Reaction Status Date / Time adhesive tape AdvReac Intermediate delicate Verified 01/09/20 20:21 skin Current Medications Acetaminophen (Tylenol) 650 mg PO Q4H PRN PRN Reason: Headache/Fever/MILD Pain 1-3 Albuterol Sulfate (Ventolin) 2.5 mg NEB Q6H PRN PRN Reason: SOB &/or Wheezing Allopurinol (Zyloprim) 100 mg PO DAILY [facility] Last Admin: 01/10/20 08:59 Dose: 100 mg Amiodarone HCl (Cordarone) 400 mg PO DAILY [facility] Last Admin: 01/10/20 08:59 Dose: 400 mg Apixaban (Eliquis) 2.5 mg PO BID [facility] Last Admin: 01/10/20 08:59 Dose: 2.5 mg Aspirin (Ecotrin) 81 mg PO DAILY [facility] Last Admin: 01/10/20 08:59 Dose: 81 mg Atorvastatin Calcium (Lipitor) 20 mg PO QPM [facility] Last Admin: 01/09/20 20:36 Dose: 20 mg Colchicine (Colchicine) 0.6 mg PO DAILY [facility] Last Admin: 01/10/20 09:10 Dose: 0.6 mg Ferrous Sulfate (Feosol) 325 mg PO DAILY [facility] Last Admin: 01/10/20 08:59 Dose: 325 mg Furosemide (Lasix) 40 mg PO 0900,1400 [facility] Last Admin: 01/10/20 08:59 Dose: 40 mg Gabapentin (Neurontin) 600 mg PO HS [facility] Last Admin: 01/09/20 20:36 Dose: 600 mg Ampicillin Sodium 2 gm/ Sodium (Chloride) 100 mls @ 200 mls/hr IVPB Q6HR [facility] Last Admin: 01/10/20 06:12 Dose: 100 mls Ceftriaxone Sodium 2 gm/ (Sodium Chloride) 100 mls @ 200 mls/hr IVPB Q12HR [facility] Last Admin: 01/10/20 09:00 Dose: 100 mls Iron/Minerals/Multivitamins (Theragran M) 1 tab PO DAILY [facility] Last Admin: 01/10/20 08:59 Dose: 1 tab Magnesium Oxide (Magnesium Oxide) 400 mg PO DAILY [facility] Last Admin: 01/10/20 08:59 Dose: 400 mg Metolazone (Zaroxolyn) 5 mg PO DAILYPRN PRN PRN Reason: . Last Admin: 01/09/20 20:35 Dose: 5 mg Mometasone Furoate/Formoterol Fumar (Dulera 200 Mcg/5 Mcg Inhaler) 2 puff INH BIDPRN PRN PRN Reason: SOB &/or Wheezing Morphine Sulfate (Morphine) 2 mg SLOW IVP Q4H PRN PRN Reason: Moderate to Severe Pain (6-10) Pantoprazole Sodium (Protonix) 40 mg PO BID [facility] Last Admin: 01/10/20 09:00 Dose: 40 mg Polyethylene Glycol (Miralax) 17 gm PO DAILY [facility] Last Admin: 01/10/20 09:01 Dose: 17 gm Potassium Chloride (K-Dur) 40 meq PO QAM-[facility] Last Admin: 01/10/20 08:58 Dose: 40 meq Senna/Docusate Sodium (Senokot S) 2 tab PO BIDPRN PRN PRN Reason: Constipation Sodium Chloride (Flush - Normal Saline) 10 ml IVF PRN PRN PRN Reason: Saline Flush Spironolactone (Aldactone) 50 mg PO QAM-WM [facility] Last Admin: 01/10/20 08:58 Dose: 50 mg Thiamine HCl (Thiamine) 100 mg PO DAILY [facility] Last Admin: 01/10/20 09:00 Dose: 100 mg Vital Signs & Weight: Vital Signs Temp Pulse Resp BP Pulse Ox 01/10/20 11:41 97.6 F 83 19 160/72 H 96 01/10/20 07:20 98.4 F 69 20 142/65 H 96 01/10/20 04:23 98.6 F 67 18 166/70 H 96 Weight 253 lb 9.6 oz I/O: I/O 01/09/20 01/10/20 01/11/20 06:59 06:59 06:59 Intake Total 933 Output Total 950 375 Balance -17 -277 - Quality Measures Condition: Atrial Fibrillation/Flutter (hx or current) CV meds: Eliquis: Yes - Physical Exam General: alert & oriented x3, appears well, no apparent distress, speech clear, affect appropriate HEENT: mucus membranes moist, normocephaly Neck: supple neck, midline trachea, no JVD/HJR Cardiology: regular rate and rhythm, no murmur, PMI nondisplaced Lungs: no wheeze, rales, rhonchi, decreased breath sounds Neurology: cranial nerve 2-12 intact, grossly intact, sensory function intact Abdomen: active bowel sounds, soft, no pulsations/bruits Extremities: dry, strong pulses, warm Skin: hematoma (right groin) - Labs Result Diagrams: 01/10/20 08:55 01/10/20 08:55 - EKG Interpretation EKG Method: Telemetry EKG shows: Sinus rhythm - Device Device: biventricular, pacemaker Device Result: [employer] - Assessment/Plan Assessment/Plan: 1. Persistent atrial arrhythmias 2. 1st degree AV block, extensive 3. 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 Chronic watchman leak 6. Hematoma, right groin, moderate sized ~5cm s/p RFA closure of small shar watchman leak. On Eliquis and ASA. Found to have hematoma to right groin access site this AM. Had [facility] staff hold manual pressure x30 minutes this AM. Hematoma was softer afterwards. There was concern the hematoma was growing and an ultrasound was obtained to rule out pseudoaneurysm. US confirmed presence of a large hematoma measuring 5.3cm but negative for pseudoaneurysm. H/H stable this AM. Will keep overnight to watch hematoma/ bleeding as patient should not come off eliquis. It is a venous access so it should tamponade itself and shouldn't require CVS repair. If H/H and site are stable in AM, anticipate DC back to rehab tomorrow. This was discussed with Dr. Ji as well.
[2020-01-10] MEDS: Acetaminophen 325 MG TAB PO PRN (13:55)
[2020-01-10 15:24] VITALS: BMI 32.5
[2020-01-10] MEDS: Gabapentin 300 MG CAP PO SCH (20:47)
[2020-01-10] MEDS: Atorvastatin Calcium 20 MG TAB PO SCH (20:48)
[2020-01-11] MEDS: Acetaminophen 325 MG TAB PO PRN (03:41)
[2020-01-11 05:18] LABS: Hemoglobin 10.9 g/dL (14.0-18.0); Platelet Count 353 thou/uL (130-400)
[2020-01-11] MEDS: Ampicillin 2 GM in Sodium Chloride 0.9% 100 ML IVPB SCH ×3 (06:26→17:53)
[2020-01-11] MEDS: Spironolactone 25 MG TAB PO SCH (08:59)
[2020-01-11] MEDS: Potassium Chloride 20 MEQ TAB PO SCH (09:00)
[2020-01-11] MEDS: Furosemide 40 MG TAB PO SCH ×2 (09:00→13:12)
[2020-01-11] MEDS: Amiodarone 200 MG TAB PO SCH (09:00)
[2020-01-11] MEDS: Aspirin 81 mg Enteric Coated Tablet PO SCH (09:00)
[2020-01-11] MEDS: Thiamine 100 MG TAB PO SCH (09:01)
[2020-01-11] MEDS: Magnesium Oxide 400 MG TAB PO SCH (09:01)
[2020-01-11] MEDS: Multivitamin W/ Minerals 1 TAB PO SCH (09:01)
[2020-01-11] MEDS: Apixaban 2.5 MG TAB PO SCH (09:01)
[2020-01-11] MEDS: Allopurinol 100 MG TAB PO SCH (09:01)
[2020-01-11] MEDS: Polyethylene Glycol 3350 17 GM Packet PO SCH (09:01)
[2020-01-11] MEDS: Ferrous Sulfate 325 MG TAB PO SCH (09:02)
[2020-01-11] MEDS: cefTRIAXone\\ROCEPHIN 2 GM in Sodium Chloride 0.9% 100 ML IVPB SCH (09:02)
[2020-01-11 16:42] VITALS: BP 140/64; TEMP 97.9
--- NOTE | 2020-01-12 04:51 | DIS ---
DATE OF ADMISSION: 01/09/2020 DATE OF DISCHARGE: 01/11/2020 DIAGNOSES: Atrial fibrillation, left atrial appendage closure with Watchman and shar-device leak closed with radiofrequency ablation, right groin hematoma. HISTORY OF PRESENT ILLNESS: Mr. Valladares is an 79-year-old gentleman well known to our practice for history of persistent atrial arrhythmias, as well as left atrial appendage closure with Watchman in June of 2019. He underwent attempted coil closure for persistent shar-device leak on 11/21/2019. However, continued to have a small crescent-shaped leak surrounding the device. Dr. Becerril performed radiofrequency ablation around the device leak, effectively closing the communicating channel with filling of the cardiac tissue. His right femoral vein was accessed and closure was attempted with ProGlide, as well as Vascade collagen closure system. He did have some residual bleeding and manual pressure was held. Unfortunately that following morning, he developed hematoma. Manual pressure was once again held and the hematoma was attempted to be pressed out. Hematoma did soften, but recurred. Compression ultrasound was obtained to rule out pseudoaneurysm. It did reveal an approximately 5.7 cm hematoma, but was negative for pseudoaneurysm. Manual pressure was once again applied and sandbag kept in place. He was kept overnight for observation. H and H were checked, which remained stable. It was 10.8 prior to the procedure and 10.9 at the time of discharge. He has remained on low-dose Eliquis throughout this without any further significant bleeding. SUBJECTIVE: Mr. Valladares does not voice any complaints today. He has some tenderness at his groin site, but otherwise is in his usual state. OBJECTIVE: VITAL SIGNS: Temperature 97.5, pulse 63, blood pressure 146/64, respirations 15, oxygen 96% on room air. GENERAL: The patient is alert, oriented. Speech is clear. Affect is appropriate. He is morbidly obese. He is in no apparent distress. Lungs are clear to auscultation bilaterally. Heart tones are irregularly irregular. 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 ABDOMEN: Obese, soft, nontender without palpable masses. EXTREMITIES: Warm and dry to touch. There is 2+ edema to the right lower extremity, which I suspect is largely related to having a sandbag on his leg overnight. His left lower extremity does exhibit some trace edema as well. Left groin was not accessed during the procedure. Exam of the right groin site reveals palpable hematoma approximately 5 to 6 cm in diameter. It does not feel significantly larger than the exam yesterday. Pulses are strong in bilateral lower extremities. Capillary refill is less than 3 seconds. There is no bruit auscultated. NEUROLOGIC: Grossly intact and nonfocal. Gait was not assessed. The patient has been out of bed to the bedside commode without recurrent bleeding issues. PROCEDURES PERFORMED: Left atrial catheterization with transseptal access, intracardiac echocardiography, radiofrequency closure ablation to close residual Watchman leak in the left atrial appendage. CONDITION ON DISCHARGE: Stable. The patient will be transferred via ambulance back to [facility] rehab, where he was prior to the procedure for continued and ongoing therapy and rehabilitation. We are sending him via ambulance as he would not be able to tolerate sitting upright in a wheelchair for the duration of the transport with his existing hematoma. There is concern for rebleeding if he remains seated in a vehicle for that long. Recumbent position is much safer for him. We will see him back as scheduled for postprocedure followup. DISCHARGE MEDICATIONS: Resuming all home medications. 1. Tylenol 650 mg p.o. q.4 hours p.r.n. 2. Albuterol sulfate 2.5 mg/3 mL nebulizer q.6 hours p.r.n. shortness of breath. 3. Allopurinol 100 mg p.o. daily. 4. Amiodarone 400 mg p.o. daily. 5. Ampicillin 2 g IV piggyback q.6 hours (continue as directed by Infectious Disease by prior stay for bacteremia). 6. Eliquis 2.5 mg b.i.d. 7. Aspirin 81 mg daily. 8. Atorvastatin 20 mg q.p.m. 9. Budesonide formoterol 160 mg/4.5 mg two puffs via inhaler b.i.d. p.r.n. shortness of breath or wheezing. 10. Rocephin 2 g IV piggyback q.12 hours (continue as per Infectious Disease recommendations following recent hospitalization for bacteremia). 11. Colchicine 0.6 mg p.o. daily. 12. Furosemide 40 mg p.o. b.i.d. 13. Gabapentin 600 mg p.o. at bedtime. 14. Iron 65 mg p.o. daily. 15. Magnesium oxide 400 mg p.o. daily. 16. Metolazone 5 mg p.o. p.r.n. leg swelling. 17. Theragran multivitamin one tab p.o. daily. 18. Pantoprazole 40 mg p.o. b.i.d. 19. MiraLAX 17 g p.o. daily. 20. Potassium chloride 40 mEq p.o. daily. 21. Senokot-S 2 tabs p.o. b.i.d. p.r.n. constipation. 22. Spironolactone 50 mg p.o. daily. 23. Thiamine 100 mg p.o. daily. No medications discontinued. No medications added or new prescriptions. DISCHARGE INSTRUCTIONS: No lifting greater than 10 pounds x7 days. No right lower extremity exercises x10 days. Avoid right hip flexion activities for 10 days or until right groin hematoma is resolved. Walking is okay. No soaking baths. No exercise bike/paddling repetitive motions especially to the right lower extremity for 10 days. He does not have any upper extremity or left lower extremity restrictions. He will contact [facility] with any postprocedure concerns. Job ID: [id number]
== END 2020-01-11 18:00 | disposition swing bed (61) ==
LOC: CCL 09:09 → 2SW 16:15
PROVIDERS: ADMIT Internal Medicine Cardiovascular Disease; ATTEND Internal Medicine Cardiovascular Disease
DX: I48.19 Other persistent atrial fibrillation (principal); I44.0 Atrioventricular block, first degree; S30.1XXA Contusion of abdominal wall, initial encounter; Z79.82 Long term (current) use of aspirin; Z79.01 Long term (current) use of anticoagulants; Z79.899 Other long term (current) drug therapy
CPT/HCPCS: 76936; 76942; 82565; 85014 ×2; 85018 ×2; 85049 ×2; 85347; 85610; 85730; 93005; 93613; 93656; 93662; 96365; 96366 ×2; 96367; 96376 ×3; C1732; C1759; C1760; C1769; G0378 ×3; 36415; 93010; J0290; J0696; J1644; J2001; J2250; J2270; J2405; J2704; J2720; J2765; J3010; J3490; Q9967; S0028

== ENCOUNTER 2020-07-24 15:58 | Inpatient (IN) | payer MEDICARE, OTHER ==
[2020-07-24 16:22] LABS: #Eosinphils 0.2 thou/uL (0.0-0.7); #Lymphocytes 1.5 thou/uL (1.20-3.40); #Monocytes 1.5 thou/uL (0.11-0.59); %Basophils 0.2 % (0.0-1.0); %Eosinophils 1.2 % (0.0-10.0); %Lymphocytes 9.8 % (21.0-51.0); %Neutrophils 78.8 % (42.0-75.0); Mean Corpuscular HGB CONC 31.1 g/dL (32.0-36.0); Mean Corpuscular Hemoglobin 29.8 pg (27.0-31.0); Mean Corpuscular Volume 95.6 fL (78.0-98.0); Mean Platelet Volume 7.2 fL (7.4-10.4); Platelet Count 239 thou/uL (130-400); RBC Distribution Width 15.2 % (11.5-14.5); Red Blood Cell (RBC) Count 2.69 mill/uL (4.70-6.10); White Blood Cell (WBC) Count 15.2 thou/uL (4.8-10.8)
[2020-07-24] MEDS ORDERED: Iopamidol-370 76% 500 ML 1 ML ONE (16:23)
[2020-07-24] MEDS ORDERED: Aspirin Chewable 81 MG TAB ONE (16:29)
[2020-07-24] MEDS ORDERED: Nitroglycerin 2% Ointment 1 INCH/1 GM Packet ONE (16:29)
[2020-07-24 16:45] LABS: ALT (SGPT) 21 U/L (8-55); AST (SGOT) 21 U/L (5-34); Albumin 2.8 g/dL (3.4-4.8); Alkaline Phosphatase 114 U/L (40-110); Anion Gap 15 mmol/L (10-20); BUN (Urea Nitrogen) 46 mg/dL (8.4-25.7); Bilirubin, Total 0.6 mg/dL (0.2-1.2); Calc. Creatinine Clearance 0 mL/min (70-130); Calcium 8.3 mg/dL (7.8-10.44); Carbon Dioxide 23 mmol/L (23-31); Chloride 102 mmol/L (98-107); Estimated GFR-MDRD 42; Globulin 2.6 g/dL (2.4-3.5); Glucose 119 mg/dL (83-110); Lipase 115 U/L (8-78); Potassium 4.6 mmol/L (3.5-5.1); Protein, Total 5.4 g/dL (5.8-8.1); Sodium 135 mmol/L (136-145)
--- NOTE | 2020-07-24 16:50 | RAD ---
EXAM: CHEST ONE VIEW HISTORY: Chest pain. COMPARISON: 07/24/2020 at 1342 hours. FINDINGS: Triple lead left subclavian cardiac pacemaking device remains in place. Embolization coil mass again overlies expected location of the left atrial appendage likely related to left atrial closure procedure. Cardiac silhouette is mildly enlarged. Pulmonary vascular congestion has improved. No cons olidation or pleural fluid is identified. No other interval change. IMPRESSION: Cardiomegaly with improvement in pulmonary vascular congestion. No acute cardiopulmonary process.
[2020-07-24 17:52] LABS: Bilirubin Negative (Negative); Blood, Urine Negative (Negative); Clarity Clear (Clear); Glucose, Urine (Dipstick) Normal (Negative); Ketone, Urine Negative (Negative); Leukocyte Negative Leu/uL (Negative); Nitrite Negative (Negative); Protein, Urine (Dipstick) Negative (Neg-Trace); Specific Gravity, Urine 1.014 (1.002-1.036)
[2020-07-24] MEDS ORDERED: Morphine 4 MG/ML VIAL ONE (19:30)
--- NOTE | 2020-07-24 19:31 | CT ---
CT PULMONARY ANGIOGRAM WITH IV CONTRAST AND 3D MIP RECONSTRUCTIONS: 07/24/20 PROVIDED CLINICAL HISTORY: Chest pain. FINDINGS: Comparison is made with the examination dated 12/29/19. Correlation is also made with the CT of the abdomen and pelvis 07/18/20 with regard to the lung bases. There is postprocedural change of left atrial appendage occlusion device placement, with conspicuous resultant beam hardening artifact which limits evaluation. Given this limitation, there is no evidenc e for central or segmental pulmonary embolus. There is a mild pericardial effusion, similar to 0. Left sided cardiac pacing device is now in place. The heart, pericardium, and great vessels demons trate no evidence or an acute abnormality. There is a focal area of consolidation at the right lung base overlying the right hemidiaphragm which was not present on prior studies. Additional areas of inhomogeneous lung attenuation are seen bilate rally, felt to most likely be on the basis of patient respiratory motion and subsegmental atelectatic change. No pleural fluid or pneumothorax apparent. The airway appears patent and of normal caliber. Nonspecif ic fluid density is seen within the esophagus, which could reflect gastroesophageal reflux. The visua lized portions of the upper abdomen demonstrate no acute abnormality. The osseous structures demonstr ate no concerning lytic or blastic lesions. IMPRESSION: 1. No evidence for central or segmental pulmonary embolus with limitations as described. 2. Right basilar pneumonia. 3. Mild pericardial effusion. 4. Fluid density within the esophagus, nonspecific, but could reflect reflux. POS: BENEDICT
--- NOTE | 2020-07-24 19:34 | PDOC.FPRHP ---
- History of Present Illness Chief Complaint: chest pain - Allergies/Adverse Reactions Allergies Allergy/AdvReac Type Severity Reaction Status Date / Time adhesive tape AdvReac Intermediate delicate Verified 01/21/20 04:04 skin - Home Medications Medication Instructions Recorded Confirmed Type Atorvastatin Calcium 20 mg PO DAILY 11/25/15 07/08/20 History Apixaban [Eliquis] 2.5 mg PO BID 08/11/18 07/08/20 History Pantoprazole Sodium 40 mg PO BID 09/16/18 07/15/20 History Albuterol Sulfate [Albuterol 2.5 mg NEB TID PRN 07/25/19 07/08/20 History Sulfate Neb] Budesonide-Formoterol [Symbicort 2 puff INH BID PRN 12/29/19 07/08/20 History 160-4.5] Acetaminophen [Tylenol Extra 500 mg PO Q4H 07/08/20 07/08/20 History Strength] Cholecalciferol (Vitamin D3) 2,000 units PO DAILY 07/08/20 07/08/20 History [Vitamin D3] Amiodarone [Cordarone] 400 mg PO DAILY tab 07/17/20 Rx Apixaban [Eliquis] 2.5 mg PO BID tab 07/17/20 Rx Aspirin [Aspirin EC] 81 mg PO DAILY #30 tablet. 07/17/20 Rx Furosemide 40 mg PO DAILY #0 07/17/20 07/08/20 Rx Levofloxacin [Levaquin] 500 mg PO 0600 tab 07/17/20 Rx Saccharomyces boulardii [Florastor] 250 mg PO DAILY cap 07/17/20 Rx - History PMHx: PSHx: FHx: Social: - Vital signs BP: [] HR: [] RR: [] Tmax: [] Pox: []% on [] Wt: [] FMR H&P: Results - Labs Result Diagrams: 07/24/20 16:10 07/24/20 16:10 Lab results: WBC 15.2 thou/uL (4.8-10.8) H 07/24/20 16:10 Hgb 8.0 g/dL (14.0-18.0) L 07/24/20 16:10 Hct 25.7 % (42.0-52.0) L 07/24/20 16:10 MCV 95.6 fL (78.0-98.0) 07/24/20 16:10 Plt Count 239 thou/uL (130-400) 07/24/20 16:10 Neutrophils % 78.8 % (42.0-75.0) H 07/24/20 16:10 Sodium 135 mmol/L (136-145) L 07/24/20 16:10 Potassium 4.6 mmol/L (3.5-5.1) 07/24/20 16:10 Chloride 102 mmol/L (98-107) 07/24/20 16:10 Carbon Dioxide 23 mmol/L (23-31) 07/24/20 16:10 BUN 46 mg/dL (8.4-25.7) H 07/24/20 16:10 Creatinine 1.58 mg/dL (0.7-1.3) H 07/24/20 16:10 Glucose 119 mg/dL (83-110) H 07/24/20 16:10 Calcium 8.3 mg/dL (7.8-10.44) 07/24/20 16:10 Total Bilirubin 0.6 mg/dL (0.2-1.2) 07/24/20 16:10 AST 21 U/L (5-34) 07/24/20 16:10 ALT 21 U/L (8-55) 07/24/20 16:10 Alkaline Phosphatase 114 U/L (40-110) H 07/24/20 16:10 B-Natriuretic Peptide 243.7 pg/mL (0-100) H 07/24/20 16:10 Serum Total Protein 5.4 g/dL (5.8-8.1) L 07/24/20 16:10 Albumin 2.8 g/dL (3.4-4.8) L 07/24/20 16:10 Lipase 115 U/L (8-78) H 07/24/20 16:10 Urine Ketones Negative mg/dL (Negative) 07/24/20 17:30 Urine Blood Negative (Negative) 07/24/20 17:30 Urine Nitrite Negative (Negative) 07/24/20 17:30 Ur Leukocyte Esterase Negative Pat/uL (Negative) 07/24/20 17:30 FMR H&P: Upper Level - Plan Date/Time: 07/24/20 1934 I, [], have evaluated this patient and agree with findings/plan as outlined by pricing intern resident. Pertinent changes/additions are listed here.
[2020-07-24] MEDS ORDERED: Nitroglycerin 0.4 MG TAB 1 EACH ONE (21:40)
[2020-07-24] MEDS ORDERED: Morphine 2 MG/ML VIAL SLOW IVP PRN ×2 (22:40→22:45)
[2020-07-24] MEDS ORDERED: Ondansetron PF 4 MG/2 ML Vial IVP PRN (22:45)
[2020-07-24] MEDS ORDERED: Vancomycin 1 GM in Premix Bag 1 BAG IVPB SCH (22:45)
[2020-07-24] MEDS ORDERED: cefTRIAXone\\ROCEPHIN 1 GM in Sodium Chloride 0.9% 100 ML IVPB SCH (22:45)
[2020-07-24] MEDS ORDERED: Azithromycin 500 MG in Syringe 0 ML IVPB ONE (22:45)
[2020-07-24] MEDS ORDERED: Electrolyte Replacement Protoc 1 EACH EACH FS SCH (22:45)
[2020-07-24] MEDS ORDERED: Labetalol HCl 100 MG/20 ML VIAL SLOW IVP PRN (22:45)
[2020-07-24] MEDS ORDERED: hydrALAZINE 20 MG/ML VIAL SLOW IVP PRN (22:45)
[2020-07-24] MEDS ORDERED: Guaifenesin DM 100-10/5 ML UDCUP PO PRN (22:45)
[2020-07-24] MEDS ORDERED: Cefepime 2 GM in Sodium Chloride 0.9% 100 ML IVPB SCH (22:45)
[2020-07-24] MEDS ORDERED: Promethazine HCl 12.5 MG in Sodium Chloride 0.9% 50 ML IVPB PRN (22:45)
[2020-07-24] MEDS ORDERED: cloNIDine 0.1 MG TAB PO PRN (22:45)
[2020-07-24 23:07] VITALS: BMI 35.2
[2020-07-24 23:33] LABS: SARS-CoV-2 NAA Rapid Test Not Detected (NotDetected)
[2020-07-24] MEDS: cefTRIAXone\\ROCEPHIN 1 GM in Sodium Chloride 0.9% 100 ML IVPB SCH (23:49)
[2020-07-25 00:24] LABS: Troponin I 0.027 ng/mL (< 0.028)
[2020-07-25] MEDS: Lactated Ringer's 1,000 ML IV SCH ×2 (00:50→11:49)
[2020-07-25] MEDS: Azithromycin 500 MG in Sodium Chloride 0.9% 250 ML 250 ML IVPB SCH (00:53)
[2020-07-25] MEDS ORDERED: Electrolyte Replacement Protocol FS PRN (01:15)
--- NOTE | 2020-07-25 03:38 | PDOC.HHP ---
Hospitalist HPI - History of Present Illness Chest pain History of Present Illness: Patient is an 79 year old male with PMH atrial fibrillation, HTN, CHF who presents to ED for chest pain beginning today, began this AM while patient was in bed. Pain is substernal, no radiation, 7/10, aching in character. Sent from [facility]. He has a pacemaker, history of CHF, afib and prior stents. He reports pacemaker placed last several weeks, he is unsure why, sees Dr Regan. Pain is intermittent ever since original episode, associated with shortness of breath. Denies fevers, chills, nausea, vomiting, diarrhea. In ED, pitting edema noted, CXR with improvement of congestion, no acute cardiopulmonary process. CTA reported a RLL pneumonia however. WBC count 15. EKG with no acute findings. Patient on eliquis. There was an anemia noted with HGB 8, no GI bleeding reported. EKG paced without acute changes. Patient admitted for further workup and care. Given ASA, nitro paste, morphine. Hospitalist ROS - Review of Systems Constitutional: denies: fever, chills, sweats, weakness, malaise, other Eyes: denies: pain, vision change, conjunctivae inflammation, eyelid inflammation, redness, other ENT: denies: ear pain, ear discharge, nose pain, nose discharge, nose congestion, mouth pain, mouth swelling, throat pain, throat swelling, other Respiratory: denies: cough, dry, shortness of breath, hemoptysis, SOB with excertion, pleuritic pain, sputum, wheezing, other Cardiovascular: reports: chest pain. denies: palpitations, orthopnea, paroxy smal noc. dyspnea, edema, light headedness, other Gastrointestinal: denies: nausea, vomiting, abdominal pain, diarrhea, constipation, melena, hematochezia, other Genitourinary: denies: dysuria, frequency, incontinence, hematuria, retention, other Musculoskeletal: denies: neck pain, shoulder pain, arm pain, back pain, hand p ain, leg pain, foot pain, other Skin: denies: rash, lesions, travis, bruising, other Neurological: denies: weakness, numbness, incoordination, change in speech, confusion, seizures, other All other systems reviewed; all pertinent +/- noted in HPI/Subj - Medication Medications: Active Medications Generic Name Dose Route Start Last Admin Trade Name Freq PRN Reason Stop Dose Admin Lactated Ringer's 1,000 mls @ 125 mls/hr 07/24/20 23:00 07/25/20 00:50 Lactated Ringer's IV 07/25/20 07:00 1,000 mls .Q8H LAVON Administration Ceftriaxone Sodium 1 gm/ 100 mls @ 200 mls/hr 07/24/20 23:59 07/24/20 23:49 Sodium Chloride IVPB 100 mls 2359 LAVON Administration Azithromycin 500 mg/ Sodium 250 mls @ 250 mls/hr 07/25/20 01:00 07/25/20 00:53 Chloride IVPB 250 mls 0100 LAVON Administration Eliquis tablet : Strength - 2.5 mg : ORAL Patient Dose: 2 tab(s) Oral once a day. amiodarone oral tablet : Strength - 200 mg : ORAL Patient Dose: 1 tab(s) Oral once a day. potassium chloride oral tablet extended release : Strength - 20 mEq : ORAL Patient Dose: 1 tab(s) Oral once a day. furosemide oral tablet : Strength - 40 mg : ORAL Patient Dose: 1 tab(s) Oral once a day. Tylenol Ex Str Arthritis Pain tablet : Strength - 500 mg : ORAL Patient Dose: 2 cap(s) Oral every 8 hours PRN. iron ER capsule,extended release capsule, extended release : Strength - 325 mg (65 mg iron) : ORAL Patient Dose: 1 cap(s) Oral once a day. Vitamin D3 capsule : Strength - 2,000 unit : ORAL Patient Dose: 1 tab(s) Oral once a day. aspirin oral tablet : Strength - 81 mg : ORAL Patient Dose: 1 tab(s) Oral once a day. Symbicort HFA aerosol inhaler : Strength - 160 mcg-4.5 mcg/actuation : INHALATION Patient Dose: 2 puff(s) Inhaler 2 times a day. albuterol sulfate inhalation solution for nebulization : Strength - 2.5 mg/3 mL (0.083 %) : INHALATION Patient Dose: 1 inhalation Nebulize 3 times a day. Hospitalist History - Past Medical History Other Medical History: Flu vaccine not up to date, Tetanus immunization up to date, Pneumococcal vaccine up to date, atrial fibrillation, arrhythmia, A FLUTTER, Treated with angioplasty, coronary artery disease, hypertension, CHF. PT HAD AN ABLATION IN MAY 2019 AND A WATCHMAN PLUG PLACED ON 06/07/2019. - Past Surgical History Past Surgical History: reports: Cholecystectomy, Hernia Repair Other Surgical History: cholecystectomy, hernia repair, ANTONINO SHOULDER, KNEE,. ANGIOPLASTY WITH ABLATION. 06/30/2019., 2020WATCHMAN COIL, PACEMAKER. - Family History Family History: reports: no pertinent history - Social History Alcohol: reports: Occassional Drugs: reports: none - Exam General Appearance: NAD, awake alert Eye: PERRL, anicteric sclera ENT: normocephalic atraumatic, no oropharyngeal lesions, moist mucosa Neck: supple, symmetric, no JVD, no thyromegaly, no lymphadenopathy, no carotid bruit Heart: RRR, no murmur, no gallops, no rubs, normal peripheral pulses Respiratory: CTAB, no wheezes, no rales, no ronchi, normal chest expansion, no tachypnea, normal percussion Gastrointestinal: soft, non-tender, non-distended, normal bowel sounds, no palpable masses, no hepatomegaly, no splenomegaly, no bruit Extremities: no cyanosis, no clubbing, no edema Skin: normal turgor, no lesions, no rashes Neurological: cranial nerve grossly intact, normal sensation to touch, no weakness, no focal deficits, no new deficit Musculoskeletal: normal tone, normal strength, no muscle wasting Psychiatric: normal affect, normal behavior, A&O x 3 Hospitalist Results - Labs Result Diagrams: 07/24/20 16:10 07/24/20 16:10 Lab results: WBC 15.2 thou/uL (4.8-10.8) H 07/24/20 16:10 Hgb 8.0 g/dL (14.0-18.0) L 07/24/20 16:10 Hct 25.7 % (42.0-52.0) L 07/24/20 16:10 MCV 95.6 fL (78.0-98.0) 07/24/20 16:10 Plt Count 239 thou/uL (130-400) 07/24/20 16:10 Neutrophils % 78.8 % (42.0-75.0) H 07/24/20 16:10 Sodium 135 mmol/L (136-145) L 07/24/20 16:10 Potassium 4.6 mmol/L (3.5-5.1) 07/24/20 16:10 Chloride 102 mmol/L (98-107) 07/24/20 16:10 Carbon Dioxide 23 mmol/L (23-31) 07/24/20 16:10 BUN 46 mg/dL (8.4-25.7) H 07/24/20 16:10 Creatinine 1.58 mg/dL (0.7-1.3) H 07/24/20 16:10 Glucose 119 mg/dL (83-110) H 07/24/20 16:10 Calcium 8.3 mg/dL (7.8-10.44) 07/24/20 16:10 Total Bilirubin 0.6 mg/dL (0.2-1.2) 07/24/20 16:10 AST 21 U/L (5-34) 07/24/20 16:10 ALT 21 U/L (8-55) 07/24/20 16:10 Alkaline Phosphatase 114 U/L (40-110) H 07/24/20 16:10 Troponin I 0.027 ng/mL (< 0.028) 07/24/20 23:35 B-Natriuretic Peptide 243.7 pg/mL (0-100) H 07/24/20 16:10 Serum Total Protein 5.4 g/dL (5.8-8.1) L 07/24/20 16:10 Albumin 2.8 g/dL (3.4-4.8) L 07/24/20 16:10 Lipase 115 U/L (8-78) H 07/24/20 16:10 Urine Ketones Negative mg/dL (Negative) 07/24/20 17:30 Urine Blood Negative (Negative) 07/24/20 17:30 Urine Nitrite Negative (Negative) 07/24/20 17:30 Ur Leukocyte Esterase Negative Pat/uL (Negative) 07/24/20 17:30 Additional comment: VITAL SIGNS Wed Jul 24, 2020 22:02 AGATHA Delgado, [facility] BP: 177/65 MAP: 76 Pulse: 60 Resp: 20 Temp: 97.7 (Oral) Pain: 2 O2 sat: 98 on (Room Air) Time: 07/24/2020 22:02. ED documents, labs, imaging reports reviewed - EKG Interpretation EKG: NSR, paced, rate 67 bpm, QTc 551, no acute ST changes or AVB Hospitalist H&P A/P - Plan Plan: Patient is an 79 year old male with PMH atrial fibrillation, HTN, CHF who presents to ED for chest pain beginning today, began this AM while patient was in bed. # chest pain - suspect secondary to pneumonia # history of atrial fibrillation w/ pacemaker # history of CHF # community acquired pneumonia # leukocytosis Pain is substernal, no radiation, 10, aching in character. Sent from [facility]. He has a pacemaker, history of CHF, afib and prior stents. He reports pacemaker placed last several weeks, he is unsure why, sees Dr Regan. Pain is intermittent ever since original episode, associated with shortness of breath. Denies fevers, chills, nausea, vomiting, diarrhea. In ED, pitting edema noted, CXR with improvement of congestion, no acute cardiopulmonary process. CTA reported a RLL pneumonia however. WBC count 15. EKG with no acute findings. Patient on eliquis. There was an anemia noted with HGB 8, no GI bleeding reported. EKG paced without acute changes. Patient admitted for further workup and care. Given ASA, nitro paste, morphine. - admit to telemetry - azithromycin/ceftriaxone - continue home asa, amiodarone, eliquis, lasix - monitor troponin # anemia - continue eliquis, asa, monitor for bleeding - transfuse PRN hgb < 8 w/ CHF, 8.0 currently, monitor daily # HTN - PRN meds, continue home medications DVT/GI ppx
[2020-07-25] MEDS ORDERED: Spironolactone 25 MG TAB PO PRN ×2 (03:58→11:22)
[2020-07-25 05:30] LABS: Troponin I 0.015 ng/mL (< 0.028)
[2020-07-25] MEDS ORDERED: Polyethylene Glycol 3350 17 GM Packet PO SCH (09:00)
[2020-07-25] MEDS ORDERED: Furosemide 40 MG TAB PO SCH (09:00)
[2020-07-25] MEDS: Amiodarone 200 MG TAB PO SCH (10:53)
[2020-07-25] MEDS: Apixaban 2.5 MG TAB PO SCH ×2 (10:54→20:49)
[2020-07-25] MEDS: Polyethylene Glycol 3350 17 GM Packet PO SCH (10:54)
[2020-07-25] MEDS: Atorvastatin Calcium 20 MG TAB PO SCH (10:54)
[2020-07-25] MEDS: Aspirin 81 mg Enteric Coated Tablet PO SCH (10:55)
[2020-07-25] MEDS: Famotidine 20 MG TAB PO SCH ×2 (10:55→20:49)
--- NOTE | 2020-07-25 10:56 | PDOC.HOSPP ---
- Subjective Encounter Date: 07/25/20 Encounter Time: 10:54 Subjective: awake, alert. no cogh, pain, or fever - Objective Vital Signs & Weight: Vital Signs (12 hours) Temp Pulse Resp BP Pulse Ox 07/25/20 05:09 67 113/56 L 07/25/20 04:52 97.8 F 60 18 99 07/25/20 00:00 68 Weight Weight 252 lb 11.2 oz I&O: 07/24/20 07/25/20 07/26/20 06:59 06:59 06:59 Intake Total 240 Output Total 200 Balance 40 Result Diagrams: 07/24/20 16:10 07/24/20 16:10 Hospitalist ROS - Medication Medications: Active Medications Generic Name Dose Route Start Last Admin Trade Name Raoulq PRN Reason Stop Dose Admin Ceftriaxone Sodium 1 gm/ 100 mls @ 200 mls/hr 07/24/20 23:59 07/24/20 23:49 Sodium Chloride IVPB 100 mls 2359 LAVON Administration Azithromycin 500 mg/ Sodium 250 mls @ 250 mls/hr 07/25/20 01:00 07/25/20 00:53 Chloride IVPB 250 mls 0100 LAVON Administration - Exam General Appearance: awake alert Neck: no JVD Heart: no murmur, irregular Respiratory - other findings: scant RLL rales , OW clear BS Gastrointestinal: soft, normal bowel sounds Extremities: 1+ LE edema Hosp A/P (1) PNA (pneumonia) Code(s): J18.9 - PNEUMONIA, UNSPECIFIED ORGANISM Status: Acute Qualifiers: Pneumonia type: due to Pneumococcus Laterality: right Lung location: lower lobe of lung Qualified Code(s): J13 - Pneumonia due to Streptococcus pneumoniae (2) Coronary artery disease Code(s): I25.10 - ATHSCL HEART DISEASE OF [place] CORONARY ARTERY W/O ANG PCTRS Status: Chronic Qualifiers: Coronary Disease-Associated Artery/Lesion type: [place] artery [place] vs. transplanted heart: [place] heart Associated angina: without angina Qualified Code(s): I25.10 - Atherosclerotic heart disease of [place] coronary artery without angina pectoris (3) HLD (hyperlipidemia) Code(s): E78.5 - HYPERLIPIDEMIA, UNSPECIFIED Status: Chronic Qualifiers: Hyperlipidemia type: unspecified Qualified Code(s): E78.5 - Hyperlipidemia, unspecified (4) HTN (hypertension) Code(s): I10 - ESSENTIAL (PRIMARY) HYPERTENSION Status: Chronic Qualifiers: Hypertension type: essential hypertension Qualified Code(s): I10 - Essential (primary) hypertension (5) Paroxysmal atrial fibrillation Code(s): I48.0 - PAROXYSMAL ATRIAL FIBRILLATION Status: Chronic - Plan cont current iv antibx await blood cultures most likely strep pneumonia cont current home meds
[2020-07-25] MEDS ORDERED: Azithromycin 500 MG in Syringe 0 ML IVPB SCH (21:00)
[2020-07-25] MEDS ORDERED: Enoxaparin Sodium 40 MG/0.4 ML SYRINGE SC SCH (21:00)
[2020-07-25] MEDS: cefTRIAXone\\ROCEPHIN 1 GM in Sodium Chloride 0.9% 100 ML IVPB SCH (23:56)
[2020-07-26] MEDS: Azithromycin 500 MG in Sodium Chloride 0.9% 250 ML 250 ML IVPB SCH (01:12)
--- NOTE | 2020-07-26 03:08 | PDOC.HOSPP ---
- Subjective Encounter Date: 07/26/20 Encounter Time: 10:00 Subjective: no overnight events. this morning, feels well and endorses inability to ambulate due to leg heaviness. otherwise no ocmplaints. - Objective Vital Signs & Weight: Vital Signs (12 hours) Temp Pulse Resp BP Pulse Ox 07/25/20 23:50 100 07/25/20 23:49 97.8 F 62 16 133/63 100 07/25/20 20:00 98 07/25/20 18:56 97.6 F 60 18 137/62 98 07/25/20 16:00 97.7 F 60 18 140/65 99 Weight Weight 252 lb 11.2 oz I&O: 07/24/20 07/25/20 07/26/20 06:59 06:59 06:59 Intake Total 240 Output Total 200 1480 Balance 40 -1480 Result Diagrams: 07/26/20 03:39 07/26/20 07:56 Hospitalist ROS - Review of Systems Constitutional: denies: chills, sweats Respiratory: denies: cough, dry, shortness of breath Cardiovascular: denies: chest pain, palpitations, orthopnea Gastrointestinal: denies: nausea, vomiting, abdominal pain, melena, hematochezia Genitourinary: denies: hematuria - Medication Medications: Active Medications Generic Name Dose Route Start Last Admin Trade Name Freq PRN Reason Stop Dose Admin Amiodarone HCl 400 mg 07/25/20 09:00 07/25/20 10:53 Amiodarone 200 Mg Tab PO 07/31/20 09:01 400 mg DAILY LAVON Administration Apixaban 2.5 mg 07/25/20 09:00 07/25/20 20:49 Apixaban 2.5 Mg Tab PO 2.5 mg BID LAVON Administration Aspirin 81 mg 07/25/20 09:00 07/25/20 10:55 Aspirin 81 Mg Enteric Coated Tablet PO 81 mg DAILY LAVON Administration Atorvastatin Calcium 20 mg 07/25/20 09:00 07/25/20 10:54 Atorvastatin Calcium 20 Mg Tab PO 20 mg DAILY LAVON Administration Famotidine 20 mg 07/25/20 09:00 07/25/20 20:49 Famotidine 20 Mg Tab PO 20 mg BID LAVON Administration Furosemide 40 mg 07/25/20 09:00 07/25/20 10:53 Furosemide 40 Mg Tab PO 40 mg DAILY LAVON Administration Ceftriaxone Sodium 1 gm/ 100 mls @ 200 mls/hr 07/24/20 23:59 07/25/20 23:56 Sodium Chloride IVPB 100 mls 2359 LAVON Administration Azithromycin 500 mg/ Sodium 250 mls @ 250 mls/hr 07/25/20 01:00 07/26/20 01:12 Chloride IVPB 250 mls 0100 LAVON Administration Polyethylene Glycol 17 gm 07/25/20 09:00 07/25/20 10:54 Polyethylene Glycol 3350 17 Gm Packet PO 17 gm DAILY LAVON Administration Spironolactone 25 mg 07/25/20 11:22 07/25/20 20:49 Spironolactone 25 Mg Tab PO 25 mg BID PRN Administration Edema - Exam General Appearance: NAD, awake alert Neck: no JVD Heart: RRR, no murmur, no gallops, no rubs Respiratory: CTAB, no wheezes, no rales, no ronchi Gastrointestinal: soft, non-tender, non-distended Extremities: 2+ LE edema Extremities - other findings: b/l pitting equal to knee level Skin - other findings: diffuse echymoses Hosp A/P - Plan (1) PNA (pneumonia) Code(s): J18.9 - PNEUMONIA, UNSPECIFIED ORGANISM Status: Acute Qualifiers: Pneumonia type: due to Pneumococcus Laterality: right Lung location: lower lobe of lung Qualified Code(s): J13 - Pneumonia due to Streptococcus pneumoniae (2) Coronary artery disease Code(s): I25.10 - ATHSCL HEART DISEASE OF [place] CORONARY ARTERY W/O ANG PCTRS Status: Chronic Qualifiers: Coronary Disease-Associated Artery/Lesion type: [place] artery [place] vs. transplanted heart: [place] heart Associated angina: without angina Qualified Code(s): I25.10 - Atherosclerotic heart disease of [place] coronary artery without angina pectoris (3) HLD (hyperlipidemia) Code(s): E78.5 - HYPERLIPIDEMIA, UNSPECIFIED Status: Chronic Qualifiers: Hyperlipidemia type: unspecified Qualified Code(s): E78.5 - Hyperlipidemia, unspecified (4) HTN (hypertension) Code(s): I10 - ESSENTIAL (PRIMARY) HYPERTENSION Status: Chronic Qualifiers: Hypertension type: essential hypertension Qualified Code(s): I10 - Essential (primary) hypertension (5) Paroxysmal atrial fibrillation Code(s): I48.0 - PAROXYSMAL ATRIAL FIBRILLATION Status: Chronic (6) subacute anemia - Plan Pneumonia - cont current iv antibx for CAP; procalcitonin subacute anemia -drop of nearly 6g Hgb over less than a month; may be component of hemodilution and echymoses, but further workup required; has valvular insufficiency and cardiac devices but considering normal AST and bili, unlikely intra/extravascular hemolysis SHREYAS/CKD - at baseline; nephrology onboard Reduced systolic function - based on echo 12/2019, EF 45-50%; lasix increased as per nephrology; Biv in place,cardiology evaluation pending p. afib - continue eliquis 2.5mg PO bid
[2020-07-26 03:51] LABS: #Basophils 0.1 thou/uL (0.0-0.2); #Eosinphils 0.7 thou/uL (0.0-0.7); #Monocytes 1.7 thou/uL (0.11-0.59); #Neutrophils 9.2 thou/uL (1.40-6.50); %Basophils 0.5 % (0.0-1.0); %Eosinophils 4.8 % (0.0-10.0); %Lymphocytes 14.4 % (21.0-51.0); %Monocytes 12.5 % (0.0-10.0); %Neutrophils 67.8 % (42.0-75.0); Hemoglobin 8.3 g/dL (14.0-18.0); Mean Corpuscular Hemoglobin 31.2 pg (27.0-31.0); Mean Corpuscular Volume 94.6 fL (78.0-98.0); Mean Platelet Volume 7.5 fL (7.4-10.4); Platelet Count 198 thou/uL (130-400); RBC Distribution Width 15.6 % (11.5-14.5); Red Blood Cell (RBC) Count 2.67 mill/uL (4.70-6.10); White Blood Cell (WBC) Count 13.6 thou/uL (4.8-10.8)
[2020-07-26 04:12] LABS: Anion Gap 14 mmol/L (10-20); BUN (Urea Nitrogen) 35 mg/dL (8.4-25.7); Calc. Creatinine Clearance 75 mL/min (70-130); Calcium 8.1 mg/dL (7.8-10.44); Carbon Dioxide 23 mmol/L (23-31); Chloride 103 mmol/L (98-107); Estimated GFR-MDRD 55; Glucose 79 mg/dL (83-110); Potassium 5.2 mmol/L (3.5-5.1); Sodium 135 mmol/L (136-145)
[2020-07-26] MEDS: Amiodarone 200 MG TAB PO SCH (08:02)
[2020-07-26] MEDS: Apixaban 2.5 MG TAB PO SCH ×2 (08:03→20:02)
[2020-07-26] MEDS: Polyethylene Glycol 3350 17 GM Packet PO SCH (08:04)
[2020-07-26] MEDS: Famotidine 20 MG TAB PO SCH ×2 (08:04→20:02)
[2020-07-26] MEDS: Saccharomyces boulardii 250 MG CAP PO SCH (08:04)
[2020-07-26] MEDS: Aspirin 81 mg Enteric Coated Tablet PO SCH (08:04)
[2020-07-26] MEDS: Atorvastatin Calcium 20 MG TAB PO SCH (08:04)
[2020-07-26] MEDS: Furosemide 40 MG TAB PO SCH ×2 (08:10→13:28)
[2020-07-26 08:31] LABS: Anion Gap 12 mmol/L (10-20); BUN (Urea Nitrogen) 34 mg/dL (8.4-25.7); Calc. Creatinine Clearance 75 mL/min (70-130); Calcium 7.9 mg/dL (7.8-10.44); Carbon Dioxide 23 mmol/L (23-31); Chloride 104 mmol/L (98-107); Estimated GFR-MDRD 55; Glucose 73 mg/dL (83-110); Potassium 4.9 mmol/L (3.5-5.1); Sodium 134 mmol/L (136-145)
--- NOTE | 2020-07-26 08:58 | PRG ---
DATE OF SERVICE: 07/26/2020 SUBJECTIVE: Mr. Valladares is an 79-year-old white male with chronic heart failure and was readmitted due to chest pain. He was said to have ruled out for WI. We were reconsulted for followup of his chronic renal failure as well as management of his leg edema. Please note, his renal function is much improved compared to last hospitalization. Furthermore, the leg edema has been bothering him. During the rehab, he is not able to ambulate well due to leg edema. The patient is currently on furosemide at 40 mg tablet once a day. The patient denies any chest pain or shortness of breath. OBJECTIVE: VITAL SIGNS: Blood pressure 146/64, heart rate 60, respiratory rate 18, temperature 98.3, and O2 saturation 98%. GENERAL: The patient is awake, supine, comfortable, obese, not in distress. SKIN: Adequate turgor. HEENT: Pale conjunctivae. Anicteric sclerae. No neck mass. No carotid bruits. No JVD. CHEST: No deformities. LUNGS: Clear breath sounds. No wheezing. No crackles. HEART: Normal sinus rhythm. No murmurs, no gallops, no rubs. ABDOMEN: Globular, soft, nontender. No masses. Positive for bowel sounds. EXTREMITIES: Positive for +2 edema. NEUROLOGICAL: The patient is awake, oriented to 3 spheres. Moving all extremities. MEDICATIONS: Medications of July 26, 2020, were reviewed. LABORATORY DATA: Laboratories of July 26, 2020; white count 13.6 and hemoglobin 8.3. Sodium 135, potassium 5.2, chloride 103, carbon dioxide 23, BUN 35, creatinine 1.25, glucose 79, and calcium 8.1. On July 25, 2020, troponin I was noted at 0.015. ASSESSMENT AND PLAN: 1. Chronic leg edema-the patient is somewhat having difficulty ambulating when he was at the physical therapy/rehab. The plan is to increase his Lasix from 40 mg tablet once a day to 40 mg tablet b.i.d. If needed, we can give albumin infusion as well as convert the Lasix to intravenous. There is no indication for any dialytic intervention. 2. Anemia-continue to observe. P.r.n. blood transfusion. a. I do not think the patient is a candidate for Epogen therapy. 3. Chest pain, resolved. Ruled out for myocardial infarction. Recheck CBC and base met in a.m. Job ID: [id number]
[2020-07-26] MEDS: Acetaminophen 325 MG TAB PO PRN (12:30)
[2020-07-26] MEDS: cefTRIAXone\\ROCEPHIN 1 GM in Sodium Chloride 0.9% 100 ML IVPB SCH (23:24)
[2020-07-27] MEDS: Azithromycin 500 MG in Sodium Chloride 0.9% 250 ML 250 ML IVPB SCH (00:27)
[2020-07-27 06:15] LABS: Reticulocyte Count 3.5 % (0.5-1.5)
[2020-07-27 06:30] LABS: Band 4 % (5-11); Eosinophils 3 % (0-10); Lymphocytes 22 % (21-51); MDiff Complete? YES; Mean Corpuscular HGB CONC 32.4 g/dL (32.0-36.0); Mean Corpuscular Hemoglobin 30.8 pg (27.0-31.0); Mean Corpuscular Volume 95.2 fL (78.0-98.0); Metamyelocyte 1 % (0-0); Monocytes 6 % (0-10); Myelocyte 4 % (0-0); Neutrophil 60 % (42-75); Platelet Count 203 thou/uL (130-400); Polychromasia SLIGHT = 2-3 cells (100X) (0-2/hpf); RBC Distribution Width 16.1 % (11.5-14.5); Red Blood Cell (RBC) Count 2.61 mill/uL (4.70-6.10); White Blood Cell (WBC) Count 12.2 thou/uL (4.8-10.8)
[2020-07-27 06:34] LABS: Anion Gap 13 mmol/L (10-20); BUN (Urea Nitrogen) 31 mg/dL (8.4-25.7); Calc. Creatinine Clearance 69 mL/min (70-130); Calcium 7.9 mg/dL (7.8-10.44); Carbon Dioxide 22 mmol/L (23-31); Chloride 101 mmol/L (98-107); Estimated GFR-MDRD 50; Glucose 72 mg/dL (83-110); Iron 15 ug/dL (65-175); Iron 18 ug/dL (65-175); Iron Binding Capacity, Total 266 mcg/dL (261-462); Iron Binding Capacity, Total 275 mcg/dL (261-462); Potassium 4.8 mmol/L (3.5-5.1); Sodium 131 mmol/L (136-145)
[2020-07-27] MEDS: Amiodarone 200 MG TAB PO SCH (08:37)
[2020-07-27] MEDS: Apixaban 2.5 MG TAB PO SCH ×2 (08:38→19:18)
[2020-07-27] MEDS: Famotidine 20 MG TAB PO SCH ×2 (08:38→19:18)
[2020-07-27] MEDS: Atorvastatin Calcium 20 MG TAB PO SCH (08:38)
[2020-07-27] MEDS: Aspirin 81 mg Enteric Coated Tablet PO SCH (08:38)
[2020-07-27] MEDS: Saccharomyces boulardii 250 MG CAP PO SCH (08:40)
[2020-07-27] MEDS: Furosemide 40 MG TAB PO SCH (08:40)
[2020-07-27] MEDS: Polyethylene Glycol 3350 17 GM Packet PO SCH (08:40)
[2020-07-27] MEDS: Senokot S 8.6-50 MG TAB PO SCH ×2 (08:41→19:18)
--- NOTE | 2020-07-27 10:37 | PRG ---
DATE OF SERVICE: SUBJECTIVE: Mr. Valladares is an 79-year-old white male, who was seen by Renal Service for his chronic renal failure. He was also seen because of this persistent leg edema. I have increased his diuretics from 40 mg of Lasix to a b.i.d. dosing. He voices no new complaints of chest pain. His leg edema has slightly improved. No acute events noted last night. OBJECTIVE: VITAL SIGNS: Blood pressure 135/63, heart rate 60, respiratory rate 18, temperature 98.5, and O2 saturation 99%. GENERAL: He is noted to be awake, alert, supine, comfortable, obese, not in distress. SKIN: Adequate turgor. HEENT: Pale conjunctivae. Anicteric sclerae. NECK: No neck mass. No carotid bruits. No JVD. CHEST: No deformities. LUNGS: Clear breath sounds. HEART: Normal sinus rhythm. No murmur. No gallops. No rubs. ABDOMEN: Globular, soft, and nontender. No masses. EXTREMITIES: Positive for trace edema. MEDICATIONS: Medications of 07/27/2020 were reviewed. LABORATORY DATA: On 07/27/2020: White count 12.2 and hemoglobin is 8. Sodium 131, potassium 4.5, chloride 101, carbon dioxide 22, BUN 31, creatinine 1.36, iron is 18, and calcium 7.9. ASSESSMENT AND PLAN: 1. Chronic leg edema, slightly improved with increased dose of diuretics, currently on Lasix 40 mg tablet b.i.d. My plan is to decrease dosing back to once a day. 2. Acute kidney injury/chronic renal failure, slightly higher creatinine at 1.36. We will decrease Lasix dose. This is anticipated increase with recent doubling of Lasix. There is no indication for any dialytic intervention. 3. Anemia, consider starting on iron supplementation. Recheck CBC and basic metabolic in a.m. Job ID: [id number] [facility]
--- NOTE | 2020-07-27 10:42 | PDOC.HOSPP ---
- Subjective Encounter Date: 07/27/20 Encounter Time: 08:00 Subjective: no overnight events. this morning, feeling well. states that had issue with leg swelling for "all his life." Has no complaints and denies chest pain, palpitations, orthopnea, PND - Objective Vital Signs & Weight: Vital Signs (12 hours) Temp Pulse Resp BP Pulse Ox 07/27/20 08:00 98.5 F 60 18 135/63 99 Weight Admit Weight 252 lb 11.2 oz Weight 252 lb 11.2 oz I&O: 07/26/20 07/27/20 07/28/20 06:59 06:59 06:59 Intake Total 2110 Output Total 1630 7365 100 Balance -1630 -415 -100 Result Diagrams: 07/27/20 06:01 07/27/20 06:02 Hospitalist ROS - Review of Systems Constitutional: denies: chills, sweats Respiratory: denies: cough, dry, shortness of breath, pleuritic pain, sputum Cardiovascular: reports: edema. denies: chest pain, palpitations, orthopnea, paroxysmal noc. dyspnea Gastrointestinal: denies: nausea, vomiting, abdominal pain - Medication Medications: Active Medications Generic Name Dose Route Start Last Admin Trade Name Freq PRN Reason Stop Dose Admin Acetaminophen 650 mg 07/24/20 22:45 07/26/20 12:30 Acetaminophen 325 Mg Tab PO 650 mg Q4H PRN Administration Headache/Fever/Mild Pain (1-3) Apixaban 2.5 mg 07/25/20 09:00 07/27/20 08:38 Apixaban 2.5 Mg Tab PO 2.5 mg BID LAVON Administration Aspirin 81 mg 07/25/20 09:00 07/27/20 08:38 Aspirin 81 Mg Enteric Coated Tablet PO 81 mg DAILY LAVON Administration Atorvastatin Calcium 20 mg 07/25/20 09:00 07/27/20 08:38 Atorvastatin Calcium 20 Mg Tab PO 20 mg DAILY LAVON Administration Famotidine 20 mg 07/25/20 09:00 07/27/20 08:38 Famotidine 20 Mg Tab PO 20 mg BID LAVON Administration Polyethylene Glycol 17 gm 07/25/20 09:00 07/27/20 08:40 Polyethylene Glycol 3350 17 Gm Packet PO Not Given DAILY LAVON Saccharomyces Boulardii 250 mg 07/26/20 09:00 07/27/20 08:40 Saccharomyces Boulardii 250 Mg Cap PO 250 mg DAILY LAVON Administration Senna/Docusate Sodium 1 tab 07/27/20 09:00 07/27/20 08:41 Senokot S 8.6-50 Mg Tab PO Not Given BID LAVON Spironolactone 25 mg 07/25/20 11:22 07/25/20 20:49 Spironolactone 25 Mg Tab PO 25 mg BID PRN Administration Edema - Exam General Appearance: NAD, awake alert Eye: PERRL, anicteric sclera Neck: no JVD Heart: RRR, no gallops, no rubs Respiratory: CTAB, no wheezes, no rales, no ronchi Gastrointestinal: soft, non-tender, non-distended, normal bowel sounds Extremities - other findings: b/l equal pitting edema, knee level, improved; hyperpigementation Psychiatric: normal affect, normal behavior, A&O x 3 Hosp A/P - Plan (1) PNA (pneumonia) Code(s): J18.9 - PNEUMONIA, UNSPECIFIED ORGANISM Status: Acute Qualifiers: Pneumonia type: due to Pneumococcus Laterality: right Lung location: lower lobe of lung Qualified Code(s): J13 - Pneumonia due to Streptococcus pneumoniae (2) Coronary artery disease Code(s): I25.10 - ATHSCL HEART DISEASE OF [place] CORONARY ARTERY W/O ANG PCTRS Status: Chronic Qualifiers: Coronary Disease-Associated Artery/Lesion type: [place] artery [place] vs. transplanted heart: [place] heart Associated angina: without angina Qualified Code(s): I25.10 - Atherosclerotic heart disease of [place] coronary artery without angina pectoris (3) HLD (hyperlipidemia) Code(s): E78.5 - HYPERLIPIDEMIA, UNSPECIFIED Status: Chronic Qualifiers: Hyperlipidemia type: unspecified Qualified Code(s): E78.5 - Hyperlipidemia, unspecified (4) HTN (hypertension) Code(s): I10 - ESSENTIAL (PRIMARY) HYPERTENSION Status: Chronic Qualifiers: Hypertension type: essential hypertension Qualified Code(s): I10 - Essential (primary) hypertension (5) Paroxysmal atrial fibrillation Code(s): I48.0 - PAROXYSMAL ATRIAL FIBRILLATION Status: Chronic (6) subacute anemia - Plan b/l pitting edema, CVI - echo not that remarkable; likely CVI and hypoalbuminemia; elevated legs, compressions stockings, topical steroid for mild venous stasis dermatitis Pneumonia - change to levoflox; procalcitonin pending subacute anemia -hypoproliferative based on retic index; iron panel c/w anemia of inflammation; pending additional studies SHREYAS/CKD, chronic asymptomatic hyponatremia - at baseline; nephrology onboard; considering borderline hypoglycemic, hyponatremia, hyperkalemia, anemia, will assess for adrenal insufficiency Reduced systolic function - based on echo 12/2019, EF 45-50%; lasix increased as per nephrology; Biv in place,cardiology evaluation pending p. afib - reduced amiodarone to 200 daily maintenance dose; continue eliquis 2.5mg PO bid
[2020-07-27] MEDS: Ferrous Sulfate 325 MG TAB PO SCH (17:13)
[2020-07-27] MEDS: Triamcinolone 0.1% Cream 15 GM TUBE TOP SCH (19:18)
[2020-07-28 00:55] LABS: Hemoglobin 8.2 g/dL (14.0-18.0); Mean Corpuscular HGB CONC 32.4 g/dL (32.0-36.0); Mean Corpuscular Hemoglobin 31.2 pg (27.0-31.0); Mean Corpuscular Volume 96.1 fL (78.0-98.0); Mean Platelet Volume 7.8 fL (7.4-10.4); Platelet Count 198 thou/uL (130-400); RBC Distribution Width 16.5 % (11.5-14.5); Red Blood Cell (RBC) Count 2.62 mill/uL (4.70-6.10); White Blood Cell (WBC) Count 11.5 thou/uL (4.8-10.8)
[2020-07-28 00:57] LABS: Anion Gap 14 mmol/L (10-20); BUN (Urea Nitrogen) 29 mg/dL (8.4-25.7); Calc. Creatinine Clearance 70 mL/min (70-130); Calcium 7.8 mg/dL (7.8-10.44); Carbon Dioxide 21 mmol/L (23-31); Chloride 102 mmol/L (98-107); Estimated GFR-MDRD 51; Glucose 76 mg/dL (83-110); Potassium 4.5 mmol/L (3.5-5.1); Sodium 132 mmol/L (136-145)
[2020-07-28 01:06] LABS: Band 5 % (5-11); Differential Comment Immature Cell(s); Eosinophils 1 % (0-10); Lymphocytes 25 % (21-51); MDiff Complete? YES; Monocytes 8 % (0-10); Myelocyte 4 % (0-0); Neutrophil 55 % (42-75); Reflex for Review?? NO
[2020-07-28] MEDS: Furosemide 40 MG TAB PO SCH (06:21)
[2020-07-28] MEDS ORDERED: Cosyntropin 250 MCG VIAL SLOW IVP SCH (06:30)
[2020-07-28 07:11] LABS: Anion Gap 12 mmol/L (10-20); BUN (Urea Nitrogen) 27 mg/dL (8.4-25.7); Calc. Creatinine Clearance 74 mL/min (70-130); Calcium 7.9 mg/dL (7.8-10.44); Carbon Dioxide 21 mmol/L (23-31); Chloride 103 mmol/L (98-107); Estimated GFR-MDRD 54; Glucose 72 mg/dL (83-110); Potassium 4.3 mmol/L (3.5-5.1); Sodium 132 mmol/L (136-145)
[2020-07-28 07:34] LABS: Band 1 % (5-11); Hemoglobin 7.9 g/dL (14.0-18.0); Lymphocytes 29 % (21-51); MDiff Complete? YES; Mean Corpuscular HGB CONC 32.6 g/dL (32.0-36.0); Mean Corpuscular Hemoglobin 31.1 pg (27.0-31.0); Mean Corpuscular Volume 95.4 fL (78.0-98.0); Mean Platelet Volume 8.2 fL (7.4-10.4); Metamyelocyte 2 % (0-0); Monocytes 17 % (0-10); Neutrophil 50 % (42-75); Platelet Count 198 thou/uL (130-400); RBC Distribution Width 16.4 % (11.5-14.5); Reactive Lymphocytes 1 % (0-10); Red Blood Cell (RBC) Count 2.55 mill/uL (4.70-6.10); White Blood Cell (WBC) Count 10.1 thou/uL (4.8-10.8)
[2020-07-28] MEDS: Amiodarone 200 MG TAB PO SCH (08:12)
[2020-07-28] MEDS: Ferrous Sulfate 325 MG TAB PO SCH ×2 (08:12→17:26)
[2020-07-28] MEDS: Apixaban 2.5 MG TAB PO SCH ×2 (08:13→20:52)
[2020-07-28] MEDS: Atorvastatin Calcium 20 MG TAB PO SCH (08:14)
[2020-07-28] MEDS: Polyethylene Glycol 3350 17 GM Packet PO SCH (08:14)
[2020-07-28] MEDS: Saccharomyces boulardii 250 MG CAP PO SCH (08:14)
[2020-07-28] MEDS: Aspirin 81 mg Enteric Coated Tablet PO SCH (08:14)
[2020-07-28] MEDS: Senokot S 8.6-50 MG TAB PO SCH ×2 (08:15→20:52)
[2020-07-28] MEDS: Triamcinolone 0.1% Cream 15 GM TUBE TOP SCH ×2 (08:20→20:52)
[2020-07-28] MEDS: Famotidine 20 MG TAB PO SCH (08:38)
--- NOTE | 2020-07-28 10:51 | PRG ---
DATE OF SERVICE: 07/28/2020 SUBJECTIVE: Mr. Valladares is an 79-year-old white male, seen by the Renal Service for his chronic leg edema as well as chronic renal failure. He had fluctuating creatinine and the number went up to 1.3. He most likely had a superimposed acute kidney injury that was hemodynamically-mediated renal dysfunction. His Lasix was decreased from 40 mg b.i.d. to once a day. The patient was supported by the daughter to sometimes be intermittently confused. This morning, he is less confused. He is quite coherent on my exam. OBJECTIVE: VITAL SIGNS: Blood pressure 120/53, heart rate 62, respiratory rate 16, temperature 98.7, O2 saturation 96%. GENERAL: The patient is awake, alert, supine, comfortable, not in distress. SKIN: Adequate turgor. HEENT: He has slightly pale conjunctivae. Anicteric sclerae. NECK: No neck mass. No carotid bruits. No JVD. CHEST: No deformities. LUNGS: Clear breath sounds. HEART: Normal sinus rhythm. No murmurs, gallops, or rubs. ABDOMEN: Globular, soft, nontender. No masses. EXTREMITIES: Trace edema. MEDICATIONS: On July 28, 2020, were reviewed. LABORATORY DATA: On July 28, 2020; white count 10.1, hemoglobin 7.9. Sodium 132, potassium 4.3, chloride 103, carbon dioxide 21, BUN 27, creatinine 1.27, glucose 72, calcium 7.9. Procalcitonin 0.05. ASSESSMENT AND PLAN: 1. Acute kidney injury-superimposed prerenal azotemia. Slightly improved with adjustment of the Lasix downwards from 40 mg b.i.d. to once a day. No indication for any dialytic intervention. 2. Anemia, on iron supplementation. Recently ferrous sulfate increased to 325 mg tablet-one tablet t.i.d. 3. Chronic leg edema, on Lasix 40 mg tablet once a day. 4. Atrial fibrillation, currently on amiodarone. 5. We will check CBC and basic metabolic profile in a.m. Job ID: [id number]
--- NOTE | 2020-07-28 12:27 | PDOC.HOSPP ---
- Subjective Encounter Date: 07/28/20 Encounter Time: 08:00 Subjective: overnight, confused with paranoid delusions of doctors trying to kill him as per nurse. This morning, calm, alert and oriented. Endorses improvement of swelling. no complaints. - Objective Vital Signs & Weight: Vital Signs (12 hours) Temp Pulse Resp BP Pulse Ox 07/28/20 08:00 98.7 F 62 16 120/53 L 96 Weight Admit Weight 252 lb 11.2 oz Weight 252 lb 11.2 oz I&O: 07/27/20 07/28/20 07/29/20 06:59 06:59 06:59 Intake Total 2110 1030 Output Total 3568 1575 175 Balance -415 -545 -175 Result Diagrams: 07/28/20 06:39 07/28/20 06:39 Hospitalist ROS - Review of Systems Constitutional: denies: chills, sweats Respiratory: denies: cough, shortness of breath, pleuritic pain Cardiovascular: denies: chest pain, palpitations, orthopnea, paroxysmal noc. dyspnea Gastrointestinal: denies: nausea, vomiting, abdominal pain - Medication Medications: Active Medications Generic Name Dose Route Start Last Admin Trade Name Freq PRN Reason Stop Dose Admin Acetaminophen 650 mg 07/24/20 22:45 07/26/20 12:30 Acetaminophen 325 Mg Tab PO 650 mg Q4H PRN Administration Headache/Fever/Mild Pain (1-3) Amiodarone HCl 200 mg 07/28/20 09:00 07/28/20 08:12 Amiodarone 200 Mg Tab PO 200 mg DAILY LAVON Administration Apixaban 2.5 mg 07/25/20 09:00 07/28/20 08:13 Apixaban 2.5 Mg Tab PO 2.5 mg BID LAVON Administration Aspirin 81 mg 07/25/20 09:00 07/28/20 08:14 Aspirin 81 Mg Enteric Coated Tablet PO 81 mg DAILY LAVON Administration Atorvastatin Calcium 20 mg 07/25/20 09:00 07/28/20 08:14 Atorvastatin Calcium 20 Mg Tab PO 20 mg DAILY LAVON Administration Cosyntropin 250 mcg 07/28/20 06:30 07/28/20 06:40 Cosyntropin 250 Mcg Vial SLOW IVP 250 mcg WILLCALL LAVON Administration Ferrous Sulfate 325 mg 07/27/20 17:00 07/28/20 08:12 Ferrous Sulfate 325 Mg Tab PO 325 mg BID-WM LAVON Administration Furosemide 40 mg 07/28/20 07:30 07/28/20 06:21 Furosemide 40 Mg Tab PO 40 mg DAILY-AC LAVON Administration Polyethylene Glycol 17 gm 07/25/20 09:00 07/28/20 08:14 Polyethylene Glycol 3350 17 Gm Packet PO Not Given DAILY LAVON Saccharomyces Boulardii 250 mg 07/26/20 09:00 07/28/20 08:14 Saccharomyces Boulardii 250 Mg Cap PO 250 mg DAILY LAVON Administration Senna/Docusate Sodium 1 tab 07/27/20 09:00 07/28/20 08:15 Senokot S 8.6-50 Mg Tab PO Not Given BID LAVON Spironolactone 25 mg 07/25/20 11:22 07/25/20 20:49 Spironolactone 25 Mg Tab PO 25 mg BID PRN Administration Edema Triamcinolone Acetonide 0 gm 07/27/20 21:00 07/28/20 08:20 Triamcinolone 0.1% Cream 15 Gm Tube TOP 1 applic BID LAVON Administration - Exam General Appearance: NAD, awake alert Neck: no JVD Heart: RRR, no murmur, no gallops, no rubs Respiratory: CTAB, no wheezes, no rales, no ronchi Gastrointestinal: soft, non-tender, non-distended, normal bowel sounds Extremities - other findings: b/l pitting edema to knee level, improved Psychiatric: normal affect, normal behavior, A&O x 3 Hosp A/P - Plan (1) PNA (pneumonia) Code(s): J18.9 - PNEUMONIA, UNSPECIFIED ORGANISM Status: Acute Qualifiers: Pneumonia type: due to Pneumococcus Laterality: right Lung location: lower lobe of lung Qualified Code(s): J13 - Pneumonia due to Streptococcus pneumoniae (2) Coronary artery disease Code(s): I25.10 - ATHSCL HEART DISEASE OF [place] CORONARY ARTERY W/O ANG PCTRS Status: Chronic Qualifiers: Coronary Disease-Associated Artery/Lesion type: [place] artery [place] vs. transplanted heart: [place] heart Associated angina: without angina Qualified Code(s): I25.10 - Atherosclerotic heart disease of [place] coronary artery without angina pectoris (3) HLD (hyperlipidemia) Code(s): E78.5 - HYPERLIPIDEMIA, UNSPECIFIED Status: Chronic Qualifiers: Hyperlipidemia type: unspecified Qualified Code(s): E78.5 - Hyperlipidemia, unspecified (4) HTN (hypertension) Code(s): I10 - ESSENTIAL (PRIMARY) HYPERTENSION Status: Chronic Qualifiers: Hypertension type: essential hypertension Qualified Code(s): I10 - Essential (primary) hypertension (5) Paroxysmal atrial fibrillation Code(s): I48.0 - PAROXYSMAL ATRIAL FIBRILLATION Status: Chronic (6) subacute anemia - Plan b/l pitting edema, CVI - improving (07/28), echo not that remarkable; likely CVI and hypoalbuminemia; elevated legs, compressions stockings, topical steroid for mild venous stasis dermatitis confusion - overnight, likely ; stopped famotidine and antibiotics which may cause/contribute; Pneumonia - procalcitonin low, stopped ABx subacute anemia -hypoproliferative based on retic index; iron panel c/w anemia of inflammation; started ferrous sulfate as per nephrology SHREYAS/CKD, chronic asymptomatic hyponatremia - at baseline; nephrology onboard; Reduced systolic function - based on echo 12/2019, EF 45-50%; lasix increased as per nephrology; Biv in place,cardiology evaluation pending p. afib - currently sinus. reduced amiodarone to 200 daily maintenance dose; continue eliquis 2.5mg PO bid Disposition: medically clear back to rehab
[2020-07-28] MEDS ORDERED: Ferrous Sulfate 325 MG TAB PO SCH (15:00)
[2020-07-29] MEDS: Acetaminophen 325 MG TAB PO PRN (01:54)
[2020-07-29 04:27] LABS: Anion Gap 13 mmol/L (10-20); BUN (Urea Nitrogen) 25 mg/dL (8.4-25.7); Calc. Creatinine Clearance 67 mL/min (70-130); Carbon Dioxide 21 mmol/L (23-31); Chloride 103 mmol/L (98-107); Estimated GFR-MDRD 48; Glucose 85 mg/dL (83-110); Potassium 4.2 mmol/L (3.5-5.1); Sodium 133 mmol/L (136-145)
[2020-07-29 04:37] LABS: Band 3 % (5-11); Eosinophils 1 % (0-10); Hemoglobin 8.8 g/dL (14.0-18.0); Lymphocytes 15 % (21-51); MDiff Complete? YES; Mean Corpuscular HGB CONC 33.3 g/dL (32.0-36.0); Mean Corpuscular Hemoglobin 32.4 pg (27.0-31.0); Mean Corpuscular Volume 97.2 fL (78.0-98.0); Mean Platelet Volume 7.7 fL (7.4-10.4); Monocytes 20 % (0-10); Myelocyte 3 % (0-0); Neutrophil 58 % (42-75); Platelet Count 192 thou/uL (130-400); RBC Distribution Width 16.3 % (11.5-14.5); Red Blood Cell (RBC) Count 2.73 mill/uL (4.70-6.10); White Blood Cell (WBC) Count 10.2 thou/uL (4.8-10.8)
--- NOTE | 2020-07-29 07:49 | CON ---
DATE OF CONSULTATION: 07/26/2020 REASON FOR CONSULTATION: Family request and recent pneumonia. HISTORY OF PRESENT ILLNESS: Mr. Valladares is an 79-year-old gentleman who was seen and met in the past. He has a history of moderate aortic insufficiency, mild cardiomyopathy, atrial fibrillation, who recently presented with confusion and diagnosed with pneumonia. During my visit on 07/26/2020, he appears stable. No current complaints except for lower extremity edema, which is felt to be chronic. PAST MEDICAL HISTORY: Hypertension, aortic insufficiency, mild cardiomyopathy, atrial fibrillation, diastolic dysfunction, lower extremity edema, renal insufficiency, status post Watchman, hyperlipidemia, peptic ulcer disease, atrial flutter, status post atrial fibrillation ablation. HOME MEDICATIONS: Include, 1. Metolazone. 2. Amiodarone. 3. Aspirin. 4. Albuterol. 5. Symbicort. 6. Tylenol. 7. Lipitor. 8. Pantoprazole. 9. Diazepam. 10. Gabapentin. 11. Potassium. 12. Atorvastatin. 13. Eliquis. 14. Iron. 15. Spironolactone. REVIEW OF SYSTEMS: A 10-point review of systems is reviewed as above, otherwise negative. PHYSICAL EXAMINATION: GENERAL: Patient is a pleasant 79-year-old gentleman, who is in no acute distress. The patient appears their stated age. VITAL SIGNS: Blood pressure 145/67, pulse 62, temperature 97.5. NEUROLOGIC: The patient is alert and oriented x3 with no focal neurologic deficits. HEENT: Sclerae without icterus. Mouth has moist mucous membranes with normal pallor. NECK: No JVD. Carotid upstroke brisk. No bruits bilaterally. LUNGS: Clear to auscultation with unlabored respirations. BACK: No scoliosis or kyphosis. CARDIAC: Regular rate and rhythm with normal S1 and S2. No S3 or S4 noted. No significant rubs, murmurs, thrills, or gallops noted throughout the precordium. PMI is not displaced. There is no parasternal heave. ABDOMEN: Soft, nontender, nondistended. No peritoneal signs present. No hepatosplenomegaly. No abnormal striae. EXTREMITIES: 2+ pitting edema. SKIN: No gross abnormalities. PERTINENT LABORATORY DATA: Hemoglobin 8.3, hematocrit 25.3, white blood cell count 13.6. Creatinine 1.25 with GFR 55, potassium 5.2, sodium 135. IMPRESSION: 1. Pneumonia. 2. Diastolic dysfunction. 3. Atrial fibrillation. 4. Moderate aortic insufficiency. RECOMMENDATIONS: From a CV standpoint, Mr. Valladares appears stable. He is currently on antibiotic therapy for pneumonia. His anemia is chronic. His creatinine appears to have improved. We will continue amiodarone therapy at the current rate. We will continue to follow with you. At this point, cardiac issues are secondary to underlying pneumonia. Job ID: [id number]
[2020-07-29 08:16] VITALS: BP 139/62; TEMP 98.4
[2020-07-29] MEDS: Ferrous Sulfate 325 MG TAB PO SCH (08:24)
[2020-07-29] MEDS: Furosemide 40 MG TAB PO SCH (08:24)
[2020-07-29] MEDS: Amiodarone 200 MG TAB PO SCH (08:25)
[2020-07-29] MEDS: Aspirin 81 mg Enteric Coated Tablet PO SCH (08:25)
[2020-07-29] MEDS: Apixaban 2.5 MG TAB PO SCH (08:25)
[2020-07-29] MEDS: Saccharomyces boulardii 250 MG CAP PO SCH (08:25)
[2020-07-29] MEDS: Atorvastatin Calcium 20 MG TAB PO SCH (08:25)
[2020-07-29] MEDS: Senokot S 8.6-50 MG TAB PO SCH (08:26)
[2020-07-29] MEDS: Polyethylene Glycol 3350 17 GM Packet PO SCH (08:26)
[2020-07-29] MEDS: Triamcinolone 0.1% Cream 15 GM TUBE TOP SCH (08:26)
[2020-07-29] MEDS ORDERED: Furosemide 40 MG TAB PO SCH (08:45)
--- NOTE | 2020-07-29 09:00 | PRG ---
DATE OF SERVICE: 07/29/2020 SUBJECTIVE: Mr. Valladares is an 79-year-old white male, who was initially admitted for generalized edema, seen by the Renal Service for his acute kidney injury, leg edema. He has also been diagnosed with a presumptive pneumonia. He also had been seen by Cardiology due to his atrial fibrillation. His creatinine has been fluctuating. He is currently on Lasix at 40 mg tablet once a day. No other complaints today. OBJECTIVE: VITAL SIGNS: Blood pressure is 139/62, heart rate 64, respiratory rate 18, temperature 98.4, O2 saturation is 95%. GENERAL: He is awake, alert, comfortable, not in overt distress. SKIN: Adequate turgor. HEENT: He has a slightly pale conjunctivae. Anicteric sclerae. NECK: No neck mass. No carotid bruits. No JVD. CHEST: No deformities. LUNGS: Clear breath sounds. HEART: Normal sinus rhythm. No murmurs, gallops, or rubs. ABDOMEN: Globular, soft, nontender. No masses. EXTREMITIES: Positive for edema. MEDICATIONS: On July 29, 2020, were reviewed. LABORATORY DATA: On July 29, 2020; white count 10.2, hemoglobin 8.8. Sodium 133, potassium 4.2, chloride 103, carbon dioxide 21, BUN 25, creatinine 1.41, calcium 8.0. ASSESSMENT AND PLAN: 1. Acute kidney injury-superimposed prerenal azotemia. Creatinine is fluctuating. Creatinine is slightly high at 1.41 today from 1.27 yesterday. We will decrease Lasix from 40 to 20 mg once a day. We will hold off any IV fluids for the moment. 2. Leg edema-currently on diuretic regimen. Adjust diuretics due to the slightly higher creatinine. 3. Anemia, slowly improving. Currently, on iron supplementation. We will recheck CBC and basic metabolic in a.m. Job ID: [id number]
--- NOTE | 2020-07-29 12:11 | PQF ---
CLINICAL DOCUMENTATION CLARIFICATION FORM: Dear Dr. Del Castillo Date: 07/29/20 Please exercise your independent, professional judgment in responding to the clarification form. Clinical indicators are provided on the bottom of this form for your review. Please check appropriate box(es): [ ] Encephalopathy: Type: [ ] Acute [ ] Subacute [ ] Chronic Etiology: [ ] Hypertensive [ ] Metabolic [ ] Toxic [ ] Drug induced: [ ] In the setting of underlying dementia [ ] Unspecified [ ] Other (please specify) [ ] Transient Alteration of Awareness [ x ] Other diagnosis _sundowning [ ] Unable to determine In addition, please specify: Present on Admission (POA): [ ] Yes [ x ] No [ ] Unable to determine For continuity of documentation, please document condition throughout progress notes and discharge summary. Thank You. CLINICAL INDICATORS - SIGNS / SYMPTOMS / LABS / RESULTS AND LOCATION IN EMR PN 07/28 ([facility]): "OVERNIGHT, CONFUSED WITH PARANOID DELUSIONS OF DOCTORS TRYING TO KILL HIM" NURSE NOTE 07/27: "PATIENT CONFUSED. SAYS HE KNOWS HE IS IN THE HOSPITAL, BUT THINKS IT'S DAYL[facility] OUTSIDE AND THERE ARE PEOPLE HERE TRYING TO KILL EVERYONE." RISKS: "FAMOTIDINE AND ANTIBIOTICS MAY CAUSE/CONTRIBUTE" (PN 07/28-[facility]) ADVANCED AGE ADMISSION AND TREATMENT FOR PNEUMONIA (H&P- [facility]) HYPONATREMIA (PN 07/28- [facility]) TREATMENT: DISCONTINUATION OF FAMOTIDINE AND ANTIBIOTICS (PN 07/29 - [facility]) [facility] LABS CDS Signature: Madina Escoto RN Phone #: [phone] Date/Time: 07/29/20 This is a permanent part of the [facility]
--- NOTE | 2020-07-30 02:01 | DIS ---
DATE OF ADMISSION: 07/24/2020 DATE OF DISCHARGE: 07/29/2020 HOSPITAL COURSE: Mr. Valladares is an 79-year-old male, with medical history of paroxysmal atrial fibrillation, hypertension, who presented with acute pleuritic pain and lower extremity edema. He was diagnosed with community acquired pneumonia and completed treatment. His respiratory symptoms resolved. In addition to that the patient had lower extremity edema due to chronic venous insufficiency. Nephrology was consulted. Per Nephrology, Lasix was started. Patient was also started on compression stocks and the legs were elevated above heart level. His lower extremity edema significantly improved prior to discharge and he was able to ambulate without aid of physical therapy. In addition to that, the patient had mild SHREYAS over CKD. At the time of discharge, the patient's renal function returned to baseline. Lastly, the patient had chronic asymptomatic anemia. Based on studies, due to anemia of inflammation. The patient and his daughter were educated regarding the etiology of anemia and the requirement to resolve the underlying etiology which in his case may be challenging. Per Nephrology, the patient was also started on ferrous sulfate. At the time of discharge, the patient had no complaints, his hemoglobin was 8.8 and stable, and he was discharged back to rehab. PHYSICAL EXAMINATION: VITAL SIGNS: Blood pressure 139/ , pulse 64, respiratory rate 18, oxygen saturation 95% on room air, and temperature 98.4. GENERAL APPEARANCE: No apparent distress. Awake and alert. NECK: No JVD. HEART: Regular rate and rhythm. No murmurs, gallops, or rubs. LUNGS: Clear to auscultation bilaterally. No wheezing, rales, or rhonchi. GI: Soft, nontender, and nondistended. Normal bowel sounds. EXTREMITIES: Bilateral pitting edema up to knee level, significantly improved compared to admission. PSYCHIATRIC: Proper mood and affect. Alert and oriented x3. DISCHARGE MEDICATIONS: New medications: 1. Ferrous sulfate 325 p.o. b.i.d. with meals per Nephrology. 2. Compression stockings. 3. Triamcinolone acetonide cream one application topical b.i.d. applied to lower extremities for 2 weeks for mild stasis dermatitis. Continued medications: 1. Amiodarone 200 mg p.o. daily. 2. Atorvastatin. 3. Cholecalciferol. 4. Tylenol. 5. Apixaban. 6. Aspirin. 7. MiraLAX. Discontinued medications: 1. Lasix. 2. Spironolactone. Job ID: [id number]
--- NOTE | 2020-07-30 05:32 | DIS ---
DATE OF ADMISSION: 07/24/2020 DATE OF DISCHARGE: 07/29/2020 HOSPITAL COURSE: Mr. Valladares is an 79-year-old male, with medical history of paroxysmal atrial fibrillation and hypertension, who presented with acute pleuritic chest pain and acute on chronic lower extremity edema. He was diagnosed with community-acquired pneumonia and chronic venous insufficiency. The patient completed antibiotic course and his respiratory symptoms resolved. During his inpatient stay, he was assessed by Nephrology, per their recommendations Lasix was administered and leg elevation and compression stockings improved the patient's edema. In addition, the patient had SHREYAS over CKD that resolved with fluid administration. On the day of discharge, the patient endorsed significant improvement in his lower extremity edema, complete resolution of his respiratory symptoms, and feeling generally better. PHYSICAL EXAMINATION: VITAL SIGNS: Blood pressure 120/53, pulse 62, respiratory rate 16, oxygen saturation 96% on room air, and temperature 98.7. GENERAL EXAM: Please refer to progress note from the day of discharge. MEDICATION LIST: NEW MEDICATIONS: 1. Ferrous sulfate 325 mg p.o. b.i.d. per Nephrology recommendations for chronic anemia. 2. Compression stockings open-toe to knee level daily. 3. Triamcinolone topical for mild stasis dermatitis for 2 weeks. DISCONTINUED MEDICATIONS: 1. Amiodarone 400 mg due to transition to maintenance dose of 200 mg daily. 2. Spironolactone. 3. Lasix. CONTINUED MEDICATIONS: 1. Eliquis 2.5 b.i.d. 2. Aspirin. 3. Atorvastatin. 4. Tylenol p.r.n. 5. Amiodarone 200 mg daily. 6. Vitamin D3. 7. MiraLAX. Job ID: [id number]
[2020-07-30] MEDS ORDERED: Furosemide 40 MG TAB PO SCH (07:30)
[2020-08-01] MEDS ORDERED: Amiodarone 200 MG TAB PO SCH (09:00)
== END 2020-07-29 14:04 | DRG 682 ==
LOC: ERS 15:58 → 2NO 20:25 → ONC 07-25 14:49
PROVIDERS: ADMIT Internal Medicine; ATTEND Internal Medicine
DX: N17.9 Acute kidney failure, unspecified (principal); J13 Pneumonia due to Streptococcus pneumoniae; I42.9 Cardiomyopathy, unspecified; E87.1 Hypo-osmolality and hyponatremia; F05 Delirium due to known physiological condition; I11.0 Hypertensive heart disease with heart failure; I25.10 Atherosclerotic heart disease of native coronary artery without angina pectoris; E78.5 Hyperlipidemia, unspecified; I48.0 Paroxysmal atrial fibrillation; I35.1 Nonrheumatic aortic (valve) insufficiency; Z20.828 Contact with and (suspected) exposure to other viral communicable diseases; D64.9 Anemia, unspecified; E87.5 Hyperkalemia; E16.2 Hypoglycemia, unspecified; Z79.82 Long term (current) use of aspirin; Z79.899 Other long term (current) drug therapy; Z90.49 Acquired absence of other specified parts of digestive tract; Z98.890 Other specified postprocedural states; Z95.0 Presence of cardiac pacemaker; Z79.01 Long term (current) use of anticoagulants; Z79.51 Long term (current) use of inhaled steroids; Z95.5 Presence of coronary angioplasty implant and graft
CPT/HCPCS: 36415; 71045; 71275; 80048; 80400; 81003; 82728; 83010; 83540; 83550; 83615; 83690; 83880; 84145; 84484; 85025; 85046; 85060; 85379; 93005; 96374; J0456; J0696; J0834; J2270; J3490; J7050; Q9967; U0002

== ENCOUNTER 2020-08-03 15:25 | Inpatient (IN) | payer MEDICARE, OTHER ==
[2020-08-03 15:47] LABS: #Lymphocytes 1.1 thou/uL (1.20-3.40); #Monocytes 1.7 thou/uL (0.11-0.59); #Neutrophils 9.3 thou/uL (1.40-6.50); %Basophils 0.1 % (0.0-1.0); %Eosinophils 0.4 % (0.0-10.0); %Lymphocytes 8.8 % (21.0-51.0); %Monocytes 14.2 % (0.0-10.0); %Neutrophils 76.4 % (42.0-75.0); Hemoglobin 8.6 g/dL (14.0-18.0); Mean Corpuscular HGB CONC 32.1 g/dL (32.0-36.0); Mean Corpuscular Hemoglobin 31.1 pg (27.0-31.0); Mean Corpuscular Volume 96.9 fL (78.0-98.0); Mean Platelet Volume 6.8 fL (7.4-10.4); Platelet Count 308 thou/uL (130-400); RBC Distribution Width 16.6 % (11.5-14.5); Red Blood Cell (RBC) Count 2.76 mill/uL (4.70-6.10); White Blood Cell (WBC) Count 12.1 thou/uL (4.8-10.8)
[2020-08-03 16:00] LABS: INR-International Normal Ratio 1.9
[2020-08-03 16:01] LABS: PTT 40.4 sec (22.9-36.1)
--- NOTE | 2020-08-03 16:10 | RAD ---
PORTABLE CHEST: 08/03/20 HISTORY: Low O2 sats. COMPARISON: 07/24/20 exam. Heart size is enlarged. Pacemaker is present. Coiling of what is probably the left atrial appendage i s noted. Lungs are clear of infiltrates. There are no signs of failure. IMPRESSION: No acute changes. POS: OFF
[2020-08-03 16:15] LABS: ALT (SGPT) 12 U/L (8-55); AST (SGOT) 19 U/L (5-34); Albumin 2.9 g/dL (3.4-4.8); Alkaline Phosphatase 110 U/L (40-110); Anion Gap 16 mmol/L (10-20); BUN (Urea Nitrogen) 41 mg/dL (8.4-25.7); Bilirubin, Total 1.5 mg/dL (0.2-1.2); Calc. Creatinine Clearance 0 mL/min (70-130); Carbon Dioxide 20 mmol/L (23-31); Chloride 104 mmol/L (98-107); Estimated GFR-MDRD 33; Globulin 2.2 g/dL (2.4-3.5); Glucose 89 mg/dL (83-110); Potassium 4.9 mmol/L (3.5-5.1); Protein, Total 5.1 g/dL (5.8-8.1); Sodium 135 mmol/L (136-145)
[2020-08-03 16:17] LABS: Base Excess-Venous -1.6 mmol/L (-2.0 to 3.0); Bicarbonate (HCO3v) 22.1 mmol/L (22.0-28.0); Calcium, Ionized 1.13 mmol/L (See Comments:); Chloride 100 mmol/L (98-107); Hemoglobin - Calc 7.9 g/dL (14.0-18.0); Potassium 4.6 mmol/L (3.5-5.1); Sodium 133 mmol/L (138-145); T. Carbon Dioxide 23.1 mmol/L (22.0-28.0); vO2 Saturation-calc 77.8 % (60.0-85.0)
[2020-08-03 16:28] LABS: CKMB 2.2 ng/mL (0-6.6)
[2020-08-03 16:45] LABS: Bilirubin Negative (Negative); Blood, Urine Negative (Negative); Clarity Clear (Clear); Glucose, Urine (Dipstick) Normal (Negative); Ketone, Urine Negative (Negative); Leukocyte Negative Leu/uL (Negative); Nitrite Negative (Negative); Protein, Urine (Dipstick) Negative (Neg-Trace); Specific Gravity, Urine 1.018 (1.002-1.036); Urobilinogen Normal mg/dL (Less than 2); pH, Urine 5.5 (5.0-9.0)
[2020-08-03] MEDS ORDERED: Furosemide 40 MG/4 ML VIAL ONE (16:57)
[2020-08-03] MEDS ORDERED: Lorazepam 2 MG/ML VIAL ONE (16:57)
[2020-08-03] MEDS ORDERED: Fentanyl 100 MCG/2 ML VIAL ONE (17:48)
[2020-08-03] MEDS ORDERED: Acetaminophen 325 MG TAB PO PRN (18:20)
[2020-08-03 19:29] LABS: Troponin I 0.018 ng/mL (< 0.028)
--- NOTE | 2020-08-03 19:32 | HP ---
CHIEF COMPLAINT: Altered mental status. HISTORY OF PRESENT ILLNESS: The patient is an 79-year-old male with past medical history of atrial fibrillation status post ablation and Watchman device, currently on Eliquis; coronary artery disease; diastolic CHF; hypertension; hyperlipidemia; COPD; and obstructive sleep apnea, oxygen-dependent, who was transferred to our ER from the rehab facility due to change in mental status and respiratory distress. The patient was placed on BiPAP en route, and in the ER, he was found to be confused. He remained on the BiPAP for a couple hours and his ABG actually showed some mild respiratory alkalosis. I discontinued the BiPAP and the patient was able to maintain good oxygen saturations on 1 to 2 L. He is currently alert and oriented only to himself. Denies any complaints, but he is not a reliable historian. The patient had a recent hospitalization in late July for bowel obstruction, that resolved spontaneously. He also suffered from a pneumonia at his subsequent admission and was sent to the rehab afterwards. REVIEW OF SYSTEMS: Negative except as noted in HPI. PAST MEDICAL HISTORY: As noted above. PAST SURGICAL HISTORY: 1. Watchman device. 2. Ablation for atrial fibrillation. 3. Pacemaker placement. 4. Shoulder and knee surgeries in addition to hernia repair. SOCIAL HISTORY: The patient denies drug use or smoking. Reportedly, he used to drink alcohol, but the patient has not been home for the past 6 weeks due to frequent hospitalizations. ALLERGIES: NO KNOWN DRUG ALLERGIES. PHYSICAL EXAMINATION: GENERAL: The patient is alert and oriented only to himself. HEENT: Head is normocephalic and atraumatic. He is overweight and have a lot of bruising over his extremities. Extraocular muscles are intact. NECK: Supple. CHEST: Auscultation showed wheezing bilaterally. ABDOMEN: Distended, but soft and nontender. NEUROLOGIC: Cannot be fully performed due to altered mental status, but the patient is able to move all of his extremities and his cranial nerves appears to be intact. CLINICAL DATA: His laboratory studies revealed mild leukocytosis with white blood cell count of 12.1 and also mild anemia with hemoglobin of 8.6. His blood gas revealed respiratory alkalosis, on BiPAP. His BNP was positive for hyponatremia and elevated creatinine level of 1.96. Of note, the patient's baseline creatinine is 1.4. ASSESSMENT: 1. Acute respiratory failure with hypoxia. 2. Chronic obstructive pulmonary disease exacerbation. 3. Acute kidney injury. 4. Hyponatremia. 5. Chronic anemia. 6. Diastolic heart failure. 7. Mildly elevated troponin level. 8. Mildly elevated BNP. PLAN: The patient was taken off BiPAP and is currently saturating well on a very low supplemental oxygen. He will be admitted to Telemetry. I will start management for COPD exacerbation with scheduled nebulized treatments, antibiotics, and corticosteroids. I will use cefepime as the patient was recently hospitalized. A small amount of peripheral edema was noted, but otherwise no signs of overt fluid overload and chest x-ray does not show any pulmonary edema. I will start the patient on low-dose Lasix at 20 mg orally twice daily. We will continue to monitor the patient's mental status and modify his management as the hospitalization evolves. At this time, the patient is in sinus rhythm and we will continue his home amiodarone and Eliquis. Job ID: [id number]
[2020-08-03 19:54] LABS: Actual Bicarbonate (HCO3a) 19.3 mEq/L (22-28); Analyzer IN Cardio ER; Base Excess (BEa) -2.6 mEq/L (-2.0 to +3.0); Calcium, Ionized (arterial) 1.11 mmol/L (1.12-1.30); Carboxyhemoglobin (COHb) 0.2 gm% (0.0-3.0); Hemoglobin (Hb) 8.3 g/dL (14.0-18.0); O2 Tension (PaO2), arterial 99.7 mmHg (> 60.0); Potassium - ABG Lab 4.49 mmol/L (3.70-5.30); pH, Arterial 7.53 (7.35-7.45)
[2020-08-03 19:56] LABS: CO2 Tension 23.9 mmHg (35.0-45.0); Puncture Site L RADIAL
[2020-08-03 19:57] LABS: ALV-art Gradient 20.155 mmHg (0-20)
[2020-08-03 22:14] LABS: Troponin I 0.033 ng/mL (< 0.028)
[2020-08-03] MEDS: methylPREDNISolone Sod Succ 40 MG VIAL IVP SCH (23:25)
[2020-08-03] MEDS: Cefepime 1 GM in Sodium Chloride 0.9% 100 ML IVPB SCH (23:25)
[2020-08-03] MEDS: Triamcinolone 0.1% Cream 15 GM TUBE TOP SCH (23:30)
[2020-08-03] MEDS: Apixaban 2.5 MG TAB PO SCH (23:30)
[2020-08-04] MEDS ORDERED: Aspirin 81 mg Enteric Coated Tablet PO SCH (09:00)
[2020-08-04 11:15] LABS: #Lymphocytes 0.9 thou/uL (1.20-3.40); #Monocytes 0.2 thou/uL (0.11-0.59); #Neutrophils 5.5 thou/uL (1.40-6.50); %Basophils 0.4 % (0.0-1.0); %Eosinophils 0.3 % (0.0-10.0); %Lymphocytes 13.8 % (21.0-51.0); %Monocytes 2.3 % (0.0-10.0); %Neutrophils 83.1 % (42.0-75.0); Hemoglobin 7.5 g/dL (14.0-18.0); Mean Corpuscular HGB CONC 32.5 g/dL (32.0-36.0); Mean Corpuscular Hemoglobin 31.5 pg (27.0-31.0); Mean Corpuscular Volume 96.7 fL (78.0-98.0); Mean Platelet Volume 6.5 fL (7.4-10.4); Platelet Count 233 thou/uL (130-400); RBC Distribution Width 16.5 % (11.5-14.5); Red Blood Cell (RBC) Count 2.37 mill/uL (4.70-6.10); White Blood Cell (WBC) Count 6.6 thou/uL (4.8-10.8)
--- NOTE | 2020-08-04 11:20 | PDOC.HOSPP ---
- Subjective Encounter Date: 08/04/20 Encounter Time: 09:25 Subjective: awake, responds to verbal questions after multiple attempts is not fully oriented moves upper extremities freely daughter at bedside - Objective Vital Signs & Weight: Vital Signs (12 hours) Temp Pulse Resp BP Pulse Ox 08/04/20 10:32 93 16 08/04/20 07:38 98.2 F 93 20 101/62 94 L 08/04/20 06:38 102 H 10 L 100 08/04/20 06:37 102 H 20 08/04/20 03:36 99.7 F H 103 H 22 H 142/72 H 100 08/04/20 02:28 72 24 H 100 08/04/20 02:00 79 28 H 100 08/04/20 00:04 82 30 H 100 08/04/20 00:00 99.0 F 80 100 Weight Weight 242 lb 4.608 oz I&O: 08/03/20 08/04/20 08/05/20 06:59 06:59 06:59 Intake Total 105 Output Total 650 Balance -545 Result Diagrams: 08/04/20 11:01 08/03/20 15:31 Hospitalist ROS - Medication Medications: Active Medications Generic Name Dose Route Start Last Admin Trade Name Freq PRN Reason Stop Dose Admin Albuterol/Ipratropium 3 ml 08/03/20 22:30 08/04/20 10:32 Ipratropium/Albuterol Sulfate 3 Ml Neb NEB 3 ml [id number] LAVON Administration Apixaban 2.5 mg 08/03/20 21:00 08/03/20 23:30 Apixaban 2.5 Mg Tab PO Not Given BID LAVON Cefepime HCl 1 gm/ Sodium 100 mls @ 200 mls/hr 08/03/20 20:00 08/03/20 23:25 Chloride IVPB 100 mls Q24HR LAVON Administration Methylprednisolone Sodium Succinate 40 mg 08/03/20 21:00 08/03/20 23:25 Methylprednisolone Sod Succ 40 Mg Vial IVP 40 mg BID LAVON Administration Triamcinolone Acetonide 0 gm 08/03/20 21:00 08/03/20 23:30 Triamcinolone 0.1% Cream 15 Gm Tube TOP 1 applic BID LAVON Administration - Exam General Appearance: ill appearing Eye: PERRL, anicteric sclera ENT: no oropharyngeal lesions, dry oral mucosa Neck: supple, no JVD Heart: RRR, no murmur Respiratory: no wheezes, no rales, rhonchi Gastrointestinal: soft, non-tender, non-distended, normal bowel sounds Extremities: no cyanosis, 1+ LE edema Neurological: cranial nerve grossly intact, no focal deficits Hosp A/P (1) Acute metabolic encephalopathy Code(s): G93.41 - METABOLIC ENCEPHALOPATHY Status: Acute (2) Acute kidney injury superimposed on CKD Code(s): N17.9 - ACUTE KIDNEY FAILURE, UNSPECIFIED; N18.9 - CHRONIC KIDNEY DISEASE, UNSPECIFIED Status: Acute (3) Chronic anemia Code(s): D64.9 - ANEMIA, UNSPECIFIED Status: Chronic (4) Physical deconditioning Code(s): R53.81 - OTHER MALAISE Status: Chronic (5) Coronary artery disease Code(s): I25.10 - ATHSCL HEART DISEASE OF [place] CORONARY ARTERY W/O ANG PCTRS Status: Chronic Qualifiers: Coronary Disease-Associated Artery/Lesion type: [place] artery [place] vs. transplanted heart: [place] heart Associated angina: without angina Qualified Code(s): I25.10 - Atherosclerotic heart disease of [place] coronary artery without angina pectoris (6) HLD (hyperlipidemia) Code(s): E78.5 - HYPERLIPIDEMIA, UNSPECIFIED Status: Chronic Qualifiers: (7) HTN (hypertension) Code(s): I10 - ESSENTIAL (PRIMARY) HYPERTENSION Status: Chronic Qualifiers: Hypertension type: essential hypertension (8) JESU on CPAP Code(s): G47.33 - OBSTRUCTIVE SLEEP APNEA (ADULT) (PEDIATRIC) Status: Chronic (9) Obesity, Class I, BMI 30-34.9 Code(s): E66.9 - OBESITY, UNSPECIFIED Status: Chronic (10) Paroxysmal atrial fibrillation Code(s): I48.0 - PAROXYSMAL ATRIAL FIBRILLATION Status: Chronic - Plan has had recurrent hospitalization in the last 6 weeks, was in rehab prior to arrival here confusion started around wednesday, was off and on and got worse per daughter at bedside he has not mobilized much at rehab so far per family prelim blood cs and urine cs are -ve is on cefepime, gentle iv fluids, steroids, asp, lipitor, eliquis, amiodarone, lasix has severe deconditioning, echymosis all over his body due to hospitalizations prognosis guarded, family will decide about code status and let us know PT/OT eval encourage po intake
[2020-08-04 11:35] LABS: Anion Gap 16 mmol/L (10-20); BUN (Urea Nitrogen) 43 mg/dL (8.4-25.7); Calc. Creatinine Clearance 46 mL/min (70-130); Calcium 8.4 mg/dL (7.8-10.44); Carbon Dioxide 19 mmol/L (23-31); Chloride 105 mmol/L (98-107); Estimated GFR-MDRD 33; Glucose 111 mg/dL (83-110); Potassium 4.3 mmol/L (3.5-5.1); Sodium 136 mmol/L (136-145)
[2020-08-04 13:25] LABS: SARS-CoV-2 MS2 Positive; SARS-CoV-2 N Gene Negative; SARS-CoV-2 S Gene Negative; SARS-CoV-2 by NAA Not Detected (NotDetected); SARS-CoV-2 orf1ab Negative
[2020-08-04] MEDS: Ferrous Sulfate 325 MG TAB PO SCH ×4 (14:06→16:26)
[2020-08-04] MEDS: Furosemide 20 MG TAB PO SCH ×2 (14:06→14:19)
[2020-08-04] MEDS: Apixaban 2.5 MG TAB PO SCH ×2 (14:19→20:35)
[2020-08-04] MEDS: Amiodarone 200 MG TAB PO SCH (14:19)
[2020-08-04] MEDS: Atorvastatin Calcium 20 MG TAB PO SCH (14:19)
[2020-08-04] MEDS: Cholecalciferol 1,000 UNITS (25 MCG) TAB PO SCH (14:19)
[2020-08-04] MEDS: methylPREDNISolone Sod Succ 40 MG VIAL IVP SCH ×2 (14:21→22:11)
[2020-08-04] MEDS: Triamcinolone 0.1% Cream 15 GM TUBE TOP SCH ×2 (14:29→21:19)
[2020-08-04] MEDS ORDERED: FLU VACC QS2020-21(65YR UP)/PF 240 MCG/0.7 ML SYRINGE IM ONE (21:00)
[2020-08-04] MEDS: Cefepime 1 GM in Sodium Chloride 0.9% 100 ML IVPB SCH (21:10)
[2020-08-04] MEDS: diphenhydrAMINE 30 GM TUBE TOP PRN (22:47)
[2020-08-05] MEDS: Atorvastatin Calcium 20 MG TAB PO SCH (08:10)
[2020-08-05] MEDS: Apixaban 2.5 MG TAB PO SCH (08:10)
[2020-08-05] MEDS: Ferrous Sulfate 325 MG TAB PO SCH ×2 (08:10→16:48)
[2020-08-05] MEDS: Amiodarone 200 MG TAB PO SCH (08:10)
[2020-08-05] MEDS: Furosemide 20 MG TAB PO SCH ×2 (08:11→14:24)
[2020-08-05] MEDS: Cholecalciferol 1,000 UNITS (25 MCG) TAB PO SCH (08:11)
[2020-08-05] MEDS: methylPREDNISolone Sod Succ 40 MG VIAL IVP SCH (08:11)
[2020-08-05] MEDS: diphenhydrAMINE 30 GM TUBE TOP PRN (08:13)
[2020-08-05] MEDS: Triamcinolone 0.1% Cream 15 GM TUBE TOP SCH ×2 (08:35→21:43)
--- NOTE | 2020-08-05 12:17 | PDOC.HOSPP ---
- Subjective Encounter Date: 08/05/20 Encounter Time: 10:45 Subjective: more awake and oriented this am no trouble breathing ate his breakfast - Objective Vital Signs & Weight: Vital Signs (12 hours) Temp Pulse Resp BP Pulse Ox 08/05/20 11:28 97.7 F 95 14 126/88 100 08/05/20 07:48 92 20 96 08/05/20 07:25 98 F 95 16 110/56 L 100 08/05/20 03:05 98.1 F 94 20 111/56 L 100 08/05/20 02:11 20 Weight Weight 244 lb 11.41 oz I&O: 08/04/20 08/05/20 08/06/20 06:59 06:59 06:59 Intake Total 105 440 480 Output Total 650 1200 725 Balance -545 -760 -245 Result Diagrams: 08/04/20 11:01 08/04/20 11:01 Hospitalist ROS - Medication Medications: Active Medications Generic Name Dose Route Start Last Admin Trade Name Freq PRN Reason Stop Dose Admin Acetaminophen 650 mg 08/03/20 18:20 08/04/20 21:15 Acetaminophen 325 Mg Tab PO 650 mg Q4H PRN Administration Headache/Fever/Mild Pain (1-3) Albuterol/Ipratropium 3 ml 08/03/20 22:30 08/05/20 11:29 Ipratropium/Albuterol Sulfate 3 Ml Neb NEB Not Given [id number] LAVON Amiodarone HCl 200 mg 08/04/20 09:00 08/05/20 08:10 Amiodarone 200 Mg Tab PO 200 mg DAILY LAVON Administration Atorvastatin Calcium 20 mg 08/04/20 09:00 08/05/20 08:10 Atorvastatin Calcium 20 Mg Tab PO 20 mg DAILY LAVON Administration Cholecalciferol 2,000 units 08/04/20 09:00 08/05/20 08:11 Cholecalciferol 1,000 Units (25 Mcg) Tab PO 2,000 units DAILY LAVON Administration Ferrous Sulfate 325 mg 08/04/20 08:00 08/05/20 08:10 Ferrous Sulfate 325 Mg Tab PO 325 mg BID-WM LAVON Administration Furosemide 20 mg 08/04/20 09:00 08/05/20 08:11 Furosemide 20 Mg Tab PO 20 mg 0900,1400 LAVON Administration Cefepime HCl 1 gm/ Sodium 100 mls @ 200 mls/hr 10/03/20 20:00 08/04/20 21:10 Chloride IVPB 100 mls Q24HR LAVON Administration Sodium Chloride 10 ml 08/04/20 09:00 08/05/20 08:12 Flush - Normal Saline 10 Ml Syringe IVF 10 ml Q12HR LAVON Administration Sodium Chloride 10 ml 08/04/20 03:30 08/04/20 22:11 Flush - Normal Saline 10 Ml Syringe IVF 10 ml PRN PRN Administration Saline Flush Triamcinolone Acetonide 0 gm 08/03/20 21:00 08/05/20 08:35 Triamcinolone 0.1% Cream 15 Gm Tube TOP Not Given BID LAVON Zinc Acetate/Diphenhydramine 0 gm 08/04/20 22:22 08/05/20 08:13 Diphenhydramine 30 Gm Tube TOP 1 applic QIDPRN PRN Administration Itching - Exam General Appearance: awake alert, ill appearing Eye: anicteric sclera ENT: no oropharyngeal lesions, moist mucosa Neck: supple, no JVD Heart: RRR, no murmur Respiratory: no wheezes, no rales Gastrointestinal: soft, non-tender, non-distended, normal bowel sounds Extremities: no cyanosis, 1+ LE edema Neurological: cranial nerve grossly intact, no focal deficits Psychiatric: A&O x 3 Hosp A/P (1) Acute metabolic encephalopathy Code(s): G93.41 - METABOLIC ENCEPHALOPATHY Status: Resolved (2) Acute kidney injury superimposed on CKD Code(s): N17.9 - ACUTE KIDNEY FAILURE, UNSPECIFIED; N18.9 - CHRONIC KIDNEY DISEASE, UNSPECIFIED Status: Acute (3) Chronic anemia Code(s): D64.9 - ANEMIA, UNSPECIFIED Status: Chronic (4) Physical deconditioning Code(s): R53.81 - OTHER MALAISE Status: Chronic (5) Coronary artery disease Code(s): I25.10 - ATHSCL HEART DISEASE OF [place] CORONARY ARTERY W/O ANG PCTRS Status: Chronic Qualifiers: Coronary Disease-Associated Artery/Lesion type: [place] artery [place] vs. transplanted heart: [place] heart Associated angina: without angina Qualified Code(s): I25.10 - Atherosclerotic heart disease of [place] coronary artery without angina pectoris (6) HLD (hyperlipidemia) Code(s): E78.5 - HYPERLIPIDEMIA, UNSPECIFIED Status: Chronic Qualifiers: (7) HTN (hypertension) Code(s): I10 - ESSENTIAL (PRIMARY) HYPERTENSION Status: Chronic Qualifiers: Hypertension type: essential hypertension (8) JESU on CPAP Code(s): G47.33 - OBSTRUCTIVE SLEEP APNEA (ADULT) (PEDIATRIC) Status: Chronic (9) Obesity, Class I, BMI 30-34.9 Code(s): E66.9 - OBESITY, UNSPECIFIED Status: Chronic (10) Paroxysmal atrial fibrillation Code(s): I48.0 - PAROXYSMAL ATRIAL FIBRILLATION Status: Chronic - Plan has had recurrent hospitalization in the last 6 weeks, was in rehab prior to arrival here confusion started around wednesday, was off and on and got worse per daughter at bedside he has not mobilized much at rehab so far per family blood cs and urine cs are -ve is on cefepime, gentle iv fluids, asp, lipitor, amiodarone, lluvia has severe deconditioning, echymosis all over his body due to hospitalizations prognosis guarded, family will discuss with patient and decide on code status, likely DNAR, d/w daughter 08/05 PT/OT eval encourage po intake serial H/H, asp and eliquis will be held, GI consultation
[2020-08-05 12:38] LABS: Hemoglobin 7.1 g/dL (14.0-18.0)
[2020-08-05 13:01] LABS: Anion Gap 13 mmol/L (10-20); BUN (Urea Nitrogen) 52 mg/dL (8.4-25.7); Calc. Creatinine Clearance 47 mL/min (70-130); Calcium 8.3 mg/dL (7.8-10.44); Carbon Dioxide 20 mmol/L (23-31); Chloride 102 mmol/L (98-107); Estimated GFR-MDRD 33; Glucose 140 mg/dL (83-110); Potassium 4.2 mmol/L (3.5-5.1); Sodium 131 mmol/L (136-145)
[2020-08-05 14:06] VITALS: BMI 33.2
[2020-08-05 14:42] LABS: Iron 146 ug/dL (65-175); Iron Binding Capacity, Total 231 mcg/dL (261-462)
[2020-08-05 18:27] LABS: Hemoglobin 6.9 g/dL (14.0-18.0)
--- NOTE | 2020-08-05 20:43 | CON ---
DATE OF CONSULTATION: 08/05/2020 REASON FOR CONSULTATION: Anemia, downtrending hemoglobin and hematocrit. CONSULTING PROVIDER: Marielena Howard MD HISTORY OF PRESENT ILLNESS: The patient is an 79-year-old male with past medical history of atrial fibrillation status post ablation and Watchman device placement, pacemaker placement, hypertension, congestive heart failure, chronic kidney disease, hyperlipidemia, GERD, gout, obstructive sleep apnea, and chronic anemia, presenting with anemia and altered mental status. On chart review, the patient was recently admitted to the hospital in early 07/2020 with complaints of increased abdominal distention and abdominal discomfort and diagnosed with an Overton's type syndrome. During the course of that hospitalization, he underwent colonoscopy, which revealed fairly normal-appearing mucosa along with dilated loops of colon, consistent with the diagnosis. This slowly resolved during the course of that hospitalization and he was ultimately discharged to a rehab facility for further evaluation/management. However, over the last few days, the patient was noted to have a decreased hemoglobin and hematocrit, which have downtrended over the last 48 hours, concerning for the presence of possible bleeding source. On an initial evaluation here, the patient was actually seen to have altered mental status as well as respiratory distress that responded well to BiPAP therapy. While on this noninvasive mechanical ventilation, he responded well and was ultimately transferred to a caraballo bed while not having just to sustain this modality. His mental status has since resolved over the last 24 hours as well with the patient able to converse well today during the course of this interview. Currently, he denies any nausea, vomiting, fevers, chills, hematemesis, melena, hematochezia, abdominal pain, dysphagia, odynophagia, diarrhea, or constipation. He states that his last bowel movement approximately 1 to 2 days ago, but could not remember stool consistency. However, he does not describe any special maneuvers (straining, placement of abdominal pressure, or manual disimpaction) to facilitate having a bowel movement. Per the patient's who was at bedside, she was not informed of any evidence of GI bleeding while the patient was at the rehab facility. REVIEW OF SYSTEMS: A 10-category review of systems was obtained with all responses negative except for the pertinent positives as listed in HPI. PAST MEDICAL HISTORY: As per HPI. PAST SURGICAL HISTORY: 1. Watchman device. 2. Ablation for atrial fibrillation. 3. Pacemaker placement. 4. Shoulder and knee surgeries. 5. Inguinal hernia repair. FAMILY HISTORY: Denies any GI malignancies. SOCIAL HISTORY: Denies any tobacco, alcohol, or illicit drug use within at least the last 6 to 8 weeks. OUTPATIENT MEDICATIONS: Reviewed. ALLERGIES: NO KNOWN DRUG ALLERGIES. PHYSICAL EXAMINATION: VITAL SIGNS: Temperature 97.7, pulse 90, blood pressure 126/88, respiratory rate 16, and saturating 100% on room air. GENERAL: The patient was lying in bed, in no acute distress. Alert and oriented x3. HEENT: Normocephalic and atraumatic. NECK: Supple. No JVD or scleral icterus noted. CARDIOVASCULAR: Regular rate and rhythm with no discernable murmurs, gallops, or rubs. RESPIRATORY: Clear to auscultation bilaterally with no discernable wheezes or rales. ABDOMEN: Normoactive bowel sounds. Soft and nontender. Mild abdominal distention that was tympanic to percussion. EXTREMITIES: No cyanosis or edema. No cyanosis, clubbing, or edema. SKIN: Significant ecchymoses seen on the upper extremities, lower extremities, as well as the lower mid abdomen in addition to the proximal lower extremities. LABORATORY DATA: CBC with a white blood cell count of 6.6, hemoglobin 7.1, hematocrit 21.9, and platelets 233. Chemistry with a sodium of 131, potassium 4.2, chloride 102, CO2 of 20, BUN 52, creatinine 1.95, and glucose 140. AST 19, ALT 12, alkaline phosphatase 110, total bilirubin 1.5, and albumin 2.9. INR 1.9. Iron 146, ferritin 288, and TIBC 231 with an iron saturation of 63%. IMAGING DATA: Chest x-ray obtained on 08/03/2020 showed cardiomegaly with pacemaker present, coiling of what was probably the left atrial appendage was also seen, but the lungs were clear of infiltrates and no evidence of heart failure. ASSESSMENT AND PLAN: The patient is an 79-year-old male with past medical history of atrial fibrillation status post ablation and Watchman device, now on chronic anticoagulation; hypertension; congestive heart failure; chronic kidney disease; hyperlipidemia; gastroesophageal reflux disease; gout; obstructive sleep apnea; and chronic anemia, presenting with worsening anemia. 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 During the course of that hospitalization, the patient had multiple lab draws, resulting in significant ecchymoses noted on both the bilateral upper extremities in addition to multiple ecchymoses of the lower extremities with fairly unknown etiology. Per chart review, near the end of his last hospitalization there was no mention of hematochezia, melena, or hematemesis while on full anticoagulation nor has there been any mention of observing any of these at the snf while he was still on full anticoagulation. Over the last 24 to 48 hours, however, he has been noted to have a significant drop in his hemoglobin and hematocrit, but again has not had any further clinical evidence of gastrointestinal bleeding. Iron indices obtained today are more consistent with anemia of chronic disease rather than iron-deficiency anemia secondary to chronic blood loss. At this time, the etiology for the patient's drop in his hemoglobin and hematocrit is largely unknown with differential including iatrogenic anemia (secondary to multiple blood draws over the last month), significant ecchymoses on the upper and lower extremities secondary to chronic anticoagulation, possible retroperitoneal bleed, or possible gastrointestinal bleed (less likely given lack of objective evidence of clinical bleeding while on full anticoagulation). At this time, the most likely diagnosis seems to be more of an anemia of chronic disease with only worsening of his hemoglobin and hematocrit due to iatrogenic process. RECOMMENDATIONS: 1. Would continue to trend his hemoglobin and hematocrit and transfuse as necessary to maintain the hemoglobin and hematocrit of 7/21. We would attempt to minimize blood draws in the process. 2. Continue to monitor clinically for signs of active GI bleeding. 3. If the patient continues to have a decreasing hemoglobin and hematocrit and no clinical evidence of GI bleeding, I would recommend a CT scan of the abdomen/pelvis for possible retroperitoneal bleeding. 4. Endoscopic evaluation is not indicated at this time given recent colonoscopy showing no evidence of bleeding and lack of clinical evidence of GI bleeding per patient's history. 5. We will continue with iron supplementation given his rise in iron and ferritin while on this modality. However, with the patient just recently being started on this supplementation, it may take some time to see the change in his hemoglobin and hematocrit. 6. If the patient exhibits clinical evidence of GI bleeding, endoscopy would be reconsidered at that time. 7. Would continue to hold anticoagulation for the next 24 hours. If stable H/H, then restart and monitor patient. We will continue to follow. Please call with any questions. Job ID: [id number] MTDD
[2020-08-05] MEDS: Cefepime 1 GM in Sodium Chloride 0.9% 100 ML IVPB SCH (21:42)
[2020-08-06 00:50] LABS: Hemoglobin 6.9 g/dL (14.0-18.0)
--- NOTE | 2020-08-06 08:58 | CT ---
CT Abdomen Pelvis WO Con 08/06/2020 8:25 AM HISTORY: Patient has been having falls and is on blood thinners. Evaluate for retroperitoneal bleed. COMPARISON: 07/12/2020 and 07/08/2020 Technique: Multiple contiguous axial CT images are obtained through the abdomen and pelvis without IV contrast. Coronal reformats are provided. FINDINGS: This examination is limited for the evaluation of solid organs and vascular structures due to the lac k of intravenous contrast. 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 Partial visualization of cardiac pacemaking leads are seen. A mild pericardial effusion is again seen, and the heart remains enlarged. Calcified subcarinal lymph nodes are identifi ed. There is material seen within the distal esophagus which may be related to gastroesophageal reflux. Trace left pleural effusion is present. There is patchy parenchymal density at the right lung base which may represent atelectasis versus pneumonia. Abdomen: Liver: Stable low-density lesion left hepatic lobe. Gallbladder: Postcholecystectomy changes. Pancreas: Grossly normal nonenhanced CT appearance. Spleen: Grossly normal nonenhanced CT appearance. Adrenals: Grossly normal nonenhanced CT appearance. Kidneys: No renal calculi are visualized, and there is no evidence of hydronephrosis. Ureters: No ureteral calculus is seen.. Pelvis: Urinary bladder: Olivarez catheter is present in a completely decompressed urinary bladder. Reproductive Organs: No pelvic masses. Lymph Nodes: No enlarged lymph nodes. Bowel: Scattered colonic diverticula are seen with small amount retained fecal material seen througho ut the colon. Loops of small bowel are normal in caliber. Oval-shaped increased density focus is seen within the duodenum likely related to ingested material and probably medication. The distention of loops of bowel has continued to improve. Appendix: Not visualized. There are no secondary signs to suggest appendicitis. Peritoneum: No free fluid, free air, or fluid collection. Retroperitoneum: No findings to suggest retroperitoneal hemorrhage. Vessels: Vascular calcifications.. Abdominal Wall: Evidence of prior hernia repair anterior abdomen. Minimal subcutaneous edema is prese nt. Bones: Multilevel degenerative changes again seen in the spine with grade 1 anterolisthesis of L4 and L5 and to greater extent L5 on S1 related to facet degenerative change. IMPRESSION: 1. No findings to suggest a retroperitoneal hemorrhage, and no free fluid is seen in the abdomen or p dwight. 2. Small pericardial effusion and cardiomegaly. 3. Area of consolidation right lung base which may represent atelectasis, but pneumonia is a possibil ity. There is elevation of the right hemidiaphragm. 4. Trace left pleural effusion. 5. Continued improvement in distention of the colon. There is now a small amount of retained fecal ma terial seen throughout the colon. 6. There is material seen within the distal esophagus which may related to gastroesophageal reflux. 7. Additional findings as above.
[2020-08-06] MEDS: Furosemide 20 MG TAB PO SCH ×2 (09:06→14:17)
[2020-08-06] MEDS: Atorvastatin Calcium 20 MG TAB PO SCH (09:06)
[2020-08-06] MEDS: Ferrous Sulfate 325 MG TAB PO SCH ×2 (09:06→17:01)
[2020-08-06] MEDS: Amiodarone 200 MG TAB PO SCH (09:06)
[2020-08-06] MEDS: Cholecalciferol 1,000 UNITS (25 MCG) TAB PO SCH (09:07)
[2020-08-06] MEDS: Triamcinolone 0.1% Cream 15 GM TUBE TOP SCH ×2 (09:09→21:58)
--- NOTE | 2020-08-06 12:23 | PDOC.HOSPP ---
- Subjective Encounter Date: 08/06/20 Encounter Time: 11:00 Subjective: awake, responds well to verbal questions daughter is at bedsid no c/o abd pain or nausea no cooper bleeding per rectum, but appears to have a bit of bleed around his nostrils - Objective Vital Signs & Weight: Vital Signs (12 hours) Temp Pulse Pulse Resp BP BP BP 08/06/20 12:10 98.0 F 103 H 18 132/63 08/06/20 10:53 104 H 20 08/06/20 10:17 98.2 F 101 H 15 112/54 L 08/06/20 10:02 98.0 F 100 16 123/58 L 08/06/20 09:46 123/58 L 08/06/20 09:05 08/06/20 07:36 97.6 F 98 14 115/56 L 08/06/20 07:30 08/06/20 07:29 95 18 08/06/20 03:14 98.5 F 98 18 108/59 L 08/06/20 02:38 96 16 Pulse Ox 08/06/20 12:10 100 08/06/20 10:53 96 08/06/20 10:17 100 08/06/20 10:02 98 08/06/20 09:46 08/06/20 09:05 100 08/06/20 07:36 100 08/06/20 07:30 100 08/06/20 07:29 100 08/06/20 03:14 98 08/06/20 02:38 Weight Admit Weight 244 lb 11.41 oz Weight 245 lb 13.047 oz I&O: 08/05/20 08/06/20 08/07/20 06:59 06:59 06:59 Intake Total 440 1400 350 Output Total 1200 1675 Balance -760 -275 350 Result Diagrams: 08/06/20 00:27 08/05/20 12:31 Hospitalist ROS - Medication Medications: Active Medications Generic Name Dose Route Start Last Admin Trade Name Freq PRN Reason Stop Dose Admin Acetaminophen 650 mg 08/03/20 18:20 08/04/20 21:15 Acetaminophen 325 Mg Tab PO 650 mg Q4H PRN Administration Headache/Fever/Mild Pain (1-3) Albuterol/Ipratropium 3 ml 08/03/20 22:30 08/06/20 10:53 Ipratropium/Albuterol Sulfate 3 Ml Neb NEB 3 ml [id number] LAVON Administration Amiodarone HCl 200 mg 08/04/20 09:00 08/06/20 09:06 Amiodarone 200 Mg Tab PO 200 mg DAILY LAVON Administration Atorvastatin Calcium 20 mg 08/04/20 09:00 08/06/20 09:06 Atorvastatin Calcium 20 Mg Tab PO 20 mg DAILY LAVON Administration Cholecalciferol 2,000 units 08/04/20 09:00 08/06/20 09:07 Cholecalciferol 1,000 Units (25 Mcg) Tab PO 2,000 units DAILY LAVON Administration Ferrous Sulfate 325 mg 08/04/20 08:00 08/06/20 09:06 Ferrous Sulfate 325 Mg Tab PO 325 mg BID-WM LAVON Administration Furosemide 20 mg 08/04/20 09:00 08/06/20 09:06 Furosemide 20 Mg Tab PO 20 mg 0900,1400 LAVON Administration Cefepime HCl 1 gm/ Sodium 100 mls @ 200 mls/hr 08/03/20 20:00 08/05/20 21:42 Chloride IVPB 100 mls Q24HR LAVON Administration Sodium Chloride 10 ml 08/04/20 09:00 08/06/20 09:09 Flush - Normal Saline 10 Ml Syringe IVF 10 ml Q12HR LAVON Administration Sodium Chloride 10 ml 08/04/20 03:30 08/04/20 22:11 Flush - Normal Saline 10 Ml Syringe IVF 10 ml PRN PRN Administration Saline Flush Triamcinolone Acetonide 0 gm 08/03/20 21:00 08/06/20 09:09 Triamcinolone 0.1% Cream 15 Gm Tube TOP Not Given BID LAVON Zinc Acetate/Diphenhydramine 0 gm 08/04/20 22:22 08/05/20 08:13 Diphenhydramine 30 Gm Tube TOP 1 applic QIDPRN PRN Administration Itching - Exam General Appearance: awake alert Eye: PERRL, anicteric sclera ENT: no oropharyngeal lesions, dry oral mucosa Neck: supple, no JVD Heart: RRR, no murmur Respiratory: no wheezes, no rales Gastrointestinal: soft, non-tender, non-distended, normal bowel sounds Extremities: no cyanosis, 1+ LE edema Neurological: cranial nerve grossly intact, no focal deficits Hosp A/P (1) Acute metabolic encephalopathy Code(s): G93.41 - METABOLIC ENCEPHALOPATHY Status: Resolved (2) Acute kidney injury superimposed on CKD Code(s): N17.9 - ACUTE KIDNEY FAILURE, UNSPECIFIED; N18.9 - CHRONIC KIDNEY DISEASE, UNSPECIFIED Status: Acute (3) Chronic anemia Code(s): D64.9 - ANEMIA, UNSPECIFIED Status: Chronic (4) Physical deconditioning Code(s): R53.81 - OTHER MALAISE Status: Chronic (5) Coronary artery disease Code(s): I25.10 - ATHSCL HEART DISEASE OF [place] CORONARY ARTERY W/O ANG PCTRS Status: Chronic Qualifiers: Coronary Disease-Associated Artery/Lesion type: [place] artery [place] vs. transplanted heart: [place] heart Associated angina: without angina Qualified Code(s): I25.10 - Atherosclerotic heart disease of [place] coronary artery without angina pectoris (6) HLD (hyperlipidemia) Code(s): E78.5 - HYPERLIPIDEMIA, UNSPECIFIED Status: Chronic Qualifiers: (7) HTN (hypertension) Code(s): I10 - ESSENTIAL (PRIMARY) HYPERTENSION Status: Chronic Qualifiers: Hypertension type: essential hypertension (8) JESU on CPAP Code(s): G47.33 - OBSTRUCTIVE SLEEP APNEA (ADULT) (PEDIATRIC) Status: Chronic (9) Obesity, Class I, BMI 30-34.9 Code(s): E66.9 - OBESITY, UNSPECIFIED Status: Chronic (10) Paroxysmal atrial fibrillation Code(s): I48.0 - PAROXYSMAL ATRIAL FIBRILLATION Status: Chronic - Plan has had recurrent hospitalization in the last 6 weeks, was in rehab prior to arrival here confusion started around wednesday, was off and on and got worse per daughter at bedside he has not mobilized much at rehab so far per family blood cs and urine cs are -ve is on cefepime, gentle iv fluids, asp, lipitor, amiodarone, lluvia has severe deconditioning, echymosis all over his body due to hospitalizations prognosis guarded, he is DNAR. I have given full updates to patient and daughter daily PT/OT eval encourage po intake 1 u prbc transfusion today CT abd shows no evidence of retroperitoneal bleed dc plan to rehab if accepted or will need skilled
--- NOTE | 2020-08-06 14:45 | PRG ---
DATE OF SERVICE: 08/06/2020 SUBJECTIVE: Mr. Valladares is feeling okay. He does not have any abdominal pain or nausea. He has been tolerating his diet. He again denies any overt bleeding in his stool. Hemoglobin was stable, but low at 6.9 this morning and he did receive 1 unit RBC transfusion. OBJECTIVE: VITAL SIGNS: Temperature 98, pulse 103, blood pressure 132/63, 97% oxygen saturation on room air. GENERAL: No acute distress, lying in bed comfortably. HEART: Regular, borderline tachycardia. LUNGS: Clear to auscultation bilaterally. ABDOMEN: Soft and nontender to palpation. EXTREMITIES: No peripheral edema. He does have extensive ecchymoses to the upper and lower extremities as well as the chest wall. LABORATORY DATA: Hemoglobin 6.9, stable since yesterday. WBC 6.6, platelets 233. INR 1.9. Sodium 131, potassium 4.2, BUN 52, creatinine 1.95, iron 146, TIBC low at 231, ferritin 288.15. ASSESSMENT AND PLAN: 1. Anemia of chronic disease, recent worsening is likely iatrogenic. I agree with Dr. Cuevas's impression from yesterday. He is about a point below baseline on his hemoglobin this admission, but this is in the context of multiple recent lab draws and quite extensive ecchymosis over the entire body. I note the CT of the abdomen and pelvis performed earlier today did not show any evidence of retroperitoneal bleed and with no evidence of overt GI hemorrhage as well as unrevealing colonoscopy within the last month, I do not see any utility to performing any upper GI endoscopy at this time. The patient can continue on iron supplementation. If he is going to be restarted back on anticoagulation, would just recommend monitoring H and H periodically on an outpatient basis. 2. 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 The patient has been having normal bowel movements and good appetite. Bowel sounds are present and there is no abdominal distention. GI will sign off at this time. Please call back anytime with questions or concerns. Job ID: [id number]
[2020-08-06] MEDS ORDERED: Gabapentin 300 MG CAP PO SCH (21:00)
[2020-08-06] MEDS: Cefepime 1 GM in Sodium Chloride 0.9% 100 ML IVPB SCH (21:57)
[2020-08-07 04:10] LABS: #Lymphocytes 0.9 thou/uL (1.20-3.40); #Monocytes 1.1 thou/uL (0.11-0.59); #Neutrophils 8.3 thou/uL (1.40-6.50); %Basophils 0.1 % (0.0-1.0); %Eosinophils 0.2 % (0.0-10.0); %Lymphocytes 8.8 % (21.0-51.0); %Monocytes 10.8 % (0.0-10.0); %Neutrophils 80.1 % (42.0-75.0); Hemoglobin 7.4 g/dL (14.0-18.0); Mean Corpuscular HGB CONC 33.4 g/dL (32.0-36.0); Mean Corpuscular Hemoglobin 31.8 pg (27.0-31.0); Mean Corpuscular Volume 95.1 fL (78.0-98.0); Mean Platelet Volume 6.8 fL (7.4-10.4); Platelet Count 168 thou/uL (130-400); RBC Distribution Width 16.1 % (11.5-14.5); Red Blood Cell (RBC) Count 2.33 mill/uL (4.70-6.10); White Blood Cell (WBC) Count 10.4 thou/uL (4.8-10.8)
[2020-08-07 04:38] LABS: ALT (SGPT) 16 U/L (8-55); AST (SGOT) 20 U/L (5-34); Albumin 2.6 g/dL (3.4-4.8); Alkaline Phosphatase 77 U/L (40-110); Anion Gap 13 mmol/L (10-20); BUN (Urea Nitrogen) 53 mg/dL (8.4-25.7); Bilirubin, Total 1.1 mg/dL (0.2-1.2); Calc. Creatinine Clearance 56 mL/min (70-130); Calcium 7.9 mg/dL (7.8-10.44); Carbon Dioxide 20 mmol/L (23-31); Chloride 106 mmol/L (98-107); Estimated GFR-MDRD 41; Globulin 2.2 g/dL (2.4-3.5); Glucose 101 mg/dL (83-110); Potassium 4.1 mmol/L (3.5-5.1); Protein, Total 4.8 g/dL (5.8-8.1); Sodium 135 mmol/L (136-145)
[2020-08-07] MEDS: Atorvastatin Calcium 20 MG TAB PO SCH (10:13)
[2020-08-07] MEDS: Amiodarone 200 MG TAB PO SCH (10:13)
[2020-08-07] MEDS: Cholecalciferol 1,000 UNITS (25 MCG) TAB PO SCH (10:13)
[2020-08-07] MEDS: Ferrous Sulfate 325 MG TAB PO SCH ×2 (10:13→17:21)
[2020-08-07] MEDS: Furosemide 20 MG TAB PO SCH ×2 (10:14→13:32)
--- NOTE | 2020-08-07 12:49 | PDOC.HOSPP ---
- Subjective Encounter Date: 08/07/20 Encounter Time: 08:00 Subjective: waking up now, no sob or palp feels good slept well last night is eating better daughter and at bedside - Objective Vital Signs & Weight: Vital Signs (12 hours) Temp Pulse Resp BP Pulse Ox 08/07/20 10:52 98 16 98 08/07/20 08:00 97.1 F L 99 18 96/48 L 100 08/07/20 07:14 99 18 96 08/07/20 04:00 98.1 F 99 19 108/61 100 Weight Admit Weight 244 lb 11.41 oz Weight 250 lb 3.594 oz I&O: 08/06/20 08/07/20 08/08/20 06:59 06:59 06:59 Intake Total 1400 1280 Output Total 2725 1650 Balance -275 -370 Result Diagrams: 08/07/20 03:27 08/07/20 03:27 Hospitalist ROS - Medication Medications: Active Medications Generic Name Dose Route Start Last Admin Trade Name Freq PRN Reason Stop Dose Admin Acetaminophen 650 mg 08/03/20 18:20 08/04/20 21:15 Acetaminophen 325 Mg Tab PO 650 mg Q4H PRN Administration Headache/Fever/Mild Pain (1-3) Albuterol/Ipratropium 3 ml 08/03/20 22:30 08/07/20 10:52 Ipratropium/Albuterol Sulfate 3 Ml Neb NEB 3 ml [id number] LAVON Administration Amiodarone HCl 200 mg 08/04/20 09:00 08/07/20 10:13 Amiodarone 200 Mg Tab PO 200 mg DAILY LAVON Administration Atorvastatin Calcium 20 mg 08/04/20 09:00 08/07/20 10:13 Atorvastatin Calcium 20 Mg Tab PO 20 mg DAILY LAVON Administration Cholecalciferol 2,000 units 08/04/20 09:00 08/07/20 10:13 Cholecalciferol 1,000 Units (25 Mcg) Tab PO 2,000 units DAILY LAVON Administration Ferrous Sulfate 325 mg 08/04/20 08:00 08/07/20 10:13 Ferrous Sulfate 325 Mg Tab PO 325 mg BID-WM LAVON Administration Furosemide 20 mg 08/04/20 09:00 08/07/20 10:14 Furosemide 20 Mg Tab PO 20 mg 0900,1400 LAVON Administration Gabapentin 300 mg 08/06/20 21:00 08/06/20 21:58 Gabapentin 300 Mg Cap PO 300 mg HS LAVON Administration Sodium Chloride 10 ml 08/04/20 09:00 08/07/20 10:15 Flush - Normal Saline 10 Ml Syringe IVF 10 ml Q12HR LAVON Administration Sodium Chloride 10 ml 08/04/20 03:30 08/04/20 22:11 Flush - Normal Saline 10 Ml Syringe IVF 10 ml PRN PRN Administration Saline Flush Triamcinolone Acetonide 0 gm 08/03/20 21:00 08/06/20 21:58 Triamcinolone 0.1% Cream 15 Gm Tube TOP Not Given BID LAVON Zinc Acetate/Diphenhydramine 0 gm 08/04/20 22:22 08/05/20 08:13 Diphenhydramine 30 Gm Tube TOP 1 applic QIDPRN PRN Administration Itching - Exam General Appearance: awake alert, ill appearing Eye: PERRL, anicteric sclera ENT: no oropharyngeal lesions, dry oral mucosa Neck: supple, no JVD Heart: RRR, no murmur Respiratory: no wheezes, no rales Gastrointestinal: soft, non-tender, non-distended, normal bowel sounds Extremities: no cyanosis, 1+ LE edema Neurological: cranial nerve grossly intact, no focal deficits Hosp A/P (1) Acute metabolic encephalopathy Code(s): G93.41 - METABOLIC ENCEPHALOPATHY Status: Resolved (2) Acute kidney injury superimposed on CKD Code(s): N17.9 - ACUTE KIDNEY FAILURE, UNSPECIFIED; N18.9 - CHRONIC KIDNEY DISEASE, UNSPECIFIED Status: Acute (3) Chronic anemia Code(s): D64.9 - ANEMIA, UNSPECIFIED Status: Chronic (4) Physical deconditioning Code(s): R53.81 - OTHER MALAISE Status: Chronic (5) Coronary artery disease Code(s): I25.10 - ATHSCL HEART DISEASE OF [place] CORONARY ARTERY W/O ANG PCTRS Status: Chronic Qualifiers: Coronary Disease-Associated Artery/Lesion type: [place] artery [place] vs. transplanted heart: [place] heart Associated angina: without angina Qualified Code(s): I25.10 - Atherosclerotic heart disease of [place] coronary artery without angina pectoris (6) HLD (hyperlipidemia) Code(s): E78.5 - HYPERLIPIDEMIA, UNSPECIFIED Status: Chronic Qualifiers: (7) HTN (hypertension) Code(s): I10 - ESSENTIAL (PRIMARY) HYPERTENSION Status: Chronic Qualifiers: Hypertension type: essential hypertension (8) JESU on CPAP Code(s): G47.33 - OBSTRUCTIVE SLEEP APNEA (ADULT) (PEDIATRIC) Status: Chronic (9) Obesity, Class I, BMI 30-34.9 Code(s): E66.9 - OBESITY, UNSPECIFIED Status: Chronic (10) Paroxysmal atrial fibrillation Code(s): I48.0 - PAROXYSMAL ATRIAL FIBRILLATION Status: Chronic - Plan has had recurrent hospitalization in the last 6 weeks, was in rehab prior to a rrival here confusion started around wednesday, was off and on and got worse per daughter at bedside he has not mobilized much at rehab so far per family blood cs and urine cs are -ve is on asp, lipitor, amiodarone, lasisai has severe deconditioning, echymosis all over his body due to hospitalizations prognosis guarded, he is DNAR. I have given full updates to patient and daughter daily, d/w and the older daughter today PT/OT eval encourage po intake 1 u prbc transfusion 08/06 CT abd shows no evidence of retroperitoneal bleed dc plan to rehab if accepted today If H/H drops at rehab, he will need outpt Upper endoscopy at [facility], there are no plans on doing it here at present.
[2020-08-07] MEDS: Triamcinolone 0.1% Cream 15 GM TUBE TOP SCH (13:32)
--- NOTE | 2020-08-07 15:53 | DIS ---
DATE OF ADMISSION: 08/03/2020 DATE OF DISCHARGE: 08/07/2020 DISCHARGE DISPOSITION: To inpatient rehab. PRIMARY DISCHARGE DIAGNOSES: 1. Acute metabolic encephalopathy, resolved. 2. Acute kidney injury, resolving. 3. Chronic kidney disease, stage 3. 4. Chronic anemia, needing 1 unit of packed cell transfusion. 5. Physical deconditioning. 6. Coronary artery disease. 7. Dyslipidemia. 8. Hypertension. 9. Obstructive sleep apnea, on CPAP. 10. Obesity. 11. Paroxysmal atrial fibrillation. PROCEDURES DONE DURING HOSPITALIZATION: Chest x-ray done on the day of admission showed no acute changes. CT of the abdomen and pelvis without contrast done showed no evidence of retroperitoneal bleed. There were other nonspecific findings seen on the CAT scan. Blood cultures x2, no growth. Urine culture, no growth. H and H had dropped down to 6.9 and 21 on the . Discharge H and H are 7.4 and 22, MCV is 95, and platelet count 168. PT/INR 22/1.9, PTT 40. BUN 53, creatinine 1.6 at the time of discharge. Serum bicarb is 20. Albumin 2.6. Serum iron 146, percent saturation 63, TIBC 231, ferritin is 288. BNP 209. COVID-19 PCR was not detected on 08/03/2020. DISCHARGE MEDICATIONS: 1. Atorvastatin 20 mg p.o. daily. 2. Lasix 20 mg daily. 3. MiraLAX 17 g daily. 4. Pepcid 20 mg twice daily. 5. Florastor 250 mg daily. 6. Senna one tablet twice daily. 7. Trazodone 50 mg p.o. at bedtime p.r.n. 8. Amiodarone 200 mg p.o. daily. 9. Ferrous sulfate 325 mg p.o. twice daily. DISCHARGE PLAN: The patient to follow up with his primary care physician in 1 week. BRIEF COURSE DURING HOSPITALIZATION: The patient initially was sent over from rehab for worsening confusion. He was not able to participate with physical therapy there. On arrival, the patient was placed on BiPAP in view of mild respiratory distress with altered mental state, but this was discontinued in the ER with good saturations on nasal cannula oxygen. He has had gentle hydration done during his stay here. The patient's Eliquis and aspirin were discontinued in view of progressive drop in his H and H. He was given a unit of packed cell transfusion. GI consultation with Dr. Denzel Cuevas was obtained. Per GI, his anemia was due to prolonged hospitalization with multiple blood draws and there was no need for upper endoscopy. If the patient were to drop his H and H further at the rehab facility, he will require upper endoscopy and can be transferred to [facility] for outpatient upper endoscopy. He is otherwise hemodynamically stable. 24 hours into hospitalization, the patient's mental status completely improved and is back at his baseline. He has severe deconditioning and needs to mobilize more. He barely stirred up with therapy. Family is wanting him to go back to rehab, so he can work with physical therapy. He has been approved to go back to inpatient rehab and will be shortly discharged. I have given complete updates to the patient's daughter and at bedside. Please see a [id number] documentation for the day of discharge on [facility]. A total of 35 minutes was spent on discharge plan. Job ID: [id number]
[2020-08-07 16:03] VITALS: BP 119/58; TEMP 97.7
--- NOTE | 2020-08-09 05:36 | PQF ---
Dear : Marielena Howard Date 08/09/20 Please exercise your independent, professional judgment in responding to the clarification form. Clinical indicators are provided on the bottom of this form for your review Can you please further clarify the acuity of diastolic CHF Please check appropriate box(es): HEART FAILURE: A. ACUITY [ ] Acute diastolic CHF [ ] Acute on Chronic diastolic CHF [ ] Chronic diastolic CHF [ ] Other diagnosis please specify [ x ] Unable to determine Physician Signature: Date/Time: For continuity of documentation, please document condition throughout progress notes and discharge summary. Thank You. To be completed by CDI/Coding staff for physician review: Present Clinical Indicators - Signs / Symptoms / Labs Results and Location in Medical Record [ x ] Mildly elevated BNP H and P pg.2 [ x ] Chest X ray does not shows pulmonary edema H and P pg.2 [ x ] Hx of Diastolic CHF H and P pg.1 [ x ] No acute process Chest X ray 08/03 [ x ] BNP 219.0H Laboratory [ x ] Mild respiratory distress DS pg.2 [ x ] Concern for CHF vs COPD exacerbation ED notes 08/03 [ x ] Suspect CHF exacerbation ED notes 08/03 [ x ] A small amount of peripheral edema was noted H and P pg.2 [ x ] no signs of overt fluid overload H and P pg.2 Present Risk Factors Results and Location in Medical Record [ x ] CKD H and P pg.1 [ x ] Afib H and P pg.1 [ x ] CAD H and P pg.1 [ x ] 79 years old H and P pg.1 [ x ] Obesity PN 08/04 Present Treatments Results and Location in Medical Record [ x ] Lasix 40mg IV MAR [ x ] Chest X ray 08/03/20 [ x ] Oxygen supplementation H and P pg.1 CDS/Crime Scene Investigator Signature: Lucas Rincon Phone #: ext [phone] Date 08/09/20 This is a permanent part of the Medical Record [facility]
--- NOTE | 2020-08-09 05:38 | PQF ---
Dear : Marielena Howard Date : 08/09/20 Please exercise your independent, professional judgment in responding to the clarification form. Clinical indicators are provided on the bottom of this form for your review Can you please further clarify the etiology of Metabolic encephalopathy? Please check appropriate box(es): [ ] Acute Respiratory failure [x ] SHREYAS [ ] Anemia on Chronic CKD [ ] Other diagnosis please specify [ ] Unable to determine Physician Signature: Date/Time: For continuity of documentation, please document condition throughout progress notes and discharge summary. Thank You. To be completed by CDI/Coding staff for physician review: Present Clinical Indicators - Signs / Symptoms / Labs Results and Location in Medical Record [ x ] Altered mental status H and P pg.1 [ x ] Acute respiratory failure with hypoxia H and P pg.2 [ x ] Anemia, down trending hemoglobin Consult pg.1 [ x ] Presenting with anemia and AMS Consult pg.1 [ x ] Anemia of chronic disease with only worsening of his hemoglobin and hematocrit due to iatrogenic process Consult pg.3 [ x ] Acute kidney injury Hospitalist PN pg.4 [ x ] BUN=41 Creatinine=1.96 GFR=33 Laboratory 08/03 [ x ] Acute metabolic encephalopathy, resolved DS pg.1 [ x ] Blood gas: PH=7.53 pc02=23.9 p02=99.7 02 sat=97.6 Laboratory 08/03 Present Risk Factors Results and Location in Medical Record [ x ] Afib H and P pg.1 [ x ] CAD H and P pg.1 [ x ] CHF H and P pg.1 [ x ] JESU H and P pg.1 [ x ] Oxygen dependent H and P pg.1 [ x ] COPD exacerbation H and P pg.1 [ x ] 79 years old H and P pg.1 [ x ] Hyponatremia H and P pg.2 [ x ] CKD PN 08/04 [ x ] Obesity PN 08/04 Present Treatments Results and Location in Medical Record [ x ] Chest X ray 08/03 [ x ] IV fluids MAR [ x ] Blood transfusion Blood bank [ x ] GI Consult Dr. Cuevas [ x ] Oxygen therapy H and P pg.1 [ x ] CT abdomen/pelvis 08/06 CDS/Chemical Preparer Signature: Lucas Rincon Phone #: ext [phone] Date 08/09/20 This is a permanent part of the Medical Record [facility]
== END 2020-08-07 20:01 | DRG 682 ==
LOC: ERS 15:25 → 2NO 18:33
PROVIDERS: ADMIT Internal Medicine; ATTEND Internal Medicine
PROC: 5A09357 Assistance with Respiratory Ventilation, Less than 24 Consecutive Hours, Continuous Positive Airway Pressure (ICD-10-PCS; principal; 2020-08-03)
PROC: 30233N1 Transfusion of Nonautologous Red Blood Cells into Peripheral Vein, Percutaneous Approach (ICD-10-PCS; 2020-08-06)
DX: N17.9 Acute kidney failure, unspecified (principal); G93.41 Metabolic encephalopathy; J96.01 Acute respiratory failure with hypoxia; I50.32 Chronic diastolic (congestive) heart failure; J44.1 Chronic obstructive pulmonary disease with (acute) exacerbation; E87.1 Hypo-osmolality and hyponatremia; I13.0 Hypertensive heart and chronic kidney disease with heart failure and stage 1 through stage 4 chronic kidney disease, or unspecified chronic kidney disease; E87.3 Alkalosis; Z66 Do not resuscitate; Z20.828 Contact with and (suspected) exposure to other viral communicable diseases; I25.10 Atherosclerotic heart disease of native coronary artery without angina pectoris; E78.5 Hyperlipidemia, unspecified; G47.33 Obstructive sleep apnea (adult) (pediatric); I48.0 Paroxysmal atrial fibrillation; E66.9 Obesity, unspecified; M10.9 Gout, unspecified; K59.81 Ogilvie syndrome; D63.1 Anemia in chronic kidney disease; N18.30 Chronic kidney disease, stage 3 unspecified; Z79.01 Long term (current) use of anticoagulants; Z79.82 Long term (current) use of aspirin; Z79.899 Other long term (current) drug therapy; Z79.51 Long term (current) use of inhaled steroids; Z99.81 Dependence on supplemental oxygen; Z95.1 Presence of aortocoronary bypass graft; Z68.33 Body mass index [BMI] 33.0-33.9, adult
CPT/HCPCS: 36415; 36430; 51702; 71045; 74176; 80048; 80053; 81003; 82140; 82330; 82553; 82728; 82803; 82805; 83540; 83550; 83605; 83880; 84484; 85014; 85018; 85025; 85610; 85730; 86850; 86900; 86901; 87040; 87086; 87635; 93005; 94640; 94660; 96374; 96375; 99292; J0692; J1940; J2060; J2920; J3010; J3490; J7620; P9016; U0003

== ENCOUNTER 2020-11-17 13:16 | Inpatient (IN) | payer MEDICARE, OTHER ==
[2020-11-17 14:12] LABS: #Basophils 0.1 thou/uL (0.0-0.2); #Eosinphils 0.2 thou/uL (0.0-0.7); #Lymphocytes 2.1 thou/uL (1.20-3.40); #Monocytes 1.4 thou/uL (0.11-0.59); #Neutrophils 7.1 thou/uL (1.40-6.50); %Basophils 0.7 % (0.0-1.0); %Eosinophils 1.9 % (0.0-10.0); %Lymphocytes 19.6 % (21.0-51.0); %Monocytes 12.4 % (0.0-10.0); %Neutrophils 65.4 % (42.0-75.0); Hemoglobin 12.6 g/dL (14.0-18.0); Mean Corpuscular HGB CONC 32.5 g/dL (32.0-36.0); Mean Corpuscular Hemoglobin 31.1 pg (27.0-31.0); Mean Corpuscular Volume 95.6 fL (78.0-98.0); Mean Platelet Volume 6.8 fL (7.4-10.4); Platelet Count 386 thou/uL (130-400); Red Blood Cell (RBC) Count 4.04 mill/uL (4.70-6.10); White Blood Cell (WBC) Count 10.8 thou/uL (4.8-10.8)
--- NOTE | 2020-11-17 14:25 | RAD ---
EXAM: CHEST ONE VIEW HISTORY: Shortness of breath, dyspnea. COMPARISON: 10/20/2020 FINDINGS: Triple lead left subclavian cardiac pacemaking device is seen. A coil mass is again seen overlying th e expected location of the left atrial appendage. Cardiac silhouette is mildly enlarged. Pulmonary vasculature is similar to prior exam with mild prominence of the central pulmonary vasculature. No co nsolidation or pleural fluid is seen. Elevation right hemidiaphragm is again present. No other interval change. IMPRESSION: 1. Cardiomegaly with mild prominence of central pulmonary vasculature. Chest is stable compared to pr ior exam.
[2020-11-17 14:28] LABS: Anion Gap 18 mmol/L (10-20); BUN (Urea Nitrogen) 55 mg/dL (8.4-25.7); Calc. Creatinine Clearance 0 mL/min (70-130); Carbon Dioxide 25 mmol/L (23-31); Chloride 97 mmol/L (98-107); Potassium 3.3 mmol/L (3.5-5.1); Sodium 137 mmol/L (136-145)
[2020-11-17 14:29] LABS: ALT (SGPT) 24 U/L (8-55); AST (SGOT) 26 U/L (5-34); Albumin 3.2 g/dL (3.4-4.8); Alkaline Phosphatase 146 U/L (40-110); Bilirubin, Total 1.1 mg/dL (0.2-1.2); Calcium 8.2 mg/dL (7.8-10.44); Globulin 3.1 g/dL (2.4-3.5); Glucose 104 mg/dL (83-110); Protein, Total 6.3 g/dL (5.8-8.1)
[2020-11-17] MEDS ORDERED: Furosemide 40 MG/4 ML VIAL ONE (16:07)
[2020-11-17] MEDS ORDERED: Potassium Chloride 20 MEQ TAB ONE (16:07)
[2020-11-17] MEDS ORDERED: Acetaminophen 650 MG Suppository PR PRN (17:26)
[2020-11-17] MEDS ORDERED: Metoprolol Tartrate 25 MG TAB PO SCH (17:45)
[2020-11-17 17:48] LABS: Troponin I 0.021 ng/mL (< 0.028)
--- NOTE | 2020-11-17 19:14 | PDOC.HHP ---
Hospitalist HPI - History of Present Illness History of Present Illness: ADMISSION DATE: 11/17/2020 TIME OF ASSESSMENT: 1700 PRIMARY CARE PHYSICIAN: Out of town CHIEF COMPLAINT: Shortness of breath and general weakness HPI: This is an 79-year-old gentleman who presents to the emergency department with progressively worsening shortness of breath and persistent tachycardia since last Wednesday. His heart rate is normally in the 70s according to his daughter who is present with him today however since Wednesday his heart rate has been in the 110s. He attempted to make an appointment with Dr. Regan via telemedicine however there was an issue with the appointment and he states he was unable to be seen. He has been feeling lightheaded since the tachycardia started and therefore was prompted by his daughter to come into the emergency department today. He was brought in by ambulance and had a heart rate of 113 with sats of 100% on 4 L by nasal cannula. He apparently uses home oxygen at 2 L per nasal cannula. Since arriving to the emergency department he has been satting from 97 to 100% however tachypneic. He denies having any recent fevers, chills or sweats. No cough or hemoptysis. Denies having any chest pain. He developed nausea earlier today but denies having any vomiting. Denies having any urinary symptoms or bowel changes. Overall he is very sedentary and has physical therapy as well as a home health nurse visiting weekly. His daughter states that the patient is not mobile except when taking a few steps with physical therapy. His general functional status has continued to decline since the last admission in August. His appetite however is unchanged and he continues to eat and drink well. Echo done December 29 EF 45 to 50% with restrictive filling pattern. Left atrium severely dilated. Markedly enlarged right atrium. Pacemaker/AICD leads visualized in RA cavity. Moderate mitral regurgitation present with mild to moderate aortic regurgitation and mild tricuspid regurgitation. ED COURSE: EKG done in the ED showed atrial fibrillation with rapid ventricular response, Rate (beats per minute): 114, frequent V paced complexes, ST segments normal. CXR: Cardiomegaly with mild prominence of central pulmonary vasculature. Chest is stable compared to pr ior exam. White cell count 10.8, hemoglobin 12.6, hematocrit 30.6, platelets 386, neutrophils 65.4%. Sodium 137, potassium 3.3, BUN 55, creatinine 1.46, GFR 46. LFTs normal, alkaline phosphatase 146. Initial troponin negative and BNP elevated at 373.7 PAST MEDICAL HISTORY: 1. CAD 2. Hypertension 3. CHF 4. CKD 5. History of A. fib/a flutter. 6. Chronic anemia requiring transfusion in the past 7. Chronic physical deconditioning 8. Dyslipidemia 9. Obesity PAST SURGICAL HISTORY: 1. Cholecystectomy 2. History of hernia repair 3. Bilateral shoulder surgery 4. Knee surgery 5. History of cardiac ablation in June 2019 6. Watchman device placement in 2019 SOCIAL HISTORY: Patient lives with his family. He is sedentary at baseline. Denies any history of tobacco use, alcohol consumption or drug use. FAMILY HISTORY:Noncontributory ALLERGIES: No known drug allergies CURRENT MEDICATIONS: 1. Eliquis 2.5 mg p.o. daily 2. Amiodarone 200 mg p.o. daily 3. Furosemide 40 mg p.o. daily 4. Aspirin 81 mg p.o. daily 5. Gabapentin 100 mg Hospitalist History - Past Surgical History Past Surgical History: reports: Cholecystectomy, Hernia Repair - Social History Alcohol: reports: Occassional Drugs: reports: none - Exam General Appearance: NAD, awake alert General - other findings: VS: HR 117, BP 113/72, temp 97.7, RR 21, O2 sat 99% on room air Eye: PERRL, anicteric sclera ENT: normocephalic atraumatic, no oropharyngeal lesions, moist mucosa Neck: supple, no lymphadenopathy Heart: no murmur, no gallops, no rubs, normal peripheral pulses Heart - other findings: tachycardic Respiratory: CTAB, tachypneic (when speaking in long sentences with slightly labored breathing) Gastrointestinal: soft, non-tender, non-distended, normal bowel sounds, no guarding, no rigidity Extremities: 1+ LE edema Skin: no lesions, no rashes, tenting Neurological: cranial nerve grossly intact, normal sensation to touch, no weakness Musculoskeletal: normal tone, normal strength, no muscle wasting Psychiatric: normal affect, normal behavior, A&O x 3 Hospitalist Results - Labs Result Diagrams: 11/17/20 13:54 11/17/20 13:54 Lab results: WBC 10.8 thou/uL (4.8-10.8) 11/17/20 13:54 Hgb 12.6 g/dL (14.0-18.0) L 11/17/20 13:54 Hct 38.6 % (42.0-52.0) L 11/17/20 13:54 MCV 95.6 fL (78.0-98.0) 11/17/20 13:54 Plt Count 386 thou/uL (130-400) 11/17/20 13:54 Neutrophils % 65.4 % (42.0-75.0) 11/17/20 13:54 Sodium 137 mmol/L (136-145) 11/17/20 13:54 Potassium 3.3 mmol/L (3.5-5.1) L 11/17/20 13:54 Chloride 97 mmol/L (98-107) L 11/17/20 13:54 Carbon Dioxide 25 mmol/L (23-31) 11/17/20 13:54 BUN 55 mg/dL (8.4-25.7) H 11/17/20 13:54 Creatinine 1.46 mg/dL (0.7-1.3) H 11/17/20 13:54 Glucose 104 mg/dL (83-110) 11/17/20 13:54 Lactic Acid 2.0 mmol/L (0.5-2.2) 11/17/20 18:03 Calcium 8.2 mg/dL (7.8-10.44) 11/17/20 13:54 Total Bilirubin 1.1 mg/dL (0.2-1.2) 11/17/20 13:54 AST 26 U/L (5-34) 11/17/20 13:54 ALT 24 U/L (8-55) 11/17/20 13:54 Alkaline Phosphatase 146 U/L (40-110) H 11/17/20 13:54 Troponin I 0.018 ng/mL (< 0.028) 11/17/20 18:03 C-Reactive Protein 2.28 mg/dL (= or < 0.5) H 11/17/20 18:04 B-Natriuretic Peptide 373.7 pg/mL (0-100) H 11/17/20 13:54 Serum Total Protein 6.3 g/dL (5.8-8.1) 11/17/20 13:54 Albumin 3.2 g/dL (3.4-4.8) L 11/17/20 13:54 - Radiology Interpretation Chest x-ray Status: report reviewed by me Hospitalist H&P A/P - Problem (1) Shortness of breath Code(s): R06.02 - SHORTNESS OF BREATH Status: Acute (2) Atrial fibrillation with RVR Code(s): I48.91 - UNSPECIFIED ATRIAL FIBRILLATION Status: Acute (3) CHF exacerbation Code(s): I50.9 - HEART FAILURE, UNSPECIFIED Status: Acute (4) Hypokalemia Code(s): E87.6 - HYPOKALEMIA Status: Acute (5) Physical deconditioning Code(s): R53.81 - OTHER MALAISE Status: Chronic (6) Chronic anemia Code(s): D64.9 - ANEMIA, UNSPECIFIED Status: Chronic (7) Coronary artery disease Code(s): I25.10 - ATHSCL HEART DISEASE OF [place] CORONARY ARTERY W/O ANG PCTRS Status: Chronic Qualifiers: Coronary Disease-Associated Artery/Lesion type: [place] artery [place] vs. transplanted heart: [place] heart Associated angina: without angina Qualified Code(s): I25.10 - Atherosclerotic heart disease of [place] coronary artery without angina pectoris (8) HLD (hyperlipidemia) Code(s): E78.5 - HYPERLIPIDEMIA, UNSPECIFIED Status: Chronic Qualifiers: (9) HTN (hypertension) Code(s): I10 - ESSENTIAL (PRIMARY) HYPERTENSION Status: Chronic Qualifiers: Hypertension type: essential hypertension Qualified Code(s): I10 - Essential (primary) hypertension - Plan Plan: Afib RVR Cardiac monitoring Give Metoprolol 12.5 mg PO x 1, as discussed with Dr. Patton Consult placed to Dr. Regan, his rn cardiac rehab Continue to trend troponins Check Mg+ and TSH Obtain pacemaker print out SOB secondary CHF exacerbation Given Lasix in ED Check D-dimer Venous doppler Monitor O2 sats Currently 100% on RA Consider CT Chest (+/- constrast, pending d-dimer) Fluid restriction Echo ordered Hypokalemia Continue to monitor lytes Replace as needed Physical deconditioning PT/OT consulted Would benefit from rehab screening CKD Chronic and stable Monitor renal function Avoid nephrotoxic meds Hypertension Monitor BP Resume home medications once verified HLD Resume statin COVID testing, admission screening DVT Prophylaxis: Heparin Surrogate decision maker is his daughter Katiana [phone] Patton who agrees with plan as above.
[2020-11-17] MEDS ORDERED: Heparin 5,000 UNITS/ML VIAL SC SCH (21:00)
--- NOTE | 2020-11-17 22:19 | ULT ---
EXAM: Bilateral lower extremity venous Doppler US HISTORY: bilateral lower extremity edema and pain FINDINGS: Grayscale, color-flow, Doppler evaluation, spectral analysis of the bilateral lower extremities venou s structures is performed with 2-D imaging. The bilateral common femoral, superficial femoral, popliteal, posterior tibial, proximal greater saphenous and profunda femoral veins are imaged. There is normal luminal compressibility, flow, and augmentation in the visualized deep venous structu res of the bilateral lower extremities. IMPRESSION: No evidence of a deep vein thrombosis in either lower extremity.
[2020-11-17 22:41] VITALS: BMI 39.3
[2020-11-18 04:17] LABS: SARS-CoV-2 PCR by NAA Not Detected (NotDetected)
[2020-11-18 04:33] LABS: #Eosinphils 0.2 thou/uL (0.0-0.7); #Lymphocytes 1.9 thou/uL (1.20-3.40); #Monocytes 1.7 thou/uL (0.11-0.59); #Neutrophils 7.8 thou/uL (1.40-6.50); %Basophils 0.3 % (0.0-1.0); %Eosinophils 1.8 % (0.0-10.0); %Lymphocytes 16.1 % (21.0-51.0); %Monocytes 14.4 % (0.0-10.0); %Neutrophils 67.3 % (42.0-75.0); Hemoglobin 12.3 g/dL (14.0-18.0); Mean Corpuscular HGB CONC 31.9 g/dL (32.0-36.0); Mean Corpuscular Volume 97.2 fL (78.0-98.0); Mean Platelet Volume 6.8 fL (7.4-10.4); Platelet Count 364 thou/uL (130-400); RBC Distribution Width 15.4 % (11.5-14.5); Red Blood Cell (RBC) Count 3.98 mill/uL (4.70-6.10); White Blood Cell (WBC) Count 11.6 thou/uL (4.8-10.8)
[2020-11-18 05:02] LABS: Anion Gap 20 mmol/L (10-20); BUN (Urea Nitrogen) 58 mg/dL (8.4-25.7); Calc. Creatinine Clearance 56 mL/min (70-130); Calcium 8.5 mg/dL (7.8-10.44); Carbon Dioxide 23 mmol/L (23-31); Chloride 100 mmol/L (98-107); Glucose 90 mg/dL (83-110); Potassium 3.7 mmol/L (3.5-5.1); Sodium 139 mmol/L (136-145)
[2020-11-18] MEDS ORDERED: Furosemide 20 MG/2 ML VIAL SLOW IVP SCH ×3 (06:00→14:00)
[2020-11-18 07:33] LABS: Bacteria/HPF None Seen HPF (None Seen); Bilirubin Negative (Negative); Blood, Urine Negative (Negative); Clarity Clear (Clear); Glucose, Urine (Dipstick) Normal (Negative); Ketone, Urine Negative (Negative); Leukocyte Negative Leu/uL (Negative); Nitrite Negative (Negative); Protein, Urine (Dipstick) Negative (Neg-Trace); RBC/HPF 0-3 HPF (0-3); Specific Gravity, Urine 1.013 (1.002-1.036); Squamous Epithelial None Seen HPF (0-3); Urobilinogen Normal mg/dL (Less than 2); WBC/HPF None Seen HPF (0-3)
[2020-11-18 07:57] LABS: Urine Culture Reflex No No
[2020-11-18] MEDS ORDERED: Loratadine 10 MG TAB PO PRN (08:37)
[2020-11-18] MEDS ORDERED: Senokot S 8.6-50 MG TAB PO PRN (08:37)
[2020-11-18] MEDS ORDERED: Metoclopramide HCl 10 MG/2 ML VIAL IVP PRN (08:37)
[2020-11-18] MEDS ORDERED: Zolpidem Tartrate 5 MG TAB PO PRN (08:37)
[2020-11-18] MEDS ORDERED: Cepastat Lozenges 1 LOZ PO PRN (08:37)
[2020-11-18] MEDS ORDERED: Sodium Chloride 0.65% Nasal 44 ML BOT EA NARE PRN (08:37)
[2020-11-18] MEDS ORDERED: GUAIFENESIN SF SOLN 200 MG/10 ML UDCUP PO PRN (08:37)
[2020-11-18] MEDS ORDERED: Loperamide HCl 2 MG CAP PO PRN (08:37)
[2020-11-18] MEDS ORDERED: Bisacodyl 5 MG TAB PO PRN (08:37)
[2020-11-18] MEDS ORDERED: Calcium Carbonate 500 MG ChewTAB PO PRN (08:37)
[2020-11-18] MEDS ORDERED: hydrALAZINE 20 MG/ML VIAL SLOW IVP PRN (08:37)
[2020-11-18] MEDS ORDERED: Metolazone 5 MG TAB PO SCH (08:45)
[2020-11-18] MEDS ORDERED: FLU VACC QS2020-21(65YR UP)/PF 240 MCG/0.7 ML SYRINGE IM ONE (09:00)
[2020-11-18] MEDS ORDERED: Non-Formulary Item 1 EACH (Cholecalciferol (Vitamin D3) [Vitamin D3] 2,000 UNIT Capsule) PO SCH (09:00)
[2020-11-18] MEDS ORDERED: Furosemide 40 MG/4 ML VIAL SLOW IVP SCH (09:00)
[2020-11-18] MEDS: Atorvastatin Calcium 20 MG TAB PO SCH (09:19)
[2020-11-18] MEDS: Cholecalciferol 1,000 UNITS (25 MCG) TAB PO SCH (09:19)
[2020-11-18] MEDS: Amiodarone 200 MG TAB PO SCH (09:19)
[2020-11-18] MEDS: Gabapentin 300 MG CAP PO SCH (09:19)
[2020-11-18] MEDS: Aspirin 81 mg Enteric Coated Tablet PO SCH (09:19)
[2020-11-18] MEDS: Apixaban 2.5 MG TAB PO SCH ×2 (09:19→20:17)
--- NOTE | 2020-11-18 10:34 | PDOC.HOSPP ---
- Subjective Encounter Date: 11/18/20 Encounter Time: 07:10 Subjective: Patient seen and examined bedside today, no overnight event, patient does not have any chest pain or shortness of breath at this point - Objective Vital Signs & Weight: Vital Signs (12 hours) Temp Pulse Resp BP Pulse Ox 11/18/20 07:15 97.8 F 115 H 25 H 118/69 99 11/18/20 04:00 98.2 F 116 H 28 H 132/81 94 L 11/18/20 00:00 97.4 F L 115 H 26 H 139/76 98 Weight Weight 244 lb Result Diagrams: 11/18/20 03:35 11/18/20 03:35 Radiology Reviewed by me: Yes EKG Reviewed by me: Yes (Pacing) Hospitalist ROS - Review of Systems Constitutional: reports: weakness. denies: fever, chills, sweats, malaise, other Respiratory: reports: shortness of breath, SOB with excertion. denies: cough, dry, hemoptysis, pleuritic pain, sputum, wheezing, other Cardiovascular: denies: chest pain, palpitations, orthopnea, paroxysmal noc. dyspnea, edema, light headedness, other Gastrointestinal: denies: nausea, vomiting, abdominal pain, diarrhea, constipation, melena, hematochezia, other Genitourinary: denies: dysuria, frequency, incontinence, hematuria, retention, other Musculoskeletal: denies: neck pain, shoulder pain, arm pain, back pain, hand pain, leg pain, foot pain, other Skin: denies: rash, lesions, travis, bruising, other - Medication Medications: Active Medications Generic Name Dose Route Start Last Admin Trade Name Raoulq PRN Reason Stop Dose Admin Amiodarone HCl 200 mg 11/18/20 09:00 11/18/20 09:19 Amiodarone 200 Mg Tab PO 200 mg DAILY LAVON Administration Apixaban 2.5 mg 11/18/20 09:00 11/18/20 09:19 Apixaban 2.5 Mg Tab PO 2.5 mg BID LAVON Administration Aspirin 81 mg 11/18/20 09:00 11/18/20 09:19 Aspirin 81 Mg Enteric Coated Tablet PO 81 mg DAILY LAVON Administration Atorvastatin Calcium 20 mg 11/18/20 09:00 11/18/20 09:19 Atorvastatin Calcium 20 Mg Tab PO 20 mg DAILY LAVON Administration Cholecalciferol 2,000 units 11/18/20 09:00 11/18/20 09:19 Cholecalciferol 1,000 Units (25 Mcg) Tab PO 2,000 units DAILY LAVON Administration Furosemide 40 mg 11/18/20 09:00 11/18/20 09:29 Furosemide 40 Mg/4 Ml Vial SLOW IVP 11/18/20 12:00 40 mg NOW LAVON Administration Gabapentin 300 mg 11/18/20 09:00 11/18/20 09:19 Gabapentin 300 Mg Cap PO 300 mg DAILY LAVON Administration Metolazone 5 mg 11/18/20 08:45 11/18/20 09:32 Metolazone 5 Mg Tab PO 11/18/20 12:00 5 mg NOW LAVON Administration Pantoprazole Sodium 40 mg 11/18/20 09:00 11/18/20 09:19 Pantoprazole 40 Mg Tab PO 40 mg BID LAVON Administration - Exam General Appearance: NAD, awake alert Eye: PERRL, anicteric sclera ENT: normocephalic atraumatic, no oropharyngeal lesions Neck: supple, symmetric, no JVD, no thyromegaly Heart: no murmur, no gallops, no rubs, irregular Respiratory: no wheezes, no rales, no ronchi Respiratory - other findings: Coarse breath sounds and few wheezing Gastrointestinal: soft, non-tender, non-distended, normal bowel sounds Gastrointestinal - other findings: Obesity Extremities: 1+ LE edema Extremities - other findings: Chronic skin changes noted Skin: normal turgor, no lesions Neurological: no focal deficits Musculoskeletal: normal tone, normal strength Psychiatric: normal affect, normal behavior Hosp A/P (1) Acute on chronic diastolic (congestive) heart failure Code(s): I50.33 - ACUTE ON CHRONIC DIASTOLIC (CONGESTIVE) HEART FAILURE Status: Acute (2) Atrial fibrillation with RVR Code(s): I48.91 - UNSPECIFIED ATRIAL FIBRILLATION Status: Acute (3) Chronic anemia Code(s): D64.9 - ANEMIA, UNSPECIFIED Status: Chronic (4) Coronary artery disease Code(s): I25.10 - ATHSCL HEART DISEASE OF [place] CORONARY ARTERY W/O ANG PCTRS Status: Chronic Qualifiers: Coronary Disease-Associated Artery/Lesion type: [place] artery [place] vs. transplanted heart: [place] heart Associated angina: without angina Qualified Code(s): I25.10 - Atherosclerotic heart disease of [place] coronary artery without angina pectoris (5) HLD (hyperlipidemia) Code(s): E78.5 - HYPERLIPIDEMIA, UNSPECIFIED Status: Chronic Qualifiers: (6) HTN (hypertension) Code(s): I10 - ESSENTIAL (PRIMARY) HYPERTENSION Status: Chronic Qualifiers: Hypertension type: essential hypertension Qualified Code(s): I10 - Essential (primary) hypertension (7) JESU on CPAP Code(s): G47.33 - OBSTRUCTIVE SLEEP APNEA (ADULT) (PEDIATRIC) Status: Chronic (8) Physical deconditioning Code(s): R53.81 - OTHER [place] Status: Chronic (9) CKD (chronic kidney disease), stage III Code(s): N18.30 - CHRONIC KIDNEY DISEASE, STAGE 3 UNSPECIFIED Status: Chronic Qualifiers: Chronic kidney disease stage 3 subtype: stage 3a (GFR 45-59) Qualified Code(s): N18.31 - Chronic kidney disease, stage 3a - Plan old records reviewed/req, plan discussed w/ family, PT/OT I have reconciled his home medication, Continue amiodarone, continue Eliquis and aspirin, We will continue with the Lasix 40 mg IV twice daily and add Zaroxolyn today Monitor input output chart and repeat labs tomorrow Echocardiography pending Cardiology has been consulted Discussed with the patient's family member, Continue PT OT If patient remains stable then expecting his discharge most likely tomorrow Family member will decide about discharge to home or rehab but at this point they prefer him to go home.
[2020-11-18] MEDS: Furosemide 40 MG/4 ML VIAL SLOW IVP SCH (14:12)
[2020-11-18] MEDS: Acetaminophen 325 MG TAB PO PRN (20:17)
[2020-11-19 05:15] LABS: ALT (SGPT) 22 U/L (8-55); AST (SGOT) 26 U/L (5-34); Albumin 3.1 g/dL (3.4-4.8); Alkaline Phosphatase 132 U/L (40-110); Anion Gap 18 mmol/L (10-20); BUN (Urea Nitrogen) 67 mg/dL (8.4-25.7); Bilirubin, Total 1.6 mg/dL (0.2-1.2); Calc. Creatinine Clearance 55 mL/min (70-130); Calcium 8.6 mg/dL (7.8-10.44); Carbon Dioxide 27 mmol/L (23-31); Chloride 97 mmol/L (98-107); Globulin 3.4 g/dL (2.4-3.5); Glucose 99 mg/dL (83-110); Magnesium 2.1 mg/dL (1.6-2.6); Protein, Total 6.5 g/dL (5.8-8.1); Sodium 139 mmol/L (136-145)
[2020-11-19 05:18] LABS: Hemoglobin 11.9 g/dL (14.0-18.0); Mean Corpuscular HGB CONC 31.8 g/dL (32.0-36.0); Mean Corpuscular Volume 94.1 fL (78.0-98.0); Platelet Count 356 thou/uL (130-400); RBC Distribution Width 15.5 % (11.5-14.5); Red Blood Cell (RBC) Count 3.96 mill/uL (4.70-6.10); White Blood Cell (WBC) Count 10.6 thou/uL (4.8-10.8)
[2020-11-19 05:19] LABS: Band 3 % (5-11); Eosinophils 3 % (0-10); Lymphocytes 18 % (21-51); MDiff Complete? YES; Monocytes 10 % (0-10); Neutrophil 66 % (42-75)
[2020-11-19 05:20] LABS: Potassium 2.7 mmol/L (3.5-5.1)
[2020-11-19] MEDS ORDERED: Electrolyte Replacement Protocol 1 EACH FS PRN (06:28)
[2020-11-19] MEDS: Furosemide 40 MG/4 ML VIAL SLOW IVP SCH ×2 (06:34→15:49)
[2020-11-19] MEDS: Potassium Chloride 20 MEQ TAB PO SCH ×2 (06:34→11:17)
--- NOTE | 2020-11-19 07:24 | CON ---
DATE OF CONSULTATION: 11/18/2020 Dictated by Mara Marti, nurse practitioner, as a scribe for Dr. Robert David. REASON FOR CONSULTATION: Atrial tachycardia. CONSULTING PHYSICIAN: Robert David MD HISTORY OF PRESENT ILLNESS: We are seeing Mr. Valladares at [facility] telemetry floor as an electrophysiology consultation. His current problems are. 1. Recurrent atrial arrhythmias. a. Atrial fibrillation status post PVAI on 05/22/2019. b. Subsequent amiodarone use for arrhythmia suppression. c. Recurrent atrial tachycardia again noted this admission with prior pace termination, 110 to 120 beats per minute. 2. Cardiomyopathy, LVEF 50% in 04/2018, worsened to 40% by prior echo with LV dyssynchrony and left bundle-branch block, prompting SAMPLE TESTER GRINDER implant. a. [employer] Percepta Quad biventricular pacemaker implant on 11/20/2019. b. Left atrial appendage closure via Watchman in 06/2019, status post coil closure and radiofrequency closure, but with 1-mm leak persisting by CORBY in 07/2020, remains on Eliquis 2.5 mg b.i.d. with recommended repeat coil closure. 3. History of Enterococcus faecalis bacteremia in 12/23 with subsequent negative blood cultures. 4. Morbid obesity. 5. Coronary artery disease with prior stent placement. 6. Valvular heart disease with [id number] aortic insufficiency, treated conservatively. ALLERGIES: ADHESIVE TAPE. HOME MEDICATIONS: Include: 1. Eliquis 2.5 mg b.i.d. 2. Gabapentin 300 mg daily. 3. Furosemide 40 mg daily. 4. Potassium 20 mEq daily. 5. Zaroxolyn 5 mg as needed. 6. Senokot two tablets p.r.n. daily. 7. Probiotic daily. 8. Iron daily. 9. Protonix 40 mg b.i.d. 10. Aspirin 81 mg daily. 11. Amiodarone 200 mg daily. 12. Acetaminophen as needed. 13. Furosemide 20 mg daily. 14. Vitamin D 2000 units daily. 15. Throat lozenge p.r.n. 16. Atorvastatin 20 mg nightly. SUBJECTIVE: Mr. Valladares is an 79-year-old gentleman, well known to our practice for a history of persistent atrial arrhythmias. He presented to the hospital with worsening shortness of breath and persistent tachycardia with heart rates between 110 and 120 beats per minute. There is associated lightheadedness with the tachycardia and he is seen to be tachypneic and in some congestive heart failure with this. Repeat echo is ordered and pending. Telemetry shows persisting tachycardia in the above-mentioned ranges. EP consultation is requested for management of the tachycardia and his pacemaker. REVIEW OF SYSTEMS: Positive for shortness of breath, dyspnea, low energy levels, and fatigue. Denies chest pain, stroke, stroke-like symptoms, or neurologic deficits. No fever or chills. Occasional cough is endorsed. The rest of the 12-point review of systems is otherwise unremarkable. FAMILY HISTORY: Noncontributory. SOCIAL HISTORY: Strong family support. He is retired. Denies alcohol, tobacco, or illicit drug use. OBJECTIVE: VITAL SIGNS: Temperature 97.8, pulse 115, respirations 25, oxygen 99% on nasal cannula, and blood pressure 118/69. GENERAL: The patient is alert, extremely hard of hearing without hearing aids in. He is in no apparent distress, but does look in poor condition overall, resting in bed at the time of his echo being done. HEENT: He is normocephalic and atraumatic. His sclerae anicteric. EOMs intact. He has fair dentition. NECK: Supple with jugular venous distention. LUNGS: Clear in the upper g[place], diminished in the bases with bibasilar crackles. Respirations are slightly tachypneic. HEART: Rate is mildly rapid and regular. There is a left precordial device, site is without reaction. ABDOMEN: Obese, soft, nontender. Positive jugular venous distention. There are no masses palpable. Positive bowel sounds are noted throughout. EXTREMITIES: Warm and dry to touch. Well perfused without clubbing or cyanosis. Extensive bilateral lower extremity edema is noted. NEUROLOGIC: Grossly intact. Nonfocal. Gait was not assessed. LABORATORY DATA: Chemistry: Potassium 3.7 and creatinine 1.6. Hematology: WBC 11.6, hemoglobin 12.3, and platelet count 367. COVID test rapid and RNA, COVID not detected, dated 11/17/2020. Device check: [email or web address] Percepta Quad SAMPLE TESTER GRINDER-P MRI compatible, date of implant is 11/2019, battery longevity is over 9 years, lead parameters are stable, adequate sensing, mode DDDR, lower rate limit of 60, upper tracking limit is 110. No arrhythmias detected by device; however, shows increased in ventricular rate, starting end of October, gradually increased with persisting elevated rates over 100, starting approximately 1 week ago. There is also correlating drop in SAMPLE TESTER GRINDER pacing and a drop in atrial pacing. OptiVol levels have been severely elevated for at least the past 3 months, recently returned to normal ranges as of last week. Telemetry and EKG show persisting atrial tachycardia in 110 to 120 beats per minute range. IMPRESSION: 1. Atrial tachycardia, persisting, ventricular rates 110 to 120 beats per minute, falling below atrial arrhythmias detect rate, which cannot go below 120 beats per minute, likely contributing to his congestive heart failure onset. 2. [employer]tr[employer] SAMPLE TESTER GRINDER pacemaker in situ with normal operation, suggesting recent onset of atrial tachycardia, pending in person device interrogation, and pace termination of atrial tachycardia, increasing max tracking rate to 125 beats per minute. 3. Left atrial appendage closure via Watchman with shar-device leak persisting despite prior closure attempts, requires ongoing reduced dose of Eliquis 2.5 mg b.i.d. 4. Congestive heart failure, echocardiogram pending. 5. Hypokalemia. 6. Chronic amiodarone therapy for atrial arrhythmia suppression, likely slowing his atrial tachycardia to the lower rates, but are not detectable by atrial algorithms via his pacemaker. PLAN AND RECOMMENDATIONS: Mr. Valladares is a pleasant man, shows significant physical deconditioning over the past year. He does have a history of atrial arrhythmias, persisting despite a prior PVI and has required ongoing amiodarone. Now, after the amiodarone, we continued to see episodes of a slow atrial tachycardia in the 110 to 120 beats per minute range that is below the pacemaker's detect rate. This has been amenable to pace termination in the past and he is anticoagulated. We will attempt pace termination later by the [employer] rep. We will also increase his max tracking rate to 120 to 125 beats per minute, but if he goes back in atrial tachycardia, he will not lose his SAMPLE TESTER GRINDER pacing also. We will continue to watch as he covers in diuresis from his congestive heart failure. Could consider AV node ablation later this week versus reducing amiodarone to allow the atrial tachycardia rates to increase a bit, which would then be able to be targeted by his pacemaker atrial antitachycardia pacing algorithm. Continue Eliquis due to persisting shar Watchman leak. Thank you for allowing me to participate in the care of this patient. Job ID: [id number]
[2020-11-19] MEDS: Metolazone 5 MG TAB PO SCH (08:59)
[2020-11-19] MEDS: Atorvastatin Calcium 20 MG TAB PO SCH (08:59)
[2020-11-19] MEDS: Gabapentin 300 MG CAP PO SCH (08:59)
[2020-11-19] MEDS: Cholecalciferol 1,000 UNITS (25 MCG) TAB PO SCH (08:59)
[2020-11-19] MEDS: Amiodarone 200 MG TAB PO SCH (08:59)
[2020-11-19] MEDS: Apixaban 2.5 MG TAB PO SCH ×2 (09:00→21:32)
[2020-11-19] MEDS: Aspirin 81 mg Enteric Coated Tablet PO SCH (09:00)
--- NOTE | 2020-11-19 09:29 | PDOC.EP ---
- Subjective Date: 11/19/20 Time: 09:27 Interval History: Feeliomng better today. In SR.BiV paced. - Review of Systems Constitutional: reports: weakness Respiratory: reports: SOB with excertion Cardiology: reports: edema. denies: chest pain, heart racing Neurological: denies: headache, vision changes - Objective Allergies/Adverse Reactions: Allergies Allergy/AdvReac Type Severity Reaction Status Date / Time No Known Allergies Allergy Verified 08/04/20 02:26 Current Medications Acetaminophen (Acetaminophen 325 Mg Tab) 650 mg PO Q4H PRN PRN Reason: Headache/Fever/Mild Pain (1-3) Last Admin: 11/18/20 20:17 Dose: 650 mg Documented by: Acetaminophen (Acetaminophen 650 Mg Suppository) 650 mg SC Q4H PRN PRN Reason: Headache/Fever/Mild Pain (1-3) Amiodarone HCl (Amiodarone 200 Mg Tab) 200 mg PO DAILY [facility] Last Admin: 11/19/20 08:59 Dose: 200 mg Documented by: Apixaban (Apixaban 2.5 Mg Tab) 2.5 mg PO BID [facility] Last Admin: 11/19/20 09:00 Dose: 2.5 mg Documented by: Aspirin (Aspirin 81 Mg Enteric Coated Tablet) 81 mg PO DAILY [facility] Last Admin: 11/19/20 09:00 Dose: 81 mg Documented by: Atorvastatin Calcium (Atorvastatin Calcium 20 Mg Tab) 20 mg PO DAILY [facility] Last Admin: 11/19/20 08:59 Dose: 20 mg Documented by: Bisacodyl (Bisacodyl 5 Mg Tab) 10 mg PO DAILYPRN PRN PRN Reason: Constipation Calcium Carbonate (Calcium Carbonate 500 Mg Chewtab) 1,000 mg PO Q4H PRN PRN Reason: Heartburn or Indigestion Cholecalciferol (Cholecalciferol 1,000 Units (25 Mcg) Tab) 2,000 units PO DAILY [facility] Last Admin: 11/19/20 08:59 Dose: 2,000 units Documented by: Furosemide (Furosemide 40 Mg/4 Ml Vial) 40 mg SLOW IVP 0600,1400 [facility] Last Admin: 11/19/20 06:34 Dose: 40 mg Documented by: Gabapentin (Gabapentin 300 Mg Cap) 300 mg PO DAILY [facility] Last Admin: 11/19/20 08:59 Dose: 300 mg Documented by: Guaifenesin (Diabetic Tussin 200 Mg/10 Ml Udcup) 200 mg PO Q4H PRN PRN Reason: Cough Hydralazine HCl (Hydralazine 20 Mg/Ml Vial) 10 mg SLOW IVP Q4H PRN PRN Reason: SBP > 180 and HR < 70 Loperamide HCl (Loperamide Hcl 2 Mg Cap) 2 mg PO PRN PRN PRN Reason: Diarrhea/Loose Stools Loratadine (Loratadine 10 Mg Tab) 10 mg PO DAILYPRN PRN PRN Reason: Sinus Symptoms Metoclopramide HCl (Metoclopramide Hcl 10 Mg/2 Ml Vial) 5 mg IVP Q4H PRN PRN Reason: Nausea Metolazone (Metolazone 5 Mg Tab) 5 mg PO 0830 [facility] Last Admin: 11/19/20 08:59 Dose: 5 mg Documented by: Pantoprazole Sodium (Pantoprazole 40 Mg Tab) 40 mg PO BID [facility] Last Admin: 11/19/20 09:00 Dose: 40 mg Documented by: Potassium Chloride (Potassium Chloride 20 Meq Tab) 40 meq PO Q4H [facility] Stop: 11/19/20 11:01 Last Admin: 11/19/20 06:34 Dose: 40 meq Documented by: Senna/Docusate Sodium (Senokot S 8.6-50 Mg Tab) 2 tab PO BID PRN PRN Reason: Constipation Last Admin: 11/18/20 19:39 Dose: 2 tab Documented by: Sodium Chloride (Flush - Normal Saline 10 Ml Syringe) 10 ml IVF Q12HR PRN PRN Reason: Saline Flush Sodium Chloride (Flush - Normal Saline 10 Ml Syringe) 10 ml IVF PRN PRN PRN Reason: Saline Flush Sodium Chloride (Sodium Chloride 0.65% Nasal 44 Ml Bot) 0 ml EA NARE QIDPRN PRN PRN Reason: Nasal Congestion Throat Lozenges (Cepastat Lozenges 1 Bro) 1 bro PO Q2H PRN PRN Reason: Sore Throat Zolpidem Tartrate (Zolpidem Tartrate 5 Mg Tab) 5 mg PO HSPRN PRN PRN Reason: Insomnia Vital Signs & Weight: Vital Signs Temp Pulse Resp BP Pulse Ox 11/19/20 07:30 97.4 F L 62 18 150/67 H 99 11/19/20 03:29 97.5 F L 65 20 147/67 H 97 11/19/20 00:00 96 Weight 236 lb 11.2 oz I/O: I/O 11/18/20 11/19/20 11/20/20 06:59 06:59 06:59 Intake Total 1200 Output Total 300 Balance 900 - Quality Measures CV meds: Eliquis: Yes - Physical Exam General: alert & oriented x3, no apparent distress HEENT: mucus membranes moist, normocephaly Neck: no JVD/HJR Cardiology: regular rate and rhythm, no murmur Lungs: normal breath sounds Neurology: grossly intact Abdomen: unremarkable, soft, non-tender Extremities: warm Skin: device site stable w/o swelling - Labs Result Diagrams: 11/19/20 04:09 11/19/20 04:09 - EKG Interpretation EKG Method: Telemetry EKG shows: Sinus rhythm (A/V paced) - Assessment/Plan Assessment/Plan: Mr. Valladares is a pleasant man, shows significant physical deconditioning over the past year. He does have a history of atrial arrhythmias, persisting despite a prior PVI and has required ongoing amiodarone. 1. Recurrent atrial arrhythmias. a. Atrial fibrillation status post PVAI on 05/22/2019. b. Subsequent amiodarone use for arrhythmia suppression. c. Recurrent atrial tachycardia again noted this admission with prior pace termination, 110 to 120 beats per minute. 2. Cardiomyopathy, LVEF 50% in 04/2018, worsened to 40% by prior echo with LV dyssynchrony and left bundle-branch block, prompting EQUIPMENT COORDINATOR implant. a. Medtronic Percepta Quad biventricular pacemaker implant on 11/20/2019. b. Left atrial appendage closure via Watchman in 06/2019, status post coil closure and radiofrequency closure, but with 1-mm leak persisting by [facility] in 07/2020, remains on Eliquis 2.5 mg b.i.d. with recommended repeat coil closure. 3. History of Enterococcus faecalis bacteremia in 12/23 with subsequent negative blood cultures. 4. Morbid obesity. 5. Coronary artery disease with prior stent placement. 6. Valvular heart disease with [id number] aortic insufficiency, treated conservatively. Device check 11/18/20: Medtronic Percepta Quad EQUIPMENT COORDINATOR-P MRI compatible, date of implant is 11/2019, battery longevity is over 9 years, lead parameters are stable, adequate sensing, mode DDDR, lower rate limit of 60, upper tracking limit is 110. No arrhythmias detected by device; however, shows increased in ventricular rate, starting end of October, gradually increased with persisting elevated rates over 100, starting approximately 1 week ago. There is also correlating drop in EQUIPMENT COORDINATOR pacing and a drop in atrial pacing. OptiVol levels have been severely elevated for at least the past 3 months, recently returned to normal ranges as of last week. Pace terminateion of atrial tachycardia performed succsfully,. Telemetry and EKG show persisting atrial tachycardia in 110 to 120 beats per minute range converted to A?V paced rhtythm after pace termination. 1. Atrial tachycardia, persisting, ventricular rates 110 to 120 beats per minute, falling below atrial arrhythmias detect rate, which cannot go below 120 beats per minute, likely contributing to his congestive heart failure onset. 2. Medtronic EQUIPMENT COORDINATOR pacemaker in situ with normal operation, suggesting recent onset of atrial tachycardia, pending in person device interrogation, and pace termination of atrial tachycardia, increasing max tracking rate to 125 beats per minute. 3. Left atrial appendage closure via Watchman with shar-device leak persisting despite prior closure attempts, requires ongoing reduced dose of Eliquis 2.5 mg b.i.d. 4. Congestive heart failure, echocardiogram pending. 5. Hypokalemia. 6. Chronic amiodarone therapy for atrial arrhythmia suppression, likely slowing his atrial tachycardia to the lower rates, but are not detectable by atrial algorithms via his pacemaker. Now, after the amiodarone, we continued to see episodes of a slow atrial tachycardia in the 110 to 120 beats per minute range that is below the pacemaker's detect rate. This has been amenable to pace termination in the past and he is anticoagulated. S/p pace termination yesterday. In SR. Increased max tracking rate to 120 to 125 beats per minute, so if he goes back in atrial tachycardia, he will not lose his EQUIPMENT COORDINATOR pacing also. Continue to watch as he covers in diuresis from his congestive heart failure. Could consider AV node ablation if above fails. Continue Eliquis due to persisting shar Watchman leak. Thank you for allowing me to participate in the care of this patient.
--- NOTE | 2020-11-19 11:59 | PDOC.HOSPP ---
- Subjective Encounter Date: 11/19/20 Encounter Time: 07:10 Subjective: Patient seen and examined bedside today, no overnight event, patient is comfortable and lying flat, he is using his CPAP machine - Objective Vital Signs & Weight: Vital Signs (12 hours) Temp Pulse Resp BP Pulse Ox 11/19/20 11:24 97.5 F L 62 20 133/62 99 11/19/20 07:30 97.4 F L 62 18 150/67 H 99 11/19/20 03:29 97.5 F L 65 20 147/67 H 97 11/19/20 00:00 96 Weight Weight 236 lb 11.2 oz I&O: 11/18/20 11/19/20 11/20/20 06:59 06:59 06:59 Intake Total 1200 Output Total 300 Balance 900 Result Diagrams: 11/19/20 04:09 11/19/20 04:09 EKG Reviewed by me: Yes Hospitalist ROS - Review of Systems Constitutional: reports: weakness. denies: fever, chills, sweats, malaise, other Respiratory: reports: SOB with excertion. denies: cough, dry, shortness of breath, hemoptysis, pleuritic pain, sputum, wheezing, other Cardiovascular: denies: chest pain, palpitations, orthopnea, paroxysmal noc. dyspnea, edema, light headedness, other Gastrointestinal: denies: nausea, vomiting, abdominal pain, diarrhea, constipation, melena, hematochezia, other Genitourinary: denies: dysuria, frequency, incontinence, hematuria, retention, other Musculoskeletal: denies: neck pain, shoulder pain, arm pain, back pain, hand pain, leg pain, foot pain, other - Medication Medications: Active Medications Generic Name Dose Route Start Last Admin Trade Name Freq PRN Reason Stop Dose Admin Acetaminophen 650 mg 11/17/20 17:26 11/18/20 20:17 Acetaminophen 325 Mg Tab PO 650 mg Q4H PRN Administration Headache/Fever/Mild Pain (1-3) Amiodarone HCl 200 mg 11/18/20 09:00 11/19/20 08:59 Amiodarone 200 Mg Tab PO 200 mg DAILY [facility] Administration Apixaban 2.5 mg 11/18/20 09:00 11/19/20 09:00 Apixaban 2.5 Mg Tab PO 2.5 mg BID [facility] Administration Aspirin 81 mg 11/18/20 09:00 11/19/20 09:00 Aspirin 81 Mg Enteric Coated Tablet PO 81 mg DAILY [facility] Administration Atorvastatin Calcium 20 mg 11/18/20 09:00 11/19/20 08:59 Atorvastatin Calcium 20 Mg Tab PO 20 mg DAILY [facility] Administration Cholecalciferol 2,000 units 11/18/20 09:00 11/19/20 08:59 Cholecalciferol 1,000 Units (25 Mcg) Tab PO 2,000 units DAILY [facility] Administration Furosemide 40 mg 11/18/20 14:00 11/19/20 06:34 Furosemide 40 Mg/4 Ml Vial SLOW IVP 40 mg 0600,1400 [facility] Administration Gabapentin 300 mg 11/18/20 09:00 11/19/20 08:59 Gabapentin 300 Mg Cap PO 300 mg DAILY [facility] Administration Metolazone 5 mg 11/19/20 08:30 11/19/20 08:59 Metolazone 5 Mg Tab PO 5 mg 0830 [facility] Administration Pantoprazole Sodium 40 mg 11/18/20 09:00 11/19/20 09:00 Pantoprazole 40 Mg Tab PO 40 mg BID [facility] Administration Senna/Docusate Sodium 2 tab 11/18/20 08:37 11/18/20 19:39 Senokot S 8.6-50 Mg Tab PO 2 tab BID PRN Administration Constipation - Exam General Appearance: NAD, awake alert Eye: PERRL, anicteric sclera ENT: normocephalic atraumatic, no oropharyngeal lesions Neck: supple, symmetric, no JVD, no thyromegaly Heart: no murmur, no gallops, no rubs, irregular Respiratory: no wheezes, no ronchi Gastrointestinal: soft, non-tender, non-distended, normal bowel sounds Extremities: no cyanosis, no clubbing, 1+ LE edema Skin: normal turgor, no lesions Neurological: no focal deficits Musculoskeletal: normal tone, normal strength Psychiatric: normal affect, normal behavior Hosp A/P (1) Acute on chronic diastolic (congestive) heart failure Code(s): I50.33 - ACUTE ON CHRONIC DIASTOLIC (CONGESTIVE) HEART FAILURE Status: Acute Plan: Patient is now improving with diuresis, (2) Atrial fibrillation with RVR Code(s): I48.91 - UNSPECIFIED ATRIAL FIBRILLATION Status: Acute Plan: Now rate controlled, as per electrophysiology patient also has underlying atrial tachycardia, patient has history of left atrial appendage that was closed with watchman device with leakage around device, because of that patient is on chronic anticoagulation therapy, currently patient is on amiodarone, rate controlled with paroxysmal increase rate (3) Chronic anemia Code(s): D64.9 - ANEMIA, UNSPECIFIED Status: Chronic (4) Coronary artery disease Code(s): I25.10 - ATHSCL HEART DISEASE OF [place] CORONARY ARTERY W/O ANG PCTRS Status: Chronic Qualifiers: Coronary Disease-Associated Artery/Lesion type: [place] artery [place] vs. transplanted heart: [place] heart Associated angina: without angina Qualified Code(s): I25.10 - Atherosclerotic heart disease of [place] coronary artery without angina pectoris (5) HLD (hyperlipidemia) Code(s): E78.5 - HYPERLIPIDEMIA, UNSPECIFIED Status: Chronic Qualifiers: (6) HTN (hypertension) Code(s): I10 - ESSENTIAL (PRIMARY) HYPERTENSION Status: Chronic Qualifiers: Hypertension type: essential hypertension Qualified Code(s): I10 - Essential (primary) hypertension (7) JESU on CPAP Code(s): G47.33 - OBSTRUCTIVE SLEEP APNEA (ADULT) (PEDIATRIC) Status: Chronic (8) Physical deconditioning Code(s): R53.81 - OTHER MALAISE Status: Chronic (9) CKD (chronic kidney disease), stage III Code(s): N18.30 - CHRONIC KIDNEY DISEASE, STAGE 3 UNSPECIFIED Status: Chronic Qualifiers: Chronic kidney disease stage 3 subtype: stage 3a (GFR 45-59) Qualified Code(s): N18.31 - Chronic kidney disease, stage 3a - Plan old records reviewed/req, PT/OT Today we will replace potassium aggressively and repeat later on today and if still low then will consider replating again Electrophysiology recommendation appreciated Echocardiography report noted Continue PT OT We will continue diuresis today and expecting discharge in next 24 hours pending cardiac clearance manager industrial working on placement assistance
[2020-11-19 12:33] LABS: Potassium 3.2 mmol/L (3.5-5.1)
[2020-11-19] MEDS ORDERED: Potassium Chloride 20 MEQ TAB PO SCH (14:45)
[2020-11-20] MEDS: Acetaminophen 325 MG TAB PO PRN (04:44)
[2020-11-20] MEDS: Furosemide 40 MG/4 ML VIAL SLOW IVP SCH ×2 (05:30→16:00)
[2020-11-20] MEDS: Atorvastatin Calcium 20 MG TAB PO SCH (09:12)
[2020-11-20] MEDS: Cholecalciferol 1,000 UNITS (25 MCG) TAB PO SCH (09:12)
[2020-11-20] MEDS: Apixaban 2.5 MG TAB PO SCH ×2 (09:12→20:25)
[2020-11-20] MEDS: Gabapentin 300 MG CAP PO SCH (09:12)
[2020-11-20] MEDS: Amiodarone 200 MG TAB PO SCH (09:12)
[2020-11-20] MEDS: Aspirin 81 mg Enteric Coated Tablet PO SCH (09:12)
[2020-11-20] MEDS: Metolazone 5 MG TAB PO SCH (09:12)
--- NOTE | 2020-11-20 13:05 | PDOC.EP ---
- Subjective Date: 11/20/20 Time: 09:00 Interval History: asleep. Deconditioned. - Review of Systems Constitutional: denies: chills, fever, malaise, sweats Respiratory: denies: cough, hemoptysis, pleuritic pain, SOB with excertion Cardiology: denies: chest pain, edema, heart racing, light headedness, paro xysmal noc. dyspnea Gastrointestinal: denies: abdominal pain, constipation, nausea - Objective Allergies/Adverse Reactions: Allergies Allergy/AdvReac Type Severity Reaction Status Date / Time No Known Allergies Allergy Verified 08/04/20 02:26 Current Medications Acetaminophen (Acetaminophen 325 Mg Tab) 650 mg PO Q4H PRN PRN Reason: Headache/Fever/Mild Pain (1-3) Last Admin: 11/20/20 04:44 Dose: 650 mg Documented by: Acetaminophen (Acetaminophen 650 Mg Suppository) 650 mg [place] Q4H PRN PRN Reason: Headache/Fever/Mild Pain (1-3) Amiodarone HCl (Amiodarone 200 Mg Tab) 200 mg PO DAILY [facility] Last Admin: 11/20/20 09:12 Dose: 200 mg Documented by: Apixaban (Apixaban 2.5 Mg Tab) 2.5 mg PO BID [facility] Last Admin: 11/20/20 09:12 Dose: 2.5 mg Documented by: Aspirin (Aspirin 81 Mg Enteric Coated Tablet) 81 mg PO DAILY [facility] Last Admin: 11/20/20 09:12 Dose: 81 mg Documented by: Atorvastatin Calcium (Atorvastatin Calcium 20 Mg Tab) 20 mg PO DAILY [facility] Last Admin: 11/20/20 09:12 Dose: 20 mg Documented by: Bisacodyl (Bisacodyl 5 Mg Tab) 10 mg PO DAILYPRN PRN PRN Reason: Constipation Last Admin: 11/19/20 15:49 Dose: 10 mg Documented by: Calcium Carbonate (Calcium Carbonate 500 Mg Chewtab) 1,000 mg PO Q4H PRN PRN Reason: Heartburn or Indigestion Cholecalciferol (Cholecalciferol 1,000 Units (25 Mcg) Tab) 2,000 units PO DAILY [facility] Last Admin: 11/20/20 09:12 Dose: 2,000 units Documented by: Furosemide (Furosemide 40 Mg/4 Ml Vial) 40 mg SLOW IVP 0600,1400 [facility] Last Admin: 11/20/20 05:30 Dose: 40 mg Documented by: Gabapentin (Gabapentin 300 Mg Cap) 300 mg PO DAILY [facility] Last Admin: 11/20/20 09:12 Dose: 300 mg Documented by: Guaifenesin (Diabetic Tussin 200 Mg/10 Ml Udcup) 200 mg PO Q4H PRN PRN Reason: Cough Hydralazine HCl (Hydralazine 20 Mg/Ml Vial) 10 mg SLOW IVP Q4H PRN PRN Reason: SBP > 180 and HR < 70 Loperamide HCl (Loperamide Hcl 2 Mg Cap) 2 mg PO PRN PRN PRN Reason: Diarrhea/Loose Stools Loratadine (Loratadine 10 Mg Tab) 10 mg PO DAILYPRN PRN PRN Reason: Sinus Symptoms Metoclopramide HCl (Metoclopramide Hcl 10 Mg/2 Ml Vial) 5 mg IVP Q4H PRN PRN Reason: Nausea Metolazone (Metolazone 5 Mg Tab) 5 mg PO 0830 [facility] Last Admin: 11/20/20 09:12 Dose: 5 mg Documented by: Pantoprazole Sodium (Pantoprazole 40 Mg Tab) 40 mg PO BID [facility] Last Admin: 11/20/20 09:12 Dose: 40 mg Documented by: Senna/Docusate Sodium (Senokot S 8.6-50 Mg Tab) 2 tab PO BID PRN PRN Reason: Constipation Last Admin: 11/18/20 19:39 Dose: 2 tab Documented by: Sodium Chloride (Flush - Normal Saline 10 Ml Syringe) 10 ml IVF Q12HR PRN PRN Reason: Saline Flush Last Admin: 11/19/20 21:32 Dose: 10 ml Documented by: Sodium Chloride (Flush - Normal Saline 10 Ml Syringe) 10 ml IVF PRN PRN PRN Reason: Saline Flush Sodium Chloride (Sodium Chloride 0.65% Nasal 44 Ml Bot) 0 ml EA NARE QIDPRN PRN PRN Reason: Nasal Congestion Throat Lozenges (Cepastat Lozenges 1 Bro) 1 bro PO Q2H PRN PRN Reason: Sore Throat Zolpidem Tartrate (Zolpidem Tartrate 5 Mg Tab) 5 mg PO HSPRN PRN PRN Reason: Insomnia Vital Signs & Weight: Vital Signs Temp Pulse Pulse Pulse Resp BP BP 11/20/20 11:35 60 60 140/63 141/61 H 11/20/20 11:32 97.6 F 63 16 11/20/20 09:08 97.4 F L 60 20 11/20/20 04:25 98.4 F 95 15 BP BP Pulse Ox 11/20/20 11:35 11/20/20 11:32 136/64 97 11/20/20 09:08 127/60 97 11/20/20 04:25 134/64 99 Weight 236 lb 11.2 oz I/O: I/O 11/19/20 11/20/20 11/21/20 06:59 06:59 06:59 Intake Total 1200 1280 Output Total 300 150 Balance 900 1130 - Quality Measures CV meds: Eliquis: Yes - Physical Exam General: alert & oriented x3, appears well, no apparent distress, speech clear, affect appropriate HEENT: mucus membranes moist, normocephaly Neck: supple neck, midline trachea, adenopathy Cardiology: regular rate and rhythm, no murmur, PMI nondisplaced Lungs: no wheezes, no rhonchi, decreased breath sounds, bibasilar rales Neurology: cranial nerve 2-12 intact, grossly intact, no lateralizing findings - Labs Result Diagrams: 11/19/20 04:09 11/19/20 12:06 - EKG Interpretation EKG Method: Telemetry EKG shows: Sinus rhythm - Device Device: biventricular, pacemaker Device Result: [facility] - Assessment/Plan Assessment/Plan: 1. Atrial tachycardia, persisting, ventricular rates 110 to 120 beats per minute, falling below atrial arrhythmias detect rate, which cannot go below 120 beats per minute, likely contributing to his congestive heart failure onset. 2. 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 3. Left atrial appendage closure via Watchman with shar-device leak persisting despite prior closure attempts, requires ongoing reduced dose of Eliquis 2.5 mg b.i.d. 4. Congestive heart failure, echocardiogram pending. 5. Hypokalemia. 6. Chronic amiodarone therapy for atrial arrhythmia suppression, likely slowing his atrial tachycardia to the lower rates, but are not detectable by atrial algorithms via his pacemaker. Remains in SR after atrial tachcyardia was pace terminated. If recurrence is seen, will likely require AVJ. COntinue amidoarone and eliquis 2.5mg BID
[2020-11-20] MEDS ORDERED: Potassium Chloride 10 MEQ in Premix Bag 1 BAG IVPB SCH (15:15)
--- NOTE | 2020-11-20 17:08 | PDOC.HOSPP ---
- Subjective Encounter Date: 11/20/20 Encounter Time: 08:00 Subjective: Patient seen for follow-up regarding CHF exacerbation. Sleepy but arousable, denies chest pain. - Objective Vital Signs & Weight: Vital Signs (12 hours) Temp Pulse Pulse Pulse Resp BP BP 11/20/20 11:35 60 60 140/63 141/61 H 11/20/20 11:32 97.6 F 63 16 11/20/20 09:08 97.4 F L 60 20 BP BP Pulse Ox 11/20/20 11:35 11/20/20 11:32 136/64 97 11/20/20 09:08 127/60 97 Weight Weight 236 lb 11.2 oz I&O: 11/19/20 11/20/20 11/21/20 06:59 06:59 06:59 Intake Total 1200 1280 Output Total 300 150 Balance 900 1130 Result Diagrams: 11/19/20 04:09 11/19/20 12:06 Additional Labs: Accuchecks 11/20/20 13:47 POC Glucose 105 H Labs and MAR reviewed by me EKG Reviewed by me: Yes (Electronic AV paced rhythm on telemetry) Hospitalist ROS - Review of Systems Respiratory: denies: cough, shortness of breath, SOB with excertion, pleuritic pain, wheezing Cardiovascular: denies: chest pain, palpitations, orthopnea, paroxysmal noc. dyspnea, edema, light headedness - Medication Medications: Active Medications Generic Name Dose Route Start Last Admin Trade Name Freq PRN Reason Stop Dose Admin Acetaminophen 650 mg 11/17/20 17:26 11/20/20 04:44 Acetaminophen 325 Mg Tab PO 650 mg Q4H PRN Administration Headache/Fever/Mild Pain (1-3) Amiodarone HCl 200 mg 11/18/20 09:00 11/20/20 09:12 Amiodarone 200 Mg Tab PO 200 mg DAILY [facility] Administration Apixaban 2.5 mg 11/18/20 09:00 11/20/20 09:12 Apixaban 2.5 Mg Tab PO 2.5 mg BID [facility] Administration Aspirin 81 mg 11/18/20 09:00 11/20/20 09:12 Aspirin 81 Mg Enteric Coated Tablet PO 81 mg DAILY [facility] Administration Atorvastatin Calcium 20 mg 11/18/20 09:00 11/20/20 09:12 Atorvastatin Calcium 20 Mg Tab PO 20 mg DAILY [facility] Administration Bisacodyl 10 mg 11/18/20 08:37 11/19/20 15:49 Bisacodyl 5 Mg Tab PO 10 mg DAILYPRN PRN Administration Constipation Cholecalciferol 2,000 units 11/18/20 09:00 11/20/20 09:12 Cholecalciferol 1,000 Units (25 Mcg) Tab PO 2,000 units DAILY [facility] Administration Furosemide 40 mg 11/18/20 14:00 11/20/20 16:00 Furosemide 40 Mg/4 Ml Vial SLOW IVP 40 mg 0600,1400 [facility] Administration Gabapentin 300 mg 11/18/20 09:00 11/20/20 09:12 Gabapentin 300 Mg Cap PO 300 mg DAILY [facility] Administration Potassium Chloride 10 meq/ 100 mls @ 100 mls/hr 11/20/20 15:15 11/20/20 15:59 Device IVPB 11/20/20 17:15 100 mls NOW [facility] Administration Metolazone 5 mg 11/19/20 08:30 11/20/20 09:12 Metolazone 5 Mg Tab PO 5 mg 0830 [facility] Administration Pantoprazole Sodium 40 mg 11/18/20 09:00 11/20/20 09:12 Pantoprazole 40 Mg Tab PO 40 mg BID [facility] Administration Senna/Docusate Sodium 2 tab 11/18/20 08:37 11/18/20 19:39 Senokot S 8.6-50 Mg Tab PO 2 tab BID PRN Administration Constipation Sodium Chloride 10 ml 11/17/20 17:26 11/19/20 21:32 Flush - Normal Saline 10 Ml Syringe IVF 10 ml Q12HR PRN Administration Saline Flush - Exam General Appearance: awake alert Eye: anicteric sclera ENT: moist mucosa Neck: supple Heart: RRR Respiratory - other findings: Bilateral crackles Skin: no rashes Psychiatric: normal affect Hosp A/P - Plan Hosp A/P (1) Acute on chronic diastolic (congestive) heart failure Code(s): I50.33 - ACUTE ON CHRONIC DIASTOLIC (CONGESTIVE) HEART FAILURE Statu s: Acute Plan: Patient is now improving with diuresis, (2) Atrial fibrillation with RVR Code(s): I48.91 - UNSPECIFIED ATRIAL FIBRILLATION Status: Acute Plan: Now rate controlled, as per electrophysiology patient also has underlying atrial tachycardia, patient has history of left atrial appendage that was closed with watchman device with leakage around device, because of that patient is on chronic anticoagulation therapy, currently patient is on amiodarone, rate controlled with paroxysmal increase rate (3) Chronic anemia Code(s): D64.9 - ANEMIA, UNSPECIFIED Status: Chronic (4) Coronary artery disease Code(s): I25.10 - ATHSCL HEART DISEASE OF [place] CORONARY ARTERY W/O ANG PCTRS Status: Chronic Qualifiers: Coronary Disease-Associated Artery/Lesion type: [place] artery [place] vs. transplanted heart: [place] heart Associated angina: without angina Qualified Code(s): I25.10 - Atherosclerotic heart disease of [place] coronary artery without angina pectoris (5) HLD (hyperlipidemia) Code(s): E78.5 - HYPERLIPIDEMIA, UNSPECIFIED Status: Chronic Qualifiers: (6) HTN (hypertension) Code(s): I10 - ESSENTIAL (PRIMARY) HYPERTENSION Status: Chronic Qualifiers: Hypertension type: essential hypertension Qualified Code(s): I10 - Essential (primary) hypertension (7) JESU on CPAP Code(s): G47.33 - OBSTRUCTIVE SLEEP APNEA (ADULT) (PEDIATRIC) Status: Chronic (8) Physical deconditioning Code(s): R53.81 - OTHER MALAISE Status: Chronic (9) CKD (chronic kidney disease), stage III Code(s): N18.30 - CHRONIC KIDNEY DISEASE, STAGE 3 UNSPECIFIED Status: Chronic Qualifiers: Chronic kidney disease stage 3 subtype: stage 3a (GFR 45-59) Qualified Code(s): N18.31 - Chronic kidney disease, stage 3a - Plan Patient is clinically improving. Continue Lasix 40 mg IV 2 times a day. Continue Zaroxolyn 5 mg daily. Continue amiodarone and apixaban. Replace potassium. CPAP while asleep. Cardiology/EP services following.
[2020-11-21] MEDS: Furosemide 40 MG/4 ML VIAL SLOW IVP SCH ×2 (05:48→15:42)
[2020-11-21] MEDS: Atorvastatin Calcium 20 MG TAB PO SCH (09:00)
[2020-11-21] MEDS: Amiodarone 200 MG TAB PO SCH (09:00)
[2020-11-21] MEDS: Gabapentin 300 MG CAP PO SCH (09:00)
[2020-11-21] MEDS: Metolazone 5 MG TAB PO SCH (09:00)
[2020-11-21] MEDS: Cholecalciferol 1,000 UNITS (25 MCG) TAB PO SCH (09:01)
[2020-11-21] MEDS: Apixaban 2.5 MG TAB PO SCH ×2 (09:01→20:35)
[2020-11-21] MEDS: Aspirin 81 mg Enteric Coated Tablet PO SCH (09:01)
[2020-11-21 11:28] LABS: Hemoglobin 12.1 g/dL (14.0-18.0); Mean Corpuscular HGB CONC 31.9 g/dL (32.0-36.0); Mean Corpuscular Hemoglobin 30.4 pg (27.0-31.0); Mean Corpuscular Volume 95.4 fL (78.0-98.0); Mean Platelet Volume 6.8 fL (7.4-10.4); Platelet Count 321 thou/uL (130-400); Red Blood Cell (RBC) Count 3.99 mill/uL (4.70-6.10); White Blood Cell (WBC) Count 12.4 thou/uL (4.8-10.8)
[2020-11-21 11:44] LABS: Band 5 % (5-11); Eosinophils 2 % (0-10); Lymphocytes 12 % (21-51); MDiff Complete? YES; Monocytes 11 % (0-10); Neutrophil 67 % (42-75); RBC Morphology Normal; Reactive Lymphocytes 3 % (0-10)
[2020-11-21 12:00] LABS: Anion Gap 18 mmol/L (10-20); BUN (Urea Nitrogen) 76 mg/dL (8.4-25.7); Calc. Creatinine Clearance 48 mL/min (70-130); Carbon Dioxide 25 mmol/L (23-31); Chloride 99 mmol/L (98-107); Glucose 151 mg/dL (83-110); Potassium 3.2 mmol/L (3.5-5.1); Sodium 139 mmol/L (136-145)
--- NOTE | 2020-11-21 13:30 | PDOC.EP ---
- Subjective Date: 11/21/20 Time: 08:00 Interval History: No overnight events. He is fatigued and feels tired. - Review of Systems Constitutional: reports: weakness. denies: chills, fever Respiratory: reports: cough, shortness of breath. denies: SOB with excertion, sputum, wheezing Cardiology: reports: edema. denies: chest pain, heart racing, light headedness, palpitations Gastrointestinal: denies: abdominal pain, constipation, nausea, vomitting Musculoskeletal: reports: unstable gait. denies: falls, leg pain, foot pain - Objective Allergies/Adverse Reactions: Allergies Allergy/AdvReac Type Severity Reaction Status Date / Time No Known Allergies Allergy Verified 08/04/20 02:26 Current Medications Acetaminophen (Acetaminophen 325 Mg Tab) 650 mg PO Q4H PRN PRN Reason: Headache/Fever/Mild Pain (1-3) Last Admin: 11/20/20 04:44 Dose: 650 mg Documented by: Acetaminophen (Acetaminophen 650 Mg Suppository) 650 mg [place] Q4H PRN PRN Reason: Headache/Fever/Mild Pain (1-3) Amiodarone HCl (Amiodarone 200 Mg Tab) 200 mg PO DAILY [facility] Last Admin: 11/21/20 09:00 Dose: 200 mg Documented by: Apixaban (Apixaban 2.5 Mg Tab) 2.5 mg PO BID [facility] Last Admin: 11/21/20 09:01 Dose: 2.5 mg Documented by: Aspirin (Aspirin 81 Mg Enteric Coated Tablet) 81 mg PO DAILY [facility] Last Admin: 11/21/20 09:01 Dose: 81 mg Documented by: Atorvastatin Calcium (Atorvastatin Calcium 20 Mg Tab) 20 mg PO DAILY [facility] Last Admin: 11/21/20 09:00 Dose: 20 mg Documented by: Bisacodyl (Bisacodyl 5 Mg Tab) 10 mg PO DAILYPRN PRN PRN Reason: Constipation Last Admin: 11/19/20 15:49 Dose: 10 mg Documented by: Calcium Carbonate (Calcium Carbonate 500 Mg Chewtab) 1,000 mg PO Q4H PRN PRN Reason: Heartburn or Indigestion Cholecalciferol (Cholecalciferol 1,000 Units (25 Mcg) Tab) 2,000 units PO DAILY [facility] Last Admin: 11/21/20 09:01 Dose: 2,000 units Documented by: Furosemide (Furosemide 40 Mg/4 Ml Vial) 40 mg SLOW IVP 0600,1400 [facility] Last Admin: 11/21/20 05:48 Dose: 40 mg Documented by: Gabapentin (Gabapentin 300 Mg Cap) 300 mg PO DAILY [facility] Last Admin: 11/21/20 09:00 Dose: 300 mg Documented by: Guaifenesin (Diabetic Tussin 200 Mg/10 Ml Udcup) 200 mg PO Q4H PRN PRN Reason: Cough Hydralazine HCl (Hydralazine 20 Mg/Ml Vial) 10 mg SLOW IVP Q4H PRN PRN Reason: SBP > 180 and HR < 70 Loperamide HCl (Loperamide Hcl 2 Mg Cap) 2 mg PO PRN PRN PRN Reason: Diarrhea/Loose Stools Loratadine (Loratadine 10 Mg Tab) 10 mg PO DAILYPRN PRN PRN Reason: Sinus Symptoms Metoclopramide HCl (Metoclopramide Hcl 10 Mg/2 Ml Vial) 5 mg IVP Q4H PRN PRN Reason: Nausea Metolazone (Metolazone 5 Mg Tab) 5 mg PO 0830 [facility] Last Admin: 11/21/20 09:00 Dose: 5 mg Documented by: Pantoprazole Sodium (Pantoprazole 40 Mg Tab) 40 mg PO BID [facility] Last Admin: 11/21/20 09:01 Dose: 40 mg Documented by: Senna/Docusate Sodium (Senokot S 8.6-50 Mg Tab) 2 tab PO BID PRN PRN Reason: Constipation Last Admin: 11/18/20 19:39 Dose: 2 tab Documented by: Sodium Chloride (Flush - Normal Saline 10 Ml Syringe) 10 ml IVF Q12HR PRN PRN Reason: Saline Flush Last Admin: 11/20/20 20:25 Dose: 10 ml Documented by: Sodium Chloride (Flush - Normal Saline 10 Ml Syringe) 10 ml IVF PRN PRN PRN Reason: Saline Flush Sodium Chloride (Sodium Chloride 0.65% Nasal 44 Ml Bot) 0 ml EA NARE QIDPRN PRN PRN Reason: Nasal Congestion Throat Lozenges (Cepastat Lozenges 1 Bro) 1 bro PO Q2H PRN PRN Reason: Sore Throat Zolpidem Tartrate (Zolpidem Tartrate 5 Mg Tab) 5 mg PO HSPRN PRN PRN Reason: Insomnia Vital Signs & Weight: Vital Signs Temp Pulse Pulse Pulse Resp BP BP 11/21/20 12:01 68 65 142/67 H 128/59 L 11/21/20 11:21 97.7 F 64 18 11/21/20 08:00 97.7 F 66 18 11/21/20 03:52 97.8 F 60 16 BP BP Pulse Ox 11/21/20 12:01 11/21/20 11:21 122/61 93 L 11/21/20 08:00 140/66 94 L 11/21/20 03:52 116/57 L 100 Weight 234 lb 12.8 oz I/O: I/O 11/20/20 11/21/20 11/22/20 06:59 06:59 06:59 Intake Total 1280 Output Total 150 Balance 1130 - Quality Measures CV meds: Eliquis: Yes - Physical Exam General: no apparent distress, speech clear, affect appropriate. negative: appears well HEENT: mucus membranes moist, normocephaly Neck: supple neck, midline trachea, no lymphadenopathy, JVD/HJR Cardiology: regular rate and rhythm, no murmur, PMI nondisplaced Lungs: no wheezes, no rhonchi, decreased breath sounds, bibasilar rales Neurology: cranial nerve 2-12 intact, grossly intact, no lateralizing findings - Chadsvasc Risk factors Congestive heart failure: 1 Age >75: 2 Risk Score: 3 - Labs Result Diagrams: 11/21/20 11:18 11/21/20 11:18 - EKG Interpretation EKG Method: Telemetry EKG shows: Sinus rhythm - Device Device: biventricular, pacemaker Device Result: Medtronic - Assessment/Plan Assessment/Plan: 1. Atrial tachycardia, persisting, ventricular rates 110 to 120 beats per m inute, falling below atrial arrhythmias detect rate, which cannot go below 120 beats per minute, likely contributing to his congestive heart failure onset. 2. 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 3. Left atrial appendage closure via Watchman with shar-device leak persisting despite prior closure attempts, requires ongoing reduced dose of Eliquis 2.5 mg b.i.d. 4. Congestive heart failure, A. Cardiomyopathy with declining LVEF, now 30-35% 5. Hypokalemia. 6. Chronic amiodarone therapy for atrial arrhythmia suppression, likely slowing his atrial tachycardia to the lower rates, but are not detectable by atrial algorithms via his pacemaker. Remains in SR after atrial tachcyardia was pace terminated. If recurrence is seen, will likely require AVJ. Continue amidoarone and eliquis 2.5mg BID I suspect his cardiomyopathy was from the persisting tachycardia with loss of BEEF GRADER pacing. This has been corrected for a few days. Will repeat limited echo to reassess LVEF.
--- NOTE | 2020-11-21 13:41 | PDOC.HOSPP ---
- Subjective Encounter Date: 11/21/20 Encounter Time: 07:00 Subjective: Patient seen for follow-up regarding heart failure exacerbation. He denies chest pain. - Objective Vital Signs & Weight: Vital Signs (12 hours) Temp Pulse Pulse Pulse Resp BP BP 11/21/20 12:01 68 65 142/67 H 128/59 L 11/21/20 11:21 97.7 F 64 18 11/21/20 08:00 97.7 F 66 18 11/21/20 03:52 97.8 F 60 16 BP BP Pulse Ox 11/21/20 12:01 11/21/20 11:21 122/61 93 L 11/21/20 08:00 140/66 94 L 11/21/20 03:52 116/57 L 100 Weight Weight 234 lb 12.8 oz I&O: 11/20/20 11/21/20 11/22/20 06:59 06:59 06:59 Intake Total 1280 Output Total 150 Balance 1130 Result Diagrams: 11/21/20 11:18 11/21/20 11:18 Additional Labs: Accuchecks 11/20/20 13:47 POC Glucose 105 H I reviewed patient's labs and MAR EKG Reviewed by me: Yes (Telemetry: AV paced rhythm) Hospitalist ROS - Review of Systems Cardiovascular: denies: chest pain, palpitations, orthopnea, paroxysmal noc. dyspnea, edema, light headedness Gastrointestinal: denies: nausea, vomiting, abdominal pain, diarrhea, constipation, melena, hematochezia - Medication Medications: Active Medications Generic Name Dose Route Start Last Admin Trade Name Freq PRN Reason Stop Dose Admin Acetaminophen 650 mg 11/17/20 17:26 11/20/20 04:44 Acetaminophen 325 Mg Tab PO 650 mg Q4H PRN Administration Headache/Fever/Mild Pain (1-3) Amiodarone HCl 200 mg 11/18/20 09:00 11/21/20 09:00 Amiodarone 200 Mg Tab PO 200 mg DAILY [facility] Administration Apixaban 2.5 mg 11/18/20 09:00 11/21/20 09:01 Apixaban 2.5 Mg Tab PO 2.5 mg BID [facility] Administration Aspirin 81 mg 11/18/20 09:00 11/21/20 09:01 Aspirin 81 Mg Enteric Coated Tablet PO 81 mg DAILY [facility] Administration Atorvastatin Calcium 20 mg 11/18/20 09:00 11/21/20 09:00 Atorvastatin Calcium 20 Mg Tab PO 20 mg DAILY [facility] Administration Bisacodyl 10 mg 11/18/20 08:37 11/19/20 15:49 Bisacodyl 5 Mg Tab PO 10 mg DAILYPRN PRN Administration Constipation Cholecalciferol 2,000 units 11/18/20 09:00 11/21/20 09:01 Cholecalciferol 1,000 Units (25 Mcg) Tab PO 2,000 units DAILY [facility] Administration Furosemide 40 mg 11/18/20 14:00 11/21/20 05:48 Furosemide 40 Mg/4 Ml Vial SLOW IVP 40 mg 0600,1400 [facility] Administration Gabapentin 300 mg 11/18/20 09:00 11/21/20 09:00 Gabapentin 300 Mg Cap PO 300 mg DAILY [facility] Administration Metolazone 5 mg 11/19/20 08:30 11/21/20 09:00 Metolazone 5 Mg Tab PO 5 mg 0830 [facility] Administration Pantoprazole Sodium 40 mg 11/18/20 09:00 11/21/20 09:01 Pantoprazole 40 Mg Tab PO 40 mg BID [facility] Administration Senna/Docusate Sodium 2 tab 11/18/20 08:37 11/18/20 19:39 Senokot S 8.6-50 Mg Tab PO 2 tab BID PRN Administration Constipation Sodium Chloride 10 ml 11/17/20 17:26 11/20/20 20:25 Flush - Normal Saline 10 Ml Syringe IVF 10 ml Q12HR PRN Administration Saline Flush - Exam General Appearance: awake alert Eye: anicteric sclera ENT: normocephalic atraumatic Neck: supple, no thyromegaly Heart: RRR Respiratory: CTAB Gastrointestinal: soft, non-tender Extremities: 2+ LE edema Skin: no rashes Psychiatric: normal affect Hosp A/P - Plan Hosp A/P (1) Acute on chronic diastolic (congestive) heart failure Code(s): I50.33 - ACUTE ON CHRONIC DIASTOLIC (CONGESTIVE) HEART FAILURE Status: Acute Plan: Patient is now improving with diuresis, (2) Atrial fibrillation with RVR Code(s): I48.91 - UNSPECIFIED ATRIAL FIBRILLATION Status: Acute Plan: Now rate controlled, as per electrophysiology patient also has underlying atrial tachycardia, patient has history of left atrial appendage that was closed with watchman device with leakage around device, because of that patient is on chronic anticoagulation therapy, currently patient is on amiodarone, rate controlled with paroxysmal increase rate (3) Chronic anemia Code(s): D64.9 - ANEMIA, UNSPECIFIED Status: Chronic (4) Coronary artery disease Code(s): I25.10 - ATHSCL HEART DISEASE OF [place] CORONARY ARTERY W/O ANG PCTRS Status: Chronic Qualifiers: Coronary Disease-Associated Artery/Lesion type: [place] artery [place] vs. transplanted heart: [place] heart Associated angina: without angina Qualified Code(s): I25.10 - Atherosclerotic heart disease of [place] coronary artery without angina pectoris (5) HLD (hyperlipidemia) Code(s): E78.5 - HYPERLIPIDEMIA, UNSPECIFIED Status: Chronic Qualifiers: (6) HTN (hypertension) Code(s): I10 - ESSENTIAL (PRIMARY) HYPERTENSION Status: Chronic Qualifiers: Hypertension type: essential hypertension Qualified Code(s): I10 - Essential (primary) hypertension (7) JESU on CPAP Code(s): G47.33 - OBSTRUCTIVE SLEEP APNEA (ADULT) (PEDIATRIC) Status: Chronic (8) Physical deconditioning Code(s): R53.81 - OTHER [place]ISE Status: Chronic (9) CKD (chronic kidney disease), stage III Code(s): N18.30 - CHRONIC KIDNEY DISEASE, STAGE 3 UNSPECIFIED Status: Chronic Qualifiers: Chronic kidney disease stage 3 subtype: stage 3a (GFR 45-59) Qualified Code(s): N18.31 - Chronic kidney disease, stage 3a - Plan Patient is clinically improving. Currently on Zaroxolyn 5 mg daily and furosemide 40 mg IV twice daily. Patient is amiodarone and apixaban. Check labs CPAP while asleep.
--- NOTE | 2020-11-21 16:56 | PRG ---
DATE OF SERVICE: 11/21/2020 SUBJECTIVE: Mr. Valladares states he feels better overall. No current complaints. OBJECTIVE: VITAL SIGNS: Blood pressure 120/59, pulse 64, temperature 97.7. LUNGS: Clear to auscultation. HEART: Regular rate and rhythm. ABDOMEN: Soft, nontender, and nondistended. EXTREMITIES: 2+ pitting edema. PERTINENT LABORATORY DATA: Hemoglobin 12.1, hematocrit 38.1. Creatinine 1.82, potassium 3.2. Echo with doppler dated 11/18/2020, LVEF 30% to 35%. Pacer leads present. IMPRESSION: 1. New-onset cardiomyopathy. 2. Atrial tachycardia. 3. Status post Watchman. RECOMMENDATIONS: I tried to discuss with Mr. Valladares today marked decrease in his LVEF of 30% to 35%. This may be secondary to pacing. We will discuss with Dr. David. He has had an LV lead due to LVEF 40% in the past. I discussed ICD with Mr. Valladares. Mr. Valladares though has difficulty comprehending. I have placed a call . At this point, may consider ICD. Given his comorbidities, may also proceed with a more conservative approach. Otherwise, I have no further recommendations. Job ID: [id number]
[2020-11-22 05:16] LABS: Anion Gap 17 mmol/L (10-20); BUN (Urea Nitrogen) 80 mg/dL (8.4-25.7); Calc. Creatinine Clearance 54 mL/min (70-130); Calcium 8.5 mg/dL (7.8-10.44); Carbon Dioxide 27 mmol/L (23-31); Chloride 97 mmol/L (98-107); Glucose 105 mg/dL (83-110); Sodium 138 mmol/L (136-145)
[2020-11-22 05:20] LABS: Potassium 2.7 mmol/L (3.5-5.1)
[2020-11-22] MEDS ORDERED: Electrolyte Replacement Protocol FS PRN (05:45)
[2020-11-22 05:53] LABS: Band 1 % (5-11); Hemoglobin 11.2 g/dL (14.0-18.0); Hypochromia SLIGHT = 6-15 cells (100X) (0-5/hpf); Lymphocytes 15 % (21-51); MDiff Complete? YES; Mean Corpuscular HGB CONC 31.3 g/dL (32.0-36.0); Mean Corpuscular Hemoglobin 29.3 pg (27.0-31.0); Mean Corpuscular Volume 93.6 fL (78.0-98.0); Monocytes 15 % (0-10); Neutrophil 69 % (42-75); Platelet Count 303 thou/uL (130-400); Platelet Morphology Comment Appears Adequate; RBC Distribution Width 14.9 % (11.5-14.5); Red Blood Cell (RBC) Count 3.84 mill/uL (4.70-6.10); White Blood Cell (WBC) Count 10.9 thou/uL (4.8-10.8)
[2020-11-22] MEDS: Potassium Chloride 20 MEQ TAB PO SCH ×2 (06:06→11:23)
[2020-11-22] MEDS: Furosemide 40 MG/4 ML VIAL SLOW IVP SCH ×2 (06:06→15:52)
[2020-11-22] MEDS: Gabapentin 300 MG CAP PO SCH (11:24)
[2020-11-22] MEDS: Amiodarone 200 MG TAB PO SCH (11:24)
[2020-11-22] MEDS: Cholecalciferol 1,000 UNITS (25 MCG) TAB PO SCH (11:24)
[2020-11-22] MEDS: Atorvastatin Calcium 20 MG TAB PO SCH (11:24)
[2020-11-22] MEDS: Apixaban 2.5 MG TAB PO SCH ×2 (11:24→21:27)
[2020-11-22] MEDS: Aspirin 81 mg Enteric Coated Tablet PO SCH (11:24)
[2020-11-22] MEDS: Metolazone 5 MG TAB PO SCH (11:24)
--- NOTE | 2020-11-22 11:35 | PDOC.EP ---
- Subjective Date: 11/22/20 Time: 11:20 Interval History: 1. Recurrent Atrial arrhythmias. 1a. History of PVAI. 1b. Recurrent atrial arrhythmia supressed with amiodarone. 1c. Slow Atrial tachycardia, persisting despite amiodarone, ventricular rates 110 to 120 beats per minute, falling below atrial arrhythmias detect rate, but not tracked by device Biv pacing. 1d. Manual pace termination of atrial tachycardia, increasing max tracking rate to 125 beats per minute. 2. 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 3. Left atrial appendage closure via Watchman with shar-device leak persisting despite prior closure attempts, requires ongoing reduced dose of Eliquis 2.5 mg b.i.d. 4. Acute on chronic systolic congestive heart failure, A. Nonischemic cardiomyopathy with declining LVEF, now 30-35% Remains in SR after atrial tachcyardia was pace terminated. If recurrence is seen, will likely require AVJ ablation. Continue amidoarone and eliquis 2.5mg BID Worsening cardiomyopathy/LVEF may have been contributed by persisting atrial tachycardia with loss of BEVEL GEAR GENERATOR OPERATOR pacing. This has been corrected for a few days. Expecting improvement in future. Life vest is an option, likely limited benefit in this frail elderly man with Comorbidities and DNR status. Dr Regan plans to address this option with family. prison Biv ICD upgrade is an option if LVEF remains <=35% after 3 months of BiV pacing and GDMT. Discussed with Dr Perea hospitalist and dr Regan. EP would sign off. Follow up in office in 6-7 weeks. Call if can be further help. - Objective Allergies/Adverse Reactions: Allergies Allergy/AdvReac Type Severity Reaction Status Date / Time No Known Allergies Allergy Verified 08/04/20 02:26 Current Medications Acetaminophen (Acetaminophen 325 Mg Tab) 650 mg PO Q4H PRN PRN Reason: Headache/Fever/Mild Pain (1-3) Last Admin: 11/20/20 04:44 Dose: 650 mg Documented by: Acetaminophen (Acetaminophen 650 Mg Suppository) 650 mg [place] Q4H PRN PRN Reason: Headache/Fever/Mild Pain (1-3) Amiodarone HCl (Amiodarone 200 Mg Tab) 200 mg PO DAILY [facility] Last Admin: 11/21/20 09:00 Dose: 200 mg Documented by: Apixaban (Apixaban 2.5 Mg Tab) 2.5 mg PO BID [facility] Last Admin: 11/21/20 20:35 Dose: 2.5 mg Documented by: Aspirin (Aspirin 81 Mg Enteric Coated Tablet) 81 mg PO DAILY [facility] Last Admin: 11/21/20 09:01 Dose: 81 mg Documented by: Atorvastatin Calcium (Atorvastatin Calcium 20 Mg Tab) 20 mg PO DAILY [facility] Last Admin: 11/21/20 09:00 Dose: 20 mg Documented by: Bisacodyl (Bisacodyl 5 Mg Tab) 10 mg PO DAILYPRN PRN PRN Reason: Constipation Last Admin: 11/19/20 15:49 Dose: 10 mg Documented by: Calcium Carbonate (Calcium Carbonate 500 Mg Chewtab) 1,000 mg PO Q4H PRN PRN Reason: Heartburn or Indigestion Cholecalciferol (Cholecalciferol 1,000 Units (25 Mcg) Tab) 2,000 units PO DAILY [facility] Last Admin: 11/21/20 09:01 Dose: 2,000 units Documented by: Furosemide (Furosemide 40 Mg/4 Ml Vial) 40 mg SLOW IVP 0600,1400 [facility] Last Admin: 11/22/20 06:06 Dose: 40 mg Documented by: Gabapentin (Gabapentin 300 Mg Cap) 300 mg PO DAILY [facility] Last Admin: 11/21/20 09:00 Dose: 300 mg Documented by: Guaifenesin (Diabetic Tussin 200 Mg/10 Ml Udcup) 200 mg PO Q4H PRN PRN Reason: Cough Hydralazine HCl (Hydralazine 20 Mg/Ml Vial) 10 mg SLOW IVP Q4H PRN PRN Reason: SBP > 180 and HR < 70 Loperamide HCl (Loperamide Hcl 2 Mg Cap) 2 mg PO PRN PRN PRN Reason: Diarrhea/Loose Stools Loratadine (Loratadine 10 Mg Tab) 10 mg PO DAILYPRN PRN PRN Reason: Sinus Symptoms Metoclopramide HCl (Metoclopramide Hcl 10 Mg/2 Ml Vial) 5 mg IVP Q4H PRN PRN Reason: Nausea Metolazone (Metolazone 5 Mg Tab) 5 mg PO 0830 [facility] Last Admin: 11/21/20 09:00 Dose: 5 mg Documented by: Miscellaneous Medication (Electrolyte Replacement Protocol) 0 each FS ASDIR PRN; Protocol PRN Reason: ELECTROLYTE REPLACEMENT Pantoprazole Sodium (Pantoprazole 40 Mg Tab) 40 mg PO BID [facility] Last Admin: 11/21/20 20:35 Dose: 40 mg Documented by: Senna/Docusate Sodium (Senokot S 8.6-50 Mg Tab) 2 tab PO BID PRN PRN Reason: Constipation Last Admin: 11/18/20 19:39 Dose: 2 tab Documented by: Sodium Chloride (Flush - Normal Saline 10 Ml Syringe) 10 ml IVF Q12HR PRN PRN Reason: Saline Flush Last Admin: 11/21/20 20:35 Dose: 10 ml Documented by: Sodium Chloride (Flush - Normal Saline 10 Ml Syringe) 10 ml IVF PRN PRN PRN Reason: Saline Flush Sodium Chloride (Sodium Chloride 0.65% Nasal 44 Ml Bot) 0 ml EA NARE QIDPRN PRN PRN Reason: Nasal Congestion Throat Lozenges (Cepastat Lozenges 1 Bor) 1 bro PO Q2H PRN PRN Reason: Sore Throat Zolpidem Tartrate (Zolpidem Tartrate 5 Mg Tab) 5 mg PO HSPRN PRN PRN Reason: Insomnia Vital Signs & Weight: Vital Signs Temp Pulse Resp BP Pulse Ox 11/22/20 07:20 93 L 11/22/20 07:19 98.5 F 60 18 121/57 L 93 L 11/22/20 04:00 98.6 F 64 16 120/58 L 100 11/21/20 23:40 17 100 Weight 234 lb 6.4 oz I/O: I/O 11/21/20 11/22/20 11/23/20 06:59 06:59 06:59 Intake Total 600 Output Total 800 Balance -200 - Quality Measures CV meds: Eliquis: Yes - Labs Result Diagrams: 11/22/20 04:26 11/22/20 04:26
--- NOTE | 2020-11-22 13:13 | PRG ---
DATE OF SERVICE: 11/22/2020 SUBJECTIVE: Mr. Valladares is currently stable. No current complaints. OBJECTIVE: VITAL SIGNS: Blood pressure 134/63, pulse 65, temperature 97.7. Physical exam deferred. PERTINENT LABORATORY DATA: Hemoglobin 11.2. Creatinine 1.6. IMPRESSION: 1. New onset cardiomyopathy. 2. Atrial flutter. 3. Coronary artery disease. RECOMMENDATIONS: Mr. Valladares has difficulty with hearing and also has some confusion. I discussed the findings of the echo with [place], his daughter. After risks and benefits of proceeding with LifeVest, it was decided to opt for conservative therapy. No LifeVest will be recommended. 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 I would recommend repeat echo in the next 1 to 2 months after appropriate medical therapy. Continue amiodarone in addition to Eliquis and aspirin. Recommend adding low-dose Coreg. Creatinine is slightly elevated, so we will defer AMILCAR inhibitor therapy and ARB. Plan is to follow up with Mr. Valladares in the next 1 to 2 weeks in the office. I will sign off. Job ID: [id number]
--- NOTE | 2020-11-22 16:24 | PDOC.HOSPP ---
- Subjective Encounter Date: 11/22/20 Encounter Time: 08:00 Subjective: Patient seen for follow-up regarding CHF exacerbation. Sleepy but arousable, denies any complaints. - Objective Vital Signs & Weight: Vital Signs (12 hours) Temp Pulse Resp BP Pulse Ox 11/22/20 16:13 98 F 68 18 158/77 H 98 11/22/20 11:53 97.7 F 65 18 134/63 99 11/22/20 07:20 93 L 11/22/20 07:19 98.5 F 60 18 121/57 L 93 L Weight Weight 234 lb 6.4 oz I&O: 11/21/20 11/22/20 11/23/20 06:59 06:59 06:59 Intake Total 600 Output Total 800 Balance -200 Result Diagrams: 11/22/20 04:26 11/22/20 04:26 Additional Labs: Labs and MAR reviewed by me EKG Reviewed by me: Yes (AV paced on telemetry) Hospitalist ROS - Review of Systems Cardiovascular: denies: chest pain, palpitations, orthopnea, paroxysmal noc. dyspnea, edema, light headedness Gastrointestinal: denies: nausea, vomiting, abdominal pain, diarrhea, constipation, melena, hematochezia - Medication Medications: Active Medications Generic Name Dose Route Start Last Admin Trade Name Freq PRN Reason Stop Dose Admin Acetaminophen 650 mg 11/17/20 17:26 11/20/20 04:44 Acetaminophen 325 Mg Tab PO 650 mg Q4H PRN Administration Headache/Fever/Mild Pain (1-3) Amiodarone HCl 200 mg 11/18/20 09:00 11/22/20 11:24 Amiodarone 200 Mg Tab PO 200 mg DAILY LAVON Administration Apixaban 2.5 mg 11/18/20 09:00 11/22/20 11:24 Apixaban 2.5 Mg Tab PO 2.5 mg BID LAVON Administration Aspirin 81 mg 11/18/20 09:00 11/22/20 11:24 Aspirin 81 Mg Enteric Coated Tablet PO 81 mg DAILY LAVON Administration Atorvastatin Calcium 20 mg 11/18/20 09:00 11/22/20 11:24 Atorvastatin Calcium 20 Mg Tab PO 20 mg DAILY LAVON Administration Bisacodyl 10 mg 11/18/20 08:37 11/19/20 15:49 Bisacodyl 5 Mg Tab PO 10 mg DAILYPRN PRN Administration Constipation Cholecalciferol 2,000 units 11/18/20 09:00 11/22/20 11:24 Cholecalciferol 1,000 Units (25 Mcg) Tab PO 2,000 units DAILY LAVON Administration Furosemide 40 mg 11/18/20 14:00 11/22/20 15:52 Furosemide 40 Mg/4 Ml Vial SLOW IVP 40 mg 0600,1400 LAVON Administration Gabapentin 300 mg 11/18/20 09:00 11/22/20 11:24 Gabapentin 300 Mg Cap PO 300 mg DAILY LAVON Administration Metolazone 5 mg 11/19/20 08:30 11/22/20 11:24 Metolazone 5 Mg Tab PO 5 mg 0830 LAVON Administration Pantoprazole Sodium 40 mg 11/18/20 09:00 11/22/20 11:24 Pantoprazole 40 Mg Tab PO 40 mg BID LAVON Administration Senna/Docusate Sodium 2 tab 11/18/20 08:37 11/18/20 19:39 Senokot S 8.6-50 Mg Tab PO 2 tab BID PRN Administration Constipation Sodium Chloride 10 ml 11/17/20 17:26 11/21/20 20:35 Flush - Normal Saline 10 Ml Syringe IVF 10 ml Q12HR PRN Administration Saline Flush - Exam General Appearance: awake alert ENT: moist mucosa Neck: supple Heart: RRR Respiratory: CTAB Extremities: 2+ LE edema Skin: no rashes Psychiatric: normal affect Hosp A/P - Plan Hosp A/P (1) Acute on chronic diastolic (congestive) heart failure Code(s): I50.33 - ACUTE ON CHRONIC DIASTOLIC (CONGESTIVE) HEART FAILURE Status: Acute Plan: Patient is now improving with diuresis, (2) Atrial fibrillation with RVR Code(s): I48.91 - UNSPECIFIED ATRIAL FIBRILLATION Status: Acute Plan: Now rate controlled, as per electrophysiology patient also has underlying atrial tachycardia, patient has history of left atrial appendage that was closed with watchman device with leakage around device, because of that patient is on chronic anticoagulation therapy, currently patient is on amiodarone, rate controlled with paroxysmal increase rate (3) Chronic anemia Code(s): D64.9 - ANEMIA, UNSPECIFIED Status: Chronic (4) Coronary artery disease Code(s): I25.10 - ATHSCL HEART DISEASE OF [place] CORONARY ARTERY W/O ANG PCTRS Status: Chronic Qualifiers: Coronary Disease-Associated Artery/Lesion type: [place] artery [place] vs. transplanted heart: [place] heart Associated angina: without angina Qualified Code(s): I25.10 - Atherosclerotic heart disease of [place] coronary artery without angina pectoris (5) HLD (hyperlipidemia) Code(s): E78.5 - HYPERLIPIDEMIA, UNSPECIFIED Status: Chronic Qualifiers: (6) HTN (hypertension) Code(s): I10 - ESSENTIAL (PRIMARY) HYPERTENSION Status: Chronic Qualifiers: Hypertension type: essential hypertension Qualified Code(s): I10 - Essential (primary) hypertension (7) JESU on CPAP Code(s): G47.33 - OBSTRUCTIVE SLEEP APNEA (ADULT) (PEDIATRIC) Status: Chronic (8) Physical deconditioning Code(s): R53.81 - OTHER MALAISE Status: Chronic (9) CKD (chronic kidney disease), stage III Code(s): N18.30 - CHRONIC KIDNEY DISEASE, STAGE 3 UNSPECIFIED Status: Chronic Qualifiers: Chronic kidney disease stage 3 subtype: stage 3a (GFR 45-59) Qualified Code(s): N18.31 - Chronic kidney disease, stage 3a - Plan Patient is clinically improving. Continue Zaroxolyn 5 mg orally daily and furosemide 40 mg IV twice daily. Patient is amiodarone and apixaban. Replace potassium. CPAP while asleep. Cardiology/EP service is following.
[2020-11-22] MEDS: Carvedilol 3.125 MG TAB PO SCH (21:27)
[2020-11-23 04:17] LABS: Anion Gap 17 mmol/L (10-20); BUN (Urea Nitrogen) 79 mg/dL (8.4-25.7); Calc. Creatinine Clearance 55 mL/min (70-130); Calcium 8.8 mg/dL (7.8-10.44); Carbon Dioxide 26 mmol/L (23-31); Chloride 97 mmol/L (98-107); Glucose 104 mg/dL (83-110); Potassium 3.3 mmol/L (3.5-5.1); Sodium 137 mmol/L (136-145)
[2020-11-23 04:31] LABS: Hemoglobin 11.9 g/dL (14.0-18.0); Lymphocytes 12 % (21-51); MDiff Complete? YES; Mean Corpuscular HGB CONC 32.3 g/dL (32.0-36.0); Mean Corpuscular Hemoglobin 30.1 pg (27.0-31.0); Mean Corpuscular Volume 93.2 fL (78.0-98.0); Mean Platelet Volume 6.7 fL (7.4-10.4); Monocytes 10 % (0-10); Neutrophil 78 % (42-75); Platelet Count 311 thou/uL (130-400); RBC Distribution Width 14.8 % (11.5-14.5); Red Blood Cell (RBC) Count 3.95 mill/uL (4.70-6.10); White Blood Cell (WBC) Count 15.2 thou/uL (4.8-10.8)
[2020-11-23] MEDS: Acetaminophen 325 MG TAB PO PRN ×2 (05:38→13:09)
[2020-11-23] MEDS: Furosemide 40 MG/4 ML VIAL SLOW IVP SCH ×2 (05:39→13:10)
[2020-11-23] MEDS ORDERED: Cyclobenzaprine 10 MG TAB PO SCH ×2 (06:15→20:15)
[2020-11-23] MEDS ORDERED: Potassium Chloride 20 MEQ TAB PO SCH (06:30)
[2020-11-23] MEDS: Aspirin 81 mg Enteric Coated Tablet PO SCH (09:33)
[2020-11-23] MEDS: Atorvastatin Calcium 20 MG TAB PO SCH (09:33)
[2020-11-23] MEDS: Carvedilol 3.125 MG TAB PO SCH ×2 (09:33→21:17)
[2020-11-23] MEDS: Cholecalciferol 1,000 UNITS (25 MCG) TAB PO SCH (09:33)
[2020-11-23] MEDS: Amiodarone 200 MG TAB PO SCH (09:34)
[2020-11-23] MEDS: Apixaban 2.5 MG TAB PO SCH ×2 (09:34→21:17)
[2020-11-23] MEDS: Metolazone 5 MG TAB PO SCH (09:34)
[2020-11-23] MEDS: Gabapentin 300 MG CAP PO SCH (09:34)
[2020-11-23 17:35] LABS: Bilirubin Negative (Negative); Blood, Urine Negative (Negative); Clarity Clear (Clear); Glucose, Urine (Dipstick) Normal (Negative); Ketone, Urine Negative (Negative); Leukocyte Negative Leu/uL (Negative); Nitrite Negative (Negative); Protein, Urine (Dipstick) Negative (Neg-Trace); Specific Gravity, Urine 1.013 (1.002-1.036); Urobilinogen Normal mg/dL (Less than 2); pH, Urine 7.5 (5.0-9.0)
--- NOTE | 2020-11-23 17:51 | PDOC.HOSPP ---
- Subjective Encounter Date: 11/23/20 Encounter Time: 13:30 Subjective: Patient seen in follow-up for CHF exacerbation. Sleepy but arousable, no complaints. - Objective Vital Signs & Weight: Vital Signs (12 hours) Temp Pulse Resp BP Pulse Ox 11/23/20 13:00 60 118/58 L 99 11/23/20 08:08 97.6 F 60 20 134/60 98 Weight Weight 232 lb 9.6 oz I&O: 11/22/20 11/23/20 11/24/20 06:59 06:59 06:59 Intake Total 600 500 720 Output Total 800 1550 1850 Balance -200 -5030 -1130 Result Diagrams: 11/23/20 03:42 11/23/20 03:42 Additional Labs: I reviewed patient's labs and MAR EKG Reviewed by me: Yes (Telemetry: AV paced) Hospitalist ROS - Review of Systems Cardiovascular: denies: chest pain, palpitations, orthopnea, paroxysmal noc. dyspnea, light headedness Gastrointestinal: denies: nausea, vomiting, abdominal pain, diarrhea, constipation, melena, hematochezia - Medication Medications: Active Medications Generic Name Dose Route Start Last Admin Trade Name Freq PRN Reason Stop Dose Admin Acetaminophen 650 mg 11/17/20 17:26 11/23/20 13:09 Acetaminophen 325 Mg Tab PO 650 mg Q4H PRN Administration Headache/Fever/Mild Pain (1-3) Amiodarone HCl 200 mg 11/18/20 09:00 11/23/20 09:34 Amiodarone 200 Mg Tab PO 200 mg DAILY LAVON Administration Apixaban 2.5 mg 11/18/20 09:00 11/23/20 09:34 Apixaban 2.5 Mg Tab PO 2.5 mg BID LAVON Administration Aspirin 81 mg 11/18/20 09:00 11/23/20 09:33 Aspirin 81 Mg Enteric Coated Tablet PO 81 mg DAILY LAVON Administration Atorvastatin Calcium 20 mg 11/18/20 09:00 11/23/20 09:33 Atorvastatin Calcium 20 Mg Tab PO 20 mg DAILY LAVON Administration Bisacodyl 10 mg 11/18/20 08:37 11/19/20 15:49 Bisacodyl 5 Mg Tab PO 10 mg DAILYPRN PRN Administration Constipation Carvedilol 3.125 mg 11/22/20 21:00 11/23/20 09:33 Carvedilol 3.125 Mg Tab PO 3.125 mg BID LAVON Administration Cholecalciferol 2,000 units 11/18/20 09:00 11/23/20 09:33 Cholecalciferol 1,000 Units (25 Mcg) Tab PO 2,000 units DAILY LAVON Administration Furosemide 40 mg 11/18/20 14:00 11/23/20 13:10 Furosemide 40 Mg/4 Ml Vial SLOW IVP 40 mg 0600,1400 LAVON Administration Gabapentin 300 mg 11/18/20 09:00 11/23/20 09:34 Gabapentin 300 Mg Cap PO 300 mg DAILY LAVON Administration Metolazone 5 mg 11/19/20 08:30 11/23/20 09:34 Metolazone 5 Mg Tab PO 5 mg 0830 LAVON Administration Pantoprazole Sodium 40 mg 11/18/20 09:00 11/23/20 09:35 Pantoprazole 40 Mg Tab PO 40 mg BID LAVON Administration Senna/Docusate Sodium 2 tab 11/18/20 08:37 11/18/20 19:39 Senokot S 8.6-50 Mg Tab PO 2 tab BID PRN Administration Constipation Sodium Chloride 10 ml 11/17/20 17:26 11/21/20 20:35 Flush - Normal Saline 10 Ml Syringe IVF 10 ml Q12HR PRN Administration Saline Flush Sodium Chloride 10 ml 11/17/20 17:26 11/23/20 05:39 Flush - Normal Saline 10 Ml Syringe IVF 10 ml PRN PRN Administration Saline Flush - Exam General Appearance: awake alert Eye: anicteric sclera ENT: moist mucosa Neck: supple Heart: RRR Respiratory: CTAB Gastrointestinal: soft Skin: no rashes Psychiatric: normal affect Hosp A/P - Plan Hosp A/P (1) Acute on chronic diastolic (congestive) heart failure Code(s): I50.33 - ACUTE ON CHRONIC DIASTOLIC (CONGESTIVE) HEART FAILURE Status: Acute Plan: Patient is now improving with diuresis, (2) Atrial fibrillation with RVR Code(s): I48.91 - UNSPECIFIED ATRIAL FIBRILLATION Status: Acute Plan: Now rate controlled, as per electrophysiology patient also has underlying atrial tachycardia, patient has history of left atrial appendage that was closed with watchman device with leakage around device, because of that patient is on chronic anticoagulation therapy, currently patient is on amiodarone, rate controlled with paroxysmal increase rate (3) Chronic anemia Code(s): D64.9 - ANEMIA, UNSPECIFIED Status: Chronic (4) Coronary artery disease Code(s): I25.10 - ATHSCL HEART DISEASE OF [place] CORONARY ARTERY W/O ANG PCTRS Status: Chronic Qualifiers: Coronary Disease-Associated Artery/Lesion type: [place] artery [place] vs. transplanted heart: [place] heart Associated angina: without angina Qualified Code(s): I25.10 - Atherosclerotic heart disease of [place] coronary artery without angina pectoris (5) HLD (hyperlipidemia) Code(s): E78.5 - HYPERLIPIDEMIA, UNSPECIFIED Status: Chronic Qualifiers: (6) HTN (hypertension) Code(s): I10 - ESSENTIAL (PRIMARY) HYPERTENSION Status: Chronic Qualifiers: Hypertension type: essential hypertension Qualified Code(s): I10 - Essential (primary) hypertension (7) JESU on CPAP Code(s): G47.33 - OBSTRUCTIVE SLEEP APNEA (ADULT) (PEDIATRIC) Status: Chronic (8) Physical deconditioning Code(s): R53.81 - OTHER [place] Status: Chronic (9) CKD (chronic kidney disease), stage III Code(s): N18.30 - CHRONIC KIDNEY DISEASE, STAGE 3 UNSPECIFIED Status: Chronic Qualifiers: Chronic kidney disease stage 3 subtype: stage 3a (GFR 45-59) Qualified Code(s): N18.31 - Chronic kidney disease, stage 3a - Plan Patient is clinically improving. Continue furosemide and Zaroxolyn. Patient is amiodarone and apixaban. Potassium replaced. CPAP while asleep. No significant change on repeat echocardiogram.
[2020-11-24 05:30] LABS: Anion Gap 15 mmol/L (10-20); BUN (Urea Nitrogen) 90 mg/dL (8.4-25.7); Calc. Creatinine Clearance 49 mL/min (70-130); Calcium 8.9 mg/dL (7.8-10.44); Carbon Dioxide 26 mmol/L (23-31); Chloride 99 mmol/L (98-107); Glucose 96 mg/dL (83-110); Potassium 3.1 mmol/L (3.5-5.1); Sodium 137 mmol/L (136-145)
[2020-11-24] MEDS: Furosemide 40 MG/4 ML VIAL SLOW IVP SCH ×2 (05:50→13:41)
[2020-11-24 06:28] LABS: Eosinophils 2 % (0-10); Hemoglobin 11.8 g/dL (14.0-18.0); Lymphocytes 14 % (21-51); MDiff Complete? YES; Mean Corpuscular HGB CONC 31.7 g/dL (32.0-36.0); Mean Corpuscular Hemoglobin 29.6 pg (27.0-31.0); Mean Corpuscular Volume 93.3 fL (78.0-98.0); Monocytes 12 % (0-10); Neutrophil 72 % (42-75); Platelet Count 317 thou/uL (130-400); Platelet Morphology Comment Appears Adequate; RBC Distribution Width 14.6 % (11.5-14.5); RBC Morphology Normal; Red Blood Cell (RBC) Count 3.99 mill/uL (4.70-6.10); White Blood Cell (WBC) Count 14.6 thou/uL (4.8-10.8)
[2020-11-24] MEDS ORDERED: Potassium Chloride 20 MEQ TAB PO SCH (06:45)
[2020-11-24] MEDS: Cholecalciferol 1,000 UNITS (25 MCG) TAB PO SCH (09:32)
[2020-11-24] MEDS: Atorvastatin Calcium 20 MG TAB PO SCH (09:33)
[2020-11-24] MEDS: Apixaban 2.5 MG TAB PO SCH (09:33)
[2020-11-24] MEDS: Gabapentin 300 MG CAP PO SCH (09:33)
[2020-11-24] MEDS: Carvedilol 3.125 MG TAB PO SCH (09:33)
[2020-11-24] MEDS: Amiodarone 200 MG TAB PO SCH (09:34)
[2020-11-24] MEDS: Aspirin 81 mg Enteric Coated Tablet PO SCH (09:34)
[2020-11-24] MEDS: Metolazone 5 MG TAB PO SCH (09:34)
[2020-11-24] MEDS: Acetaminophen 325 MG TAB PO PRN (09:34)
[2020-11-24 12:58] VITALS: BP 108/60; TEMP 97.2
--- NOTE | 2020-11-24 13:16 | PDOC.DS.DS ---
Provider - Provider Date of Admission: 11/17/20 16:15 Date of Discharge: 11/24/20 Admitting Provider: Barrett Patton MD Consultations: Cardiology (Dr. Regan), Other (Electrophysiology: Dr. David) Primary Care Physician: Alex Lundberg MD Course - Hospital Course Hospital Course: Discharge diagnosis: 1. Acute on chronic systolic congestive heart failure NYHA class III 2. Recurrent atrial arrhythmias 3. Hypokalemia 4. Physical deconditioning 5. Acute on chronic stage III renal failure 6. Cardiomyopathy Hospital course: Patient is a pleasant 79-year-old gentleman who was admitted to the hospital on November 17, 2020 for congestive heart failure exacerbation as well as atrial tachycardia. He was seen by cardiology and electrophysiology services. He was treated with intravenous diuretics. 2D echocardiogram was done on November 18 as well as on . Left ventricle ejection fraction was 30 to 35%. He was offered LifeVest. However, family declined LifeVest. He was also physically deconditioned. He was advised shelter facility for therapy. Family wished to take him home with home health. Arrangements are being made for the same. He has been started on a beta-katie. He has not been started on AMILCAR inhibitor or ARB secondary to renal failure. Many thanks for allowing me to participate in your patient's care. Please feel free to contact me with any questions or concerns. Discharge destination: Home Total amount of time spent coordinating this discharge: 32 minutes Resuscitation Status: 11/18/20 08:39 Resuscitation Status Routine Resuscitation Status: DNAR: NO Resuscitation Discussed with: discussed with mpoa - Labs Lab Results: 11/24/20 04:33 11/24/20 04:33 Abnormal Lab Results - Last 48 hrs 11/23/20 03:42: Potassium 3.3 L, Chloride 97 L, BUN 79 H, Creatinine 1.59 H 11/23/20 03:42: WBC 15.2 H, RBC 3.95 L, Hgb 11.9 L, Hct 36.8 L, RDW 14.8 H, MPV 6.7 L, Neutrophils % (Manual) 78 H, Lymphocytes % (Manual) 12 L 11/24/20 04:33: Potassium 3.1 L, BUN 90 H, Creatinine 1.76 H 11/24/20 04:33: WBC 14.6 H, RBC 3.99 L, Hgb 11.8 L, Hct 37.2 L, MCHC 31.7 L, RDW 14.6 H, MPV 7.0 L, Lymphocytes % (Manual) 14 L, Monocytes % (Manual) 12 H - Physical Exam Vitals: Vital Signs (12 hours) Temp Pulse Resp BP Pulse Ox 11/24/20 12:00 97.2 F L 60 17 108/60 99 11/24/20 08:00 97.0 F L 61 16 99 11/24/20 04:00 97.4 F L 60 22 H 132/60 100 Weight Weight 226 lb Physical Exam: The patient was seen and examined on the day of discharge. Patient denies chest pain or shortness of breath. Vital signs are stable. S1 and S2 are heard. Lungs are clear to auscultation bilaterally. Plan - Discharge Medications Prescriptions: Carvedilol [Coreg] 3.125 mg PO BID #60 tab Potassium Chloride [Klor-Con 10] 10 meq PO DAILY #30 tab Home Medications: Medication Instructions Recorded Confirmed Type Atorvastatin Calcium 20 mg PO DAILY 11/25/15 11/17/20 History Acetaminophen [Tylenol Extra 650 mg PO Q4H PRN 07/08/20 11/17/20 History Strength] Cholecalciferol (Vitamin D3) 2,000 units PO DAILY 07/08/20 11/17/20 History [Vitamin D3] Amiodarone [Cordarone] 200 mg PO DAILY tab 07/28/20 11/17/20 Rx Benzocaine/Menthol [Sore Throat 1 each MM BID PRN 08/03/20 11/17/20 History Lozenge] Apixaban [Eliquis] 2.5 mg PO BID 11/17/20 11/17/20 History Aspirin [Aspirin EC] 81 mg PO DAILY 11/17/20 11/17/20 History Ferrous Sulfate, Dried [Iron] 65 mg PO DAILY 11/17/20 11/17/20 History Furosemide 40 mg PO DAILY 11/17/20 11/17/20 History Gabapentin 300 mg PO DAILY 11/17/20 11/17/20 History Lactobacillus Acidophilus 1 capsule PO DAILY 11/17/20 11/17/20 History [Probiotic] Metolazone [Zaroxolyn] 5 mg PO PRN PRN 11/17/20 11/17/20 History Pantoprazole [Protonix] 40 mg PO BID 11/17/20 11/17/20 History Sennosides [Senokot] 2 tab PO DAILY PRN 11/17/20 11/17/20 History Carvedilol [Coreg] 3.125 mg PO BID #60 tab 11/24/20 Rx Potassium Chloride [Klor-Con 10] 10 meq PO DAILY #30 tab 11/24/20 Rx Allergies: No Known Allergies Allergy (Verified 08/04/20 02:26) - Discharge Instructions Discharge Instructions:: It is very important to make sure to wear your CPAP any time your are sleeping or napping to prevent you from having further breathing issues. Activity:: Activity as Tolerated Nourishment:: Heart Healthy Diet, Low Sodium Diet - Follow up Plan Referrals: [facility] [Outside] (Currently receiving home health services.) Alex Lundberg MD [Primary Care Provider] - (Please call the office to schedule a follow up appointment with your primary care provider.) Disposition: HOME Quality - Care Measures CORE MEASURES:: HF - Stroke/TIA Did you prescribe antithrombotic therapy?: Yes Did you prescribe anticoagulant for A Fib/Flutter?: Yes Did you prescribe a statin medication?: Yes
== END 2020-11-24 15:00 | disposition home health service (06) | DRG 291 ==
LOC: ERS 13:16 → ERHOLD 16:15 → 2NO 20:22
PROVIDERS: ADMIT Internal Medicine; ATTEND Internal Medicine
PROC: 4B02XSZ Measurement of Cardiac Pacemaker, External Approach (ICD-10-PCS; principal; 2020-11-18)
PROC: 5A09357 Assistance with Respiratory Ventilation, Less than 24 Consecutive Hours, Continuous Positive Airway Pressure (ICD-10-PCS; 2020-11-18)
DX: I13.0 Hypertensive heart and chronic kidney disease with heart failure and stage 1 through stage 4 chronic kidney disease, or unspecified chronic kidney disease (principal); I50.43 Acute on chronic combined systolic (congestive) and diastolic (congestive) heart failure; N17.9 Acute kidney failure, unspecified; I47.1 Supraventricular tachycardia; I48.92 Unspecified atrial flutter; Z66 Do not resuscitate; Z20.822 Contact with and (suspected) exposure to COVID-19; E87.6 Hypokalemia; N18.30 Chronic kidney disease, stage 3 unspecified; I08.3 Combined rheumatic disorders of mitral, aortic and tricuspid valves; I25.10 Atherosclerotic heart disease of native coronary artery without angina pectoris; I48.91 Unspecified atrial fibrillation; D63.1 Anemia in chronic kidney disease; E78.5 Hyperlipidemia, unspecified; I42.8 Other cardiomyopathies; G47.33 Obstructive sleep apnea (adult) (pediatric); I44.7 Left bundle-branch block, unspecified; E66.01 Morbid (severe) obesity due to excess calories; Z68.36 Body mass index [BMI] 36.0-36.9, adult; Z90.49 Acquired absence of other specified parts of digestive tract; Z95.0 Presence of cardiac pacemaker; Z79.899 Other long term (current) drug therapy; Z79.01 Long term (current) use of anticoagulants; Z79.82 Long term (current) use of aspirin; Z91.09 Other allergy status, other than to drugs and biological substances; Z95.5 Presence of coronary angioplasty implant and graft
CPT/HCPCS: 36415; 36416; 71045; 80048; 80053; 81001; 81003; 83605; 83735; 83880; 84484; 85025; 85379; 86140; 87635; 93005; 93306; 93970; 96374; J1644; J1940; J3480; U0003; U0005